=== PATIENT | female | born 1960 | race Caucasian/White ===

== ENCOUNTER 2025-07-04 14:10 | Outpatient (AMB) | payer OTHER, SELFPAY ==
--- OUTSIDE RECORDS SUMMARY | 2025-05-02 04:30 | XMS_ITS ---
Author Organization [facility] Address [address] [place] [address] Care Team Providers Care Rejogger Name Role Phone Manuel Sumiankita Primary Care Provider Unavailab INOCENTE Laguerre Unavailable [phone] KIAN KIM Unavailable [phone] REASON FOR VISIT pt presents for nurse visit. sema .5mg administered. pt tolerated well, consent form signed Medications Medication SIG (Take, Route, Frequency, Duration) Notes Start Date End Date Status amLODIPine Besylate 5 MG Oral; Duration: 90 Days Active Vitamin D3 50 MCG 1 capsule Orally Onc e a day; Duration: 30 day(s) 09/15/2024 Active Estradiol Vaginal insert Activ e Curcumin 95 Active Semaglutide(0.25 or 0.5MG/DOS) 2 MG/3ML as directed Subcutaneous Active Encounters Encounter Location Date Provider Diagnosis [facility] [address] [place] [address] 05/02/2025 KIAN KIM Plan Of Treatment Next Appt Details Provider Name:INOCENTE MEDEL , 08/16/2025 09:30:00 AM, [address] [facility], [facility] [address], [place], [address], Medications Administered Medication Instructions Date of Administration Dosage Notes Semaglutide 05/02/2025 .5 mg Progress Notes * Corie LYONS BDOB:[birth year] (64 yo F)Acc No.[id number]:05/02/2025 Patient: Ankita Corie VELÁZQUEZ Provider: Norm Kim MD :1960 A ge:64 Y S ex:Female Date:05/02/2025 Address:[address] [place] [address] R[address] m[address], [id number] Pcp:Amanda Jackson Subjective: * Chief Complaints: * 1 . Pt presents for nurse visit. sema .5mg administered. pt tolerated well, consent form signed. * Medical History: * Medications: T aking Semaglutide(0.25 or 0.5MG/DOS) 2 MG/3ML Solution Pen-injector as directed Subcutaneous , Taking Estradiol , Notes to Pharmacist: Vaginal insert, Taking Curcumin 95 , Taking amLODIPine Besylate 5 MG Tablet Oral , Taking Vitamin D3 50 MCG Capsule 1 capsule Orally Once a day Objective: * Vitals: Assessment: Plan: * Treatment: * Therapeutic Injections: Semaglutide : .5 mg (Route: Subcutaneous) given by Roxanna Tyler on left arm subcutaneous * Images: Billing Information: * Visit Code: * Procedure Codes: * Electronic signature of GIULIA KIM MD on 07/04/2025 at 04:46 PM EDT Sign off status: Pending * Provider: Norm Kim MD Date: 05/02/2025 Generated for Junior chapin/Martir/Marthaitting on: 07/04/2025 04:46 PM EDT
--- OUTSIDE RECORDS SUMMARY | 2025-05-30 04:30 | XMS_ITS ---
Author Organization [facility] Address [address] [place] [address] Care Team Providers Care Tin Stacker Name Role Phone Manuel Sumiankita Primary Care Provider Unavailab INOCENTE Laguerre Unavailable [phone] KIAN KIM Unavailable [phone] REASON FOR VISIT pt is here for nv for sema 0.5mg- pt signed consent and tolerated injection well Medications Medication SIG (Take, Route, Frequency, Duration) Notes Start Date End Date Status Vitamin D3 50 MCG 1 capsule Orally Onc e a day; Duration: 30 day(s) 09/15/2024 Active Semaglutide(0.25 or 0.5MG/DOS) 2 MG/3ML as directed Subcutaneous Active amLODIPine Besylate 5 MG Oral; Duration: 90 Days Active Encounters Encounter Location Date Provider Diagnosis [facility] [address] [place] [address] 05/30/2025 KIAN KIM Plan Of Treatment Next Appt Details Provider Name:INOCENTE MEDEL , 08/16/2025 09:30:00 AM, [address] [facility], [facility] [address], [place], [address], Medications Administered Medication Instructions Date of Administration Dosage Notes Semaglutide 05/30/2025 0.5 mg lot# [id number] 0.5mg Progress Notes * Corie LYONS BDOB:[birth year] (64 yo F)Acc No.[id number]:05/30/2025 Patient: Ankita Corie VELÁZQUEZ Provider: Norm Kim MD :1960 A ge:64 Y S ex:Female Date:05/30/2025 Address:[address] [place] [address], Rupal mullen, [facility] Pcp:Amanda Jackson Subjective: * Chief Complaints: * 1 . Pt is here for nv for sema 0.5mg- pt signed consent and tolerated injection well. * Medical History: * Medications: T aking Semaglutide(0.25 or 0.5MG/DOS) 2 MG/3ML Solution Pen-injector as directed Subcutaneous , Taking amLODIPine Besylate 5 MG Tablet Oral , Taking Vitamin D3 50 MCG Capsule 1 capsule Orally Once a day Objective: * Vitals: Assessment: Plan: * Treatment: * Therapeutic Injections: Semaglutide : 0.5 mg (Route: Subcutaneous) given by maria victoria castellon on subcutaneus * Images: Billing Information: * Visit Code: * Procedure Codes: * Electronic signature of GIULIA KIM MD on 07/04/2025 at 04:46 PM EDT Sign off status: Pending * Provider: Norm Kim MD Date: 05/30/2025 Generated for Junior chapin/Martir/Marthaitting on: 0 07/04/2025 04:46 PM EDT
--- OUTSIDE RECORDS SUMMARY | 2025-06-13 04:30 | XMS_ITS ---
Author Organization [facility] Address [address] [place] [address] Care Team Providers Care Header Machine Operator Name Role Phone Manuel Sumiankita Primary Care Provider Unavailab INOCENTE Laguerre Unavailable [phone] KIAN KIM Unavailable [phone] REASON FOR VISIT Patient is here for [...] Provider Diagnosis [facility] [address] [place] [address] 06/13/2025 KIAN KIM Plan Of Treatment Next Appt Details Provider Name:INOCENTE MEDEL , 08/16/2025 09:30:00 AM, [address] [facility], [facility] [address], [place], [address], Medications Administered Medication Instructions Date of Administration Dosage Notes Semaglutide 06/13/2025 0.5 mg Progress Notes * Corie LYONS BDOB:[birth year] (64 yo F)Acc No.[id number]:06/13/2025 Patient: Ankita HURSTHRENANDO Corie Ramirez Provider: Norm Kim MD :1960 A ge:64 Y S ex:Female Date:06/13/2025 Address:[address] [place] [address] [facility] Pcp:Amanda Jackson Subjective: * Chief Complaints: * 1 . Patient is here for sema 0.5mg. Patient signed consent and left the office in stable condition. * Medical History: * Medications: T margaretteg Semaglutide(0.25 or 0.5MG/DOS) 2 MG/3ML Solution Pen-injector as directed Subcutaneous , Taking amLODIPine Besylate 5 MG Tablet Oral , Taking Vitamin D3 50 MCG Capsule 1 capsule Orally Once a day Objective: * Vitals: Assessment: Plan: * Treatment: * Therapeutic Injections: Semaglutide : 0.5 mg (Route: Subcutaneous) given by Fred Gutiérrez on left arm subcutaneous * Images: Billing Information: * Visit Code: * Procedure Codes: * Electronic signature of GIULIA KIM MD on 07/04/2025 at 04:46 PM EDT Sign off status: Pending * Provider: Norm Kim MD Date: 06/13/2025 Generated for Junior chapin/Martir/Marthaitting on: 0 07/04/2025 04:46 PM EDT
--- NOTE | 2025-07-04 14:13 | A.OFFPC_ITS ---
Vital Signs 07/04/25 14:20 Height 4 ft 8.1 in Weight 106 lb BMI 23.7 BP 138/69 Blood Pressure Location Rt brachial Position Sitting Respiration 14 Pulse 68 Pulse Source Pulse Oximeter Temp 97.7 F Temp Source Temporal Artery Scan Pulse Oximetry (%) 99 Oxygen Delivery Method Room Air Intake Visit Reasons: Establish care - see comments Clerk Supervisor Required: No Accompanied by: Self / Same As Patient Allergies No Known Allergies Allergy (Verified 07/04/25 14:16) Tobacco use date assessed: 07/04/25 Fall risk assessment: No Falls in past year Last assessed Fall Risk: 07/04/25 Dental Screening Dental Screen Date: 07/04/25 Did you have a dental visit in the last 12 months?: Yes Did you have a dental problem in the last 6 months where you did not have access to dental care?: No Was dental information given to patient?: Patient has dentist [facility] Medical History (Updated 07/04/25 @ 15:00 by Morgan Casillas MD) Essential hypertension Hyperlipidemia Family History (Updated 07/04/25 @ 14:24 by ANGELA Mahoney) Father Heart disease Mother No problems noted. Social History (Updated 07/04/25 @ 14:25 by ANGELA Mahoney) Housing: House Alcohol intake: current Alcohol intake frequency: a few times a week Patient Tobacco Use Status: Never used Tobacco service: No Current occupational status: employed Cognitive needs: No Hearing needs: No Vision needs: Yes (rx glasses) Questionnaire PHQ-9 Over the last 2 weeks, how often have you been bothered by any of the following problems? 1. Little interest or pleasure in doing things: not at all 2. Feeling down, depressed, or hopeless: not at all 3. Trouble falling or staying asleep, or sleeping too much: not at all 4. Feeling tired or having little energy: not at all 5. Poor appetite or overeating: not at all 6. Feeling bad about yourself - or that you are a failure or have let yourself or your family down: not at all 7. Trouble concentrating on things, such as reading the newspaper or watching television: not at all 8. Moving or speaking so slowly that other people could have noticed. Or the opposite - being so fidgety or restless that you have been moving around a lot more than usual: not at all 9. Thoughts that you would be better off or of hurting yourself in some way: not at all Total score: 0 Source: Developed by Drs. Paul Barnes, Sheree Doe, Kevin Wolfe and colleagues, with an educational elizabeth from [employer] Thrive Questionnaire Date Thrive assessed: 07/04/25 I am a: Patient What is your living situation today?: I have a steady place to live Within the past 12 months, did the food you bought not last and you didn't have the money to get more?: Never true Within the past 12 months, did you worry whether your food would run out before you got money to buy more?: Never true Do you have trouble paying for medicines?: No Do you have trouble getting transportation to medical appointments?: No Do you have trouble paying your heating and electricity bill?: No Do you have trouble taking care of your child, family member or friend?: No Do you have trouble with day-to-day activities such as bathing, preparing meals, shopping, managing finances, etc.?: No Are you currently unemployed and looking for a job?: No Are you interested in more education?: No Please select the resources that you would like help with: None THRIVE Score: 0 AUDIT C Alcohol Use Questionnaire (AUDIT-C) 1. How often do you have a drink containing alcohol?: 2-3 times a week 2. How many drinks containing alcohol do you have on a typical day when you are drinking?: 1 or 2 3. How often do you have six or more drinks on one occasion?: Never Total Score: 3 MORALES-7 AMB Questionnaire MORALES-7 Date MORALES - 7 assessed: 07/04/25 Feeling nervous, anxious, or on edge: 0 = Not at all Not being able to stop or control worryin = Not at all Worrying too much about different things: 0 = Not at all Trouble relaxin = Not at all Being so restless that it is hard to sit still: 0 = Not at all Becoming easily annoyed or irritable: 0 = Not at all Feeling afraid as if something awful might happen: 0 = Not at all Total MOARLES-7 score (0-4 normal; 5-9 mild; 10-14 moderate; 15-21 severe): 0 Source: Developed by Drs. Paul Barnes, Sheree Doe, Kevin Wolfe and colleagues, with an educational elizabeth from [employer] Physical exam (Primary Care) Vital Signs: Last Vital Signs Temp 97.7 F 07/04/25 14:20 Pulse 68 07/04/25 14:20 Resp 14 07/04/25 14:20 BP 138/69 07/04/25 14:20 Pulse Ox 99 07/04/25 14:20 Oxygen Delivery Method Room Air 07/04/25 14:20 BMI result Body Mass Index 23.7 Tobacco/Smoking Status: Tobacco use Status Tobacco use date assessed 07/04/25 07/04/25 14:18 Patient Tobacco Use Status Never used Tobacco 07/04/25 14:25 PHQ-9: PHQ-9 Score PHQ-9: Total score 0 07/04/25 14:55 Thrive Assessment: Date of Thrive Assessment Date Thrive assessed 07/04/25 07/04/25 14:18 Coding Level of Care Code New Pt Level 4 (38044) Complex EM visit Add On [id number] Diagnoses Essential hypertension I10 Assessment & Plan Assessment & Plan (1) Essential hypertension: Code(s): I10 - Essential (primary) hypertension Category: Medical Plan: BP is in range. Encouraged patient to continue taking medications. BW ordered. Plan History of Present Illness - The patient is a 64-year-old female presenting with the need for preventative health measures, including colonoscopy and blood work. - Hyperlipidemia: The patient reports her cholesterol was slightly elevated in the past, but she engages in regular physical activity, including pickleball, to manage it. - Hypertension: The patient is prescribed amlodipine 5 mg daily but has not taken it for a week due to stable blood pressure readings. - She expresses concern about the potential for hypotension if she resumes the medication. - Uterine cancer: The patient is a cancer survivor, having undergone a total hysterectomy without the need for chemotherapy. - Preventative care: The patient is due for a colonoscopy as her last one was ten years ago. - She is also up to date with her mammogram, which was normal. - She plans to have a bone density test due to a family history of osteoporosis. 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 - Exercise: Engages in regular physical activity, including pickleball. - Family history: Both parents of heart disease, and there is a family history of osteoporosis. Review of Systems - Cardiovascular: Denies chest pain or palpitations. - Musculoskeletal: Reports no current pain but mentions a tendency to be swollen. Physical Exam General: Cooperative and healthy appearing Nutritional Appearance: Well nourished Orientation/consciousness: Patient oriented x3 Limitations: No limitations Head: Normal to inspection General: Appearance normal, both eyes and all related structures Neck: Normal visual inspection Chest: Normal palpation of entire chest wall Respiratory: N ormal respiratory effort Neurology: Patient oriented x3, no acute distress noted. Results Plan 1. Hyperlipidemia - Plan to monitor cholesterol levels with upcoming blood work. 2. Hypertension - Advised to continue amlodipine 5 mg daily despite stable blood pressure readings. 3. Uterine Cancer (Status Post Total Hysterectomy) - No further treatment required as the patient is in remission. 4. Preventative Care: Colon Cancer Screening - Colonoscopy scheduled as the last one was ten years ago. 5. Preventative Care: Mammogram - Mammogram results were normal, completed on April 11. 6. Preventative Care: Bone Density Test - Recommended due to family history of osteoporosis. Discussion Notes During the visit, we discussed the importance of continuing amlodipine for hypertension management despite stable readings. We also reviewed the need for a colonoscopy due to the ten-year interval since the last screening. The patient was informed about the normal mammogram results and the recommendation for a bone density test due to family history of osteoporosis. Follow-up was advised for blood work and colonoscopy scheduling. Patient Instructions - Continue taking amlodipine 5 mg daily as prescribed. - Schedule and complete the colonoscopy as planned. - Follow up with blood work at the designated lab location. - Maintain regular physical activity to manage cholesterol levels. - Consider scheduling a bone density test due to family history of osteoporosis. Orders: Orders Basic Metabolic Panel Today E78.5 - Hyperlipidemia, unspecified Lipid Panel Today E78.5 - Hyperlipidemia, unspecified Liver Panel Today E78.5 - Hyperlipidemia, unspecified XR DEXA axial skeleton Today M81.0 - Age-related osteoporosis without current pathological fracture Complete Blood Count no Diff Today E78.5 - Hyperlipidemia, unspecified Thyroid Stimulating Hormone Today E78.5 - Hyperlipidemia, unspecified UA and rflx microscopic Today E78.5 - Hyperlipidemia, unspecified Referrals Gastroenterology Referral Z12.11 - Encounter for screening for malignant neoplasm of colon
[2025-07-04 14:20] VITALS: BP 138/69; PULSE 68; RESP 14; TEMP 36.5; O2SAT 99; BMI 23.7
--- OUTSIDE RECORDS SUMMARY | 2025-07-04 16:47 | XMS_ITS | Patient Health Record ---
Author Organization [facility] [address] Address [address] [place] [address] Care Team Providers Care Help Desk Assistant Name Role Phone Amanda Jackson Primary Care Provider Unavailab sunday WELCHINOCENTE SHIN Unavailable [phone] VIANEY KIM Unavailable [phone] SANDITRAVIS JOHNSON Unavailable [phone] Allergies No Known Allergies Results Component Value Reference Range Notes COMPREHENSIVE METABOLIC PANE L Reviewed date:09/16/2024 11:28:27 AM Interpretation: Performing Lab: Notes/Report: Sodium 139 133-145 mmol/L Potassium 3.8 3.5-5.5 mmol/L Chloride 104 96-110 mmol/L CO2 28 21-32 mmol/L Anion Gap 7 3-11 Glucose 87 70-100 mg/dL BUN 18 5-25 mg/dL Creatinine 0.75 0.50-1.10 mg/dL eGFR 88 >=60 mL/min/1.73m2 Calculati on based on the?Chronic Kidney Disease Epidemiology Collaboration (CKD-EPI) equation refit?without adjustment for race. BUN/Creatinine Ratio 24.0 Calcium 9.9 8.5-10.5 mg/dL AST (SGOT) 23 10-42 unit/L ALT (SGPT) 19 10-60 unit/L Alkaline Phosphatase 58 42-121 unit/L Total Protein 7.2 6.0-8.0 g/dL Albumin 4.4 3.2-5.0 g/dL Total Bilirubin 0.8 0.0-1.4 mg/dL THYROID STIMULATING HORMONE Reviewed date:09/16/2024 11:27:59 AM Interpretation: Performing Lab: Notes/Report: TSH 1.24 0.40-4.00 mcIU/mL VITAMIN D 25 HYDROXY Reviewed date:09/16/2024 11:28:03 AM Interpretation: Performing Lab: Notes/Report: Vit D, 25-Hydroxy 43.0 30.0-80.0 ng/mL LIPID PANEL WITH REFLEX TO D IRECT LDL Reviewed date:09/16/2024 11:28:17 AM Interpretation: Performing Lab: Notes/Report: Cholesterol 212 0-200 mg/dL Triglycerides 79 0-150 mg/dL HDL 77 >=40 mg/dL LDL Calculated 119 0-100 mg/dL VLDL Cholesterol Dutch 15.8 Non HDL Chol. (LDL+VLDL) 135 <145 mg/dL Chol/HDL Ratio 2.8 0.0-4.4 CBC WITH AUTO DIFFERENTIAL Reviewed date:09/16/2024 11:28:35 AM Interpretation: Performing Lab: Notes/Report: WBC 5.9 4.8-10.8 K/mcL RBC 4.60 3.80-4.80 M/mcL Hemoglobin 14.0 11.5-16.0 g/dL Hematocrit 42.7 35.0-47.0 % MCV 92.2 79.0-98.0 FL MCH 30.2 27.0-32.0 pcg MCHC 32.8 32.0-37.0 g/dL RDW 12.6 11.0-15.0 % Platelets 281 130-400 K/mcL MPV 10.5 7.0-11.0 FL NRBC 0.0 <1.0 % NRBC Absolute 0.00 <0.10 K/mcL Neutrophils Relative 51.4 Lymphocytes Relative 40.4 Monocytes Relative 6.6 Eosinophils Relative 0.7 Basophils Relative 0.7 Immature Granulocytes Relative 0.2 Neutrophils Absolute 3.02 1.50-7.00 K/mcL Lymphocytes Absolute 2.37 1.00-5.00 K/mcL Monocytes Absolute 0.39 0.20-1.00 K/mcL Eosinophils Absolute 0.04 0.00-0.50 K/mcL Basophils Absolute 0.04 0.00-0.20 K/mcL Immature Granulocytes Absolute 0.01 0.00-0.03 K/mcL Reason For Referral No Information Medications Medication SIG (Take, Route, Frequency, Duration) Notes Start Date End Date Status Vitamin D3 50 MCG 1 capsule Orally Onc e a day; Duration: 30 day(s) 09/15/2024 Active Wegovy 0.5 MG/0.5ML Inject 0.5 mg Subcut aneous weekly; Duration: 28 days 06/27/2025 Active amLODIPine Besylate 5 MG Oral; Duration: 90 Days Active Semaglutide(0.25 or 0.5MG/DOS) 2 MG/3ML as directed Subcutaneous Active Problems Problem Type SNOMED Code ICD Code Onset Dates Problem Status W/U Status Risk Notes Problem Vitamin D deficiency (41014849) Vitamin D deficiency, unspecified (E55.9) Active confirmed Problem Overweight (592620691) Overweight (E66.3) Active confirmed Problem Lipid screening (548237861) Encounter for screening for lipoid disorders (Z13.220) Active confirmed Problem Essential hypertension (60766171) Essential hypertension (I10) Active confirmed Problem Adult health examination (338774968) Adult general medical exam (Z00.00) Active confirmed Problem Mixed hyperlipidemia (872823749) Hyperlipidemia, mixed (E78.2) Active confirmed Problem Endometrial carcinoma (965296049) Endometrial carcinoma (C54.1) Active confirmed Problem Endocrine/metaboli c screening (205980138) Encounter for screening for endocrine disorder (Z13.29) Active confirmed Vital Signs Heart Rate 74 /min 06/27/2025 Oximetry 95 % 06/27/2025 Blood pressure diastolic 80 mm Hg 06/27/2025 Height 55 in 06/27/2025 Blood pressure systolic 126 mm Hg 06/27/2025 Weight 106 lbs 06/27/2025 BMI 24.63 kg/m2 06/27/2025 Encounters Encounter Location Date Provider Diagnosis [facility] [address] 01/25/2025 TRAVIS JACKSON [facility] [address] [place] [address] 02/21/2025 TALCLEMENTE KIM [facility] [address] 03/23/2025 TRAVIS JACKSON [facility] [address] [place] [address] 04/17/2025 TALAL KIM [facility] [address] [place] [address] 05/02/2025 TALAL KIM [facility] [address] [place] [address] 05/30/20[address] KIM [facility] [address] [place] [address] 06/13/2025 VIANEY KIM [facility] [address] [address] 09/15/2024 INOCENTE BIRKS Overweight E66.3 ; B VT 28.0-28.9,adult Z68.28 ; Nutritional counseling Z71.3 ; Essential hypertension I10 and Hx of cancer of endometrium Z85.42 [facility] [address] [address] 10/12/2024 INOCENTE BIRKS Overweight E66.3 ; B VT 27.0-27.9,adult Z68.27 ; Essential hypertension I10 ; Hyperlipidemia, mixed E78.2 and Endometrial carcinoma C54.1 [facility] [address] [address] 11/09/2024 INOCENTE BIRKS Overweight E66.3 ; B VT 27.0-27.9,adult Z68.27 ; Essential hypertension I10 ; Hyperlipidemia, mixed E78.2 and Endometrial carcinoma C54.1 [facility] [address] [address] 12/14/2024 INOCENTE BIRKS Overweight E66.3 ; B VT 26.0-26.9,adult Z68.26 ; Essential hypertension I10 ; Hyperlipidemia, mixed E78.2 ; Endometrial carcinoma C54.1 and Dietary counseling Z71.3 [facility] [address] 01/12/2025 INOCENTE BIRKS Overweight E66.3 ; B VT 27.0-27.9,adult Z68.27 ; Essential hypertension I10 ; Hyperlipidemia, mixed E78.2 ; Endometrial carcinoma C54.1 and Dietary counseling Z71.3 [facility] [address] [address] 02/08/2025 INOCENTE BIRKS Overweight E66.3 ; B VT 26.0-26.9,adult Z68.26 ; Essential hypertension I10 ; Hyperlipidemia, mixed E78.2 ; Endometrial carcinoma C54.1 and Dietary counseling Z71.3 [facility] [address] [address] 03/07/2025 INOCENTE BIRKS Dietary counseling Z71.3 ; BMI 24.0-24.9, adult Z68.24 ; Essential hypertension I10 ; Hyperlipidemia, mixed E78.2 and Endometrial carcinoma C54.1 [facility] [address] [address] 04/04/2025 INOCENTE BIRKS Dietary counseling Z71.3 ; BMI 24.0-24.9, adult Z68.24 ; Essential hypertension I10 ; Hyperlipidemia, mixed E78.2 and Endometrial carcinoma C54.1 [facility] [address] [address] 05/17/2025 INOCENTE BIRKS Dietary counseling Z71.3 ; BMI 24.0-24.9, adult Z68.24 ; Essential hypertension I10 ; Hyperlipidemia, mixed E78.2 and Endometrial carcinoma C54.1 [facility] [address] [address] 06/27/2025 INOCENTE BIRKS Dietary counseling Z71.3 ; BMI 24.0-24.9, adult Z68.24 ; Essential hypertension I10 ; Hyperlipidemia, mixed E78.2 and Endometrial carcinoma C54.1 [facility] [address] 09/15/2024 INOCENTE BIRKS [facility] [address] [address] 09/26/2024 INOCENTE BIRKS Overweight E66.[address] [facility] [address] [place] [address] 09/28/2024 INOCENTE BIRKS [facility] [address] [address] 02/08/2025 Amanda Jackson Assessments Encounter Date Diagnosis (ICD Code) Assessment Notes Treatment Notes Treatment Clinical Notes Section Notes 09/15/2024 Overweight (ICD-10 - E66.3) Corie is a 64-year-old female with history of obesity who presents to the office today for weight management consult. Medical history, labs, allergies, medications, and social history reviewed with the patient. Provided education on healthy diet and lifestyle which includes high-protein, low carbohydrate, high-fiber, and a variety of fruits and vegetables. Patient encouraged to exercise with emphasis on resistance training minimum 3 times per week to maintain muscle mass and cardio to burn fat. All patient questions answered. Patient will follow-up in 2 to 4 weeks for weight management. 09/15/2024: Weight 222.6 pounds, BMI 28.49. SECA scan completed today and interpreted with the patient. She has high fat mass. Noted to have decreased muscle mass at approximately 22 pounds when minimum expected quantity estimated to be around 25 pounds. Visceral adipose tissue index slightly increased. She reports difficulty with reducing her weight. She follows lifestyle modifications including exercising daily before work and is currently following the whole 40 diet where she is not consuming carbohydrates or dairy products. We discussed clinical indications for weight management medications including phentermine, Contrave, and GLP-1 agonists. Patient is not a candidate for phentermine given history of high blood pressure on amlodipine. Given the patient's decreased muscle mass we discussed the mechanism of GLP-1 agonists as well as how they do not target fat loss rather target weight loss which can include muscle. Discussed the risks of continuing to decrease muscle loss as a relates to osteoporosis. For that reason the patient will be a good candidate for Contrave. We discussed the appropriate use of the medication including appropriate dosing schedule. Discussed expected side effect profile of the medication including but not limited to nausea, vomiting, headaches, dizziness, and constipation. Repeat labs ordered with results pending at this time. Patient demonstrates understanding. She will follow-up in the office in approximately 1 month for weight management. # Hypertension: Blood pressure stable in office today 130/84. She is without chest pain, shortness of breath, dyspnea on exertion, or diaphoresis. Continue amlodipine besilate 5 mg once daily. Discussed proper use of the medication and expected side effect profile. Will continue to monitor. Please follow-up with PCP. # Endometrial cancer: Patient currently in remission of stage Ia endometrial cancer as of 2019. She has regular follow-up with gynecology, last note on 02/11/2024 for routine screening and pelvic examination. Will continue to monitor. Patient was reassured and welcomed to the practice. We discussed that we stress a hollistic medical approach with emphasis on lifestyle modification. Patient was informed that a healthy lifestyle with exercise and good eating habits can help reduce his risk of medical complications. Patient is explained that obesity increases his risk of diabetes, cardiovascular disease, or organ damage. We spent a lot of time discussing the relationship between food, exercise, sleep, mental health and obesity. Patient was counseled on the importance EATING local, organic food when possible. Patient was educated on clean 15 and dirty dozen. I provided information about reading books called The Food Rules by Hermilo Truong and Eat Fat Get Lean by Dr Juvenal Chin. Self education is important in the journey for weight management. Patient was offered diagnostic testing/ SECA scale. We want to measure visceral adiposity, advanced body composition, adverse lipids, fatty acid balance, risk for heart disease and atherosclerosis, markers of inflammation and genetic susceptibility. Patient was counseled on weight management and was advised to lose weight using A. Meal Replacement Products Patient was educated on the replacement products called optifast. This is a good way of taking fixed amount of calories. It has been shown in studies to be ineffective weight management tool. This however has to be coupled with lifestyle intervention as well as laboratory data and EKG monitoring. It is impossible to know how a person will tolerate complete meal replacement. The side effects of meal replacement and weight loss could include syncopal attacks, dizziness, gallstones, potential cholecystectomy, possible heart attack and even . The benefits of meal replacement would be potential weight loss but no guarantees can be made. Meal replacement products are not covered by insurance. Once the patient has bought these products we cannot return them B. Lifestyle management which includes several strategies as below 1. Eat a low carbohydrate good fat good protein diet. Eliminate refined carbohydrates from the diet. Limit sugared beverages. Eat local organic when possible. Cook your own meals. Read food labels. Focus on healthy snacks. Portion control and food with low glycemic index 2. Exercise regularly. Try to get at least 6000 steps a day. Use a predominant to track activity level. Consider using apps like 7 minute excercise, myfitnesspal, lose it, stick as needed for self-monitoring and weight management. Consider group exercises. Consider hiring a appraiser personal property. Regular exercise is fernandez to sustainable health and prevents as a buffer against weight regain 3. Sleep is most important for healing. Try to sleep at least 6-8 hours a night. A good quality sleep needs a sleep ritual with ideal room temperature of around 68. It might help to take a shower and have no electronics in the room and sleep in a very dark room without artificial light. Start sleep routine and get up early in the morning and go to bed on time. 4. Make a social connection. Surround yourself with positive people with positive energy. Connect with friends and family. 5. Get into the habit of meditating and mindfulness while doing everything. 6. Go outside and connect with nature. C. Prescription medications Patient was educated on the use of prescription medications for medical weight loss. This is a growing list and includes phentermine, Topamax,Qsymia, contrave, belviq and saxenda, wegovy etc. All prescription medications could have side effects including but not limited to kidney stones, seizure disorder cardiac arrhythmias heart attack pancreatitis, GI effects, Etc. Patient was encouraged to read the prescription insert and have coaching with their pharmacist and make an informed decision about taking medication and know that these medications are being prescribed with good intentions and we do not know how a patient would react to her medication. Some medications are FDA approved for weight loss and there is also off label use depending on patient's inability to afford medications in an attempt to lose weight D. Behavioral counseling was done to establish a relationship between food and an mood. Patient was provided information about local counseling and psychiatry and Dr Keller at [facility]. We would like to cover regular topics and build on low glycemic eating exercise mindful eating, using yoga and meditation along with deep breathing and connecting with friends and family. E. MASS PAT reviewed, Patient's current medications were reviewed and opinion was given on medication that can cause weight gain and can be substituted F. Patient was assessed for risk with obesity including and not limiting to atherosclerosis heart disease stroke kidney disease, restrictive lung disease, irritable bowel syndrome and overall mortality. Risk of developing prediabetes diabetes and metabolic syndrome was discussed G. Therapeutic plan: We have decided to make therapeutic plan which would include choosing wisely on calories restricting portion getting active, tracking weight, getting good quality sleep and working on time management H. Patient will follow up in 4 weeks for weight management Total time spent today was 60 minutes of which greater than 50% was spent on coordinating and counseling After consultation and careful review of medical history, this patient would benefit from Contrave based off of the following criteria met: Patient is over the age of 18, has a BMI of 28.49. Additional comorbidities include hypertension and endometrial cancer in remission. Patient has trialed other methods of weight loss including improving diet, exercise without success over three months. This medication is prescribed by or in consultation with a board certified obesity and weight management physician (Dr. Vianey Kim or Dr. Morgan Kim). Case discussed with collaborating physician Akilah Kim who reviewed the assessment and plan. Chart, medications, labs, vital signs reviewed. Dictation was accomplished with the use of [employer] voice recognition software, prone to medical misidentifications and grammatical errors. This is unintentional and the practitioner does try to identify and correct these, but some could still be present. Please do not hesitate to contact practitioner for clarification. All questions answered to patients satisfaction. Patient verbalized understanding of diagnosis and treatments explained. To call sooner prior to next visit it any questions/concerns arise. 09/15/2024 BMI 28.0-28.9,adult (ICD-10 - Z68.28) Corie is a 64-year-old female with history of obesity who presents to the office today for weight management consult. Medical history, labs, allergies, medications, and social history reviewed with the patient. Provided education on healthy diet and lifestyle which includes high-protein, low carbohydrate, high-fiber, and a variety of fruits and vegetables. Patient encouraged to exercise with emphasis on resistance training minimum 3 times per week to maintain muscle mass and cardio to burn fat. All patient questions answered. Patient will follow-up in 2 to 4 weeks for weight management. 09/15/2024: Weight 222.6 pounds, BMI 28.49. SECA scan completed today and interpreted with the patient. She has high fat mass. Noted to have decreased muscle mass at approximately 22 pounds when minimum expected quantity estimated to be around 25 pounds. Visceral adipose tissue index slightly increased. She reports difficulty with reducing her weight. She follows lifestyle modifications including exercising daily before work and is currently following the whole 40 diet where she is not consuming carbohydrates or dairy products. We discussed clinical indications for weight management medications including phentermine, Contrave, and GLP-1 agonists. Patient is not a candidate for phentermine given history of high blood pressure on amlodipine. Given the patient's decreased muscle mass we discussed the mechanism of GLP-1 agonists as well as how they do not target fat loss rather target weight loss which can include muscle. Discussed the risks of continuing to decrease muscle loss as a relates to osteoporosis. For that reason the patient will be a good candidate for Contrave. We discussed the appropriate use of the medication including appropriate dosing schedule. Discussed expected side effect profile of the medication including but not limited to nausea, vomiting, headaches, dizziness, and constipation. Repeat labs ordered with results pending at this time. Patient demonstrates understanding. She will follow-up in the office in approximately 1 month for weight management. # Hypertension: Blood pressure stable in office today 130/84. She is without chest pain, shortness of breath, dyspnea on exertion, or diaphoresis. Continue amlodipine besilate 5 mg once daily. Discussed proper use of the medication and expected side effect profile. Will continue to monitor. Please follow-up with PCP. # Endometrial cancer: Patient currently in remission of stage Ia endometrial cancer as of 2019. She has regular follow-up with gynecology, last note on 02/11/2024 for routine screening and pelvic examination. Will continue to monitor. Patient was reassured and welcomed to the practice. We discussed that we stress a hollistic medical approach with emphasis on lifestyle modification. Patient was informed that a healthy lifestyle with exercise and good eating habits can help reduce his risk of medical complications. Patient is explained that obesity increases his risk of diabetes, cardiovascular disease, or organ damage. We spent a lot of time discussing the relationship between food, exercise, sleep, mental health and obesity. Patient was counseled on the importance EATING local, organic food when possible. Patient was educated on clean 15 and dirty dozen. I provided information about reading books called The Food Rules by Hermilo Truong and Eat Fat Get Lean by Dr Juvenal Chin. Self education is important in the journey for weight management. Patient was offered diagnostic testing/ SECA scale. We want to measure visceral adiposity, advanced body composition, adverse lipids, fatty acid balance, risk for heart disease and atherosclerosis, markers of inflammation and genetic susceptibility. Patient was counseled on weight management and was advised to lose weight using A. Meal Replacement Products Patient was educated on the replacement products called optifast. This is a good way of taking fixed amount of calories. It has been shown in studies to be ineffective weight management tool. This however has to be coupled with lifestyle intervention as well as laboratory data and EKG monitoring. It is impossible to know how a person will tolerate complete meal replacement. The side effects of meal replacement and weight loss could include syncopal attacks, dizziness, gallstones, potential cholecystectomy, possible heart attack and even . The benefits of meal replacement would be potential weight loss but no guarantees can be made. Meal replacement products are not covered by insurance. Once the patient has bought these products we cannot return them B. Lifestyle management which includes several strategies as below 1. Eat a low carbohydrate good fat good protein diet. Eliminate refined carbohydrates from the diet. Limit sugared beverages. Eat local organic when possible. Cook your own meals. Read food labels. Focus on healthy snacks. Portion control and food with low glycemic index 2. Exercise regularly. Try to get at least 6000 steps a day. Use a predominant to track activity level. Consider using apps like 7 minute excercise, myDEONTICSpal, lose it, stick as needed for self-monitoring and weight management. Consider group exercises. Consider hiring a appraiser personal property. Regular exercise is fernandez to sustainable health and prevents as a buffer against weight regain 3. Sleep is most important for healing. Try to sleep at least 6-8 hours a night. A good quality sleep needs a sleep ritual with ideal room temperature of around 68. It might help to take a shower and have no electronics in the room and sleep in a very dark room without artificial light. Start sleep routine and get up early in the morning and go to bed on time. 4. Make a social connection. Surround yourself with positive people with positive energy. Connect with friends and family. 5. Get into the habit of meditating and mindfulness while doing everything. 6. Go outside and connect with nature. C. Prescription medications Patient was educated on the use of prescription medications for medical weight loss. This is a growing list and includes phentermine, Topamax,Qsymia, contrave, belviq and saxenda, wegovy etc. All prescription medications could have side effects including but not limited to kidney stones, seizure disorder cardiac arrhythmias heart attack pancreatitis, GI effects, Etc. Patient was encouraged to read the prescription insert and have coaching with their pharmacist and make an informed decision about taking medication and know that these medications are being prescribed with good intentions and we do not know how a patient would react to her medication. Some medications are FDA approved for weight loss and there is also off label use depending on patient's inability to afford medications in an attempt to lose weight D. Behavioral counseling was done to establish a relationship between food and an mood. Patient was provided information about local counseling and psychiatry and Dr Keller at [facility]. We would like to cover regular topics and build on low glycemic eating exercise mindful eating, using yoga and meditation along with deep breathing and connecting with friends and family. E. MASS PAT reviewed, Patient's current medications were reviewed and opinion was given on medication that can cause weight gain and can be substituted F. Patient was assessed for risk with obesity including and not limiting to atherosclerosis heart disease stroke kidney disease, restrictive lung disease, irritable bowel syndrome and overall mortality. Risk of developing prediabetes diabetes and metabolic syndrome was discussed G. Therapeutic plan: We have decided to make therapeutic plan which would include choosing wisely on calories restricting portion getting active, tracking weight, getting good quality sleep and working on time management H. Patient will follow up in 4 weeks for weight management Total time spent today was 60 minutes of which greater than 50% was spent on coordinating and counseling After consultation and careful review of medical history, this patient would benefit from Contrave based off of the following criteria met: Patient is over the age of 18, has a BMI of 28.49. Additional comorbidities include hypertension and endometrial cancer in remission. Patient has trialed other methods of weight loss including improving diet, exercise without success over three months. This medication is prescribed by or in consultation with a board certified obesity and weight management physician (Dr. Vianey Kim or Dr. Morgan Kim). Case discussed with collaborating physician Akilah Kim who reviewed the assessment and plan. Chart, medications, labs, vital signs reviewed. Dictation was accomplished with the use of [employer] voice recognition software, prone to medical misidentifications and grammatical errors. This is unintentional and the practitioner does try to identify and correct these, but some could still be present. Please do not hesitate to contact practitioner for clarification. All questions answered to patients satisfaction. Patient verbalized understanding of diagnosis and treatments explained. To call sooner prior to next visit it any questions/concerns arise. 09/26/2024 Overweight (ICD-10 - E66.3) 10/12/2024 Overweight (ICD-10 - E66.3) Patient is here for weight management follow-up. We focused on significance of healthy lifestyle changes. We talked about need to track steps with goal between 6000-10,000 steps daily, focus on portion control, read food labels, get adequate sleep between 7 to 8 hours, get adequate rest to the body, meditate, frequent nutritious meals including vegetables and healthy choices of lean meats, fish, and elimination of refined carbohydrates. We also talked about mindfulness and mindful eating. Particular focus was on continuing to progressively add resistance training and increase protein intake to build muscle mass. Total time spent with 30 minutes with greater than 50% spent on counseling and coordinating care. 09/15/2024: Weight 122.6 pounds, BMI 28.49. SECA scan completed today and interpreted with the patient. She has high fat mass. Noted to have decreased muscle mass at approximately 22 pounds when minimum expected quantity estimated to be around 25 pounds. Visceral adipose tissue index slightly increased. She reports difficulty with reducing her weight. She follows lifestyle modifications including exercising daily before work and is currently following the whole 40 diet where she is not consuming carbohydrates or dairy products. We discussed clinical indications for weight management medications including phentermine, Contrave, and GLP-1 agonists. Patient is not a candidate for phentermine given history of high blood pressure on amlodipine. Given the patient's decreased muscle mass we discussed the mechanism of GLP-1 agonists as well as how they do not target fat loss rather target weight loss which can include muscle. Discussed the risks of continuing to decrease muscle loss as a relates to osteoporosis. For that reason the patient will be a good candidate for Contrave. We discussed the appropriate use of the medication including appropriate dosing schedule. Discussed expected side effect profile of the medication including but not limited to nausea, vomiting, headaches, dizziness, and constipation. Repeat labs ordered with results pending at this time. Patient demonstrates understanding. She will follow-up in the office in approximately 1 month for weight management. 10/12/2024: Weight 118 pounds, BMI 27.42. SECA scan completed today and interpreted with the patient. Overall down 4 pounds from previous visit. Is decreasing fat mass which she was congratulated for. Increase in muscle mass from 22.2 pounds to 22.5 pounds. Advised to continue working with appraiser personal property to build muscle mass. Reports side effect of dry mouth, advised patient to take the medication with a glass of water as well as to continue daily hydration. At this time plan to continue taking Contrave 90-80 mg 2 tablets twice daily. Discussed proper use of the medication as well as expected side effect profile. She will follow-up in the office in approximately 4 weeks for continued weight management. # Hypertension: Blood pressure stable in office today 122/82. She is without chest pain, shortness of breath, dyspnea on exertion, or diaphoresis. Continue amlodipine besilate 5 mg once daily. Discussed proper use of the medication and expected side effect profile. Will continue to monitor. Please follow-up with PCP. # Hyperlipidemia: Lipid panel obtained 09/15/2024 with values including cholesterol 212, triglycerides 79, HDL 77, and LDL 119. Per ASCVD risk algorithm no statin recommended because 10-year risk less than 5%. Will continue to monitor and repeat lipid panel in a few months. # Endometrial cancer: Patient currently in remission of stage Ia endometrial cancer as of 2019. She has regular follow-up with gynecology, last note on 02/11/2024 for routine screening and pelvic examination. Will continue to monitor. All questions have been answered to patient's satisfaction. Patient verbalized understanding of diagnosis and treatments explained. Advised to call sooner prior to next visit it any questions/concerns arise. Case discussed with collaborating physician Mayo Kim who reviewed the assessment and plan. Chart, medications, labs, vital signs reviewed. Dictation was accomplished with the use of [employer] voice recognition software, which is prone to medical misidentifications and grammatical errors. This are unintentional and the practitioner does try to identify and correct these, but some could still be present. Please do not hesitate to contact practitioner for clarification. 10/12/2024 BMI 27.0-27.9,adult (ICD-10 - Z68.27) Patient is here for weight management follow-up. We focused on significance of healthy lifestyle changes. We talked about need to track steps with goal between 6000-10,000 steps daily, focus on portion control, read food labels, get adequate sleep between 7 to 8 hours, get adequate rest to the body, meditate, frequent nutritious meals including vegetables and healthy choices of lean meats, fish, and elimination of refined carbohydrates. We also talked about mindfulness and mindful eating. Particular focus was on continuing to progressively add resistance training and increase protein intake to build muscle mass. Total time spent with 30 minutes with greater than 50% spent on counseling and coordinating care. 09/15/2024: Weight 122.6 pounds, BMI 28.49. SECA scan completed today and interpreted with the patient. She has high fat mass. Noted to have decreased muscle mass at approximately 22 pounds when minimum expected quantity estimated to be around 25 pounds. Visceral adipose tissue index slightly increased. She reports difficulty with reducing her weight. She follows lifestyle modifications including exercising daily before work and is currently following the whole 40 diet where she is not consuming carbohydrates or dairy products. We discussed clinical indications for weight management medications including phentermine, Contrave, and GLP-1 agonists. Patient is not a candidate for phentermine given history of high blood pressure on amlodipine. Given the patient's decreased muscle mass we discussed the mechanism of GLP-1 agonists as well as how they do not target fat loss rather target weight loss which can include muscle. Discussed the risks of continuing to decrease muscle loss as a relates to osteoporosis. For that reason the patient will be a good candidate for Contrave. We discussed the appropriate use of the medication including appropriate dosing schedule. Discussed expected side effect profile of the medication including but not limited to nausea, vomiting, headaches, dizziness, and constipation. Repeat labs ordered with results pending at this time. Patient demonstrates understanding. She will follow-up in the office in approximately 1 month for weight management. 10/12/2024: Weight 118 pounds, BMI 27.42. SECA scan completed today and interpreted with the patient. Overall down 4 pounds from previous visit. Is decreasing fat mass which she was congratulated for. Increase in muscle mass from 22.2 pounds to 22.5 pounds. Advised to continue working with appraiser personal property to build muscle mass. Reports side effect of dry mouth, advised patient to take the medication with a glass of water as well as to continue daily hydration. At this time plan to continue taking Contrave 90-80 mg 2 tablets twice daily. Discussed proper use of the medication as well as expected side effect profile. She will follow-up in the office in approximately 4 weeks for continued weight management. # Hypertension: Blood pressure stable in office today 122/82. She is without chest pain, shortness of breath, dyspnea on exertion, or diaphoresis. Continue amlodipine besilate 5 mg once daily. Discussed proper use of the medication and expected side effect profile. Will continue to monitor. Please follow-up with PCP. # Hyperlipidemia: Lipid panel obtained 09/15/2024 with values including cholesterol 212, triglycerides 79, HDL 77, and LDL 119. Per ASCVD risk algorithm no statin recommended because 10-year risk less than 5%. Will continue to monitor and repeat lipid panel in a few months. # Endometrial cancer: Patient currently in remission of stage Ia endometrial cancer as of 2019. She has regular follow-up with gynecology, last note on 02/11/2024 for routine screening and pelvic examination. Will continue to monitor. All questions have been answered to patient's satisfaction. Patient verbalized understanding of diagnosis and treatments explained. Advised to call sooner prior to next visit it any questions/concerns arise. Case discussed with collaborating physician Mayo Kim who reviewed the assessment and plan. Chart, medications, labs, vital signs reviewed. Dictation was accomplished with the use of [employer] voice recognition software, which is prone to medical misidentifications and grammatical errors. This are unintentional and the practitioner does try to identify and correct these, but some could still be present. Please do not hesitate to contact practitioner for clarification. 11/09/2024 Overweight (ICD-10 - E66.3) Patient is here for weight management follow-up. We focused on significance of healthy lifestyle changes. We talked about need to track steps with goal between 6000-10,000 steps daily, focus on portion control, read food labels, get adequate sleep between 7 to 8 hours, get adequate rest to the body, meditate, frequent nutritious meals including vegetables and healthy choices of lean meats, fish, and elimination of refined carbohydrates. We also talked about mindfulness and mindful eating. Particular focus was on continuing to progressively add resistance training and increase protein intake to build muscle mass. Total time spent with 30 minutes with greater than 50% spent on counseling and coordinating care. 09/15/2024: Weight 122.6 pounds, BMI 28.49. SECA scan completed today and interpreted with the patient. She has high fat mass. Noted to have decreased muscle mass at approximately 22 pounds when minimum expected quantity estimated to be around 25 pounds. Visceral adipose tissue index slightly increased. She reports difficulty with reducing her weight. She follows lifestyle modifications including exercising daily before work and is currently following the whole 40 diet where she is not consuming carbohydrates or dairy products. We discussed clinical indications for weight management medications including phentermine, Contrave, and GLP-1 agonists. Patient is not a candidate for phentermine given history of high blood pressure on amlodipine. Given the patient's decreased muscle mass we discussed the mechanism of GLP-1 agonists as well as how they do not target fat loss rather target weight loss which can include muscle. Discussed the risks of continuing to decrease muscle loss as a relates to osteoporosis. For that reason the patient will be a good candidate for Contrave. We discussed the appropriate use of the medication including appropriate dosing schedule. Discussed expected side effect profile of the medication including but not limited to nausea, vomiting, headaches, dizziness, and constipation. Repeat labs ordered with results pending at this time. Patient demonstrates understanding. She will follow-up in the office in approximately 1 month for weight management. 10/12/2024: Weight 118 pounds, BMI 27.42. SECA scan completed today and interpreted with the patient. Overall down 4 pounds from previous visit. Is decreasing fat mass which she was congratulated for. Increase in muscle mass from 22.2 pounds to 22.5 pounds. Advised to continue working with appraiser personal property to build muscle mass. Reports side effect of dry mouth, advised patient to take the medication with a glass of water as well as to continue daily hydration. At this time plan to continue taking Contrave 90-80 mg 2 tablets twice daily. Discussed proper use of the medication as well as expected side effect profile. She will follow-up in the office in approximately 4 weeks for continued weight management. 11/09/2024: Weight 116.8 pounds, BMI 27.14. SECA scan completed today and interpreted with patient. She is down 2 pounds from last visit. Muscle mass has progressively increased from 22.5 pounds to 25 pounds which she was congratulated for. Now in increased range on scale. Reporting adverse effects of nausea/vomiting on Contrave 2 pills twice daily. We discussed stepping down to next lowest dose and trialing 1 pill in the morning and 1 pill in the evening or 2 pills in the morning and 1 pill in the evening. Patient demonstrates understanding and will titrate dose to best effect. 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 No other concerns, plan to continue Contrave 8-90 mg at a range of 2 to 3 pills daily. Discussed proper use of medication and potential side effect profile. She will follow-up in 4 weeks for further management. # Hypertension: Blood pressure stable in office today 132/78. She is without chest pain, shortness of breath, dyspnea on exertion, or diaphoresis. Continue amlodipine besilate 5 mg once daily. Discussed proper use of the medication and expected side effect profile. Will continue to monitor. Please follow-up with PCP. # Hyperlipidemia: Lipid panel obtained 09/15/2024 with values including cholesterol 212, triglycerides 79, HDL 77, and LDL 119. Per ASCVD risk algorithm no statin recommended because 10-year risk less than 5%. Will continue to monitor and repeat lipid panel in a few months. # Endometrial cancer: Patient currently in remission of stage Ia endometrial cancer as of 2019. She has regular follow-up with gynecology, last note on 02/11/2024 for routine screening and pelvic examination. Will continue to monitor. All questions have been answered to patient's satisfaction. Patient verbalized understanding of diagnosis and treatments explained. Advised to call sooner prior to next visit it any questions/concerns arise. Case discussed with collaborating physician Mayo Kim who reviewed the assessment and plan. Chart, medications, labs, vital signs reviewed. Dictation was accomplished with the use of [employer] voice recognition software, which is prone to medical misidentifications and grammatical errors. This are unintentional and the practitioner does try to identify and correct these, but some could still be present. Please do not hesitate to contact practitioner for clarification. 12/14/2024 Overweight (ICD-10 - E66.3) Patient is here for weight management follow-up. We focused on significance of healthy lifestyle changes. We talked about need to track steps with goal between 6000-10,000 steps daily, focus on portion control, read food labels, get adequate sleep between 7 to 8 hours, get adequate rest to the body, meditate, frequent nutritious meals including vegetables and healthy choices of lean meats, fish, and elimination of refined carbohydrates. We also talked about mindfulness and mindful eating. Particular focus was on continuing to progressively add resistance training and increase protein intake to build muscle mass. Total time spent with 30 minutes with greater than 50% spent on counseling and coordinating care. 09/15/2024: Weight 122.6 pounds, BMI 28.49. SECA scan completed today and interpreted with the patient. She has high fat mass. Noted to have decreased muscle mass at approximately 22 pounds when minimum expected quantity estimated to be around 25 pounds. Visceral adipose tissue index slightly increased. She reports difficulty with reducing her weight. She follows lifestyle modifications including exercising daily before work and is currently following the whole 40 diet where she is not consuming carbohydrates or dairy products. We discussed clinical indications for weight management medications including phentermine, Contrave, and GLP-1 agonists. Patient is not a candidate for phentermine given history of high blood pressure on amlodipine. Given the patient's decreased muscle mass we discussed the mechanism of GLP-1 agonists as well as how they do not target fat loss rather target weight loss which can include muscle. Discussed the risks of continuing to decrease muscle loss as a relates to osteoporosis. For that reason the patient will be a good candidate for Contrave. We discussed the appropriate use of the medication including appropriate dosing schedule. Discussed expected side effect profile of the medication including but not limited to nausea, vomiting, headaches, dizziness, and constipation. Repeat labs ordered with results pending at this time. Patient demonstrates understanding. She will follow-up in the office in approximately 1 month for weight management. 10/12/2024: Weight 118 pounds, BMI 27.42. SECA scan completed today and interpreted with the patient. Overall down 4 pounds from previous visit. Is decreasing fat mass which she was congratulated for. Increase in muscle mass from 22.2 pounds to 22.5 pounds. Advised to continue working with appraiser personal property to build muscle mass. Reports side effect of dry mouth, advised patient to take the medication with a glass of water as well as to continue daily hydration. At this time plan to continue taking Contrave 90-80 mg 2 tablets twice daily. Discussed proper use of the medication as well as expected side effect profile. She will follow-up in the office in approximately 4 weeks for continued weight management. 11/09/2024: Weight 116.8 pounds, BMI 27.14. SECA scan completed today and interpreted with patient. She is down 2 pounds from last visit. Muscle mass has progressively increased from 22.5 pounds to 25 pounds which she was congratulated for. Now in increased range on scale. Reporting adverse effects of nausea/vomiting on Contrave 2 pills twice daily. We discussed stepping down to next lowest dose and trialing 1 pill in the morning and 1 pill in the evening or 2 pills in the morning and 1 pill in the evening. Patient demonstrates understanding and will titrate dose to best effect. 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 No other concerns, plan to continue Contrave 8-90 mg at a range of 2 to 3 pills daily. Discussed proper use of medication and potential side effect profile. She will follow-up in 4 weeks for further management. 12/14/2024: Weight 115 pounds, BMI 26.73. Seca scan completed today and interpreted with the patient. Approximately 1 pound decrease from last visit. She is no longer on Contrave at this time due to adverse GI side effects. On body composition patient has 45 pounds of fat mass, has had a slight reduction of approximately 0.5 pounds of muscle mass since last visit. Total of 24.7 pounds of muscle. Visceral adipose tissue index remains within normal limits at 1.1. For further weight management we discussed initiation of topiramate as well as compounded semaglutide or tirzepatide. At this time patient has interest in compounded GLP-1 which she may initiate when she returns from her trip to [facility] in December. She will follow-up in approximately 4 weeks. # Hypertension: Blood pressure elevated in office 140/90, however patient states that she did not take her amlodipine today. She is without chest pain, shortness of breath, dyspnea on exertion, or diaphoresis. Continue amlodipine besilate 5 mg once daily. Discussed proper use of the medication and expected side effect profile. Will continue to monitor. Please follow-up with PCP. # Hyperlipidemia: Lipid panel obtained 09/15/2024 with values including cholesterol 212, triglycerides 79, HDL 77, and LDL 119. Per ASCVD risk algorithm no statin recommended because 10-year risk less than 5%. Will continue to monitor and repeat lipid panel in a few months. # Endometrial cancer: Patient currently in remission of stage Ia endometrial cancer as of 2019. She has regular follow-up with gynecology, last note on 02/11/2024 for routine screening and pelvic examination. Will continue to monitor. All questions have been answered to patient's satisfaction. Patient verbalized understanding of diagnosis and treatments explained. Advised to call sooner prior to next visit it any questions/concerns arise. Case discussed with collaborating physician Mayo Kim who reviewed the assessment and plan. Chart, medications, labs, vital signs reviewed. Dictation was accomplished with the use of [employer] voice recognition software, which is prone to medical misidentifications and grammatical errors. This are unintentional and the practitioner does try to identify and correct these, but some could still be present. Please do not hesitate to contact practitioner for clarification. 12/14/2024 BMI 26.0-26.9,adult (ICD-10 - Z68.26) Patient is here for weight management follow-up. We focused on significance of healthy lifestyle changes. We talked about need to track steps with goal between 6000-10,000 steps daily, focus on portion control, read food labels, get adequate sleep between 7 to 8 hours, get adequate rest to the body, meditate, frequent nutritious meals including vegetables and healthy choices of lean meats, fish, and elimination of refined carbohydrates. We also talked about mindfulness and mindful eating. Particular focus was on continuing to progressively add resistance training and increase protein intake to build muscle mass. Total time spent with 30 minutes with greater than 50% spent on counseling and coordinating care. 09/15/2024: Weight 122.6 pounds, BMI 28.49. SECA scan completed today and interpreted with the patient. She has high fat mass. Noted to have decreased muscle mass at approximately 22 pounds when minimum expected quantity estimated to be around 25 pounds. Visceral adipose tissue index slightly increased. She reports difficulty with reducing her weight. She follows lifestyle modifications including exercising daily before work and is currently following the whole 40 diet where she is not consuming carbohydrates or dairy products. We discussed clinical indications for weight management medications including phentermine, Contrave, and GLP-1 agonists. Patient is not a candidate for phentermine given history of high blood pressure on amlodipine. Given the patient's decreased muscle mass we discussed the mechanism of GLP-1 agonists as well as how they do not target fat loss rather target weight loss which can include muscle. Discussed the risks of continuing to decrease muscle loss as a relates to osteoporosis. For that reason the patient will be a good candidate for Contrave. We discussed the appropriate use of the medication including appropriate dosing schedule. Discussed expected side effect profile of the medication including but not limited to nausea, vomiting, headaches, dizziness, and constipation. Repeat labs ordered with results pending at this time. Patient demonstrates understanding. She will follow-up in the office in approximately 1 month for weight management. 10/12/2024: Weight 118 pounds, BMI 27.42. SECA scan completed today and interpreted with the patient. Overall down 4 pounds from previous visit. Is decreasing fat mass which she was congratulated for. Increase in muscle mass from 22.2 pounds to 22.5 pounds. Advised to continue working with appraiser personal property to build muscle mass. Reports side effect of dry mouth, advised patient to take the medication with a glass of water as well as to continue daily hydration. At this time plan to continue taking Contrave 90-80 mg 2 tablets twice daily. Discussed proper use of the medication as well as expected side effect profile. She will follow-up in the office in approximately 4 weeks for continued weight management. 11/09/2024: Weight 116.8 pounds, BMI 27.14. SECA scan completed today and interpreted with patient. She is down 2 pounds from last visit. Muscle mass has progressively increased from 22.5 pounds to 25 pounds which she was congratulated for. Now in increased range on scale. Reporting adverse effects of nausea/vomiting on Contrave 2 pills twice daily. We discussed stepping down to next lowest dose and trialing 1 pill in the morning and 1 pill in the evening or 2 pills in the morning and 1 pill in the evening. Patient demonstrates understanding and will titrate dose to best effect. 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 No other concerns, plan to continue Contrave 8-90 mg at a range of 2 to 3 pills daily. Discussed proper use of medication and potential side effect profile. She will follow-up in 4 weeks for further management. 12/14/2024: Weight 115 pounds, BMI 26.73. Seca scan completed today and interpreted with the patient. Approximately 1 pound decrease from last visit. She is no longer on Contrave at this time due to adverse GI side effects. On body composition patient has 45 pounds of fat mass, has had a slight reduction of approximately 0.5 pounds of muscle mass since last visit. Total of 24.7 pounds of muscle. Visceral adipose tissue index remains within normal limits at 1.1. For further weight management we discussed initiation of topiramate as well as compounded semaglutide or tirzepatide. At this time patient has interest in compounded GLP-1 which she may initiate when she returns from her trip to [facility] in December. She will follow-up in approximately 4 weeks. # Hypertension: Blood pressure elevated in office 140/90, however patient states that she did not take her amlodipine today. She is without chest pain, shortness of breath, dyspnea on exertion, or diaphoresis. Continue amlodipine besilate 5 mg once daily. Discussed proper use of the medication and expected side effect profile. Will continue to monitor. Please follow-up with PCP. # Hyperlipidemia: Lipid panel obtained 09/15/2024 with values including cholesterol 212, triglycerides 79, HDL 77, and LDL 119. Per ASCVD risk algorithm no statin recommended because 10-year risk less than 5%. Will continue to monitor and repeat lipid panel in a few months. # Endometrial cancer: Patient currently in remission of stage Ia endometrial cancer as of 2019. She has regular follow-up with gynecology, last note on 02/11/2024 for routine screening and pelvic examination. Will continue to monitor. All questions have been answered to patient's satisfaction. Patient verbalized understanding of diagnosis and treatments explained. Advised to call sooner prior to next visit it any questions/concerns arise. Case discussed with collaborating physician Mayo Kim who reviewed the assessment and plan. Chart, medications, labs, vital signs reviewed. Dictation was accomplished with the use of [employer] voice recognition software, which is prone to medical misidentifications and grammatical errors. This are unintentional and the practitioner does try to identify and correct these, but some could still be present. Please do not hesitate to contact practitioner for clarification. 01/12/2025 Overweight (ICD-10 - E66.3) Patient is here for weight management follow-up. We focused on significance of healthy lifestyle changes. We talked about need to track steps with goal between 6000-10,000 steps daily, focus on portion control, read food labels, get adequate sleep between 7 to 8 hours, get adequate rest to the body, meditate, frequent nutritious meals including vegetables and healthy choices of lean meats, fish, and elimination of refined carbohydrates. We also talked about mindfulness and mindful eating. Particular focus was on continuing to progressively add resistance training and increase protein intake to build muscle mass. Total time spent with 30 minutes with greater than 50% spent on counseling and coordinating care. 09/15/2024: Weight 122.6 pounds, BMI 28.49. SECA scan completed today and interpreted with the patient. She has high fat mass. Noted to have decreased muscle mass at approximately 22 pounds when minimum expected quantity estimated to be around 25 pounds. Visceral adipose tissue index slightly increased. She reports difficulty with reducing her weight. She follows lifestyle modifications including exercising daily before work and is currently following the whole 40 diet where she is not consuming carbohydrates or dairy products. We discussed clinical indications for weight management medications including phentermine, Contrave, and GLP-1 agonists. Patient is not a candidate for phentermine given history of high blood pressure on amlodipine. Given the patient's decreased muscle mass we discussed the mechanism of GLP-1 agonists as well as how they do not target fat loss rather target weight loss which can include muscle. Discussed the risks of continuing to decrease muscle loss as a relates to osteoporosis. For that reason the patient will be a good candidate for Contrave. We discussed the appropriate use of the medication including appropriate dosing schedule. Discussed expected side effect profile of the medication including but not limited to nausea, vomiting, headaches, dizziness, and constipation. Repeat labs ordered with results pending at this time. Patient demonstrates understanding. She will follow-up in the office in approximately 1 month for weight management. 10/12/2024: Weight 118 pounds, BMI 27.42. SECA scan completed today and interpreted with the patient. Overall down 4 pounds from previous visit. Is decreasing fat mass which she was congratulated for. Increase in muscle mass from 22.2 pounds to 22.5 pounds. Advised to continue working with appraiser personal property to build muscle mass. Reports side effect of dry mouth, advised patient to take the medication with a glass of water as well as to continue daily hydration. At this time plan to continue taking Contrave 90-80 mg 2 tablets twice daily. Discussed proper use of the medication as well as expected side effect profile. She will follow-up in the office in approximately 4 weeks for continued weight management. 11/09/2024: Weight 116.8 pounds, BMI 27.14. SECA scan completed today and interpreted with patient. She is down 2 pounds from last visit. Muscle mass has progressively increased from 22.5 pounds to 25 pounds which she was congratulated for. Now in increased range on scale. Reporting adverse effects of nausea/vomiting on Contrave 2 pills twice daily. We discussed stepping down to next lowest dose and trialing 1 pill in the morning and 1 pill in the evening or 2 pills in the morning and 1 pill in the evening. Patient demonstrates understanding and will titrate dose to best effect. 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 No other concerns, plan to continue Contrave 8-90 mg at a range of 2 to 3 pills daily. Discussed proper use of medication and potential side effect profile. She will follow-up in 4 weeks for further management. 12/14/2024: Weight 115 pounds, BMI 26.73. Seca scan completed today and interpreted with the patient. Approximately 1 pound decrease from last visit. She is no longer on Contrave at this time due to adverse GI side effects. On body composition patient has 45 pounds of fat mass, has had a slight reduction of approximately 0.5 pounds of muscle mass since last visit. Total of 24.7 pounds of muscle. Visceral adipose tissue index remains within normal limits at 1.1. For further weight management we discussed initiation of topiramate as well as compounded semaglutide or tirzepatide. At this time patient has interest in compounded GLP-1 which she may initiate when she returns from her trip to [facility] in December. She will follow-up in approximately 4 weeks. 01/12/2025: 01/12/2025: Weight 118 pounds, BMI 27.42. Seca scan completed today interpreted with the patient., Overall up about 2 pounds were last visit, however on body analysis she is up 2 pounds of muscle mass. Has increased amounts of muscle at this time which has greatly improved from her consultation. Milligram Contrave due to adverse effects. Interested in initiating compounded semaglutide. Discussed potential side effect profile including but not limited to nausea, constipation, abdominal pain, and heartburn. Reports no history of pancreatitis, multiple endocrine neoplasia syndrome in self or family, or history of medullary thyroid cancer in self or family. Advised the patient can receive injections weekly or biweekly as she chooses. Patient understanding. She will follow-up in office in 4 weeks for further evaluation. # Hypertension: Blood pressure 120/78. She is without chest pain, shortness of breath, dyspnea on exertion, or diaphoresis. Continue amlodipine besilate 5 mg once daily. Discussed proper use of the medication and expected side effect profile. Will continue to monitor. Please follow-up with PCP. # Hyperlipidemia: Lipid panel obtained 09/15/2024 with values including cholesterol 212, triglycerides 79, HDL 77, and LDL 119. Per ASCVD risk algorithm no statin recommended because 10-year risk less than 5%. Will continue to monitor and repeat lipid panel in a few months. # Endometrial cancer: Patient currently in remission of stage Ia endometrial cancer as of 2019. She has regular follow-up with gynecology, last note on 02/11/2024 for routine screening and pelvic examination. Will continue to monitor. All questions have been answered to patient's satisfaction. Patient verbalized understanding of diagnosis and treatments explained. Advised to call sooner prior to next visit it any questions/concerns arise. Case discussed with collaborating physician Mayo Kim who reviewed the assessment and plan. Chart, medications, labs, vital signs reviewed. Dictation was accomplished with the use of [employer] voice recognition software, which is prone to medical misidentifications and grammatical errors. This are unintentional and the practitioner does try to identify and correct these, but some could still be present. Please do not hesitate to contact practitioner for clarification. 01/12/2025 BMI 27.0-27.9,adult (ICD-10 - Z68.27) Patient is here for weight management follow-up. We focused on significance of healthy lifestyle changes. We talked about need to track steps with goal between 6000-10,000 steps daily, focus on portion control, read food labels, get adequate sleep between 7 to 8 hours, get adequate rest to the body, meditate, frequent nutritious meals including vegetables and healthy choices of lean meats, fish, and elimination of refined carbohydrates. We also talked about mindfulness and mindful eating. Particular focus was on continuing to progressively add resistance training and increase protein intake to build muscle mass. Total time spent with 30 minutes with greater than 50% spent on counseling and coordinating care. 09/15/2024: Weight 122.6 pounds, BMI 28.49. SECA scan completed today and interpreted with the patient. She has high fat mass. Noted to have decreased muscle mass at approximately 22 pounds when minimum expected quantity estimated to be around 25 pounds. Visceral adipose tissue index slightly increased. She reports difficulty with reducing her weight. She follows lifestyle modifications including exercising daily before work and is currently following the whole 40 diet where she is not consuming carbohydrates or dairy products. We discussed clinical indications for weight management medications including phentermine, Contrave, and GLP-1 agonists. Patient is not a candidate for phentermine given history of high blood pressure on amlodipine. Given the patient's decreased muscle mass we discussed the mechanism of GLP-1 agonists as well as how they do not target fat loss rather target weight loss which can include muscle. Discussed the risks of continuing to decrease muscle loss as a relates to osteoporosis. For that reason the patient will be a good candidate for Contrave. We discussed the appropriate use of the medication including appropriate dosing schedule. Discussed expected side effect profile of the medication including but not limited to nausea, vomiting, headaches, dizziness, and constipation. Repeat labs ordered with results pending at this time. Patient demonstrates understanding. She will follow-up in the office in approximately 1 month for weight management. 10/12/2024: Weight 118 pounds, BMI 27.42. SECA scan completed today and interpreted with the patient. Overall down 4 pounds from previous visit. Is decreasing fat mass which she was congratulated for. Increase in muscle mass from 22.2 pounds to 22.5 pounds. Advised to continue working with appraiser personal property to build muscle mass. Reports side effect of dry mouth, advised patient to take the medication with a glass of water as well as to continue daily hydration. At this time plan to continue taking Contrave 90-80 mg 2 tablets twice daily. Discussed proper use of the medication as well as expected side effect profile. She will follow-up in the office in approximately 4 weeks for continued weight management. 11/09/2024: Weight 116.8 pounds, BMI 27.14. SECA scan completed today and interpreted with patient. She is down 2 pounds from last visit. Muscle mass has progressively increased from 22.5 pounds to 25 pounds which she was congratulated for. Now in increased range on scale. Reporting adverse effects of nausea/vomiting on Contrave 2 pills twice daily. We discussed stepping down to next lowest dose and trialing 1 pill in the morning and 1 pill in the evening or 2 pills in the morning and 1 pill in the evening. Patient demonstrates understanding and will titrate dose to best effect. 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 No other concerns, plan to continue Contrave 8-90 mg at a range of 2 to 3 pills daily. Discussed proper use of medication and potential side effect profile. She will follow-up in 4 weeks for further management. 12/14/2024: Weight 115 pounds, BMI 26.73. Seca scan completed today and interpreted with the patient. Approximately 1 pound decrease from last visit. She is no longer on Contrave at this time due to adverse GI side effects. On body composition patient has 45 pounds of fat mass, has had a slight reduction of approximately 0.5 pounds of muscle mass since last visit. Total of 24.7 pounds of muscle. Visceral adipose tissue index remains within normal limits at 1.1. For further weight management we discussed initiation of topiramate as well as compounded semaglutide or tirzepatide. At this time patient has interest in compounded GLP-1 which she may initiate when she returns from her trip to [facility] in December. She will follow-up in approximately 4 weeks. 01/12/2025: 01/12/2025: Weight 118 pounds, BMI 27.42. Seca scan completed today interpreted with the patient., Overall up about 2 pounds were last visit, however on body analysis she is up 2 pounds of muscle mass. Has increased amounts of muscle at this time which has greatly improved from her consultation. Milligram Contrave due to adverse effects. Interested in initiating compounded semaglutide. Discussed potential side effect profile including but not limited to nausea, constipation, abdominal pain, and heartburn. Reports no history of pancreatitis, multiple endocrine neoplasia syndrome in self or family, or history of medullary thyroid cancer in self or family. Advised the patient can receive injections weekly or biweekly as she chooses. Patient understanding. She will follow-up in office in 4 weeks for further evaluation. # Hypertension: Blood pressure 120/78. She is without chest pain, shortness of breath, dyspnea on exertion, or diaphoresis. Continue amlodipine besilate 5 mg once daily. Discussed proper use of the medication and expected side effect profile. Will continue to monitor. Please follow-up with PCP. # Hyperlipidemia: Lipid panel obtained 09/15/2024 with values including cholesterol 212, triglycerides 79, HDL 77, and LDL 119. Per ASCVD risk algorithm no statin recommended because 10-year risk less than 5%. Will continue to monitor and repeat lipid panel in a few months. # Endometrial cancer: Patient currently in remission of stage Ia endometrial cancer as of 2019. She has regular follow-up with gynecology, last note on 02/11/2024 for routine screening and pelvic examination. Will continue to monitor. All questions have been answered to patient's satisfaction. Patient verbalized understanding of diagnosis and treatments explained. Advised to call sooner prior to next visit it any questions/concerns arise. Case discussed with collaborating physician Mayo Kim who reviewed the assessment and plan. Chart, medications, labs, vital signs reviewed. Dictation was accomplished with the use of [employer] voice recognition software, which is prone to medical misidentifications and grammatical errors. This are unintentional and the practitioner does try to identify and correct these, but some could still be present. Please do not hesitate to contact practitioner for clarification. 02/08/2025 Overweight (ICD-10 - E66.3) Patient is here for weight management follow-up. We focused on significance of healthy lifestyle changes. We talked about need to track steps with goal between 6000-10,000 steps daily, focus on portion control, read food labels, get adequate sleep between 7 to 8 hours, get adequate rest to the body, meditate, frequent nutritious meals including vegetables and healthy choices of lean meats, fish, and elimination of refined carbohydrates. We also talked about mindfulness and mindful eating. Particular focus was on continuing portion control and maintaining physical activity. Total time spent with 30 minutes with greater than 50% spent on counseling and coordinating care. 09/15/2024: Weight 122.6 pounds, BMI 28.49. SECA scan completed today and interpreted with the patient. She has high fat mass. Noted to have decreased muscle mass at approximately 22 pounds when minimum expected quantity estimated to be around 25 pounds. Visceral adipose tissue index slightly increased. She reports difficulty with reducing her weight. She follows lifestyle modifications including exercising daily before work and is currently following the whole 40 diet where she is not consuming carbohydrates or dairy products. We discussed clinical indications for weight management medications including phentermine, Contrave, and GLP-1 agonists. Patient is not a candidate for phentermine given history of high blood pressure on amlodipine. Given the patient's decreased muscle mass we discussed the mechanism of GLP-1 agonists as well as how they do not target fat loss rather target weight loss which can include muscle. Discussed the risks of continuing to decrease muscle loss as a relates to osteoporosis. For that reason the patient will be a good candidate for Contrave. We discussed the appropriate use of the medication including appropriate dosing schedule. Discussed expected side effect profile of the medication including but not limited to nausea, vomiting, headaches, dizziness, and constipation. Repeat labs ordered with results pending at this time. Patient demonstrates understanding. She will follow-up in the office in approximately 1 month for weight management. 10/12/2024: Weight 118 pounds, BMI 27.42. SECA scan completed today and interpreted with the patient. Overall down 4 pounds from previous visit. Is decreasing fat mass which she was congratulated for. Increase in muscle mass from 22.2 pounds to 22.5 pounds. Advised to continue working with appraiser personal property to build muscle mass. Reports side effect of dry mouth, advised patient to take the medication with a glass of water as well as to continue daily hydration. At this time plan to continue taking Contrave 90-80 mg 2 tablets twice daily. Discussed proper use of the medication as well as expected side effect profile. She will follow-up in the office in approximately 4 weeks for continued weight management. 11/09/2024: Weight 116.8 pounds, BMI 27.14. SECA scan completed today and interpreted with patient. She is down 2 pounds from last visit. Muscle mass has progressively increased from 22.5 pounds to 25 pounds which she was congratulated for. Now in increased range on scale. Reporting adverse effects of nausea/vomiting on Contrave 2 pills twice daily. We discussed stepping down to next lowest dose and trialing 1 pill in the morning and 1 pill in the evening or 2 pills in the morning and 1 pill in the evening. Patient demonstrates understanding and will titrate dose to best effect. 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 No other concerns, plan to continue Contrave 8-90 mg at a range of 2 to 3 pills daily. Discussed proper use of medication and potential side effect profile. She will follow-up in 4 weeks for further management. 12/14/2024: Weight 115 pounds, BMI 26.73. Seca scan completed today and interpreted with the patient. Approximately 1 pound decrease from last visit. She is no longer on Contrave at this time due to adverse GI side effects. On body composition patient has 45 pounds of fat mass, has had a slight reduction of approximately 0.5 pounds of muscle mass since last visit. Total of 24.7 pounds of muscle. Visceral adipose tissue index remains within normal limits at 1.1. For further weight management we discussed initiation of topiramate as well as compounded semaglutide or tirzepatide. At this time patient has interest in compounded GLP-1 which she may initiate when she returns from her trip to [facility] in December. She will follow-up in approximately 4 weeks. 01/12/2025: 01/12/2025: Weight 118 pounds, BMI 27.42. Seca scan completed today interpreted with the patient., Overall up about 2 pounds were last visit, however on body analysis she is up 2 pounds of muscle mass. Has increased amounts of muscle at this time which has greatly improved from her consultation. Milligram Contrave due to adverse effects. Interested in initiating compounded semaglutide. Discussed potential side effect profile including but not limited to nausea, constipation, abdominal pain, and heartburn. Reports no history of pancreatitis, multiple endocrine neoplasia syndrome in self or family, or history of medullary thyroid cancer in self or family. Advised the patient can receive injections weekly or biweekly as she chooses. Patient understanding. She will follow-up in office in 4 weeks for further evaluation. 02/08/2025: Weight 115 pounds, BMI 26.73. SECA scan completed today and interpreted with the patient. On body analysis she is down 2 to 3 pounds of fat mass and has built about 1/2 pound of muscle mass. Has increased amounts of muscle of her body composition. Patient is receiving semaglutide 0.25 mg weekly in office. Reports no adverse effects at this time. Reviewed goals of diet and exercise. Semaglutide 0.25 mg administered retained sleeve today in office. Plan is to follow-up in office in 4 weeks. # Hypertension: Blood pressure 120/80. She is without chest pain, shortness of breath, dyspnea on exertion, or diaphoresis. Continue amlodipine besilate 5 mg once daily. Discussed proper use of the medication and expected side effect profile. Will continue to monitor. Please follow-up with PCP. # Hyperlipidemia: Lipid panel obtained 09/15/2024 with values including cholesterol 212, triglycerides 79, HDL 77, and LDL 119. Per ASCVD risk algorithm no statin recommended because 10-year risk less than 5%. Will continue to monitor and repeat lipid panel in a few months. # Endometrial cancer: Patient currently in remission of stage Ia endometrial cancer as of 2019. She has regular follow-up with gynecology, last note on 02/11/2024 for routine screening and pelvic examination. Will continue to monitor. All questions have been answered to patient's satisfaction. Patient verbalized understanding of diagnosis and treatments explained. Advised to call sooner prior to next visit it any questions/concerns arise. Case discussed with collaborating physician Mayo Kim who reviewed the assessment and plan. Chart, medications, labs, vital signs reviewed. Dictation was accomplished with the use of [employer] voice recognition software, which is prone to medical misidentifications and grammatical errors. This are unintentional and the practitioner does try to identify and correct these, but some could still be present. Please do not hesitate to contact practitioner for clarification. 02/08/2025 BMI 26.0-26.9,adult (ICD-10 - Z68.26) Patient is here for weight management follow-up. We focused on significance of healthy lifestyle changes. We talked about need to track steps with goal between 6000-10,000 steps daily, focus on portion control, read food labels, get adequate sleep between 7 to 8 hours, get adequate rest to the body, meditate, frequent nutritious meals including vegetables and healthy choices of lean meats, fish, and elimination of refined carbohydrates. We also talked about mindfulness and mindful eating. Particular focus was on continuing portion control and maintaining physical activity. Total time spent with 30 minutes with greater than 50% spent on counseling and coordinating care. 09/15/2024: Weight 122.6 pounds, BMI 28.49. SECA scan completed today and interpreted with the patient. She has high fat mass. Noted to have decreased muscle mass at approximately 22 pounds when minimum expected quantity estimated to be around 25 pounds. Visceral adipose tissue index slightly increased. She reports difficulty with reducing her weight. She follows lifestyle modifications including exercising daily before work and is currently following the whole 40 diet where she is not consuming carbohydrates or dairy products. We discussed clinical indications for weight management medications including phentermine, Contrave, and GLP-1 agonists. Patient is not a candidate for phentermine given history of high blood pressure on amlodipine. Given the patient's decreased muscle mass we discussed the mechanism of GLP-1 agonists as well as how they do not target fat loss rather target weight loss which can include muscle. Discussed the risks of continuing to decrease muscle loss as a relates to osteoporosis. For that reason the patient will be a good candidate for Contrave. We discussed the appropriate use of the medication including appropriate dosing schedule. Discussed expected side effect profile of the medication including but not limited to nausea, vomiting, headaches, dizziness, and constipation. Repeat labs ordered with results pending at this time. Patient demonstrates understanding. She will follow-up in the office in approximately 1 month for weight management. 10/12/2024: Weight 118 pounds, BMI 27.42. SECA scan completed today and interpreted with the patient. Overall down 4 pounds from previous visit. Is decreasing fat mass which she was congratulated for. Increase in muscle mass from 22.2 pounds to 22.5 pounds. Advised to continue working with appraiser personal property to build muscle mass. Reports side effect of dry mouth, advised patient to take the medication with a glass of water as well as to continue daily hydration. At this time plan to continue taking Contrave 90-80 mg 2 tablets twice daily. Discussed proper use of the medication as well as expected side effect profile. She will follow-up in the office in approximately 4 weeks for continued weight management. 11/09/2024: Weight 116.8 pounds, BMI 27.14. SECA scan completed today and interpreted with patient. She is down 2 pounds from last visit. Muscle mass has progressively increased from 22.5 pounds to 25 pounds which she was congratulated for. Now in increased range on scale. Reporting adverse effects of nausea/vomiting on Contrave 2 pills twice daily. We discussed stepping down to next lowest dose and trialing 1 pill in the morning and 1 pill in the evening or 2 pills in the morning and 1 pill in the evening. Patient demonstrates understanding and will titrate dose to best effect. 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 No other concerns, plan to continue Contrave 8-90 mg at a range of 2 to 3 pills daily. Discussed proper use of medication and potential side effect profile. She will follow-up in 4 weeks for further management. 12/14/2024: Weight 115 pounds, BMI 26.73. Seca scan completed today and interpreted with the patient. Approximately 1 pound decrease from last visit. She is no longer on Contrave at this time due to adverse GI side effects. On body composition patient has 45 pounds of fat mass, has had a slight reduction of approximately 0.5 pounds of muscle mass since last visit. Total of 24.7 pounds of muscle. Visceral adipose tissue index remains within normal limits at 1.1. For further weight management we discussed initiation of topiramate as well as compounded semaglutide or tirzepatide. At this time patient has interest in compounded GLP-1 which she may initiate when she returns from her trip to [facility] in December. She will follow-up in approximately 4 weeks. 01/12/2025: 01/12/2025: Weight 118 pounds, BMI 27.42. Seca scan completed today interpreted with the patient., Overall up about 2 pounds were last visit, however on body analysis she is up 2 pounds of muscle mass. Has increased amounts of muscle at this time which has greatly improved from her consultation. Milligram Contrave due to adverse effects. Interested in initiating compounded semaglutide. Discussed potential side effect profile including but not limited to nausea, constipation, abdominal pain, and heartburn. Reports no history of pancreatitis, multiple endocrine neoplasia syndrome in self or family, or history of medullary thyroid cancer in self or family. Advised the patient can receive injections weekly or biweekly as she chooses. Patient understanding. She will follow-up in office in 4 weeks for further evaluation. 02/08/2025: Weight 115 pounds, BMI 26.73. SECA scan completed today and interpreted with the patient. On body analysis she is down 2 to 3 pounds of fat mass and has built about 1/2 pound of muscle mass. Has increased amounts of muscle of her body composition. Patient is receiving semaglutide 0.25 mg weekly in office. Reports no adverse effects at this time. Reviewed goals of diet and exercise. Semaglutide 0.25 mg administered retained sleeve today in office. Plan is to follow-up in office in 4 weeks. # Hypertension: Blood pressure 120/80. She is without chest pain, shortness of breath, dyspnea on exertion, or diaphoresis. Continue amlodipine besilate 5 mg once daily. Discussed proper use of the medication and expected side effect profile. Will continue to monitor. Please follow-up with PCP. # Hyperlipidemia: Lipid panel obtained 09/15/2024 with values including cholesterol 212, triglycerides 79, HDL 77, and LDL 119. Per ASCVD risk algorithm no statin recommended because 10-year risk less than 5%. Will continue to monitor and repeat lipid panel in a few months. # Endometrial cancer: Patient currently in remission of stage Ia endometrial cancer as of 2019. She has regular follow-up with gynecology, last note on 02/11/2024 for routine screening and pelvic examination. Will continue to monitor. All questions have been answered to patient's satisfaction. Patient verbalized understanding of diagnosis and treatments explained. Advised to call sooner prior to next visit it any questions/concerns arise. Case discussed with collaborating physician Mayo Kim who reviewed the assessment and plan. Chart, medications, labs, vital signs reviewed. Dictation was accomplished with the use of [employer] voice recognition software, which is prone to medical misidentifications and grammatical errors. This are unintentional and the practitioner does try to identify and correct these, but some could still be present. Please do not hesitate to contact practitioner for clarification. 03/07/2025 Dietary counseling (ICD-10 - Z71.3) Patient is here for weight management follow-up. We focused on significance of healthy lifestyle changes. We talked about need to track steps with goal between 6000-10,000 steps daily, focus on portion control, read food labels, get adequate sleep between 7 to 8 hours, get adequate rest to the body, meditate, frequent nutritious meals including vegetables and healthy choices of lean meats, fish, and elimination of refined carbohydrates. We also talked about mindfulness and mindful eating. Particular focus was on continuing portion control and maintaining physical activity. Total time spent with 30 minutes with greater than 50% spent on counseling and coordinating care. 09/15/2024: Weight 122.6 pounds, BMI 28.49. SECA scan completed today and interpreted with the patient. She has high fat mass. Noted to have decreased muscle mass at approximately 22 pounds when minimum expected quantity estimated to be around 25 pounds. Visceral adipose tissue index slightly increased. She reports difficulty with reducing her weight. She follows lifestyle modifications including exercising daily before work and is currently following the whole 40 diet where she is not consuming carbohydrates or dairy products. We discussed clinical indications for weight management medications including phentermine, Contrave, and GLP-1 agonists. Patient is not a candidate for phentermine given history of high blood pressure on amlodipine. Given the patient's decreased muscle mass we discussed the mechanism of GLP-1 agonists as well as how they do not target fat loss rather target weight loss which can include muscle. Discussed the risks of continuing to decrease muscle loss as a relates to osteoporosis. For that reason the patient will be a good candidate for Contrave. We discussed the appropriate use of the medication including appropriate dosing schedule. Discussed expected side effect profile of the medication including but not limited to nausea, vomiting, headaches, dizziness, and constipation. Repeat labs ordered with results pending at this time. Patient demonstrates understanding. She will follow-up in the office in approximately 1 month for weight management. 10/12/2024: Weight 118 pounds, BMI 27.42. SECA scan completed today and interpreted with the patient. Overall down 4 pounds from previous visit. Is decreasing fat mass which she was congratulated for. Increase in muscle mass from 22.2 pounds to 22.5 pounds. Advised to continue working with appraiser personal property to build muscle mass. Reports side effect of dry mouth, advised patient to take the medication with a glass of water as well as to continue daily hydration. At this time plan to continue taking Contrave 90-80 mg 2 tablets twice daily. Discussed proper use of the medication as well as expected side effect profile. She will follow-up in the office in approximately 4 weeks for continued weight management. 11/09/2024: Weight 116.8 pounds, BMI 27.14. SECA scan completed today and interpreted with patient. She is down 2 pounds from last visit. Muscle mass has progressively increased from 22.5 pounds to 25 pounds which she was congratulated for. Now in increased range on scale. Reporting adverse effects of nausea/vomiting on Contrave 2 pills twice daily. We discussed stepping down to next lowest dose and trialing 1 pill in the morning and 1 pill in the evening or 2 pills in the morning and 1 pill in the evening. Patient demonstrates understanding and will titrate dose to best effect. 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 No other concerns, plan to continue Contrave 8-90 mg at a range of 2 to 3 pills daily. Discussed proper use of medication and potential side effect profile. She will follow-up in 4 weeks for further management. 12/14/2024: Weight 115 pounds, BMI 26.73. Seca scan completed today and interpreted with the patient. Approximately 1 pound decrease from last visit. She is no longer on Contrave at this time due to adverse GI side effects. On body composition patient has 45 pounds of fat mass, has had a slight reduction of approximately 0.5 pounds of muscle mass since last visit. Total of 24.7 pounds of muscle. Visceral adipose tissue index remains within normal limits at 1.1. For further weight management we discussed initiation of topiramate as well as compounded semaglutide or tirzepatide. At this time patient has interest in compounded GLP-1 which she may initiate when she returns from her trip to [facility] in December. She will follow-up in approximately 4 weeks. 01/12/2025: 01/12/2025: Weight 118 pounds, BMI 27.42. Seca scan completed today interpreted with the patient., Overall up about 2 pounds were last visit, however on body analysis she is up 2 pounds of muscle mass. Has increased amounts of muscle at this time which has greatly improved from her consultation. Milligram Contrave due to adverse effects. Interested in initiating compounded semaglutide. Discussed potential side effect profile including but not limited to nausea, constipation, abdominal pain, and heartburn. Reports no history of pancreatitis, multiple endocrine neoplasia syndrome in self or family, or history of medullary thyroid cancer in self or family. Advised the patient can receive injections weekly or biweekly as she chooses. Patient understanding. She will follow-up in office in 4 weeks for further evaluation. 02/08/2025: Weight 115 pounds, BMI 26.73. SECA scan completed today and interpreted with the patient. On body analysis she is down 2 to 3 pounds of fat mass and has built about 1/2 pound of muscle mass. Has increased amounts of muscle of her body composition. Patient is receiving semaglutide 0.25 mg weekly in office. Reports no adverse effects at this time. Reviewed goals of diet and exercise. Semaglutide 0.25 mg administered retained sleeve today in office. Plan is to follow-up in office in 4 weeks. 03/07/2025: Weight 111 pounds, BMI 24.6. Seca scan completed and discussed with the patient. Patient is down approximately 4 pounds from her last visit. On body analysis has had a 3 pound decrease of fat mass, has 36.2% of her weight being fat mass but is now within normal ranges. Maintaining good muscle mass as well. Fat mass index of 8.9. Visceral adiposity remains within normal limits at 1.0. Patient currently receiving compounded semaglutide weekly in office. Has been doing well on 0.25 mg and will receive 0.5 mg in office today. Patient will follow-up in 4-6 weeks for further assessment. # Hypertension: Blood pressure 120/80. She is without chest pain, shortness of breath, dyspnea on exertion, or diaphoresis. Continue amlodipine besilate 5 mg once daily. Discussed proper use of the medication and expected side effect profile. Will continue to monitor. Please follow-up with PCP. # Hyperlipidemia: Lipid panel obtained 09/15/2024 with values including cholesterol 212, triglycerides 79, HDL 77, and LDL 119. Per ASCVD risk algorithm no statin recommended because 10-year risk less than 5%. Will continue to monitor and repeat lipid panel in a few months. # Endometrial cancer: Patient currently in remission of stage Ia endometrial cancer as of 2019. She has regular follow-up with gynecology, last note on 02/11/2024 for routine screening and pelvic examination. Will continue to monitor. All questions have been answered to patient's satisfaction. Patient verbalized understanding of diagnosis and treatments explained. Advised to call sooner prior to next visit it any questions/concerns arise. Case discussed with collaborating physician Mayo Kim who reviewed the assessment and plan. Chart, medications, labs, vital signs reviewed. Dictation was accomplished with the use of [employer] voice recognition software, which is prone to medical misidentifications and grammatical errors. This are unintentional and the practitioner does try to identify and correct these, but some could still be present. Please do not hesitate to contact practitioner for clarification. 03/07/2025 BMI 24.0-24.9, adult (ICD-10 - Z68.24) Patient is here for weight management follow-up. We focused on significance of healthy lifestyle changes. We talked about need to track steps with goal between 6000-10,000 steps daily, focus on portion control, read food labels, get adequate sleep between 7 to 8 hours, get adequate rest to the body, meditate, frequent nutritious meals including vegetables and healthy choices of lean meats, fish, and elimination of refined carbohydrates. We also talked about mindfulness and mindful eating. Particular focus was on continuing portion control and maintaining physical activity. Total time spent with 30 minutes with greater than 50% spent on counseling and coordinating care. 09/15/2024: Weight 122.6 pounds, BMI 28.49. SECA scan completed today and interpreted with the patient. She has high fat mass. Noted to have decreased muscle mass at approximately 22 pounds when minimum expected quantity estimated to be around 25 pounds. Visceral adipose tissue index slightly increased. She reports difficulty with reducing her weight. She follows lifestyle modifications including exercising daily before work and is currently following the whole 40 diet where she is not consuming carbohydrates or dairy products. We discussed clinical indications for weight management medications including phentermine, Contrave, and GLP-1 agonists. Patient is not a candidate for phentermine given history of high blood pressure on amlodipine. Given the patient's decreased muscle mass we discussed the mechanism of GLP-1 agonists as well as how they do not target fat loss rather target weight loss which can include muscle. Discussed the risks of continuing to decrease muscle loss as a relates to osteoporosis. For that reason the patient will be a good candidate for Contrave. We discussed the appropriate use of the medication including appropriate dosing schedule. Discussed expected side effect profile of the medication including but not limited to nausea, vomiting, headaches, dizziness, and constipation. Repeat labs ordered with results pending at this time. Patient demonstrates understanding. She will follow-up in the office in approximately 1 month for weight management. 10/12/2024: Weight 118 pounds, BMI 27.42. SECA scan completed today and interpreted with the patient. Overall down 4 pounds from previous visit. Is decreasing fat mass which she was congratulated for. Increase in muscle mass from 22.2 pounds to 22.5 pounds. Advised to continue working with appraiser personal property to build muscle mass. Reports side effect of dry mouth, advised patient to take the medication with a glass of water as well as to continue daily hydration. At this time plan to continue taking Contrave 90-80 mg 2 tablets twice daily. Discussed proper use of the medication as well as expected side effect profile. She will follow-up in the office in approximately 4 weeks for continued weight management. 11/09/2024: Weight 116.8 pounds, BMI 27.14. SECA scan completed today and interpreted with patient. She is down 2 pounds from last visit. Muscle mass has progressively increased from 22.5 pounds to 25 pounds which she was congratulated for. Now in increased range on scale. Reporting adverse effects of nausea/vomiting on Contrave 2 pills twice daily. We discussed stepping down to next lowest dose and trialing 1 pill in the morning and 1 pill in the evening or 2 pills in the morning and 1 pill in the evening. Patient demonstrates understanding and will titrate dose to best effect. 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 No other concerns, plan to continue Contrave 8-90 mg at a range of 2 to 3 pills daily. Discussed proper use of medication and potential side effect profile. She will follow-up in 4 weeks for further management. 12/14/2024: Weight 115 pounds, BMI 26.73. Seca scan completed today and interpreted with the patient. Approximately 1 pound decrease from last visit. She is no longer on Contrave at this time due to adverse GI side effects. On body composition patient has 45 pounds of fat mass, has had a slight reduction of approximately 0.5 pounds of muscle mass since last visit. Total of 24.7 pounds of muscle. Visceral adipose tissue index remains within normal limits at 1.1. For further weight management we discussed initiation of topiramate as well as compounded semaglutide or tirzepatide. At this time patient has interest in compounded GLP-1 which she may initiate when she returns from her trip to [facility] in December. She will follow-up in approximately 4 weeks. 01/12/2025: 01/12/2025: Weight 118 pounds, BMI 27.42. Seca scan completed today interpreted with the patient., Overall up about 2 pounds were last visit, however on body analysis she is up 2 pounds of muscle mass. Has increased amounts of muscle at this time which has greatly improved from her consultation. Milligram Contrave due to adverse effects. Interested in initiating compounded semaglutide. Discussed potential side effect profile including but not limited to nausea, constipation, abdominal pain, and heartburn. Reports no history of pancreatitis, multiple endocrine neoplasia syndrome in self or family, or history of medullary thyroid cancer in self or family. Advised the patient can receive injections weekly or biweekly as she chooses. Patient understanding. She will follow-up in office in 4 weeks for further evaluation. 02/08/2025: Weight 115 pounds, BMI 26.73. SECA scan completed today and interpreted with the patient. On body analysis she is down 2 to 3 pounds of fat mass and has built about 1/2 pound of muscle mass. Has increased amounts of muscle of her body composition. Patient is receiving semaglutide 0.25 mg weekly in office. Reports no adverse effects at this time. Reviewed goals of diet and exercise. Semaglutide 0.25 mg administered retained sleeve today in office. Plan is to follow-up in office in 4 weeks. 03/07/2025: Weight 111 pounds, BMI 24.6. Seca scan completed and discussed with the patient. Patient is down approximately 4 pounds from her last visit. On body analysis has had a 3 pound decrease of fat mass, has 36.2% of her weight being fat mass but is now within normal ranges. Maintaining good muscle mass as well. Fat mass index of 8.9. Visceral adiposity remains within normal limits at 1.0. Patient currently receiving compounded semaglutide weekly in office. Has been doing well on 0.25 mg and will receive 0.5 mg in office today. Patient will follow-up in 4-6 weeks for further assessment. # Hypertension: Blood pressure 120/80. She is without chest pain, shortness of breath, dyspnea on exertion, or diaphoresis. Continue amlodipine besilate 5 mg once daily. Discussed proper use of the medication and expected side effect profile. Will continue to monitor. Please follow-up with PCP. # Hyperlipidemia: Lipid panel obtained 09/15/2024 with values including cholesterol 212, triglycerides 79, HDL 77, and LDL 119. Per ASCVD risk algorithm no statin recommended because 10-year risk less than 5%. Will continue to monitor and repeat lipid panel in a few months. # Endometrial cancer: Patient currently in remission of stage Ia endometrial cancer as of 2019. She has regular follow-up with gynecology, last note on 02/11/2024 for routine screening and pelvic examination. Will continue to monitor. All questions have been answered to patient's satisfaction. Patient verbalized understanding of diagnosis and treatments explained. Advised to call sooner prior to next visit it any questions/concerns arise. Case discussed with collaborating physician Mayo Kim who reviewed the assessment and plan. Chart, medications, labs, vital signs reviewed. Dictation was accomplished with the use of [employer] voice recognition software, which is prone to medical misidentifications and grammatical errors. This are unintentional and the practitioner does try to identify and correct these, but some could still be present. Please do not hesitate to contact practitioner for clarification. 04/04/2025 Dietary counseling (ICD-10 - Z71.3) Patient is here for weight management follow-up. We focused on significance of healthy lifestyle changes. We talked about need to track steps with goal between 6000-10,000 steps daily, focus on portion control, read food labels, get adequate sleep between 7 to 8 hours, get adequate rest to the body, meditate, frequent nutritious meals including vegetables and healthy choices of lean meats, fish, and elimination of refined carbohydrates. We also talked about mindfulness and mindful eating. Particular focus was on continuing portion control and maintaining physical activity. Total time spent with 30 minutes with greater than 50% spent on counseling and coordinating care. 09/15/2024: Weight 122.6 pounds, BMI 28.49. SECA scan completed today and interpreted with the patient. She has high fat mass. Noted to have decreased muscle mass at approximately 22 pounds when minimum expected quantity estimated to be around 25 pounds. Visceral adipose tissue index slightly increased. She reports difficulty with reducing her weight. She follows lifestyle modifications including exercising daily before work and is currently following the whole 40 diet where she is not consuming carbohydrates or dairy products. We discussed clinical indications for weight management medications including phentermine, Contrave, and GLP-1 agonists. Patient is not a candidate for phentermine given history of high blood pressure on amlodipine. Given the patient's decreased muscle mass we discussed the mechanism of GLP-1 agonists as well as how they do not target fat loss rather target weight loss which can include muscle. Discussed the risks of continuing to decrease muscle loss as a relates to osteoporosis. For that reason the patient will be a good candidate for Contrave. We discussed the appropriate use of the medication including appropriate dosing schedule. Discussed expected side effect profile of the medication including but not limited to nausea, vomiting, headaches, dizziness, and constipation. Repeat labs ordered with results pending at this time. Patient demonstrates understanding. She will follow-up in the office in approximately 1 month for weight management. 10/12/2024: Weight 118 pounds, BMI 27.42. SECA scan completed today and interpreted with the patient. Overall down 4 pounds from previous visit. Is decreasing fat mass which she was congratulated for. Increase in muscle mass from 22.2 pounds to 22.5 pounds. Advised to continue working with app[employer] personal property to build muscle mass. Reports side effect of dry mouth, advised patient to take the medication with a glass of water as well as to continue daily hydration. At this time plan to continue taking Contrave 90-80 mg 2 tablets twice daily. Discussed proper use of the medication as well as expected side effect profile. She will follow-up in the office in approximately 4 weeks for continued weight management. 11/09/2024: Weight 116.8 pounds, BMI 27.14. SECA scan completed today and interpreted with patient. She is down 2 pounds from last visit. Muscle mass has progressively increased from 22.5 pounds to 25 pounds which she was congratulated for. Now in increased range on scale. Reporting adverse effects of nausea/vomiting on Contrave 2 pills twice daily. We discussed stepping down to next lowest dose and trialing 1 pill in the morning and 1 pill in the evening or 2 pills in the morning and 1 pill in the evening. Patient demonstrates understanding and will titrate dose to best effect. 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 No other concerns, plan to continue Contrave 8-90 mg at a range of 2 to 3 pills daily. Discussed proper use of medication and potential side effect profile. She will follow-up in 4 weeks for further management. 12/14/2024: Weight 115 pounds, BMI 26.73. Seca scan completed today and interpreted with the patient. Approximately 1 pound decrease from last visit. She is no longer on Contrave at this time due to adverse GI side effects. On body composition patient has 45 pounds of fat mass, has had a slight reduction of approximately 0.5 pounds of muscle mass since last visit. Total of 24.7 pounds of muscle. Visceral adipose tissue index remains within normal limits at 1.1. For further weight management we discussed initiation of topiramate as well as compounded semaglutide or tirzepatide. At this time patient has interest in compounded GLP-1 which she may initiate when she returns from her trip to [facility] in December. She will follow-up in approximately 4 weeks. 01/12/2025: 01/12/2025: Weight 118 pounds, BMI 27.42. Seca scan completed today interpreted with the patient., Overall up about 2 pounds were last visit, however on body analysis she is up 2 pounds of muscle mass. Has increased amounts of muscle at this time which has greatly improved from her consultation. Milligram Contrave due to adverse effects. Interested in initiating compounded semaglutide. Discussed potential side effect profile including but not limited to nausea, constipation, abdominal pain, and heartburn. Reports no history of pancreatitis, multiple endocrine neoplasia syndrome in self or family, or history of medullary thyroid cancer in self or family. Advised the patient can receive injections weekly or biweekly as she chooses. Patient understanding. She will follow-up in office in 4 weeks for further evaluation. 02/08/2025: Weight 115 pounds, BMI 26.73. SECA scan completed today and interpreted with the patient. On body analysis she is down 2 to 3 pounds of fat mass and has built about 1/2 pound of muscle mass. Has increased amounts of muscle of her body composition. Patient is receiving semaglutide 0.25 mg weekly in office. Reports no adverse effects at this time. Reviewed goals of diet and exercise. Semaglutide 0.25 mg administered retained sleeve today in office. Plan is to follow-up in office in 4 weeks. 03/07/2025: Weight 111 pounds, BMI 24.6. Seca scan completed and discussed with the patient. Patient is down approximately 4 pounds from her last visit. On body analysis has had a 3 pound decrease of fat mass, has 36.2% of her weight being fat mass but is now within normal ranges. Maintaining good muscle mass as well. Fat mass index of 8.9. Visceral adiposity remains within normal limits at 1.0. Patient currently receiving compounded semaglutide weekly in office. Has been doing well on 0.25 mg and will receive 0.5 mg in office today. Patient will follow-up in 4-6 weeks for further assessment. 04/04/2025: Weight 109 pounds, BMI 24.1. Seca scan completed and discussed with the patient. She is down 2 pounds from her last visit. On body analysis she is down 3 pounds of fat mass. She has a normal fat mass percentage amounting 34.2% of her body weight. She is maintaining very good muscle mass amounting 24.5% of her body weight. Fat mass index is down from 8.9-8.2 within normal limits. Visceral adiposity is also decreasing from 1.0-0.8 and maintaining within good range. She is down half an inch on her waist. Currently is receiving semaglutide 0.5 mg every other week in office. We discussed when limiting supply of semaglutide and discussed options for further weight management including [employer] using coupon card and tirzepatide through [employer]. Patient understanding. At this time we will continue biweekly dosing and follow-up in 4 to 6 weeks. # Hypertension: Blood pressure 128/80. She is without chest pain, shortness of breath, dyspnea on exertion, or diaphoresis. Continue amlodipine besilate 5 mg once daily. Discussed proper use of the medication and expected side effect profile. Will continue to monitor. Please follow-up with PCP. # Hyperlipidemia: Lipid panel obtained 09/15/2024 with values including cholesterol 212, triglycerides 79, HDL 77, and LDL 119. Per ASCVD risk algorithm no statin recommended because 10-year risk less than 5%. Will continue to monitor and repeat lipid panel in a few months. # Endometrial cancer: Patient currently in remission of stage Ia endometrial cancer as of 2019. She has regular follow-up with gynecology, last note on 02/11/2024 for routine screening and pelvic examination. Will continue to monitor. All questions have been answered to patient's satisfaction. Patient verbalized understanding of diagnosis and treatments explained. Advised to call sooner prior to next visit it any questions/concerns arise. Case discussed with collaborating physician Mayo Kim who reviewed the assessment and plan. Chart, medications, labs, vital signs reviewed. Dictation was accomplished with the use of [employer] voice recognition software, which is prone to medical misidentifications and grammatical errors. This are unintentional and the practitioner does try to identify and correct these, but some could still be present. Please do not hesitate to contact practitioner for clarification. 05/17/2025 Dietary counseling (ICD-10 - Z71.3) Patient is here for weight management follow-up. We focused on significance of healthy lifestyle changes. We talked about need to track steps with goal between 6000-10,000 steps daily, focus on portion control, read food labels, get adequate sleep between 7 to 8 hours, get adequate rest to the body, meditate, frequent nutritious meals including vegetables and healthy choices of lean meats, fish, and elimination of refined carbohydrates. We also talked about mindfulness and mindful eating. Particular focus was on continuing portion control and maintaining physical activity. Total time spent with 30 minutes with greater than 50% spent on counseling and coordinating care. 09/15/2024: Weight 122.6 pounds, BMI 28.49. SECA scan completed today and interpreted with the patient. She has high fat mass. Noted to have decreased muscle mass at approximately 22 pounds when minimum expected quantity estimated to be around 25 pounds. Visceral adipose tissue index slightly increased. She reports difficulty with reducing her weight. She follows lifestyle modifications including exercising daily before work and is currently following the whole 40 diet where she is not consuming carbohydrates or dairy products. We discussed clinical indications for weight management medications including phentermine, Contrave, and GLP-1 agonists. Patient is not a candidate for phentermine given history of high blood pressure on amlodipine. Given the patient's decreased muscle mass we discussed the mechanism of GLP-1 agonists as well as how they do not target fat loss rather target weight loss which can include muscle. Discussed the risks of continuing to decrease muscle loss as a relates to osteoporosis. For that reason the patient will be a good candidate for Contrave. We discussed the appropriate use of the medication including appropriate dosing schedule. Discussed expected side effect profile of the medication including but not limited to nausea, vomiting, headaches, dizziness, and constipation. Repeat labs ordered with results pending at this time. Patient demonstrates understanding. She will follow-up in the office in approximately 1 month for weight management. 10/12/2024: Weight 118 pounds, BMI 27.42. SECA scan completed today and interpreted with the patient. Overall down 4 pounds from previous visit. Is decreasing fat mass which she was congratulated for. Increase in muscle mass from 22.2 pounds to 22.5 pounds. Advised to continue working with [employer] personal property to build muscle mass. Reports side effect of dry mouth, advised patient to take the medication with a glass of water as well as to continue daily hydration. At this time plan to continue taking Contrave 90-80 mg 2 tablets twice daily. Discussed proper use of the medication as well as expected side effect profile. She will follow-up in the office in approximately 4 weeks for continued weight management. 11/09/2024: Weight 116.8 pounds, BMI 27.14. SECA scan completed today and interpreted with patient. She is down 2 pounds from last visit. Muscle mass has progressively increased from 22.5 pounds to 25 pounds which she was congratulated for. Now in increased range on scale. Reporting adverse effects of nausea/vomiting on Contrave 2 pills twice daily. We discussed stepping down to next lowest dose and trialing 1 pill in the morning and 1 pill in the evening or 2 pills in the morning and 1 pill in the evening. Patient demonstrates understanding and will titrate dose to best effect. 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 No other concerns, plan to continue Contrave 8-90 mg at a range of 2 to 3 pills daily. Discussed proper use of medication and potential side effect profile. She will follow-up in 4 weeks for further management. 12/14/2024: Weight 115 pounds, BMI 26.73. Seca scan completed today and interpreted with the patient. Approximately 1 pound decrease from last visit. She is no longer on Contrave at this time due to adverse GI side effects. On body composition patient has 45 pounds of fat mass, has had a slight reduction of approximately 0.5 pounds of muscle mass since last visit. Total of 24.7 pounds of muscle. Visceral adipose tissue index remains within normal limits at 1.1. For further weight management we discussed initiation of topiramate as well as compounded semaglutide or tirzepatide. At this time patient has interest in compounded GLP-1 which she may initiate when she returns from her trip to [facility] in December. She will follow-up in approximately 4 weeks. 01/12/2025: 01/12/2025: Weight 118 pounds, BMI 27.42. Seca scan completed today interpreted with the patient., Overall up about 2 pounds were last visit, however on body analysis she is up 2 pounds of muscle mass. Has increased amounts of muscle at this time which has greatly improved from her consultation. Milligram Contrave due to adverse effects. Interested in initiating compounded semaglutide. Discussed potential side effect profile including but not limited to nausea, constipation, abdominal pain, and heartburn. Reports no history of pancreatitis, multiple endocrine neoplasia syndrome in self or family, or history of medullary thyroid cancer in self or family. Advised the patient can receive injections weekly or biweekly as she chooses. Patient understanding. She will follow-up in office in 4 weeks for further evaluation. 02/08/2025: Weight 115 pounds, BMI 26.73. SECA scan completed today and interpreted with the patient. On body analysis she is down 2 to 3 pounds of fat mass and has built about 1/2 pound of muscle mass. Has increased amounts of muscle of her body composition. Patient is receiving semaglutide 0.25 mg weekly in office. Reports no adverse effects at this time. Reviewed goals of diet and exercise. Semaglutide 0.25 mg administered retained sleeve today in office. Plan is to follow-up in office in 4 weeks. 03/07/2025: Weight 111 pounds, BMI 24.6. Seca scan completed and discussed with the patient. Patient is down approximately 4 pounds from her last visit. On body analysis has had a 3 pound decrease of fat mass, has 36.2% of her weight being fat mass but is now within normal ranges. Maintaining good muscle mass as well. Fat mass index of 8.9. Visceral adiposity remains within normal limits at 1.0. Patient currently receiving compounded semaglutide weekly in office. Has been doing well on 0.25 mg and will receive 0.5 mg in office today. Patient will follow-up in 4-6 weeks for further assessment. 04/04/2025: Weight 109 pounds, BMI 24.1. Seca scan completed and discussed with the patient. She is down 2 pounds from her last visit. On body analysis she is down 3 pounds of fat mass. She has a normal fat mass percentage amounting 34.2% of her body weight. She is maintaining very good muscle mass amounting 24.5% of her body weight. Fat mass index is down from 8.9-8.2 within normal limits. Visceral adiposity is also decreasing from 1.0-0.8 and maintaining within good range. She is down half an inch on her waist. Currently is receiving semaglutide 0.5 mg every other week in office. We discussed when limiting supply of semaglutide and discussed options for further weight management including [employer] using coupon card and tirzepatide through [employer]. Patient understanding. At this time we will continue biweekly dosing and follow-up in 4 to 6 weeks. 05/17/2025: Weight 106 pounds, BMI 24.8. Seca scale completed and discussed with the patient. Patient is down 3 pounds overall from her last visit. On body composition analysis she is down 2 pounds of fat mass. Fat mass index today is 7.9 within normal limits. She has had a slight reduction of her muscle by approximately 1 pound, maintains increased amounts of muscle mass. Visceral adiposity is stable at 0.8 L. Weight circumference today measuring 26 inches. Patient receiving semaglutide injections at 0.5 mg biweekly in office. No significant adverse effects. Physical so we will maintain this regimen until we run out of supply. Follow-up in approximately 6 weeks. # Hypertension: Blood pressure 122/80. She is without chest pain, shortness of breath, dyspnea on exertion, or diaphoresis. Continue amlodipine besilate 5 mg once daily. Discussed proper use of the medication and expected side effect profile. Will continue to monitor. Please follow-up with PCP. # Hyperlipidemia: Lipid panel obtained 09/15/2024 with values including cholesterol 212, triglycerides 79, HDL 77, and LDL 119. Per ASCVD risk algorithm no statin recommended because 10-year risk less than 5%. Will continue to monitor and repeat lipid panel in a few months. # Endometrial cancer: Patient currently in remission of stage Ia endometrial cancer as of 2019. She has regular follow-up with gynecology, last note on 02/11/2024 for routine screening and pelvic examination. Will continue to monitor. All questions have been answered to patient's satisfaction. Patient verbalized understanding of diagnosis and treatments explained. Advised to call sooner prior to next visit it any questions/concerns arise. Case discussed with collaborating physician Mayo Kim who reviewed the assessment and plan. Chart, medications, labs, vital signs reviewed. Dictation was accomplished with the use of [employer] voice recognition software, which is prone to medical misidentifications and grammatical errors. This are unintentional and the practitioner does try to identify and correct these, but some could still be present. Please do not hesitate to contact practitioner for clarification. 06/27/2025 Dietary counseling (ICD-10 - Z71.3) Patient is here for weight management follow-up. We focused on significance of healthy lifestyle changes. We talked about need to track steps with goal between 6000-10,000 steps daily, focus on portion control, read food labels, get adequate sleep between 7 to 8 hours, get adequate rest to the body, meditate, frequent nutritious meals including vegetables and healthy choices of lean meats, fish, and elimination of refined carbohydrates. We also talked about mindfulness and mindful eating. Particular focus was on continuing portion control and maintaining physical activity. Total time spent with 30 minutes with greater than 50% spent on counseling and coordinating care. 09/15/2024: Weight 122.6 pounds, BMI 28.49. SECA scan completed today and interpreted with the patient. She has high fat mass. Noted to have decreased muscle mass at approximately 22 pounds when minimum expected quantity estimated to be around 25 pounds. Visceral adipose tissue index slightly increased. She reports difficulty with reducing her weight. She follows lifestyle modifications including exercising daily before work and is currently following the whole 40 diet where she is not consuming carbohydrates or dairy products. We discussed clinical indications for weight management medications including phentermine, Contrave, and GLP-1 agonists. Patient is not a candidate for phentermine given history of high blood pressure on amlodipine. Given the patient's decreased muscle mass we discussed the mechanism of GLP-1 agonists as well as how they do not target fat loss rather target weight loss which can include muscle. Discussed the risks of continuing to decrease muscle loss as a relates to osteoporosis. For that reason the patient will be a good candidate for Contrave. We discussed the appropriate use of the medication including appropriate dosing schedule. Discussed expected side effect profile of the medication including but not limited to nausea, vomiting, headaches, dizziness, and constipation. Repeat labs ordered with results pending at this time. Patient demonstrates understanding. She will follow-up in the office in approximately 1 month for weight management. 10/12/2024: Weight 118 pounds, BMI 27.42. SECA scan completed today and interpreted with the patient. Overall down 4 pounds from previous visit. Is decreasing fat mass which she was congratulated for. Increase in muscle mass from 22.2 pounds to 22.5 pounds. Advised to continue working with [employer] personal property to build muscle mass. Reports side effect of dry mouth, advised patient to take the medication with a glass of water as well as to continue daily hydration. At this time plan to continue taking Contrave 90-80 mg 2 tablets twice daily. Discussed proper use of the medication as well as expected side effect profile. She will follow-up in the office in approximately 4 weeks for continued weight management. 11/09/2024: Weight 116.8 pounds, BMI 27.14. SECA scan completed today and interpreted with patient. She is down 2 pounds from last visit. Muscle mass has progressively increased from 22.5 pounds to 25 pounds which she was congratulated for. Now in increased range on scale. Reporting adverse effects of nausea/vomiting on Contrave 2 pills twice daily. We discussed stepping down to next lowest dose and trialing 1 pill in the morning and 1 pill in the evening or 2 pills in the morning and 1 pill in the evening. Patient demonstrates understanding and will titrate dose to best effect. 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 No other concerns, plan to continue Contrave 8-90 mg at a range of 2 to 3 pills daily. Discussed proper use of medication and potential side effect profile. She will follow-up in 4 weeks for further management. 12/14/2024: Weight 115 pounds, BMI 26.73. Seca scan completed today and interpreted with the patient. Approximately 1 pound decrease from last visit. She is no longer on Contrave at this time due to adverse GI side effects. On body composition patient has 45 pounds of fat mass, has had a slight reduction of approximately 0.5 pounds of muscle mass since last visit. Total of 24.7 pounds of muscle. Visceral adipose tissue index remains within normal limits at 1.1. For further weight management we discussed initiation of topiramate as well as compounded semaglutide or tirzepatide. At this time patient has interest in compounded GLP-1 which she may initiate when she returns from her trip to [facility] in December. She will follow-up in approximately 4 weeks. 01/12/2025: 01/12/2025: Weight 118 pounds, BMI 27.42. Seca scan completed today interpreted with the patient., Overall up about 2 pounds were last visit, however on body analysis she is up 2 pounds of muscle mass. Has increased amounts of muscle at this time which has greatly improved from her consultation. Milligram Contrave due to adverse effects. Interested in initiating compounded semaglutide. Discussed potential side effect profile including but not limited to nausea, constipation, abdominal pain, and heartburn. Reports no history of pancreatitis, multiple endocrine neoplasia syndrome in self or family, or history of medullary thyroid cancer in self or family. Advised the patient can receive injections weekly or biweekly as she chooses. Patient understanding. She will follow-up in office in 4 weeks for further evaluation. 02/08/2025: Weight 115 pounds, BMI 26.73. SECA scan completed today and interpreted with the patient. On body analysis she is down 2 to 3 pounds of fat mass and has built about 1/2 pound of muscle mass. Has increased amounts of muscle of her body composition. Patient is receiving semaglutide 0.25 mg weekly in office. Reports no adverse effects at this time. Reviewed goals of diet and exercise. Semaglutide 0.25 mg administered retained sleeve today in office. Plan is to follow-up in office in 4 weeks. 03/07/2025: Weight 111 pounds, BMI 24.6. Seca scan completed and discussed with the patient. Patient is down approximately 4 pounds from her last visit. On body analysis has had a 3 pound decrease of fat mass, has 36.2% of her weight being fat mass but is now within normal ranges. Maintaining good muscle mass as well. Fat mass index of 8.9. Visceral adiposity remains within normal limits at 1.0. Patient currently receiving compounded semaglutide weekly in office. Has been doing well on 0.25 mg and will receive 0.5 mg in office today. Patient will follow-up in 4-6 weeks for further assessment. 04/04/2025: Weight 109 pounds, BMI 24.1. Seca scan completed and discussed with the patient. She is down 2 pounds from her last visit. On body analysis she is down 3 pounds of fat mass. She has a normal fat mass percentage amounting 34.2% of her body weight. She is maintaining very good muscle mass amounting 24.5% of her body weight. Fat mass index is down from 8.9-8.2 within normal limits. Visceral adiposity is also decreasing from 1.0-0.8 and maintaining within good range. She is down half an inch on her waist. Currently is receiving semaglutide 0.5 mg every other week in office. We discussed when limiting supply of semaglutide and discussed options for further weight management including Wegovy using coupon card and tirzepatide through [employer] direct. Patient understanding. At this time we will continue biweekly dosing and follow-up in 4 to 6 weeks. 05/17/2025: Weight 106 pounds, BMI 24.8. Seca scale completed and discussed with the patient. Patient is down 3 pounds overall from her last visit. On body composition analysis she is down 2 pounds of fat mass. Fat mass index today is 7.9 within normal limits. She has had a slight reduction of her muscle by approximately 1 pound, maintains increased amounts of muscle mass. Visceral adiposity is stable at 0.8 L. Weight circumference today measuring 26 inches. Patient receiving semaglutide injections at 0.5 mg biweekly in office. No significant adverse effects. Physical so we will maintain this regimen until we run out of supply. Follow-up in approximately 6 weeks. 06/27/2025: Weight 106 pounds, BMI 24.63. Seca scan completed and discussed results with the patient. Weight has remained stable since her last visit. On body composition analysis she is down 4 pounds of fat mass. Fat mass index within normal limits at 7.0. Muscle mass has improved by 1.5 pounds. Visceral adiposity is within normal limits at 0.7. Patient had been receiving semaglutide injections in office, no longer available at this time. Discussed importance of lifestyle to maintain weight loss. She would like to reduce down to monthly dosing. Will prescribe Wegovy 0.5 mg [id number], patient will administer dose once monthly and will monitor side effects. Will follow-up in 6 weeks. # Hypertension: Blood pressure 126/80. She is without chest pain, shortness of breath, dyspnea on exertion, or diaphoresis. Continue amlodipine besilate 5 mg once daily. Discussed proper use of the medication and expected side effect profile. Will continue to monitor. Please follow-up with PCP. # Hyperlipidemia: Lipid panel obtained 09/15/2024 with values including cholesterol 212, triglycerides 79, HDL 77, and LDL 119. Per ASCVD risk algorithm no statin recommended because 10-year risk less than 5%. Will continue to monitor and repeat lipid panel in a few months. # Endometrial cancer: Patient currently in remission of stage Ia endometrial cancer as of 2019. She has regular follow-up with gynecology, last note on 02/11/2024 for routine screening and pelvic examination. Will continue to monitor. All questions have been answered to patient's satisfaction. Patient verbalized understanding of diagnosis and treatments explained. Advised to call sooner prior to next visit it any questions/concerns arise. Case discussed with collaborating physician Mayo Kim who reviewed the assessment and plan. Chart, medications, labs, vital signs reviewed. Dictation was accomplished with the use of [employer] voice recognition software, which is prone to medical misidentifications and grammatical errors. This are unintentional and the practitioner does try to identify and correct these, but some could still be present. Please do not hesitate to contact practitioner for clarification. 06/27/2025 BMI 24.0-24.9, adult (ICD-10 - Z68.24) Patient is here for weight management follow-up. We focused on significance of healthy lifestyle changes. We talked about need to track steps with goal between 6000-10,000 steps daily, focus on portion control, read food labels, get adequate sleep between 7 to 8 hours, get adequate rest to the body, meditate, frequent nutritious meals including vegetables and healthy choices of lean meats, fish, and elimination of refined carbohydrates. We also talked about mindfulness and mindful eating. Particular focus was on continuing portion control and maintaining physical activity. Total time spent with 30 minutes with greater than 50% spent on counseling and coordinating care. 09/15/2024: Weight 122.6 pounds, BMI 28.49. SECA scan completed today and interpreted with the patient. She has high fat mass. Noted to have decreased muscle mass at approximately 22 pounds when minimum expected quantity estimated to be around 25 pounds. Visceral adipose tissue index slightly increased. She reports difficulty with reducing her weight. She follows lifestyle modifications including exercising daily before work and is currently following the whole 40 diet where she is not consuming carbohydrates or dairy products. We discussed clinical indications for weight management medications including phentermine, Contrave, and GLP-1 agonists. Patient is not a candidate for phentermine given history of high blood pressure on amlodipine. Given the patient's decreased muscle mass we discussed the mechanism of GLP-1 agonists as well as how they do not target fat loss rather target weight loss which can include muscle. Discussed the risks of continuing to decrease muscle loss as a relates to osteoporosis. For that reason the patient will be a good candidate for Contrave. We discussed the appropriate use of the medication including appropriate dosing schedule. Discussed expected side effect profile of the medication including but not limited to nausea, vomiting, headaches, dizziness, and constipation. Repeat labs ordered with results pending at this time. Patient demonstrates understanding. She will follow-up in the office in approximately 1 month for weight management. 10/12/2024: Weight 118 pounds, BMI 27.42. SECA scan completed today and interpreted with the patient. Overall down 4 pounds from previous visit. Is decreasing fat mass which she was congratulated for. Increase in muscle mass from 22.2 pounds to 22.5 pounds. Advised to continue working with [employer]raiser personal property to build muscle mass. Reports side effect of dry mouth, advised patient to take the medication with a glass of water as well as to continue daily hydration. At this time plan to continue taking Contrave 90-80 mg 2 tablets twice daily. Discussed proper use of the medication as well as expected side effect profile. She will follow-up in the office in approximately 4 weeks for continued weight management. 11/09/2024: Weight 116.8 pounds, BMI 27.14. SECA scan completed today and interpreted with patient. She is down 2 pounds from last visit. Muscle mass has progressively increased from 22.5 pounds to 25 pounds which she was congratulated for. Now in increased range on scale. Reporting adverse effects of nausea/vomiting on Contrave 2 pills twice daily. We discussed stepping down to next lowest dose and trialing 1 pill in the morning and 1 pill in the evening or 2 pills in the morning and 1 pill in the evening. Patient demonstrates understanding and will titrate dose to best effect. 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 No other concerns, plan to continue Contrave 8-90 mg at a range of 2 to 3 pills daily. Discussed proper use of medication and potential side effect profile. She will follow-up in 4 weeks for further management. 12/14/2024: Weight 115 pounds, BMI 26.73. Seca scan completed today and interpreted with the patient. Approximately 1 pound decrease from last visit. She is no longer on Contrave at this time due to adverse GI side effects. On body composition patient has 45 pounds of fat mass, has had a slight reduction of approximately 0.5 pounds of muscle mass since last visit. Total of 24.7 pounds of muscle. Visceral adipose tissue index remains within normal limits at 1.1. For further weight management we discussed initiation of topiramate as well as compounded semaglutide or tirzepatide. At this time patient has interest in compounded GLP-1 which she may initiate when she returns from her trip to [facility] in December. She will follow-up in approximately 4 weeks. 01/12/2025: 01/12/2025: Weight 118 pounds, BMI 27.42. Seca scan completed today interpreted with the patient., Overall up about 2 pounds were last visit, however on body analysis she is up 2 pounds of muscle mass. Has increased amounts of muscle at this time which has greatly improved from her consultation. Milligram Contrave due to adverse effects. Interested in initiating compounded semaglutide. Discussed potential side effect profile including but not limited to nausea, constipation, abdominal pain, and heartburn. Reports no history of pancreatitis, multiple endocrine neoplasia syndrome in self or family, or history of medullary thyroid cancer in self or family. Advised the patient can receive injections weekly or biweekly as she chooses. Patient understanding. She will follow-up in office in 4 weeks for further evaluation. 02/08/2025: Weight 115 pounds, BMI 26.73. SECA scan completed today and interpreted with the patient. On body analysis she is down 2 to 3 pounds of fat mass and has built about 1/2 pound of muscle mass. Has increased amounts of muscle of her body composition. Patient is receiving semaglutide 0.25 mg weekly in office. Reports no adverse effects at this time. Reviewed goals of diet and exercise. Semaglutide 0.25 mg administered retained sleeve today in office. Plan is to follow-up in office in 4 weeks. 03/07/2025: Weight 111 pounds, BMI 24.6. Seca scan completed and discussed with the patient. Patient is down approximately 4 pounds from her last visit. On body analysis has had a 3 pound decrease of fat mass, has 36.2% of her weight being fat mass but is now within normal ranges. Maintaining good muscle mass as well. Fat mass index of 8.9. Visceral adiposity remains within normal limits at 1.0. Patient currently receiving compounded semaglutide weekly in office. Has been doing well on 0.25 mg and will receive 0.5 mg in office today. Patient will follow-up in 4-6 weeks for further assessment. 04/04/2025: Weight 109 pounds, BMI 24.1. Seca scan completed and discussed with the patient. She is down 2 pounds from her last visit. On body analysis she is down 3 pounds of fat mass. She has a normal fat mass percentage amounting 34.2% of her body weight. She is maintaining very good muscle mass amounting 24.5% of her body weight. Fat mass index is down from 8.9-8.2 within normal limits. Visceral adiposity is also decreasing from 1.0-0.8 and maintaining within good range. She is down half an inch on her waist. Currently is receiving semaglutide 0.5 mg every other week in office. We discussed when limiting supply of semaglutide and discussed options for further weight management including Wegovy using [employer] card and tirzepatide through [employer] direct. Patient understanding. At this time we will continue biweekly dosing and follow-up in 4 to 6 weeks. 05/17/2025: Weight 106 pounds, BMI 24.8. Seca scale completed and discussed with the patient. Patient is down 3 pounds overall from her last visit. On body composition analysis she is down 2 pounds of fat mass. Fat mass index today is 7.9 within normal limits. She has had a slight reduction of her muscle by approximately 1 pound, maintains increased amounts of muscle mass. Visceral adiposity is stable at 0.8 L. Weight circumference today measuring 26 inches. Patient receiving semaglutide injections at 0.5 mg biweekly in office. No significant adverse effects. Physical so we will maintain this regimen until we run out of supply. Follow-up in approximately 6 weeks. 06/27/2025: Weight 106 pounds, BMI 24.63. Seca scan completed and discussed results with the patient. Weight has remained stable since her last visit. On body composition analysis she is down 4 pounds of fat mass. Fat mass index within normal limits at 7.0. Muscle mass has improved by 1.5 pounds. Visceral adiposity is within normal limits at 0.7. Patient had been receiving semaglutide injections in office, no longer available at this time. Discussed importance of lifestyle to maintain weight loss. She would like to reduce down to monthly dosing. Will prescribe Wegovy 0.5 mg [id number], patient will administer dose once monthly and will monitor side effects. Will follow-up in 6 weeks. # Hypertension: Blood pressure 126/80. She is without chest pain, shortness of breath, dyspnea on exertion, or diaphoresis. Continue amlodipine besilate 5 mg once daily. Discussed proper use of the medication and expected side effect profile. Will continue to monitor. Please follow-up with PCP. # Hyperlipidemia: Lipid panel obtained 09/15/2024 with values including cholesterol 212, triglycerides 79, HDL 77, and LDL 119. Per ASCVD risk algorithm no statin recommended because 10-year risk less than 5%. Will continue to monitor and repeat lipid panel in a few months. # Endometrial cancer: Patient currently in remission of stage Ia endometrial cancer as of 2019. She has regular follow-up with gynecology, last note on 02/11/2024 for routine screening and pelvic examination. Will continue to monitor. All questions have been answered to patient's satisfaction. Patient verbalized understanding of diagnosis and treatments explained. Advised to call sooner prior to next visit it any questions/concerns arise. Case discussed with collaborating physician Mayo Kim who reviewed the assessment and plan. Chart, medications, labs, vital signs reviewed. Dictation was accomplished with the use of [employer] voice recognition software, which is prone to medical misidentifications and grammatical errors. This are unintentional and the practitioner does try to identify and correct these, but some could still be present. Please do not hesitate to contact practitioner for clarification. 05/17/2025 BMI 24.0-24.9, adult (ICD-10 - Z68.24) Patient is here for weight management follow-up. We focused on significance of healthy lifestyle changes. We talked about need to track steps with goal between 6000-10,000 steps daily, focus on portion control, read food labels, get adequate sleep between 7 to 8 hours, get adequate rest to the body, meditate, frequent nutritious meals including vegetables and healthy choices of lean meats, fish, and elimination of refined carbohydrates. We also talked about mindfulness and mindful eating. Particular focus was on continuing portion control and maintaining physical activity. Total time spent with 30 minutes with greater than 50% spent on counseling and coordinating care. 09/15/2024: Weight 122.6 pounds, BMI 28.49. SECA scan completed today and interpreted with the patient. She has high fat mass. Noted to have decreased muscle mass at approximately 22 pounds when minimum expected quantity estimated to be around 25 pounds. Visceral adipose tissue index slightly increased. She reports difficulty with reducing her weight. She follows lifestyle modifications including exercising daily before work and is currently following the whole 40 diet where she is not consuming carbohydrates or dairy products. We discussed clinical indications for weight management medications including phentermine, Contrave, and GLP-1 agonists. Patient is not a candidate for phentermine given history of high blood pressure on amlodipine. Given the patient's decreased muscle mass we discussed the mechanism of GLP-1 agonists as well as how they do not target fat loss rather target weight loss which can include muscle. Discussed the risks of continuing to decrease muscle loss as a relates to osteoporosis. For that reason the patient will be a good candidate for Contrave. We discussed the appropriate use of the medication including appropriate dosing schedule. Discussed expected side effect profile of the medication including but not limited to nausea, vomiting, headaches, dizziness, and constipation. Repeat labs ordered with results pending at this time. Patient demonstrates understanding. She will follow-up in the office in approximately 1 month for weight management. 10/12/2024: Weight 118 pounds, BMI 27.42. SECA scan completed today and interpreted with the patient. Overall down 4 pounds from previous visit. Is decreasing fat mass which she was congratulated for. Increase in muscle mass from 22.2 pounds to 22.5 pounds. Advised to continue working with appraiser personal property to build muscle mass. Reports side effect of dry mouth, advised patient to take the medication with a glass of water as well as to continue daily hydration. At this time plan to continue taking Contrave 90-80 mg 2 tablets twice daily. Discussed proper use of the medication as well as expected side effect profile. She will follow-up in the office in approximately 4 weeks for continued weight management. 11/09/2024: Weight 116.8 pounds, BMI 27.14. SECA scan completed today and interpreted with patient. She is down 2 pounds from last visit. Muscle mass has progressively increased from 22.5 pounds to 25 pounds which she was congratulated for. Now in increased range on scale. Reporting adverse effects of nausea/vomiting on Contrave 2 pills twice daily. We discussed stepping down to next lowest dose and trialing 1 pill in the morning and 1 pill in the evening or 2 pills in the morning and 1 pill in the evening. Patient demonstrates understanding and will titrate dose to best effect. 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 No other concerns, plan to continue Contrave 8-90 mg at a range of 2 to 3 pills daily. Discussed proper use of medication and potential side effect profile. She will follow-up in 4 weeks for further management. 12/14/2024: Weight 115 pounds, BMI 26.73. Seca scan completed today and interpreted with the patient. Approximately 1 pound decrease from last visit. She is no longer on Contrave at this time due to adverse GI side effects. On body composition patient has 45 pounds of fat mass, has had a slight reduction of approximately 0.5 pounds of muscle mass since last visit. Total of 24.7 pounds of muscle. Visceral adipose tissue index remains within normal limits at 1.1. For further weight management we discussed initiation of topiramate as well as compounded semaglutide or tirzepatide. At this time patient has interest in compounded GLP-1 which she may initiate when she returns from her trip to [facility] in December. She will follow-up in approximately 4 weeks. 01/12/2025: 01/12/2025: Weight 118 pounds, BMI 27.42. Seca scan completed today interpreted with the patient., Overall up about 2 pounds were last visit, however on body analysis she is up 2 pounds of muscle mass. Has increased amounts of muscle at this time which has greatly improved from her consultation. Milligram Contrave due to adverse effects. Interested in initiating compounded semaglutide. Discussed potential side effect profile including but not limited to nausea, constipation, abdominal pain, and heartburn. Reports no history of pancreatitis, multiple endocrine neoplasia syndrome in self or family, or history of medullary thyroid cancer in self or family. Advised the patient can receive injections weekly or biweekly as she chooses. Patient understanding. She will follow-up in office in 4 weeks for further evaluation. 02/08/2025: Weight 115 pounds, BMI 26.73. SECA scan completed today and interpreted with the patient. On body analysis she is down 2 to 3 pounds of fat mass and has built about 1/2 pound of muscle mass. Has increased amounts of muscle of her body composition. Patient is receiving semaglutide 0.25 mg weekly in office. Reports no adverse effects at this time. Reviewed goals of diet and exercise. Semaglutide 0.25 mg administered retained sleeve today in office. Plan is to follow-up in office in 4 weeks. 03/07/2025: Weight 111 pounds, BMI 24.6. Seca scan completed and discussed with the patient. Patient is down approximately 4 pounds from her last visit. On body analysis has had a 3 pound decrease of fat mass, has 36.2% of her weight being fat mass but is now within normal ranges. Maintaining good muscle mass as well. Fat mass index of 8.9. Visceral adiposity remains within normal limits at 1.0. Patient currently receiving compounded semaglutide weekly in office. Has been doing well on 0.25 mg and will receive 0.5 mg in office today. Patient will follow-up in 4-6 weeks for further assessment. 04/04/2025: Weight 109 pounds, BMI 24.1. Seca scan completed and discussed with the patient. She is down 2 pounds from her last visit. On body analysis she is down 3 pounds of fat mass. She has a normal fat mass percentage amounting 34.2% of her body weight. She is maintaining very good muscle mass amounting 24.5% of her body weight. Fat mass index is down from 8.9-8.2 within normal limits. Visceral adiposity is also decreasing from 1.0-0.8 and maintaining within good range. She is down half an inch on her waist. Currently is receiving semaglutide 0.5 mg every other week in office. We discussed when limiting supply of semaglutide and discussed options for further weight management including Wegovy using coupon card and tirzepatide through [employer]. Patient understanding. At this time we will continue biweekly dosing and follow-up in 4 to 6 weeks. 05/17/2025: Weight 106 pounds, BMI 24.8. Seca scale completed and discussed with the patient. Patient is down 3 pounds overall from her last visit. On body composition analysis she is down 2 pounds of fat mass. Fat mass index today is 7.9 within normal limits. She has had a slight reduction of her muscle by approximately 1 pound, maintains increased amounts of muscle mass. Visceral adiposity is stable at 0.8 L. Weight circumference today measuring 26 inches. Patient receiving semaglutide injections at 0.5 mg biweekly in office. No significant adverse effects. Physical so we will maintain this regimen until we run out of supply. Follow-up in approximately 6 weeks. # Hypertension: Blood pressure 122/80. She is without chest pain, shortness of breath, dyspnea on exertion, or diaphoresis. Continue amlodipine besilate 5 mg once daily. Discussed proper use of the medication and expected side effect profile. Will continue to monitor. Please follow-up with PCP. # Hyperlipidemia: Lipid panel obtained 09/15/2024 with values including cholesterol 212, triglycerides 79, HDL 77, and LDL 119. Per ASCVD risk algorithm no statin recommended because 10-year risk less than 5%. Will continue to monitor and repeat lipid panel in a few months. # Endometrial cancer: Patient currently in remission of stage Ia endometrial cancer as of 2019. She has regular follow-up with gynecology, last note on 02/11/2024 for routine screening and pelvic examination. Will continue to monitor. All questions have been answered to patient's satisfaction. Patient verbalized understanding of diagnosis and treatments explained. Advised to call sooner prior to next visit it any questions/concerns arise. Case discussed with collaborating physician Mayo Kim who reviewed the assessment and plan. Chart, medications, labs, vital signs reviewed. Dictation was accomplished with the use of [employer] voice recognition software, which is prone to medical misidentifications and grammatical errors. This are unintentional and the practitioner does try to identify and correct these, but some could still be present. Please do not hesitate to contact practitioner for clarification. 04/04/2025 BMI 24.0-24.9, adult (ICD-10 - Z68.24) Patient is here for weight management follow-up. We focused on significance of healthy lifestyle changes. We talked about need to track steps with goal between 6000-10,000 steps daily, focus on portion control, read food labels, get adequate sleep between 7 to 8 hours, get adequate rest to the body, meditate, frequent nutritious meals including vegetables and healthy choices of lean meats, fish, and elimination of refined carbohydrates. We also talked about mindfulness and mindful eating. Particular focus was on continuing portion control and maintaining physical activity. Total time spent with 30 minutes with greater than 50% spent on counseling and coordinating care. 09/15/2024: Weight 122.6 pounds, BMI 28.49. SECA scan completed today and interpreted with the patient. She has high fat mass. Noted to have decreased muscle mass at approximately 22 pounds when minimum expected quantity estimated to be around 25 pounds. Visceral adipose tissue index slightly increased. She reports difficulty with reducing her weight. She follows lifestyle modifications including exercising daily before work and is currently following the whole 40 diet where she is not consuming carbohydrates or dairy products. We discussed clinical indications for weight management medications including phentermine, Contrave, and GLP-1 agonists. Patient is not a candidate for phentermine given history of high blood pressure on amlodipine. Given the patient's decreased muscle mass we discussed the mechanism of GLP-1 agonists as well as how they do not target fat loss rather target weight loss which can include muscle. Discussed the risks of continuing to decrease muscle loss as a relates to osteoporosis. For that reason the patient will be a good candidate for Contrave. We discussed the appropriate use of the medication including appropriate dosing schedule. Discussed expected side effect profile of the medication including but not limited to nausea, vomiting, headaches, dizziness, and constipation. Repeat labs ordered with results pending at this time. Patient demonstrates understanding. She will follow-up in the office in approximately 1 month for weight management. 10/12/2024: Weight 118 pounds, BMI 27.42. SECA scan completed today and interpreted with the patient. Overall down 4 pounds from previous visit. Is decreasing fat mass which she was congratulated for. Increase in muscle mass from 22.2 pounds to 22.5 pounds. Advised to continue working with appraiser personal property to build muscle mass. Reports side effect of dry mouth, advised patient to take the medication with a glass of water as well as to continue daily hydration. At this time plan to continue taking Contrave 90-80 mg 2 tablets twice daily. Discussed proper use of the medication as well as expected side effect profile. She will follow-up in the office in approximately 4 weeks for continued weight management. 11/09/2024: Weight 116.8 pounds, BMI 27.14. SECA scan completed today and interpreted with patient. She is down 2 pounds from last visit. Muscle mass has progressively increased from 22.5 pounds to 25 pounds which she was congratulated for. Now in increased range on scale. Reporting adverse effects of nausea/vomiting on Contrave 2 pills twice daily. We discussed stepping down to next lowest dose and trialing 1 pill in the morning and 1 pill in the evening or 2 pills in the morning and 1 pill in the evening. Patient demonstrates understanding and will titrate dose to best effect. 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 No other concerns, plan to continue Contrave 8-90 mg at a range of 2 to 3 pills daily. Discussed proper use of medication and potential side effect profile. She will follow-up in 4 weeks for further management. 12/14/2024: Weight 115 pounds, BMI 26.73. Seca scan completed today and interpreted with the patient. Approximately 1 pound decrease from last visit. She is no longer on Contrave at this time due to adverse GI side effects. On body composition patient has 45 pounds of fat mass, has had a slight reduction of approximately 0.5 pounds of muscle mass since last visit. Total of 24.7 pounds of muscle. Visceral adipose tissue index remains within normal limits at 1.1. For further weight management we discussed initiation of topiramate as well as compounded semaglutide or tirzepatide. At this time patient has interest in compounded GLP-1 which she may initiate when she returns from her trip to [facility] in December. She will follow-up in approximately 4 weeks. 01/12/2025: 01/12/2025: Weight 118 pounds, BMI 27.42. Seca scan completed today interpreted with the patient., Overall up about 2 pounds were last visit, however on body analysis she is up 2 pounds of muscle mass. Has increased amounts of muscle at this time which has greatly improved from her consultation. Milligram Contrave due to adverse effects. Interested in initiating compounded semaglutide. Discussed potential side effect profile including but not limited to nausea, constipation, abdominal pain, and heartburn. Reports no history of pancreatitis, multiple endocrine neoplasia syndrome in self or family, or history of medullary thyroid cancer in self or family. Advised the patient can receive injections weekly or biweekly as she chooses. Patient understanding. She will follow-up in office in 4 weeks for further evaluation. 02/08/2025: Weight 115 pounds, BMI 26.73. SECA scan completed today and interpreted with the patient. On body analysis she is down 2 to 3 pounds of fat mass and has built about 1/2 pound of muscle mass. Has increased amounts of muscle of her body composition. Patient is receiving semaglutide 0.25 mg weekly in office. Reports no adverse effects at this time. Reviewed goals of diet and exercise. Semaglutide 0.25 mg administered retained sleeve today in office. Plan is to follow-up in office in 4 weeks. 03/07/2025: Weight 111 pounds, BMI 24.6. Seca scan completed and discussed with the patient. Patient is down approximately 4 pounds from her last visit. On body analysis has had a 3 pound decrease of fat mass, has 36.2% of her weight being fat mass but is now within normal ranges. Maintaining good muscle mass as well. Fat mass index of 8.9. Visceral adiposity remains within normal limits at 1.0. Patient currently receiving compounded semaglutide weekly in office. Has been doing well on 0.25 mg and will receive 0.5 mg in office today. Patient will follow-up in 4-6 weeks for further assessment. 04/04/2025: Weight 109 pounds, BMI 24.1. Seca scan completed and discussed with the patient. She is down 2 pounds from her last visit. On body analysis she is down 3 pounds of fat mass. She has a normal fat mass percentage amounting 34.2% of her body weight. She is maintaining very good muscle mass amounting 24.5% of her body weight. Fat mass index is down from 8.9-8.2 within normal limits. Visceral adiposity is also decreasing from 1.0-0.8 and maintaining within good range. She is down half an inch on her waist. Currently is receiving semaglutide 0.5 mg every other week in office. We discussed when limiting supply of semaglutide and discussed options for further weight management including Wegovy using coupon card and tirzepatide through [employer]. Patient understanding. At this time we will continue biweekly dosing and follow-up in 4 to 6 weeks. # Hypertension: Blood pressure 128/80. She is without chest pain, shortness of breath, dyspnea on exertion, or diaphoresis. Continue amlodipine besilate 5 mg once daily. Discussed proper use of the medication and expected side effect profile. Will continue to monitor. Please follow-up with PCP. # Hyperlipidemia: Lipid panel obtained 09/15/2024 with values including cholesterol 212, triglycerides 79, HDL 77, and LDL 119. Per ASCVD risk algorithm no statin recommended because 10-year risk less than 5%. Will continue to monitor and repeat lipid panel in a few months. # Endometrial cancer: Patient currently in remission of stage Ia endometrial cancer as of 2019. She has regular follow-up with gynecology, last note on 02/11/2024 for routine screening and pelvic examination. Will continue to monitor. All questions have been answered to patient's satisfaction. Patient verbalized understanding of diagnosis and treatments explained. Advised to call sooner prior to next visit it any questions/concerns arise. Case discussed with collaborating physician Mayo Kim who reviewed the assessment and plan. Chart, medications, labs, vital signs reviewed. Dictation was accomplished with the use of [employer] voice recognition software, which is prone to medical misidentifications and grammatical errors. This are unintentional and the practitioner does try to identify and correct these, but some could still be present. Please do not hesitate to contact practitioner for clarification. 03/07/2025 Essential hypertension (ICD-10 - I10) Patient is here for weight management follow-up. We focused on significance of healthy lifestyle changes. We talked about need to track steps with goal between 6000-10,000 steps daily, focus on portion control, read food labels, get adequate sleep between 7 to 8 hours, get adequate rest to the body, meditate, frequent nutritious meals including vegetables and healthy choices of lean meats, fish, and elimination of refined carbohydrates. We also talked about mindfulness and mindful eating. Particular focus was on continuing portion control and maintaining physical activity. Total time spent with 30 minutes with greater than 50% spent on counseling and coordinating care. 09/15/2024: Weight 122.6 pounds, BMI 28.49. SECA scan completed today and interpreted with the patient. She has high fat mass. Noted to have decreased muscle mass at approximately 22 pounds when minimum expected quantity estimated to be around 25 pounds. Visceral adipose tissue index slightly increased. She reports difficulty with reducing her weight. She follows lifestyle modifications including exercising daily before work and is currently following the whole 40 diet where she is not consuming carbohydrates or dairy products. We discussed clinical indications for weight management medications including phentermine, Contrave, and GLP-1 agonists. Patient is not a candidate for phentermine given history of high blood pressure on amlodipine. Given the patient's decreased muscle mass we discussed the mechanism of GLP-1 agonists as well as how they do not target fat loss rather target weight loss which can include muscle. Discussed the risks of continuing to decrease muscle loss as a relates to osteoporosis. For that reason the patient will be a good candidate for Contrave. We discussed the appropriate use of the medication including appropriate dosing schedule. Discussed expected side effect profile of the medication including but not limited to nausea, vomiting, headaches, dizziness, and constipation. Repeat labs ordered with results pending at this time. Patient demonstrates understanding. She will follow-up in the office in approximately 1 month for weight management. 10/12/2024: Weight 118 pounds, BMI 27.42. SECA scan completed today and interpreted with the patient. Overall down 4 pounds from previous visit. Is decreasing fat mass which she was congratulated for. Increase in muscle mass from 22.2 pounds to 22.5 pounds. Advised to continue working with [employer] personal property to build muscle mass. Reports side effect of dry mouth, advised patient to take the medication with a glass of water as well as to continue daily hydration. At this time plan to continue taking Contrave 90-80 mg 2 tablets twice daily. Discussed proper use of the medication as well as expected side effect profile. She will follow-up in the office in approximately 4 weeks for continued weight management. 11/09/2024: Weight 116.8 pounds, BMI 27.14. SECA scan completed today and interpreted with patient. She is down 2 pounds from last visit. Muscle mass has progressively increased from 22.5 pounds to 25 pounds which she was congratulated for. Now in increased range on scale. Reporting adverse effects of nausea/vomiting on Contrave 2 pills twice daily. We discussed stepping down to next lowest dose and trialing 1 pill in the morning and 1 pill in the evening or 2 pills in the morning and 1 pill in the evening. Patient demonstrates understanding and will titrate dose to best effect. 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 No other concerns, plan to continue Contrave 8-90 mg at a range of 2 to 3 pills daily. Discussed proper use of medication and potential side effect profile. She will follow-up in 4 weeks for further management. 12/14/2024: Weight 115 pounds, BMI 26.73. Seca scan completed today and interpreted with the patient. Approximately 1 pound decrease from last visit. She is no longer on Contrave at this time due to adverse GI side effects. On body composition patient has 45 pounds of fat mass, has had a slight reduction of approximately 0.5 pounds of muscle mass since last visit. Total of 24.7 pounds of muscle. Visceral adipose tissue index remains within normal limits at 1.1. For further weight management we discussed initiation of topiramate as well as compounded semaglutide or tirzepatide. At this time patient has interest in compounded GLP-1 which she may initiate when she returns from her trip to [facility] in December. She will follow-up in approximately 4 weeks. 01/12/2025: 01/12/2025: Weight 118 pounds, BMI 27.42. Seca scan completed today interpreted with the patient., Overall up about 2 pounds were last visit, however on body analysis she is up 2 pounds of muscle mass. Has increased amounts of muscle at this time which has greatly improved from her consultation. Milligram Contrave due to adverse effects. Interested in initiating compounded semaglutide. Discussed potential side effect profile including but not limited to nausea, constipation, abdominal pain, and heartburn. Reports no history of pancreatitis, multiple endocrine neoplasia syndrome in self or family, or history of medullary thyroid cancer in self or family. Advised the patient can receive injections weekly or biweekly as she chooses. Patient understanding. She will follow-up in office in 4 weeks for further evaluation. 02/08/2025: Weight 115 pounds, BMI 26.73. SECA scan completed today and interpreted with the patient. On body analysis she is down 2 to 3 pounds of fat mass and has built about 1/2 pound of muscle mass. Has increased amounts of muscle of her body composition. Patient is receiving semaglutide 0.25 mg weekly in office. Reports no adverse effects at this time. Reviewed goals of diet and exercise. Semaglutide 0.25 mg administered retained sleeve today in office. Plan is to follow-up in office in 4 weeks. 03/07/2025: Weight 111 pounds, BMI 24.6. Seca scan completed and discussed with the patient. Patient is down approximately 4 pounds from her last visit. On body analysis has had a 3 pound decrease of fat mass, has 36.2% of her weight being fat mass but is now within normal ranges. Maintaining good muscle mass as well. Fat mass index of 8.9. Visceral adiposity remains within normal limits at 1.0. Patient currently receiving compounded semaglutide weekly in office. Has been doing well on 0.25 mg and will receive 0.5 mg in office today. Patient will follow-up in 4-6 weeks for further assessment. # Hypertension: Blood pressure 120/80. She is without chest pain, shortness of breath, dyspnea on exertion, or diaphoresis. Continue amlodipine besilate 5 mg once daily. Discussed proper use of the medication and expected side effect profile. Will continue to monitor. Please follow-up with PCP. # Hyperlipidemia: Lipid panel obtained 09/15/2024 with values including cholesterol 212, triglycerides 79, HDL 77, and LDL 119. Per ASCVD risk algorithm no statin recommended because 10-year risk less than 5%. Will continue to monitor and repeat lipid panel in a few months. # Endometrial cancer: Patient currently in remission of stage Ia endometrial cancer as of 2019. She has regular follow-up with gynecology, last note on 02/11/2024 for routine screening and pelvic examination. Will continue to monitor. All questions have been answered to patient's satisfaction. Patient verbalized understanding of diagnosis and treatments explained. Advised to call sooner prior to next visit it any questions/concerns arise. Case discussed with collaborating physician Mayo Kim who reviewed the assessment and plan. Chart, medications, labs, vital signs reviewed. Dictation was accomplished with the use of [employer] voice recognition software, which is prone to medical misidentifications and grammatical errors. This are unintentional and the practitioner does try to identify and correct these, but some could still be present. Please do not hesitate to contact practitioner for clarification. 02/08/2025 Essential hypertension (ICD-10 - I10) Patient is here for weight management follow-up. We focused on significance of healthy lifestyle changes. We talked about need to track steps with goal between 6000-10,000 steps daily, focus on portion control, read food labels, get adequate sleep between 7 to 8 hours, get adequate rest to the body, meditate, frequent nutritious meals including vegetables and healthy choices of lean meats, fish, and elimination of refined carbohydrates. We also talked about mindfulness and mindful eating. Particular focus was on continuing portion control and maintaining physical activity. Total time spent with 30 minutes with greater than 50% spent on counseling and coordinating care. 09/15/2024: Weight 122.6 pounds, BMI 28.49. SECA scan completed today and interpreted with the patient. She has high fat mass. Noted to have decreased muscle mass at approximately 22 pounds when minimum expected quantity estimated to be around 25 pounds. Visceral adipose tissue index slightly increased. She reports difficulty with reducing her weight. She follows lifestyle modifications including exercising daily before work and is currently following the whole 40 diet where she is not consuming carbohydrates or dairy products. We discussed clinical indications for weight management medications including phentermine, Contrave, and GLP-1 agonists. Patient is not a candidate for phentermine given history of high blood pressure on amlodipine. Given the patient's decreased muscle mass we discussed the mechanism of GLP-1 agonists as well as how they do not target fat loss rather target weight loss which can include muscle. Discussed the risks of continuing to decrease muscle loss as a relates to osteoporosis. For that reason the patient will be a good candidate for Contrave. We discussed the appropriate use of the medication including appropriate dosing schedule. Discussed expected side effect profile of the medication including but not limited to nausea, vomiting, headaches, dizziness, and constipation. Repeat labs ordered with results pending at this time. Patient demonstrates understanding. She will follow-up in the office in approximately 1 month for weight management. 10/12/2024: Weight 118 pounds, BMI 27.42. SECA scan completed today and interpreted with the patient. Overall down 4 pounds from previous visit. Is decreasing fat mass which she was congratulated for. Increase in muscle mass from 22.2 pounds to 22.5 pounds. Advised to continue working with appraiser personal property to build muscle mass. Reports side effect of dry mouth, advised patient to take the medication with a glass of water as well as to continue daily hydration. At this time plan to continue taking Contrave 90-80 mg 2 tablets twice daily. Discussed proper use of the medication as well as expected side effect profile. She will follow-up in the office in approximately 4 weeks for continued weight management. 11/09/2024: Weight 116.8 pounds, BMI 27.14. SECA scan completed today and interpreted with patient. She is down 2 pounds from last visit. Muscle mass has progressively increased from 22.5 pounds to 25 pounds which she was congratulated for. Now in increased range on scale. Reporting adverse effects of nausea/vomiting on Contrave 2 pills twice daily. We discussed stepping down to next lowest dose and trialing 1 pill in the morning and 1 pill in the evening or 2 pills in the morning and 1 pill in the evening. Patient demonstrates understanding and will titrate dose to best effect. 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 No other concerns, plan to continue Contrave 8-90 mg at a range of 2 to 3 pills daily. Discussed proper use of medication and potential side effect profile. She will follow-up in 4 weeks for further management. 12/14/2024: Weight 115 pounds, BMI 26.73. Seca scan completed today and interpreted with the patient. Approximately 1 pound decrease from last visit. She is no longer on Contrave at this time due to adverse GI side effects. On body composition patient has 45 pounds of fat mass, has had a slight reduction of approximately 0.5 pounds of muscle mass since last visit. Total of 24.7 pounds of muscle. Visceral adipose tissue index remains within normal limits at 1.1. For further weight management we discussed initiation of topiramate as well as compounded semaglutide or tirzepatide. At this time patient has interest in compounded GLP-1 which she may initiate when she returns from her trip to [facility] in December. She will follow-up in approximately 4 weeks. 01/12/2025: 01/12/2025: Weight 118 pounds, BMI 27.42. Seca scan completed today interpreted with the patient., Overall up about 2 pounds were last visit, however on body analysis she is up 2 pounds of muscle mass. Has increased amounts of muscle at this time which has greatly improved from her consultation. Milligram Contrave due to adverse effects. Interested in initiating compounded semaglutide. Discussed potential side effect profile including but not limited to nausea, constipation, abdominal pain, and heartburn. Reports no history of pancreatitis, multiple endocrine neoplasia syndrome in self or family, or history of medullary thyroid cancer in self or family. Advised the patient can receive injections weekly or biweekly as she chooses. Patient understanding. She will follow-up in office in 4 weeks for further evaluation. 02/08/2025: Weight 115 pounds, BMI 26.73. SECA scan completed today and interpreted with the patient. On body analysis she is down 2 to 3 pounds of fat mass and has built about 1/2 pound of muscle mass. Has increased amounts of muscle of her body composition. Patient is receiving semaglutide 0.25 mg weekly in office. Reports no adverse effects at this time. Reviewed goals of diet and exercise. Semaglutide 0.25 mg administered retained sleeve today in office. Plan is to follow-up in office in 4 weeks. # Hypertension: Blood pressure 120/80. She is without chest pain, shortness of breath, dyspnea on exertion, or diaphoresis. Continue amlodipine besilate 5 mg once daily. Discussed proper use of the medication and expected side effect profile. Will continue to monitor. Please follow-up with PCP. # Hyperlipidemia: Lipid panel obtained 09/15/2024 with values including cholesterol 212, triglycerides 79, HDL 77, and LDL 119. Per ASCVD risk algorithm no statin recommended because 10-year risk less than 5%. Will continue to monitor and repeat lipid panel in a few months. # Endometrial cancer: Patient currently in remission of stage Ia endometrial cancer as of 2019. She has regular follow-up with gynecology, last note on 02/11/2024 for routine screening and pelvic examination. Will continue to monitor. All questions have been answered to patient's satisfaction. Patient verbalized understanding of diagnosis and treatments explained. Advised to call sooner prior to next visit it any questions/concerns arise. Case discussed with collaborating physician Mayo Kim who reviewed the assessment and plan. Chart, medications, labs, vital signs reviewed. Dictation was accomplished with the use of [employer] voice recognition software, which is prone to medical misidentifications and grammatical errors. This are unintentional and the practitioner does try to identify and correct these, but some could still be present. Please do not hesitate to contact practitioner for clarification. 01/12/2025 Essential hypertension (ICD-10 - I10) Patient is here for weight management follow-up. We focused on significance of healthy lifestyle changes. We talked about need to track steps with goal between 6000-10,000 steps daily, focus on portion control, read food labels, get adequate sleep between 7 to 8 hours, get adequate rest to the body, meditate, frequent nutritious meals including vegetables and healthy choices of lean meats, fish, and elimination of refined carbohydrates. We also talked about mindfulness and mindful eating. Particular focus was on continuing to progressively add resistance training and increase protein intake to build muscle mass. Total time spent with 30 minutes with greater than 50% spent on counseling and coordinating care. 09/15/2024: Weight 122.6 pounds, BMI 28.49. SECA scan completed today and interpreted with the patient. She has high fat mass. Noted to have decreased muscle mass at approximately 22 pounds when minimum expected quantity estimated to be around 25 pounds. Visceral adipose tissue index slightly increased. She reports difficulty with reducing her weight. She follows lifestyle modifications including exercising daily before work and is currently following the whole 40 diet where she is not consuming carbohydrates or dairy products. We discussed clinical indications for weight management medications including phentermine, Contrave, and GLP-1 agonists. Patient is not a candidate for phentermine given history of high blood pressure on amlodipine. Given the patient's decreased muscle mass we discussed the mechanism of GLP-1 agonists as well as how they do not target fat loss rather target weight loss which can include muscle. Discussed the risks of continuing to decrease muscle loss as a relates to osteoporosis. For that reason the patient will be a good candidate for Contrave. We discussed the appropriate use of the medication including appropriate dosing schedule. Discussed expected side effect profile of the medication including but not limited to nausea, vomiting, headaches, dizziness, and constipation. Repeat labs ordered with results pending at this time. Patient demonstrates understanding. She will follow-up in the office in approximately 1 month for weight management. 10/12/2024: Weight 118 pounds, BMI 27.42. SECA scan completed today and interpreted with the patient. Overall down 4 pounds from previous visit. Is decreasing fat mass which she was congratulated for. Increase in muscle mass from 22.2 pounds to 22.5 pounds. Advised to continue working with appraiser personal property to build muscle mass. Reports side effect of dry mouth, advised patient to take the medication with a glass of water as well as to continue daily hydration. At this time plan to continue taking Contrave 90-80 mg 2 tablets twice daily. Discussed proper use of the medication as well as expected side effect profile. She will follow-up in the office in approximately 4 weeks for continued weight management. 11/09/2024: Weight 116.8 pounds, BMI 27.14. SECA scan completed today and interpreted with patient. She is down 2 pounds from last visit. Muscle mass has progressively increased from 22.5 pounds to 25 pounds which she was congratulated for. Now in increased range on scale. Reporting adverse effects of nausea/vomiting on Contrave 2 pills twice daily. We discussed stepping down to next lowest dose and trialing 1 pill in the morning and 1 pill in the evening or 2 pills in the morning and 1 pill in the evening. Patient demonstrates understanding and will titrate dose to best effect. 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 No other concerns, plan to continue Contrave 8-90 mg at a range of 2 to 3 pills daily. Discussed proper use of medication and potential side effect profile. She will follow-up in 4 weeks for further management. 12/14/2024: Weight 115 pounds, BMI 26.73. Seca scan completed today and interpreted with the patient. Approximately 1 pound decrease from last visit. She is no longer on Contrave at this time due to adverse GI side effects. On body composition patient has 45 pounds of fat mass, has had a slight reduction of approximately 0.5 pounds of muscle mass since last visit. Total of 24.7 pounds of muscle. Visceral adipose tissue index remains within normal limits at 1.1. For further weight management we discussed initiation of topiramate as well as compounded semaglutide or tirzepatide. At this time patient has interest in compounded GLP-1 which she may initiate when she returns from her trip to [facility] in December. She will follow-up in approximately 4 weeks. 01/12/2025: 01/12/2025: Weight 118 pounds, BMI 27.42. Seca scan completed today interpreted with the patient., Overall up about 2 pounds were last visit, however on body analysis she is up 2 pounds of muscle mass. Has increased amounts of muscle at this time which has greatly improved from her consultation. Milligram Contrave due to adverse effects. Interested in initiating compounded semaglutide. Discussed potential side effect profile including but not limited to nausea, constipation, abdominal pain, and heartburn. Reports no history of pancreatitis, multiple endocrine neoplasia syndrome in self or family, or history of medullary thyroid cancer in self or family. Advised the patient can receive injections weekly or biweekly as she chooses. Patient understanding. She will follow-up in office in 4 weeks for further evaluation. # Hypertension: Blood pressure 120/78. She is without chest pain, shortness of breath, dyspnea on exertion, or diaphoresis. Continue amlodipine besilate 5 mg once daily. Discussed proper use of the medication and expected side effect profile. Will continue to monitor. Please follow-up with PCP. # Hyperlipidemia: Lipid panel obtained 09/15/2024 with values including cholesterol 212, triglycerides 79, HDL 77, and LDL 119. Per ASCVD risk algorithm no statin recommended because 10-year risk less than 5%. Will continue to monitor and repeat lipid panel in a few months. # Endometrial cancer: Patient currently in remission of stage Ia endometrial cancer as of 2019. She has regular follow-up with gynecology, last note on 02/11/2024 for routine screening and pelvic examination. Will continue to monitor. All questions have been answered to patient's satisfaction. Patient verbalized understanding of diagnosis and treatments explained. Advised to call sooner prior to next visit it any questions/concerns arise. Case discussed with collaborating physician Mayo Kim who reviewed the assessment and plan. Chart, medications, labs, vital signs reviewed. Dictation was accomplished with the use of [employer] voice recognition software, which is prone to medical misidentifications and grammatical errors. This are unintentional and the practitioner does try to identify and correct these, but some could still be present. Please do not hesitate to contact practitioner for clarification. 12/14/2024 Essential hypertension (ICD-10 - I10) Patient is here for weight management follow-up. We focused on significance of healthy lifestyle changes. We talked about need to track steps with goal between 6000-10,000 steps daily, focus on portion control, read food labels, get adequate sleep between 7 to 8 hours, get adequate rest to the body, meditate, frequent nutritious meals including vegetables and healthy choices of lean meats, fish, and elimination of refined carbohydrates. We also talked about mindfulness and mindful eating. Particular focus was on continuing to progressively add resistance training and increase protein intake to build muscle mass. Total time spent with 30 minutes with greater than 50% spent on counseling and coordinating care. 09/15/2024: Weight 122.6 pounds, BMI 28.49. SECA scan completed today and interpreted with the patient. She has high fat mass. Noted to have decreased muscle mass at approximately 22 pounds when minimum expected quantity estimated to be around 25 pounds. Visceral adipose tissue index slightly increased. She reports difficulty with reducing her weight. She follows lifestyle modifications including exercising daily before work and is currently following the whole 40 diet where she is not consuming carbohydrates or dairy products. We discussed clinical indications for weight management medications including phentermine, Contrave, and GLP-1 agonists. Patient is not a candidate for phentermine given history of high blood pressure on amlodipine. Given the patient's decreased muscle mass we discussed the mechanism of GLP-1 agonists as well as how they do not target fat loss rather target weight loss which can include muscle. Discussed the risks of continuing to decrease muscle loss as a relates to osteoporosis. For that reason the patient will be a good candidate for Contrave. We discussed the appropriate use of the medication including appropriate dosing schedule. Discussed expected side effect profile of the medication including but not limited to nausea, vomiting, headaches, dizziness, and constipation. Repeat labs ordered with results pending at this time. Patient demonstrates understanding. She will follow-up in the office in approximately 1 month for weight management. 10/12/2024: Weight 118 pounds, BMI 27.42. SECA scan completed today and interpreted with the patient. Overall down 4 pounds from previous visit. Is decreasing fat mass which she was congratulated for. Increase in muscle mass from 22.2 pounds to 22.5 pounds. Advised to continue working with appraiser personal property to build muscle mass. Reports side effect of dry mouth, advised patient to take the medication with a glass of water as well as to continue daily hydration. At this time plan to continue taking Contrave 90-80 mg 2 tablets twice daily. Discussed proper use of the medication as well as expected side effect profile. She will follow-up in the office in approximately 4 weeks for continued weight management. 11/09/2024: Weight 116.8 pounds, BMI 27.14. SECA scan completed today and interpreted with patient. She is down 2 pounds from last visit. Muscle mass has progressively increased from 22.5 pounds to 25 pounds which she was congratulated for. Now in increased range on scale. Reporting adverse effects of nausea/vomiting on Contrave 2 pills twice daily. We discussed stepping down to next lowest dose and trialing 1 pill in the morning and 1 pill in the evening or 2 pills in the morning and 1 pill in the evening. Patient demonstrates understanding and will titrate dose to best effect. 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 No other concerns, plan to continue Contrave 8-90 mg at a range of 2 to 3 pills daily. Discussed proper use of medication and potential side effect profile. She will follow-up in 4 weeks for further management. 12/14/2024: Weight 115 pounds, BMI 26.73. Seca scan completed today and interpreted with the patient. Approximately 1 pound decrease from last visit. She is no longer on Contrave at this time due to adverse GI side effects. On body composition patient has 45 pounds of fat mass, has had a slight reduction of approximately 0.5 pounds of muscle mass since last visit. Total of 24.7 pounds of muscle. Visceral adipose tissue index remains within normal limits at 1.1. For further weight management we discussed initiation of topiramate as well as compounded semaglutide or tirzepatide. At this time patient has interest in compounded GLP-1 which she may initiate when she returns from her trip to [facility] in December. She will follow-up in approximately 4 weeks. # Hypertension: Blood pressure elevated in office 140/90, however patient states that she did not take her amlodipine today. She is without chest pain, shortness of breath, dyspnea on exertion, or diaphoresis. Continue amlodipine besilate 5 mg once daily. Discussed proper use of the medication and expected side effect profile. Will continue to monitor. Please follow-up with PCP. # Hyperlipidemia: Lipid panel obtained 09/15/2024 with values including cholesterol 212, triglycerides 79, HDL 77, and LDL 119. Per ASCVD risk algorithm no statin recommended because 10-year risk less than 5%. Will continue to monitor and repeat lipid panel in a few months. # Endometrial cancer: Patient currently in remission of stage Ia endometrial cancer as of 2019. She has regular follow-up with gynecology, last note on 02/11/2024 for routine screening and pelvic examination. Will continue to monitor. All questions have been answered to patient's satisfaction. Patient verbalized understanding of diagnosis and treatments explained. Advised to call sooner prior to next visit it any questions/concerns arise. Case discussed with collaborating physician Mayo Kim who reviewed the assessment and plan. Chart, medications, labs, vital signs reviewed. Dictation was accomplished with the use of [employer] voice recognition software, which is prone to medical misidentifications and grammatical errors. This are unintentional and the practitioner does try to identify and correct these, but some could still be present. Please do not hesitate to contact practitioner for clarification. 11/09/2024 BMI 27.0-27.9,adult (ICD-10 - Z68.27) Patient is here for weight management follow-up. We focused on significance of healthy lifestyle changes. We talked about need to track steps with goal between 6000-10,000 steps daily, focus on portion control, read food labels, get adequate sleep between 7 to 8 hours, get adequate rest to the body, meditate, frequent nutritious meals including vegetables and healthy choices of lean meats, fish, and elimination of refined carbohydrates. We also talked about mindfulness and mindful eating. Particular focus was on continuing to progressively add resistance training and increase protein intake to build muscle mass. Total time spent with 30 minutes with greater than 50% spent on counseling and coordinating care. 09/15/2024: Weight 122.6 pounds, BMI 28.49. SECA scan completed today and interpreted with the patient. She has high fat mass. Noted to have decreased muscle mass at approximately 22 pounds when minimum expected quantity estimated to be around 25 pounds. Visceral adipose tissue index slightly increased. She reports difficulty with reducing her weight. She follows lifestyle modifications including exercising daily before work and is currently following the whole 40 diet where she is not consuming carbohydrates or dairy products. We discussed clinical indications for weight management medications including phentermine, Contrave, and GLP-1 agonists. Patient is not a candidate for phentermine given history of high blood pressure on amlodipine. Given the patient's decreased muscle mass we discussed the mechanism of GLP-1 agonists as well as how they do not target fat loss rather target weight loss which can include muscle. Discussed the risks of continuing to decrease muscle loss as a relates to osteoporosis. For that reason the patient will be a good candidate for Contrave. We discussed the appropriate use of the medication including appropriate dosing schedule. Discussed expected side effect profile of the medication including but not limited to nausea, vomiting, headaches, dizziness, and constipation. Repeat labs ordered with results pending at this time. Patient demonstrates understanding. She will follow-up in the office in approximately 1 month for weight management. 10/12/2024: Weight 118 pounds, BMI 27.42. SECA scan completed today and interpreted with the patient. Overall down 4 pounds from previous visit. Is decreasing fat mass which she was congratulated for. Increase in muscle mass from 22.2 pounds to 22.5 pounds. Advised to continue working with appraiser personal property to build muscle mass. Reports side effect of dry mouth, advised patient to take the medication with a glass of water as well as to continue daily hydration. At this time plan to continue taking Contrave 90-80 mg 2 tablets twice daily. Discussed proper use of the medication as well as expected side effect profile. She will follow-up in the office in approximately 4 weeks for continued weight management. 11/09/2024: Weight 116.8 pounds, BMI 27.14. SECA scan completed today and interpreted with patient. She is down 2 pounds from last visit. Muscle mass has progressively increased from 22.5 pounds to 25 pounds which she was congratulated for. Now in increased range on scale. Reporting adverse effects of nausea/vomiting on Contrave 2 pills twice daily. We discussed stepping down to next lowest dose and trialing 1 pill in the morning and 1 pill in the evening or 2 pills in the morning and 1 pill in the evening. Patient demonstrates understanding and will titrate dose to best effect. 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 No other concerns, plan to continue Contrave 8-90 mg at a range of 2 to 3 pills daily. Discussed proper use of medication and potential side effect profile. She will follow-up in 4 weeks for further management. # Hypertension: Blood pressure stable in office today 132/78. She is without chest pain, shortness of breath, dyspnea on exertion, or diaphoresis. Continue amlodipine besilate 5 mg once daily. Discussed proper use of the medication and expected side effect profile. Will continue to monitor. Please follow-up with PCP. # Hyperlipidemia: Lipid panel obtained 09/15/2024 with values including cholesterol 212, triglycerides 79, HDL 77, and LDL 119. Per ASCVD risk algorithm no statin recommended because 10-year risk less than 5%. Will continue to monitor and repeat lipid panel in a few months. # Endometrial cancer: Patient currently in remission of stage Ia endometrial cancer as of 2019. She has regular follow-up with gynecology, last note on 02/11/2024 for routine screening and pelvic examination. Will continue to monitor. All questions have been answered to patient's satisfaction. Patient verbalized understanding of diagnosis and treatments explained. Advised to call sooner prior to next visit it any questions/concerns arise. Case discussed with collaborating physician Mayo Kim who reviewed the assessment and plan. Chart, medications, labs, vital signs reviewed. Dictation was accomplished with the use of [employer] voice recognition software, which is prone to medical misidentifications and grammatical errors. This are unintentional and the practitioner does try to identify and correct these, but some could still be present. Please do not hesitate to contact practitioner for clarification. 10/12/2024 Essential hypertension (ICD-10 - I10) Patient is here for weight management follow-up. We focused on significance of healthy lifestyle changes. We talked about need to track steps with goal between 6000-10,000 steps daily, focus on portion control, read food labels, get adequate sleep between 7 to 8 hours, get adequate rest to the body, meditate, frequent nutritious meals including vegetables and healthy choices of lean meats, fish, and elimination of refined carbohydrates. We also talked about mindfulness and mindful eating. Particular focus was on continuing to progressively add resistance training and increase protein intake to build muscle mass. Total time spent with 30 minutes with greater than 50% spent on counseling and coordinating care. 09/15/2024: Weight 122.6 pounds, BMI 28.49. SECA scan completed today and interpreted with the patient. She has high fat mass. Noted to have decreased muscle mass at approximately 22 pounds when minimum expected quantity estimated to be around 25 pounds. Visceral adipose tissue index slightly increased. She reports difficulty with reducing her weight. She follows lifestyle modifications including exercising daily before work and is currently following the whole 40 diet where she is not consuming carbohydrates or dairy products. We discussed clinical indications for weight management medications including phentermine, Contrave, and GLP-1 agonists. Patient is not a candidate for phentermine given history of high blood pressure on amlodipine. Given the patient's decreased muscle mass we discussed the mechanism of GLP-1 agonists as well as how they do not target fat loss rather target weight loss which can include muscle. Discussed the risks of continuing to decrease muscle loss as a relates to osteoporosis. For that reason the patient will be a good candidate for Contrave. We discussed the appropriate use of the medication including appropriate dosing schedule. Discussed expected side effect profile of the medication including but not limited to nausea, vomiting, headaches, dizziness, and constipation. Repeat labs ordered with results pending at this time. Patient demonstrates understanding. She will follow-up in the office in approximately 1 month for weight management. 10/12/2024: Weight 118 pounds, BMI 27.42. SECA scan completed today and interpreted with the patient. Overall down 4 pounds from previous visit. Is decreasing fat mass which she was congratulated for. Increase in muscle mass from 22.2 pounds to 22.5 pounds. Advised to continue working with appraiser personal property to build muscle mass. Reports side effect of dry mouth, advised patient to take the medication with a glass of water as well as to continue daily hydration. At this time plan to continue taking Contrave 90-80 mg 2 tablets twice daily. Discussed proper use of the medication as well as expected side effect profile. She will follow-up in the office in approximately 4 weeks for continued weight management. # Hypertension: Blood pressure stable in office today 122/82. She is without chest pain, shortness of breath, dyspnea on exertion, or diaphoresis. Continue amlodipine besilate 5 mg once daily. Discussed proper use of the medication and expected side effect profile. Will continue to monitor. Please follow-up with PCP. # Hyperlipidemia: Lipid panel obtained 09/15/2024 with values including cholesterol 212, triglycerides 79, HDL 77, and LDL 119. Per ASCVD risk algorithm no statin recommended because 10-year risk less than 5%. Will continue to monitor and repeat lipid panel in a few months. # Endometrial cancer: Patient currently in remission of stage Ia endometrial cancer as of 2019. She has regular follow-up with gynecology, last note on 02/11/2024 for routine screening and pelvic examination. Will continue to monitor. All questions have been answered to patient's satisfaction. Patient verbalized understanding of diagnosis and treatments explained. Advised to call sooner prior to next visit it any questions/concerns arise. Case discussed with collaborating physician Mayo Kim who reviewed the assessment and plan. Chart, medications, labs, vital signs reviewed. Dictation was accomplished with the use of Inspiris voice recognition software, which is prone to medical misidentifications and grammatical errors. This are unintentional and the practitioner does try to identify and correct these, but some could still be present. Please do not hesitate to contact practitioner for clarification. 09/15/2024 Nutritional counseling (ICD-10 - Z71.3) Corie is a 64-year-old female with history of obesity who presents to the office today for weight management consult. Medical history, labs, allergies, medications, and social history reviewed with the patient. Provided education on healthy diet and lifestyle which includes high-protein, low carbohydrate, high-fiber, and a variety of fruits and vegetables. Patient encouraged to exercise with emphasis on resistance training minimum 3 times per week to maintain muscle mass and cardio to burn fat. All patient questions answered. Patient will follow-up in 2 to 4 weeks for weight management. 09/15/2024: Weight 222.6 pounds, BMI 28.49. SECA scan completed today and interpreted with the patient. She has high fat mass. Noted to have decreased muscle mass at approximately 22 pounds when minimum expected quantity estimated to be around 25 pounds. Visceral adipose tissue index slightly increased. She reports difficulty with reducing her weight. She follows lifestyle modifications including exercising daily before work and is currently following the whole 40 diet where she is not consuming carbohydrates or dairy products. We discussed clinical indications for weight management medications including phentermine, Contrave, and GLP-1 agonists. Patient is not a candidate for phentermine given history of high blood pressure on amlodipine. Given the patient's decreased muscle mass we discussed the mechanism of GLP-1 agonists as well as how they do not target fat loss rather target weight loss which can include muscle. Discussed the risks of continuing to decrease muscle loss as a relates to osteoporosis. For that reason the patient will be a good candidate for Contrave. We discussed the appropriate use of the medication including appropriate dosing schedule. Discussed expected side effect profile of the medication including but not limited to nausea, vomiting, headaches, dizziness, and constipation. Repeat labs ordered with results pending at this time. Patient demonstrates understanding. She will follow-up in the office in approximately 1 month for weight management. # Hypertension: Blood pressure stable in office today 130/84. She is without chest pain, shortness of breath, dyspnea on exertion, or diaphoresis. Continue amlodipine besilate 5 mg once daily. Discussed proper use of the medication and expected side effect profile. Will continue to monitor. Please follow-up with PCP. # Endometrial cancer: Patient currently in remission of stage Ia endometrial cancer as of 2019. She has regular follow-up with gynecology, last note on 02/11/2024 for routine screening and pelvic examination. Will continue to monitor. Patient was reassured and welcomed to the practice. We discussed that we stress a hollistic medical approach with emphasis on lifestyle modification. Patient was informed that a healthy lifestyle with exercise and good eating habits can help reduce his risk of medical complications. Patient is explained that obesity increases his risk of diabetes, cardiovascular disease, or organ damage. We spent a lot of time discussing the relationship between food, exercise, sleep, mental health and obesity. Patient was counseled on the importance EATING local, organic food when possible. Patient was educated on clean 15 and dirty dozen. I provided information about reading books called The Food Rules by Hermilo Truong and Eat Fat Get Lean by Dr Juvenal Chin. Self education is important in the journey for weight management. Patient was offered diagnostic testing/ SECA scale. We want to measure visceral adiposity, advanced body composition, adverse lipids, fatty acid balance, risk for heart disease and atherosclerosis, markers of inflammation and genetic susceptibility. Patient was counseled on weight management and was advised to lose weight using A. Meal Replacement Products Patient was educated on the replacement products called optifast. This is a good way of taking fixed amount of calories. It has been shown in studies to be ineffective weight management tool. This however has to be coupled with lifestyle intervention as well as laboratory data and EKG monitoring. It is impossible to know how a person will tolerate complete meal replacement. The side effects of meal replacement and weight loss could include syncopal attacks, dizziness, gallstones, potential cholecystectomy, possible heart attack and even . The benefits of meal replacement would be potential weight loss but no guarantees can be made. Meal replacement products are not covered by insurance. Once the patient has bought these products we cannot return them B. Lifestyle management which includes several strategies as below 1. Eat a low carbohydrate good fat good protein diet. Eliminate refined carbohydrates from the diet. Limit sugared beverages. Eat local organic when possible. Cook your own meals. Read food labels. Focus on healthy snacks. Portion control and food with low glycemic index 2. Exercise regularly. Try to get at least 6000 steps a day. Use a predominant to track activity level. Consider using apps like 7 minute excercise, myDEONTICSpal, lose it, stick as needed for self-monitoring and weight management. Consider group exercises. Consider hiring a appraiser personal property. Regular exercise is fernandez to sustainable health and prevents as a buffer against weight regain 3. Sleep is most important for healing. Try to sleep at least 6-8 hours a night. A good quality sleep needs a sleep ritual with ideal room temperature of around 68. It might help to take a shower and have no electronics in the room and sleep in a very dark room without artificial light. Start sleep routine and get up early in the morning and go to bed on time. 4. Make a social connection. Surround yourself with positive people with positive energy. Connect with friends and family. 5. Get into the habit of meditating and mindfulness while doing everything. 6. Go outside and connect with nature. C. Prescription medications Patient was educated on the use of prescription medications for medical weight loss. This is a growing list and includes phentermine, Topamax,Qsymia, contrave, belviq and saxenda, wegovy etc. All prescription medications could have side effects including but not limited to kidney stones, seizure disorder cardiac arrhythmias heart attack pancreatitis, GI effects, Etc. Patient was encouraged to read the prescription insert and have coaching with their pharmacist and make an informed decision about taking medication and know that these medications are being prescribed with good intentions and we do not know how a patient would react to her medication. Some medications are FDA approved for weight loss and there is also off label use depending on patient's inability to afford medications in an attempt to lose weight D. Behavioral counseling was done to establish a relationship between food and an mood. Patient was provided information about local counseling and psychiatry and Dr Keller at [facility]. We would like to cover regular topics and build on low glycemic eating exercise mindful eating, using yoga and meditation along with deep breathing and connecting with friends and family. E. MASS PAT reviewed, Patient's current medications were reviewed and opinion was given on medication that can cause weight gain and can be substituted F. Patient was assessed for risk with obesity including and not limiting to atherosclerosis heart disease stroke kidney disease, restrictive lung disease, irritable bowel syndrome and overall mortality. Risk of developing prediabetes diabetes and metabolic syndrome was discussed G. Therapeutic plan: We have decided to make therapeutic plan which would include choosing wisely on calories restricting portion getting active, tracking weight, getting good quality sleep and working on time management H. Patient will follow up in 4 weeks for weight management Total time spent today was 60 minutes of which greater than 50% was spent on coordinating and counseling After consultation and careful review of medical history, this patient would benefit from Contrave based off of the following criteria met: Patient is over the age of 18, has a BMI of 28.49. Additional comorbidities include hypertension and endometrial cancer in remission. Patient has trialed other methods of weight loss including improving diet, exercise without success over three months. This medication is prescribed by or in consultation with a board certified obesity and weight management physician (Dr. Vianey Kim or Dr. Morgan Kim). Case discussed with collaborating physician Akilah Kim who reviewed the assessment and plan. Chart, medications, labs, vital signs reviewed. Dictation was accomplished with the use of Inspiris voice recognition software, prone to medical misidentifications and grammatical errors. This is unintentional and the practitioner does try to identify and correct these, but some could still be present. Please do not hesitate to contact practitioner for clarification. All questions answered to patients satisfaction. Patient verbalized understanding of diagnosis and treatments explained. To call sooner prior to next visit it any questions/concerns arise. 09/15/2024 Essential hypertension (ICD-10 - I10) Corie is a 64-year-old female with history of obesity who presents to the office today for weight management consult. Medical history, labs, allergies, medications, and social history reviewed with the patient. Provided education on healthy diet and lifestyle which includes high-protein, low carbohydrate, high-fiber, and a variety of fruits and vegetables. Patient encouraged to exercise with emphasis on resistance training minimum 3 times per week to maintain muscle mass and cardio to burn fat. All patient questions answered. Patient will follow-up in 2 to 4 weeks for weight management. 09/15/2024: Weight 222.6 pounds, BMI 28.49. SECA scan completed today and interpreted with the patient. She has high fat mass. Noted to have decreased muscle mass at approximately 22 pounds when minimum expected quantity estimated to be around 25 pounds. Visceral adipose tissue index slightly increased. She reports difficulty with reducing her weight. She follows lifestyle modifications including exercising daily before work and is currently following the whole 40 diet where she is not consuming carbohydrates or dairy products. We discussed clinical indications for weight management medications including phentermine, Contrave, and GLP-1 agonists. Patient is not a candidate for phentermine given history of high blood pressure on amlodipine. Given the patient's decreased muscle mass we discussed the mechanism of GLP-1 agonists as well as how they do not target fat loss rather target weight loss which can include muscle. Discussed the risks of continuing to decrease muscle loss as a relates to osteoporosis. For that reason the patient will be a good candidate for Contrave. We discussed the appropriate use of the medication including appropriate dosing schedule. Discussed expected side effect profile of the medication including but not limited to nausea, vomiting, headaches, dizziness, and constipation. Repeat labs ordered with results pending at this time. Patient demonstrates understanding. She will follow-up in the office in approximately 1 month for weight management. # Hypertension: Blood pressure stable in office today 130/84. She is without chest pain, shortness of breath, dyspnea on exertion, or diaphoresis. Continue amlodipine besilate 5 mg once daily. Discussed proper use of the medication and expected side effect profile. Will continue to monitor. Please follow-up with PCP. # Endometrial cancer: Patient currently in remission of stage Ia endometrial cancer as of 2019. She has regular follow-up with gynecology, last note on 02/11/2024 for routine screening and pelvic examination. Will continue to monitor. Patient was reassured and welcomed to the practice. We discussed that we stress a hollistic medical approach with emphasis on lifestyle modification. Patient was informed that a healthy lifestyle with exercise and good eating habits can help reduce his risk of medical complications. Patient is explained that obesity increases his risk of diabetes, cardiovascular disease, or organ damage. We spent a lot of time discussing the relationship between food, exercise, sleep, mental health and obesity. Patient was counseled on the importance EATING local, organic food when possible. Patient was educated on clean 15 and dirty dozen. I provided information about reading books called The Food Rules by Hermilo Truong and Eat Fat Get Lean by Dr Juvenal Chin. Self education is important in the journey for weight management. Patient was offered diagnostic testing/ SECA scale. We want to measure visceral adiposity, advanced body composition, adverse lipids, fatty acid balance, risk for heart disease and atherosclerosis, markers of inflammation and genetic susceptibility. Patient was counseled on weight management and was advised to lose weight using A. Meal Replacement Products Patient was educated on the replacement products called optifast. This is a good way of taking fixed amount of calories. It has been shown in studies to be ineffective weight management tool. This however has to be coupled with lifestyle intervention as well as laboratory data and EKG monitoring. It is impossible to know how a person will tolerate complete meal replacement. The side effects of meal replacement and weight loss could include syncopal attacks, dizziness, gallstones, potential cholecystectomy, possible heart attack and even . The benefits of meal replacement would be potential weight loss but no guarantees can be made. Meal replacement products are not covered by insurance. Once the patient has bought these products we cannot return them B. Lifestyle management which includes several strategies as below 1. Eat a low carbohydrate good fat good protein diet. Eliminate refined carbohydrates from the diet. Limit sugared beverages. Eat local organic when possible. Cook your own meals. Read food labels. Focus on healthy snacks. Portion control and food with low glycemic index 2. Exercise regularly. Try to get at least 6000 steps a day. Use a predominant to track activity level. Consider using apps like 7 minute excercise, myDEONTICSpal, lose it, stick as needed for self-monitoring and weight management. Consider group exercises. Consider hiring a appraiser personal property. Regular exercise is fernandez to sustainable health and prevents as a buffer against weight regain 3. Sleep is most important for healing. Try to sleep at least 6-8 hours a night. A good quality sleep needs a sleep ritual with ideal room temperature of around 68. It might help to take a shower and have no electronics in the room and sleep in a very dark room without artificial light. Start sleep routine and get up early in the morning and go to bed on time. 4. Make a social connection. Surround yourself with positive people with positive energy. Connect with friends and family. 5. Get into the habit of meditating and mindfulness while doing everything. 6. Go outside and connect with nature. C. Prescription medications Patient was educated on the use of prescription medications for medical weight loss. This is a growing list and includes phentermine, Topamax,Qsymia, contrave, belviq and saxenda, wegovy etc. All prescription medications could have side effects including but not limited to kidney stones, seizure disorder cardiac arrhythmias heart attack pancreatitis, GI effects, Etc. Patient was encouraged to read the prescription insert and have coaching with their pharmacist and make an informed decision about taking medication and know that these medications are being prescribed with good intentions and we do not know how a patient would react to her medication. Some medications are FDA approved for weight loss and there is also off label use depending on patient's inability to afford medications in an attempt to lose weight D. Behavioral counseling was done to establish a relationship between food and an mood. Patient was provided information about local counseling and psychiatry and Dr Kelelr at [facility]. We would like to cover regular topics and build on low glycemic eating exercise mindful eating, using yoga and meditation along with deep breathing and connecting with friends and family. E. MASS PAT reviewed, Patient's current medications were reviewed and opinion was given on medication that can cause weight gain and can be substituted F. Patient was assessed for risk with obesity including and not limiting to atherosclerosis heart disease stroke kidney disease, restrictive lung disease, irritable bowel syndrome and overall mortality. Risk of developing prediabetes diabetes and metabolic syndrome was discussed G. Therapeutic plan: We have decided to make therapeutic plan which would include choosing wisely on calories restricting portion getting active, tracking weight, getting good quality sleep and working on time management H. Patient will follow up in 4 weeks for weight management Total time spent today was 60 minutes of which greater than 50% was spent on coordinating and counseling After consultation and careful review of medical history, this patient would benefit from Contrave based off of the following criteria met: Patient is over the age of 18, has a BMI of 28.49. Additional comorbidities include hypertension and endometrial cancer in remission. Patient has trialed other methods of weight loss including improving diet, exercise without success over three months. This medication is prescribed by or in consultation with a board certified obesity and weight management physician (Dr. Vianey Kim or Dr. Morgan Kim). Case discussed with collaborating physician Akilah Kim who reviewed the assessment and plan. Chart, medications, labs, vital signs reviewed. Dictation was accomplished with the use of Inspiris voice recognition software, prone to medical misidentifications and grammatical errors. This is unintentional and the practitioner does try to identify and correct these, but some could still be present. Please do not hesitate to contact practitioner for clarification. All questions answered to patients satisfaction. Patient verbalized understanding of diagnosis and treatments explained. To call sooner prior to next visit it any questions/concerns arise. 10/12/2024 Hyperlipidemia, mixed (ICD-10 - E78.2) Patient is here for weight management follow-up. We focused on significance of healthy lifestyle changes. We talked about need to track steps with goal between 6000-10,000 steps daily, focus on portion control, read food labels, get adequate sleep between 7 to 8 hours, get adequate rest to the body, meditate, frequent nutritious meals including vegetables and healthy choices of lean meats, fish, and elimination of refined carbohydrates. We also talked about mindfulness and mindful eating. Particular focus was on continuing to progressively add resistance training and increase protein intake to build muscle mass. Total time spent with 30 minutes with greater than 50% spent on counseling and coordinating care. 09/15/2024: Weight 122.6 pounds, BMI 28.49. SECA scan completed today and interpreted with the patient. She has high fat mass. Noted to have decreased muscle mass at approximately 22 pounds when minimum expected quantity estimated to be around 25 pounds. Visceral adipose tissue index slightly increased. She reports difficulty with reducing her weight. She follows lifestyle modifications including exercising daily before work and is currently following the whole 40 diet where she is not consuming carbohydrates or dairy products. We discussed clinical indications for weight management medications including phentermine, Contrave, and GLP-1 agonists. Patient is not a candidate for phentermine given history of high blood pressure on amlodipine. Given the patient's decreased muscle mass we discussed the mechanism of GLP-1 agonists as well as how they do not target fat loss rather target weight loss which can include muscle. Discussed the risks of continuing to decrease muscle loss as a relates to osteoporosis. For that reason the patient will be a good candidate for Contrave. We discussed the appropriate use of the medication including appropriate dosing schedule. Discussed expected side effect profile of the medication including but not limited to nausea, vomiting, headaches, dizziness, and constipation. Repeat labs ordered with results pending at this time. Patient demonstrates understanding. She will follow-up in the office in approximately 1 month for weight management. 10/12/2024: Weight 118 pounds, BMI 27.42. SECA scan completed today and interpreted with the patient. Overall down 4 pounds from previous visit. Is decreasing fat mass which she was congratulated for. Increase in muscle mass from 22.2 pounds to 22.5 pounds. Advised to continue working with appraiser personal property to build muscle mass. Reports side effect of dry mouth, advised patient to take the medication with a glass of water as well as to continue daily hydration. At this time plan to continue taking Contrave 90-80 mg 2 tablets twice daily. Discussed proper use of the medication as well as expected side effect profile. She will follow-up in the office in approximately 4 weeks for continued weight management. # Hypertension: Blood pressure stable in office today 122/82. She is without chest pain, shortness of breath, dyspnea on exertion, or diaphoresis. Continue amlodipine besilate 5 mg once daily. Discussed proper use of the medication and expected side effect profile. Will continue to monitor. Please follow-up with PCP. # Hyperlipidemia: Lipid panel obtained 09/15/2024 with values including cholesterol 212, triglycerides 79, HDL 77, and LDL 119. Per ASCVD risk algorithm no statin recommended because 10-year risk less than 5%. Will continue to monitor and repeat lipid panel in a few months. # Endometrial cancer: Patient currently in remission of stage Ia endometrial cancer as of 2019. She has regular follow-up with gynecology, last note on 02/11/2024 for routine screening and pelvic examination. Will continue to monitor. All questions have been answered to patient's satisfaction. Patient verbalized understanding of diagnosis and treatments explained. Advised to call sooner prior to next visit it any questions/concerns arise. Case discussed with collaborating physician Mayo Kim who reviewed the assessment and plan. Chart, medications, labs, vital signs reviewed. Dictation was accomplished with the use of [employer] voice recognition software, which is prone to medical misidentifications and grammatical errors. This are unintentional and the practitioner does try to identify and correct these, but some could still be present. Please do not hesitate to contact practitioner for clarification. 11/09/2024 Essential hypertension (ICD-10 - I10) Patient is here for weight management follow-up. We focused on significance of healthy lifestyle changes. We talked about need to track steps with goal between 6000-10,000 steps daily, focus on portion control, read food labels, get adequate sleep between 7 to 8 hours, get adequate rest to the body, meditate, frequent nutritious meals including vegetables and healthy choices of lean meats, fish, and elimination of refined carbohydrates. We also talked about mindfulness and mindful eating. Particular focus was on continuing to progressively add resistance training and increase protein intake to build muscle mass. Total time spent with 30 minutes with greater than 50% spent on counseling and coordinating care. 09/15/2024: Weight 122.6 pounds, BMI 28.49. SECA scan completed today and interpreted with the patient. She has high fat mass. Noted to have decreased muscle mass at approximately 22 pounds when minimum expected quantity estimated to be around 25 pounds. Visceral adipose tissue index slightly increased. She reports difficulty with reducing her weight. She follows lifestyle modifications including exercising daily before work and is currently following the whole 40 diet where she is not consuming carbohydrates or dairy products. We discussed clinical indications for weight management medications including phentermine, Contrave, and GLP-1 agonists. Patient is not a candidate for phentermine given history of high blood pressure on amlodipine. Given the patient's decreased muscle mass we discussed the mechanism of GLP-1 agonists as well as how they do not target fat loss rather target weight loss which can include muscle. Discussed the risks of continuing to decrease muscle loss as a relates to osteoporosis. For that reason the patient will be a good candidate for Contrave. We discussed the appropriate use of the medication including appropriate dosing schedule. Discussed expected side effect profile of the medication including but not limited to nausea, vomiting, headaches, dizziness, and constipation. Repeat labs ordered with results pending at this time. Patient demonstrates understanding. She will follow-up in the office in approximately 1 month for weight management. 10/12/2024: Weight 118 pounds, BMI 27.42. SECA scan completed today and interpreted with the patient. Overall down 4 pounds from previous visit. Is decreasing fat mass which she was congratulated for. Increase in muscle mass from 22.2 pounds to 22.5 pounds. Advised to continue working with appraiser personal property to build muscle mass. Reports side effect of dry mouth, advised patient to take the medication with a glass of water as well as to continue daily hydration. At this time plan to continue taking Contrave 90-80 mg 2 tablets twice daily. Discussed proper use of the medication as well as expected side effect profile. She will follow-up in the office in approximately 4 weeks for continued weight management. 11/09/2024: Weight 116.8 pounds, BMI 27.14. SECA scan completed today and interpreted with patient. She is down 2 pounds from last visit. Muscle mass has progressively increased from 22.5 pounds to 25 pounds which she was congratulated for. Now in increased range on scale. Reporting adverse effects of nausea/vomiting on Contrave 2 pills twice daily. We discussed stepping down to next lowest dose and trialing 1 pill in the morning and 1 pill in the evening or 2 pills in the morning and 1 pill in the evening. Patient demonstrates understanding and will titrate dose to best effect. 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 No other concerns, plan to continue Contrave 8-90 mg at a range of 2 to 3 pills daily. Discussed proper use of medication and potential side effect profile. She will follow-up in 4 weeks for further management. # Hypertension: Blood pressure stable in office today 132/78. She is without chest pain, shortness of breath, dyspnea on exertion, or diaphoresis. Continue amlodipine besilate 5 mg once daily. Discussed proper use of the medication and expected side effect profile. Will continue to monitor. Please follow-up with PCP. # Hyperlipidemia: Lipid panel obtained 09/15/2024 with values including cholesterol 212, triglycerides 79, HDL 77, and LDL 119. Per ASCVD risk algorithm no statin recommended because 10-year risk less than 5%. Will continue to monitor and repeat lipid panel in a few months. # Endometrial cancer: Patient currently in remission of stage Ia endometrial cancer as of 2019. She has regular follow-up with gynecology, last note on 02/11/2024 for routine screening and pelvic examination. Will continue to monitor. All questions have been answered to patient's satisfaction. Patient verbalized understanding of diagnosis and treatments explained. Advised to call sooner prior to next visit it any questions/concerns arise. Case discussed with collaborating physician Mayo Kim who reviewed the assessment and plan. Chart, medications, labs, vital signs reviewed. Dictation was accomplished with the use of [employer] voice recognition software, which is prone to medical misidentifications and grammatical errors. This are unintentional and the practitioner does try to identify and correct these, but some could still be present. Please do not hesitate to contact practitioner for clarification. 12/14/2024 Hyperlipidemia, mixed (ICD-10 - E78.2) Patient is here for weight management follow-up. We focused on significance of healthy lifestyle changes. We talked about need to track steps with goal between 6000-10,000 steps daily, focus on portion control, read food labels, get adequate sleep between 7 to 8 hours, get adequate rest to the body, meditate, frequent nutritious meals including vegetables and healthy choices of lean meats, fish, and elimination of refined carbohydrates. We also talked about mindfulness and mindful eating. Particular focus was on continuing to progressively add resistance training and increase protein intake to build muscle mass. Total time spent with 30 minutes with greater than 50% spent on counseling and coordinating care. 09/15/2024: Weight 122.6 pounds, BMI 28.49. SECA scan completed today and interpreted with the patient. She has high fat mass. Noted to have decreased muscle mass at approximately 22 pounds when minimum expected quantity estimated to be around 25 pounds. Visceral adipose tissue index slightly increased. She reports difficulty with reducing her weight. She follows lifestyle modifications including exercising daily before work and is currently following the whole 40 diet where she is not consuming carbohydrates or dairy products. We discussed clinical indications for weight management medications including phentermine, Contrave, and GLP-1 agonists. Patient is not a candidate for phentermine given history of high blood pressure on amlodipine. Given the patient's decreased muscle mass we discussed the mechanism of GLP-1 agonists as well as how they do not target fat loss rather target weight loss which can include muscle. Discussed the risks of continuing to decrease muscle loss as a relates to osteoporosis. For that reason the patient will be a good candidate for Contrave. We discussed the appropriate use of the medication including appropriate dosing schedule. Discussed expected side effect profile of the medication including but not limited to nausea, vomiting, headaches, dizziness, and constipation. Repeat labs ordered with results pending at this time. Patient demonstrates understanding. She will follow-up in the office in approximately 1 month for weight management. 10/12/2024: Weight 118 pounds, BMI 27.42. SECA scan completed today and interpreted with the patient. Overall down 4 pounds from previous visit. Is decreasing fat mass which she was congratulated for. Increase in muscle mass from 22.2 pounds to 22.5 pounds. Advised to continue working with appraiser personal property to build muscle mass. Reports side effect of dry mouth, advised patient to take the medication with a glass of water as well as to continue daily hydration. At this time plan to continue taking Contrave 90-80 mg 2 tablets twice daily. Discussed proper use of the medication as well as expected side effect profile. She will follow-up in the office in approximately 4 weeks for continued weight management. 11/09/2024: Weight 116.8 pounds, BMI 27.14. SECA scan completed today and interpreted with patient. She is down 2 pounds from last visit. Muscle mass has progressively increased from 22.5 pounds to 25 pounds which she was congratulated for. Now in increased range on scale. Reporting adverse effects of nausea/vomiting on Contrave 2 pills twice daily. We discussed stepping down to next lowest dose and trialing 1 pill in the morning and 1 pill in the evening or 2 pills in the morning and 1 pill in the evening. Patient demonstrates understanding and will titrate dose to best effect. 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 No other concerns, plan to continue Contrave 8-90 mg at a range of 2 to 3 pills daily. Discussed proper use of medication and potential side effect profile. She will follow-up in 4 weeks for further management. 12/14/2024: Weight 115 pounds, BMI 26.73. Seca scan completed today and interpreted with the patient. Approximately 1 pound decrease from last visit. She is no longer on Contrave at this time due to adverse GI side effects. On body composition patient has 45 pounds of fat mass, has had a slight reduction of approximately 0.5 pounds of muscle mass since last visit. Total of 24.7 pounds of muscle. Visceral adipose tissue index remains within normal limits at 1.1. For further weight management we discussed initiation of topiramate as well as compounded semaglutide or tirzepatide. At this time patient has interest in compounded GLP-1 which she may initiate when she returns from her trip to [facility] in December. She will follow-up in approximately 4 weeks. # Hypertension: Blood pressure elevated in office 140/90, however patient states that she did not take her amlodipine today. She is without chest pain, shortness of breath, dyspnea on exertion, or diaphoresis. Continue amlodipine besilate 5 mg once daily. Discussed proper use of the medication and expected side effect profile. Will continue to monitor. Please follow-up with PCP. # Hyperlipidemia: Lipid panel obtained 09/15/2024 with values including cholesterol 212, triglycerides 79, HDL 77, and LDL 119. Per ASCVD risk algorithm no statin recommended because 10-year risk less than 5%. Will continue to monitor and repeat lipid panel in a few months. # Endometrial cancer: Patient currently in remission of stage Ia endometrial cancer as of 2019. She has regular follow-up with gynecology, last note on 02/11/2024 for routine screening and pelvic examination. Will continue to monitor. All questions have been answered to patient's satisfaction. Patient verbalized understanding of diagnosis and treatments explained. Advised to call sooner prior to next visit it any questions/concerns arise. Case discussed with collaborating physician Mayo Kim who reviewed the assessment and plan. Chart, medications, labs, vital signs reviewed. Dictation was accomplished with the use of [employer] voice recognition software, which is prone to medical misidentifications and grammatical errors. This are unintentional and the practitioner does try to identify and correct these, but some could still be present. Please do not hesitate to contact practitioner for clarification. 01/12/2025 Hyperlipidemia, mixed (ICD-10 - E78.2) Patient is here for weight management follow-up. We focused on significance of healthy lifestyle changes. We talked about need to track steps with goal between 6000-10,000 steps daily, focus on portion control, read food labels, get adequate sleep between 7 to 8 hours, get adequate rest to the body, meditate, frequent nutritious meals including vegetables and healthy choices of lean meats, fish, and elimination of refined carbohydrates. We also talked about mindfulness and mindful eating. Particular focus was on continuing to progressively add resistance training and increase protein intake to build muscle mass. Total time spent with 30 minutes with greater than 50% spent on counseling and coordinating care. 09/15/2024: Weight 122.6 pounds, BMI 28.49. SECA scan completed today and interpreted with the patient. She has high fat mass. Noted to have decreased muscle mass at approximately 22 pounds when minimum expected quantity estimated to be around 25 pounds. Visceral adipose tissue index slightly increased. She reports difficulty with reducing her weight. She follows lifestyle modifications including exercising daily before work and is currently following the whole 40 diet where she is not consuming carbohydrates or dairy products. We discussed clinical indications for weight management medications including phentermine, Contrave, and GLP-1 agonists. Patient is not a candidate for phentermine given history of high blood pressure on amlodipine. Given the patient's decreased muscle mass we discussed the mechanism of GLP-1 agonists as well as how they do not target fat loss rather target weight loss which can include muscle. Discussed the risks of continuing to decrease muscle loss as a relates to osteoporosis. For that reason the patient will be a good candidate for Contrave. We discussed the appropriate use of the medication including appropriate dosing schedule. Discussed expected side effect profile of the medication including but not limited to nausea, vomiting, headaches, dizziness, and constipation. Repeat labs ordered with results pending at this time. Patient demonstrates understanding. She will follow-up in the office in approximately 1 month for weight management. 10/12/2024: Weight 118 pounds, BMI 27.42. SECA scan completed today and interpreted with the patient. Overall down 4 pounds from previous visit. Is decreasing fat mass which she was congratulated for. Increase in muscle mass from 22.2 pounds to 22.5 pounds. Advised to continue working with appraiser personal property to build muscle mass. Reports side effect of dry mouth, advised patient to take the medication with a glass of water as well as to continue daily hydration. At this time plan to continue taking Contrave 90-80 mg 2 tablets twice daily. Discussed proper use of the medication as well as expected side effect profile. She will follow-up in the office in approximately 4 weeks for continued weight management. 11/09/2024: Weight 116.8 pounds, BMI 27.14. SECA scan completed today and interpreted with patient. She is down 2 pounds from last visit. Muscle mass has progressively increased from 22.5 pounds to 25 pounds which she was congratulated for. Now in increased range on scale. Reporting adverse effects of nausea/vomiting on Contrave 2 pills twice daily. We discussed stepping down to next lowest dose and trialing 1 pill in the morning and 1 pill in the evening or 2 pills in the morning and 1 pill in the evening. Patient demonstrates understanding and will titrate dose to best effect. 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 No other concerns, plan to continue Contrave 8-90 mg at a range of 2 to 3 pills daily. Discussed proper use of medication and potential side effect profile. She will follow-up in 4 weeks for further management. 12/14/2024: Weight 115 pounds, BMI 26.73. Seca scan completed today and interpreted with the patient. Approximately 1 pound decrease from last visit. She is no longer on Contrave at this time due to adverse GI side effects. On body composition patient has 45 pounds of fat mass, has had a slight reduction of approximately 0.5 pounds of muscle mass since last visit. Total of 24.7 pounds of muscle. Visceral adipose tissue index remains within normal limits at 1.1. For further weight management we discussed initiation of topiramate as well as compounded semaglutide or tirzepatide. At this time patient has interest in compounded GLP-1 which she may initiate when she returns from her trip to [facility] in December. She will follow-up in approximately 4 weeks. 01/12/2025: 01/12/2025: Weight 118 pounds, BMI 27.42. Seca scan completed today interpreted with the patient., Overall up about 2 pounds were last visit, however on body analysis she is up 2 pounds of muscle mass. Has increased amounts of muscle at this time which has greatly improved from her consultation. Milligram Contrave due to adverse effects. Interested in initiating compounded semaglutide. Discussed potential side effect profile including but not limited to nausea, constipation, abdominal pain, and heartburn. Reports no history of pancreatitis, multiple endocrine neoplasia syndrome in self or family, or history of medullary thyroid cancer in self or family. Advised the patient can receive injections weekly or biweekly as she chooses. Patient understanding. She will follow-up in office in 4 weeks for further evaluation. # Hypertension: Blood pressure 120/78. She is without chest pain, shortness of breath, dyspnea on exertion, or diaphoresis. Continue amlodipine besilate 5 mg once daily. Discussed proper use of the medication and expected side effect profile. Will continue to monitor. Please follow-up with PCP. # Hyperlipidemia: Lipid panel obtained 09/15/2024 with values including cholesterol 212, triglycerides 79, HDL 77, and LDL 119. Per ASCVD risk algorithm no statin recommended because 10-year risk less than 5%. Will continue to monitor and repeat lipid panel in a few months. # Endometrial cancer: Patient currently in remission of stage Ia endometrial cancer as of 2019. She has regular follow-up with gynecology, last note on 02/11/2024 for routine screening and pelvic examination. Will continue to monitor. All questions have been answered to patient's satisfaction. Patient verbalized understanding of diagnosis and treatments explained. Advised to call sooner prior to next visit it any questions/concerns arise. Case discussed with collaborating physician Mayo Kim who reviewed the assessment and plan. Chart, medications, labs, vital signs reviewed. Dictation was accomplished with the use of [employer] voice recognition software, which is prone to medical misidentifications and grammatical errors. This are unintentional and the practitioner does try to identify and correct these, but some could still be present. Please do not hesitate to contact practitioner for clarification. 02/08/2025 Hyperlipidemia, mixed (ICD-10 - E78.2) Patient is here for weight management follow-up. We focused on significance of healthy lifestyle changes. We talked about need to track steps with goal between 6000-10,000 steps daily, focus on portion control, read food labels, get adequate sleep between 7 to 8 hours, get adequate rest to the body, meditate, frequent nutritious meals including vegetables and healthy choices of lean meats, fish, and elimination of refined carbohydrates. We also talked about mindfulness and mindful eating. Particular focus was on continuing portion control and maintaining physical activity. Total time spent with 30 minutes with greater than 50% spent on counseling and coordinating care. 09/15/2024: Weight 122.6 pounds, BMI 28.49. SECA scan completed today and interpreted with the patient. She has high fat mass. Noted to have decreased muscle mass at approximately 22 pounds when minimum expected quantity estimated to be around 25 pounds. Visceral adipose tissue index slightly increased. She reports difficulty with reducing her weight. She follows lifestyle modifications including exercising daily before work and is currently following the whole 40 diet where she is not consuming carbohydrates or dairy products. We discussed clinical indications for weight management medications including phentermine, Contrave, and GLP-1 agonists. Patient is not a candidate for phentermine given history of high blood pressure on amlodipine. Given the patient's decreased muscle mass we discussed the mechanism of GLP-1 agonists as well as how they do not target fat loss rather target weight loss which can include muscle. Discussed the risks of continuing to decrease muscle loss as a relates to osteoporosis. For that reason the patient will be a good candidate for Contrave. We discussed the appropriate use of the medication including appropriate dosing schedule. Discussed expected side effect profile of the medication including but not limited to nausea, vomiting, headaches, dizziness, and constipation. Repeat labs ordered with results pending at this time. Patient demonstrates understanding. She will follow-up in the office in approximately 1 month for weight management. 10/12/2024: Weight 118 pounds, BMI 27.42. SECA scan completed today and interpreted with the patient. Overall down 4 pounds from previous visit. Is decreasing fat mass which she was congratulated for. Increase in muscle mass from 22.2 pounds to 22.5 pounds. Advised to continue working with appraiser personal property to build muscle mass. Reports side effect of dry mouth, advised patient to take the medication with a glass of water as well as to continue daily hydration. At this time plan to continue taking Contrave 90-80 mg 2 tablets twice daily. Discussed proper use of the medication as well as expected side effect profile. She will follow-up in the office in approximately 4 weeks for continued weight management. 11/09/2024: Weight 116.8 pounds, BMI 27.14. SECA scan completed today and interpreted with patient. She is down 2 pounds from last visit. Muscle mass has progressively increased from 22.5 pounds to 25 pounds which she was congratulated for. Now in increased range on scale. Reporting adverse effects of nausea/vomiting on Contrave 2 pills twice daily. We discussed stepping down to next lowest dose and trialing 1 pill in the morning and 1 pill in the evening or 2 pills in the morning and 1 pill in the evening. Patient demonstrates understanding and will titrate dose to best effect. 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 No other concerns, plan to continue Contrave 8-90 mg at a range of 2 to 3 pills daily. Discussed proper use of medication and potential side effect profile. She will follow-up in 4 weeks for further management. 12/14/2024: Weight 115 pounds, BMI 26.73. Seca scan completed today and interpreted with the patient. Approximately 1 pound decrease from last visit. She is no longer on Contrave at this time due to adverse GI side effects. On body composition patient has 45 pounds of fat mass, has had a slight reduction of approximately 0.5 pounds of muscle mass since last visit. Total of 24.7 pounds of muscle. Visceral adipose tissue index remains within normal limits at 1.1. For further weight management we discussed initiation of topiramate as well as compounded semaglutide or tirzepatide. At this time patient has interest in compounded GLP-1 which she may initiate when she returns from her trip to [facility] in December. She will follow-up in approximately 4 weeks. 01/12/2025: 01/12/2025: Weight 118 pounds, BMI 27.42. Seca scan completed today interpreted with the patient., Overall up about 2 pounds were last visit, however on body analysis she is up 2 pounds of muscle mass. Has increased amounts of muscle at this time which has greatly improved from her consultation. Milligram Contrave due to adverse effects. Interested in initiating compounded semaglutide. Discussed potential side effect profile including but not limited to nausea, constipation, abdominal pain, and heartburn. Reports no history of pancreatitis, multiple endocrine neoplasia syndrome in self or family, or history of medullary thyroid cancer in self or family. Advised the patient can receive injections weekly or biweekly as she chooses. Patient understanding. She will follow-up in office in 4 weeks for further evaluation. 02/08/2025: Weight 115 pounds, BMI 26.73. SECA scan completed today and interpreted with the patient. On body analysis she is down 2 to 3 pounds of fat mass and has built about 1/2 pound of muscle mass. Has increased amounts of muscle of her body composition. Patient is receiving semaglutide 0.25 mg weekly in office. Reports no adverse effects at this time. Reviewed goals of diet and exercise. Semaglutide 0.25 mg administered retained sleeve today in office. Plan is to follow-up in office in 4 weeks. # Hypertension: Blood pressure 120/80. She is without chest pain, shortness of breath, dyspnea on exertion, or diaphoresis. Continue amlodipine besilate 5 mg once daily. Discussed proper use of the medication and expected side effect profile. Will continue to monitor. Please follow-up with PCP. # Hyperlipidemia: Lipid panel obtained 09/15/2024 with values including cholesterol 212, triglycerides 79, HDL 77, and LDL 119. Per ASCVD risk algorithm no statin recommended because 10-year risk less than 5%. Will continue to monitor and repeat lipid panel in a few months. # Endometrial cancer: Patient currently in remission of stage Ia endometrial cancer as of 2019. She has regular follow-up with gynecology, last note on 02/11/2024 for routine screening and pelvic examination. Will continue to monitor. All questions have been answered to patient's satisfaction. Patient verbalized understanding of diagnosis and treatments explained. Advised to call sooner prior to next visit it any questions/concerns arise. Case discussed with collaborating physician Mayo Kim who reviewed the assessment and plan. Chart, medications, labs, vital signs reviewed. Dictation was accomplished with the use of [employer] voice recognition software, which is prone to medical misidentifications and grammatical errors. This are unintentional and the practitioner does try to identify and correct these, but some could still be present. Please do not hesitate to contact practitioner for clarification. 03/07/2025 Hyperlipidemia, mixed (ICD-10 - E78.2) Patient is here for weight management follow-up. We focused on significance of healthy lifestyle changes. We talked about need to track steps with goal between 6000-10,000 steps daily, focus on portion control, read food labels, get adequate sleep between 7 to 8 hours, get adequate rest to the body, meditate, frequent nutritious meals including vegetables and healthy choices of lean meats, fish, and elimination of refined carbohydrates. We also talked about mindfulness and mindful eating. Particular focus was on continuing portion control and maintaining physical activity. Total time spent with 30 minutes with greater than 50% spent on counseling and coordinating care. 09/15/2024: Weight 122.6 pounds, BMI 28.49. SECA scan completed today and interpreted with the patient. She has high fat mass. Noted to have decreased muscle mass at approximately 22 pounds when minimum expected quantity estimated to be around 25 pounds. Visceral adipose tissue index slightly increased. She reports difficulty with reducing her weight. She follows lifestyle modifications including exercising daily before work and is currently following the whole 40 diet where she is not consuming carbohydrates or dairy products. We discussed clinical indications for weight management medications including phentermine, Contrave, and GLP-1 agonists. Patient is not a candidate for phentermine given history of high blood pressure on amlodipine. Given the patient's decreased muscle mass we discussed the mechanism of GLP-1 agonists as well as how they do not target fat loss rather target weight loss which can include muscle. Discussed the risks of continuing to decrease muscle loss as a relates to osteoporosis. For that reason the patient will be a good candidate for Contrave. We discussed the appropriate use of the medication including appropriate dosing schedule. Discussed expected side effect profile of the medication including but not limited to nausea, vomiting, headaches, dizziness, and constipation. Repeat labs ordered with results pending at this time. Patient demonstrates understanding. She will follow-up in the office in approximately 1 month for weight management. 10/12/2024: Weight 118 pounds, BMI 27.42. SECA scan completed today and interpreted with the patient. Overall down 4 pounds from previous visit. Is decreasing fat mass which she was congratulated for. Increase in muscle mass from 22.2 pounds to 22.5 pounds. Advised to continue working with app[employer] personal property to build muscle mass. Reports side effect of dry mouth, advised patient to take the medication with a glass of water as well as to continue daily hydration. At this time plan to continue taking Contrave 90-80 mg 2 tablets twice daily. Discussed proper use of the medication as well as expected side effect profile. She will follow-up in the office in approximately 4 weeks for continued weight management. 11/09/2024: Weight 116.8 pounds, BMI 27.14. SECA scan completed today and interpreted with patient. She is down 2 pounds from last visit. Muscle mass has progressively increased from 22.5 pounds to 25 pounds which she was congratulated for. Now in increased range on scale. Reporting adverse effects of nausea/vomiting on Contrave 2 pills twice daily. We discussed stepping down to next lowest dose and trialing 1 pill in the morning and 1 pill in the evening or 2 pills in the morning and 1 pill in the evening. Patient demonstrates understanding and will titrate dose to best effect. 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 No other concerns, plan to continue Contrave 8-90 mg at a range of 2 to 3 pills daily. Discussed proper use of medication and potential side effect profile. She will follow-up in 4 weeks for further management. 12/14/2024: Weight 115 pounds, BMI 26.73. Seca scan completed today and interpreted with the patient. Approximately 1 pound decrease from last visit. She is no longer on Contrave at this time due to adverse GI side effects. On body composition patient has 45 pounds of fat mass, has had a slight reduction of approximately 0.5 pounds of muscle mass since last visit. Total of 24.7 pounds of muscle. Visceral adipose tissue index remains within normal limits at 1.1. For further weight management we discussed initiation of topiramate as well as compounded semaglutide or tirzepatide. At this time patient has interest in compounded GLP-1 which she may initiate when she returns from her trip to [facility] in December. She will follow-up in approximately 4 weeks. 01/12/2025: 01/12/2025: Weight 118 pounds, BMI 27.42. Seca scan completed today interpreted with the patient., Overall up about 2 pounds were last visit, however on body analysis she is up 2 pounds of muscle mass. Has increased amounts of muscle at this time which has greatly improved from her consultation. Milligram Contrave due to adverse effects. Interested in initiating compounded semaglutide. Discussed potential side effect profile including but not limited to nausea, constipation, abdominal pain, and heartburn. Reports no history of pancreatitis, multiple endocrine neoplasia syndrome in self or family, or history of medullary thyroid cancer in self or family. Advised the patient can receive injections weekly or biweekly as she chooses. Patient understanding. She will follow-up in office in 4 weeks for further evaluation. 02/08/2025: Weight 115 pounds, BMI 26.73. SECA scan completed today and interpreted with the patient. On body analysis she is down 2 to 3 pounds of fat mass and has built about 1/2 pound of muscle mass. Has increased amounts of muscle of her body composition. Patient is receiving semaglutide 0.25 mg weekly in office. Reports no adverse effects at this time. Reviewed goals of diet and exercise. Semaglutide 0.25 mg administered retained sleeve today in office. Plan is to follow-up in office in 4 weeks. 03/07/2025: Weight 111 pounds, BMI 24.6. Seca scan completed and discussed with the patient. Patient is down approximately 4 pounds from her last visit. On body analysis has had a 3 pound decrease of fat mass, has 36.2% of her weight being fat mass but is now within normal ranges. Maintaining good muscle mass as well. Fat mass index of 8.9. Visceral adiposity remains within normal limits at 1.0. Patient currently receiving compounded semaglutide weekly in office. Has been doing well on 0.25 mg and will receive 0.5 mg in office today. Patient will follow-up in 4-6 weeks for further assessment. # Hypertension: Blood pressure 120/80. She is without chest pain, shortness of breath, dyspnea on exertion, or diaphoresis. Continue amlodipine besilate 5 mg once daily. Discussed proper use of the medication and expected side effect profile. Will continue to monitor. Please follow-up with PCP. # Hyperlipidemia: Lipid panel obtained 09/15/2024 with values including cholesterol 212, triglycerides 79, HDL 77, and LDL 119. Per ASCVD risk algorithm no statin recommended because 10-year risk less than 5%. Will continue to monitor and repeat lipid panel in a few months. # Endometrial cancer: Patient currently in remission of stage Ia endometrial cancer as of 2019. She has regular follow-up with gynecology, last note on 02/11/2024 for routine screening and pelvic examination. Will continue to monitor. All questions have been answered to patient's satisfaction. Patient verbalized understanding of diagnosis and treatments explained. Advised to call sooner prior to next visit it any questions/concerns arise. Case discussed with collaborating physician Mayo Kim who reviewed the assessment and plan. Chart, medications, labs, vital signs reviewed. Dictation was accomplished with the use of [employer] voice recognition software, which is prone to medical misidentifications and grammatical errors. This are unintentional and the practitioner does try to identify and correct these, but some could still be present. Please do not hesitate to contact practitioner for clarification. 04/04/2025 Essential hypertension (ICD-10 - I10) Patient is here for weight management follow-up. We focused on significance of healthy lifestyle changes. We talked about need to track steps with goal between 6000-10,000 steps daily, focus on portion control, read food labels, get adequate sleep between 7 to 8 hours, get adequate rest to the body, meditate, frequent nutritious meals including vegetables and healthy choices of lean meats, fish, and elimination of refined carbohydrates. We also talked about mindfulness and mindful eating. Particular focus was on continuing portion control and maintaining physical activity. Total time spent with 30 minutes with greater than 50% spent on counseling and coordinating care. 09/15/2024: Weight 122.6 pounds, BMI 28.49. SECA scan completed today and interpreted with the patient. She has high fat mass. Noted to have decreased muscle mass at approximately 22 pounds when minimum expected quantity estimated to be around 25 pounds. Visceral adipose tissue index slightly increased. She reports difficulty with reducing her weight. She follows lifestyle modifications including exercising daily before work and is currently following the whole 40 diet where she is not consuming carbohydrates or dairy products. We discussed clinical indications for weight management medications including phentermine, Contrave, and GLP-1 agonists. Patient is not a candidate for phentermine given history of high blood pressure on amlodipine. Given the patient's decreased muscle mass we discussed the mechanism of GLP-1 agonists as well as how they do not target fat loss rather target weight loss which can include muscle. Discussed the risks of continuing to decrease muscle loss as a relates to osteoporosis. For that reason the patient will be a good candidate for Contrave. We discussed the appropriate use of the medication including appropriate dosing schedule. Discussed expected side effect profile of the medication including but not limited to nausea, vomiting, headaches, dizziness, and constipation. Repeat labs ordered with results pending at this time. Patient demonstrates understanding. She will follow-up in the office in approximately 1 month for weight management. 10/12/2024: Weight 118 pounds, BMI 27.42. SECA scan completed today and interpreted with the patient. Overall down 4 pounds from previous visit. Is decreasing fat mass which she was congratulated for. Increase in muscle mass from 22.2 pounds to 22.5 pounds. Advised to continue working with [employer] personal property to build muscle mass. Reports side effect of dry mouth, advised patient to take the medication with a glass of water as well as to continue daily hydration. At this time plan to continue taking Contrave 90-80 mg 2 tablets twice daily. Discussed proper use of the medication as well as expected side effect profile. She will follow-up in the office in approximately 4 weeks for continued weight management. 11/09/2024: Weight 116.8 pounds, BMI 27.14. SECA scan completed today and interpreted with patient. She is down 2 pounds from last visit. Muscle mass has progressively increased from 22.5 pounds to 25 pounds which she was congratulated for. Now in increased range on scale. Reporting adverse effects of nausea/vomiting on Contrave 2 pills twice daily. We discussed stepping down to next lowest dose and trialing 1 pill in the morning and 1 pill in the evening or 2 pills in the morning and 1 pill in the evening. Patient demonstrates understanding and will titrate dose to best effect. 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 No other concerns, plan to continue Contrave 8-90 mg at a range of 2 to 3 pills daily. Discussed proper use of medication and potential side effect profile. She will follow-up in 4 weeks for further management. 12/14/2024: Weight 115 pounds, BMI 26.73. Seca scan completed today and interpreted with the patient. Approximately 1 pound decrease from last visit. She is no longer on Contrave at this time due to adverse GI side effects. On body composition patient has 45 pounds of fat mass, has had a slight reduction of approximately 0.5 pounds of muscle mass since last visit. Total of 24.7 pounds of muscle. Visceral adipose tissue index remains within normal limits at 1.1. For further weight management we discussed initiation of topiramate as well as compounded semaglutide or tirzepatide. At this time patient has interest in compounded GLP-1 which she may initiate when she returns from her trip to [facility] in December. She will follow-up in approximately 4 weeks. 01/12/2025: 01/12/2025: Weight 118 pounds, BMI 27.42. Seca scan completed today interpreted with the patient., Overall up about 2 pounds were last visit, however on body analysis she is up 2 pounds of muscle mass. Has increased amounts of muscle at this time which has greatly improved from her consultation. Milligram Contrave due to adverse effects. Interested in initiating compounded semaglutide. Discussed potential side effect profile including but not limited to nausea, constipation, abdominal pain, and heartburn. Reports no history of pancreatitis, multiple endocrine neoplasia syndrome in self or family, or history of medullary thyroid cancer in self or family. Advised the patient can receive injections weekly or biweekly as she chooses. Patient understanding. She will follow-up in office in 4 weeks for further evaluation. 02/08/2025: Weight 115 pounds, BMI 26.73. SECA scan completed today and interpreted with the patient. On body analysis she is down 2 to 3 pounds of fat mass and has built about 1/2 pound of muscle mass. Has increased amounts of muscle of her body composition. Patient is receiving semaglutide 0.25 mg weekly in office. Reports no adverse effects at this time. Reviewed goals of diet and exercise. Semaglutide 0.25 mg administered retained sleeve today in office. Plan is to follow-up in office in 4 weeks. 03/07/2025: Weight 111 pounds, BMI 24.6. Seca scan completed and discussed with the patient. Patient is down approximately 4 pounds from her last visit. On body analysis has had a 3 pound decrease of fat mass, has 36.2% of her weight being fat mass but is now within normal ranges. Maintaining good muscle mass as well. Fat mass index of 8.9. Visceral adiposity remains within normal limits at 1.0. Patient currently receiving compounded semaglutide weekly in office. Has been doing well on 0.25 mg and will receive 0.5 mg in office today. Patient will follow-up in 4-6 weeks for further assessment. 04/04/2025: Weight 109 pounds, BMI 24.1. Seca scan completed and discussed with the patient. She is down 2 pounds from her last visit. On body analysis she is down 3 pounds of fat mass. She has a normal fat mass percentage amounting 34.2% of her body weight. She is maintaining very good muscle mass amounting 24.5% of her body weight. Fat mass index is down from 8.9-8.2 within normal limits. Visceral adiposity is also decreasing from 1.0-0.8 and maintaining within good range. She is down half an inch on her waist. Currently is receiving semaglutide 0.5 mg every other week in office. We discussed when limiting supply of semaglutide and discussed options for further weight management including [employer] using coupon card and tirzepatide through [employer] direct. Patient understanding. At this time we will continue biweekly dosing and follow-up in 4 to 6 weeks. # Hypertension: Blood pressure 128/80. She is without chest pain, shortness of breath, dyspnea on exertion, or diaphoresis. Continue amlodipine besilate 5 mg once daily. Discussed proper use of the medication and expected side effect profile. Will continue to monitor. Please follow-up with PCP. # Hyperlipidemia: Lipid panel obtained 09/15/2024 with values including cholesterol 212, triglycerides 79, HDL 77, and LDL 119. Per ASCVD risk algorithm no statin recommended because 10-year risk less than 5%. Will continue to monitor and repeat lipid panel in a few months. # Endometrial cancer: Patient currently in remission of stage Ia endometrial cancer as of 2019. She has regular follow-up with gynecology, last note on 02/11/2024 for routine screening and pelvic examination. Will continue to monitor. All questions have been answered to patient's satisfaction. Patient verbalized understanding of diagnosis and treatments explained. Advised to call sooner prior to next visit it any questions/concerns arise. Case discussed with collaborating physician Mayo Kim who reviewed the assessment and plan. Chart, medications, labs, vital signs reviewed. Dictation was accomplished with the use of [employer] voice recognition software, which is prone to medical misidentifications and grammatical errors. This are unintentional and the practitioner does try to identify and correct these, but some could still be present. Please do not hesitate to contact practitioner for clarification. 05/17/2025 Essential hypertension (ICD-10 - I10) Patient is here for weight management follow-up. We focused on significance of healthy lifestyle changes. We talked about need to track steps with goal between 6000-10,000 steps daily, focus on portion control, read food labels, get adequate sleep between 7 to 8 hours, get adequate rest to the body, meditate, frequent nutritious meals including vegetables and healthy choices of lean meats, fish, and elimination of refined carbohydrates. We also talked about mindfulness and mindful eating. Particular focus was on continuing portion control and maintaining physical activity. Total time spent with 30 minutes with greater than 50% spent on counseling and coordinating care. 09/15/2024: Weight 122.6 pounds, BMI 28.49. SECA scan completed today and interpreted with the patient. She has high fat mass. Noted to have decreased muscle mass at approximately 22 pounds when minimum expected quantity estimated to be around 25 pounds. Visceral adipose tissue index slightly increased. She reports difficulty with reducing her weight. She follows lifestyle modifications including exercising daily before work and is currently following the whole 40 diet where she is not consuming carbohydrates or dairy products. We discussed clinical indications for weight management medications including phentermine, Contrave, and GLP-1 agonists. Patient is not a candidate for phentermine given history of high blood pressure on amlodipine. Given the patient's decreased muscle mass we discussed the mechanism of GLP-1 agonists as well as how they do not target fat loss rather target weight loss which can include muscle. Discussed the risks of continuing to decrease muscle loss as a relates to osteoporosis. For that reason the patient will be a good candidate for Contrave. We discussed the appropriate use of the medication including appropriate dosing schedule. Discussed expected side effect profile of the medication including but not limited to nausea, vomiting, headaches, dizziness, and constipation. Repeat labs ordered with results pending at this time. Patient demonstrates understanding. She will follow-up in the office in approximately 1 month for weight management. 10/12/2024: Weight 118 pounds, BMI 27.42. SECA scan completed today and interpreted with the patient. Overall down 4 pounds from previous visit. Is decreasing fat mass which she was congratulated for. Increase in muscle mass from 22.2 pounds to 22.5 pounds. Advised to continue working with [employer] personal property to build muscle mass. Reports side effect of dry mouth, advised patient to take the medication with a glass of water as well as to continue daily hydration. At this time plan to continue taking Contrave 90-80 mg 2 tablets twice daily. Discussed proper use of the medication as well as expected side effect profile. She will follow-up in the office in approximately 4 weeks for continued weight management. 11/09/2024: Weight 116.8 pounds, BMI 27.14. SECA scan completed today and interpreted with patient. She is down 2 pounds from last visit. Muscle mass has progressively increased from 22.5 pounds to 25 pounds which she was congratulated for. Now in increased range on scale. Reporting adverse effects of nausea/vomiting on Contrave 2 pills twice daily. We discussed stepping down to next lowest dose and trialing 1 pill in the morning and 1 pill in the evening or 2 pills in the morning and 1 pill in the evening. Patient demonstrates understanding and will titrate dose to best effect. 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 No other concerns, plan to continue Contrave 8-90 mg at a range of 2 to 3 pills daily. Discussed proper use of medication and potential side effect profile. She will follow-up in 4 weeks for further management. 12/14/2024: Weight 115 pounds, BMI 26.73. Seca scan completed today and interpreted with the patient. Approximately 1 pound decrease from last visit. She is no longer on Contrave at this time due to adverse GI side effects. On body composition patient has 45 pounds of fat mass, has had a slight reduction of approximately 0.5 pounds of muscle mass since last visit. Total of 24.7 pounds of muscle. Visceral adipose tissue index remains within normal limits at 1.1. For further weight management we discussed initiation of topiramate as well as compounded semaglutide or tirzepatide. At this time patient has interest in compounded GLP-1 which she may initiate when she returns from her trip to [facility] in December. She will follow-up in approximately 4 weeks. 01/12/2025: 01/12/2025: Weight 118 pounds, BMI 27.42. Seca scan completed today interpreted with the patient., Overall up about 2 pounds were last visit, however on body analysis she is up 2 pounds of muscle mass. Has increased amounts of muscle at this time which has greatly improved from her consultation. Milligram Contrave due to adverse effects. Interested in initiating compounded semaglutide. Discussed potential side effect profile including but not limited to nausea, constipation, abdominal pain, and heartburn. Reports no history of pancreatitis, multiple endocrine neoplasia syndrome in self or family, or history of medullary thyroid cancer in self or family. Advised the patient can receive injections weekly or biweekly as she chooses. Patient understanding. She will follow-up in office in 4 weeks for further evaluation. 02/08/2025: Weight 115 pounds, BMI 26.73. SECA scan completed today and interpreted with the patient. On body analysis she is down 2 to 3 pounds of fat mass and has built about 1/2 pound of muscle mass. Has increased amounts of muscle of her body composition. Patient is receiving semaglutide 0.25 mg weekly in office. Reports no adverse effects at this time. Reviewed goals of diet and exercise. Semaglutide 0.25 mg administered retained sleeve today in office. Plan is to follow-up in office in 4 weeks. 03/07/2025: Weight 111 pounds, BMI 24.6. Seca scan completed and discussed with the patient. Patient is down approximately 4 pounds from her last visit. On body analysis has had a 3 pound decrease of fat mass, has 36.2% of her weight being fat mass but is now within normal ranges. Maintaining good muscle mass as well. Fat mass index of 8.9. Visceral adiposity remains within normal limits at 1.0. Patient currently receiving compounded semaglutide weekly in office. Has been doing well on 0.25 mg and will receive 0.5 mg in office today. Patient will follow-up in 4-6 weeks for further assessment. 04/04/2025: Weight 109 pounds, BMI 24.1. Seca scan completed and discussed with the patient. She is down 2 pounds from her last visit. On body analysis she is down 3 pounds of fat mass. She has a normal fat mass percentage amounting 34.2% of her body weight. She is maintaining very good muscle mass amounting 24.5% of her body weight. Fat mass index is down from 8.9-8.2 within normal limits. Visceral adiposity is also decreasing from 1.0-0.8 and maintaining within good range. She is down half an inch on her waist. Currently is receiving semaglutide 0.5 mg every other week in office. We discussed when limiting supply of semaglutide and discussed options for further weight management including Wegovy using [employer] card and tirzepatide through [employer] direct. Patient understanding. At this time we will continue biweekly dosing and follow-up in 4 to 6 weeks. 05/17/2025: Weight 106 pounds, BMI 24.8. Seca scale completed and discussed with the patient. Patient is down 3 pounds overall from her last visit. On body composition analysis she is down 2 pounds of fat mass. Fat mass index today is 7.9 within normal limits. She has had a slight reduction of her muscle by approximately 1 pound, maintains increased amounts of muscle mass. Visceral adiposity is stable at 0.8 L. Weight circumference today measuring 26 inches. Patient receiving semaglutide injections at 0.5 mg biweekly in office. No significant adverse effects. Physical so we will maintain this regimen until we run out of supply. Follow-up in approximately 6 weeks. # Hypertension: Blood pressure 122/80. She is without chest pain, shortness of breath, dyspnea on exertion, or diaphoresis. Continue amlodipine besilate 5 mg once daily. Discussed proper use of the medication and expected side effect profile. Will continue to monitor. Please follow-up with PCP. # Hyperlipidemia: Lipid panel obtained 09/15/2024 with values including cholesterol 212, triglycerides 79, HDL 77, and LDL 119. Per ASCVD risk algorithm no statin recommended because 10-year risk less than 5%. Will continue to monitor and repeat lipid panel in a few months. # Endometrial cancer: Patient currently in remission of stage Ia endometrial cancer as of 2018. She has regular follow-up with gynecology, last note on 02/11/2024 for routine screening and pelvic examination. Will continue to monitor. All questions have been answered to patient's satisfaction. Patient verbalized understanding of diagnosis and treatments explained. Advised to call sooner prior to next visit it any questions/concerns arise. Case discussed with collaborating physician Mayo Kim who reviewed the assessment and plan. Chart, medications, labs, vital signs reviewed. Dictation was accomplished with the use of [employer] voice recognition software, which is prone to medical misidentifications and grammatical errors. This are unintentional and the practitioner does try to identify and correct these, but some could still be present. Please do not hesitate to contact practitioner for clarification. 06/27/2025 Essential hypertension (ICD-10 - I10) Patient is here for weight management follow-up. We focused on significance of healthy lifestyle changes. We talked about need to track steps with goal between 6000-10,000 steps daily, focus on portion control, read food labels, get adequate sleep between 7 to 8 hours, get adequate rest to the body, meditate, frequent nutritious meals including vegetables and healthy choices of lean meats, fish, and elimination of refined carbohydrates. We also talked about mindfulness and mindful eating. Particular focus was on continuing portion control and maintaining physical activity. Total time spent with 30 minutes with greater than 50% spent on counseling and coordinating care. 09/15/2024: Weight 122.6 pounds, BMI 28.49. SECA scan completed today and interpreted with the patient. She has high fat mass. Noted to have decreased muscle mass at approximately 22 pounds when minimum expected quantity estimated to be around 25 pounds. Visceral adipose tissue index slightly increased. She reports difficulty with reducing her weight. She follows lifestyle modifications including exercising daily before work and is currently following the whole 40 diet where she is not consuming carbohydrates or dairy products. We discussed clinical indications for weight management medications including phentermine, Contrave, and GLP-1 agonists. Patient is not a candidate for phentermine given history of high blood pressure on amlodipine. Given the patient's decreased muscle mass we discussed the mechanism of GLP-1 agonists as well as how they do not target fat loss rather target weight loss which can include muscle. Discussed the risks of continuing to decrease muscle loss as a relates to osteoporosis. For that reason the patient will be a good candidate for Contrave. We discussed the appropriate use of the medication including appropriate dosing schedule. Discussed expected side effect profile of the medication including but not limited to nausea, vomiting, headaches, dizziness, and constipation. Repeat labs ordered with results pending at this time. Patient demonstrates understanding. She will follow-up in the office in approximately 1 month for weight management. 10/12/2024: Weight 118 pounds, BMI 27.42. SECA scan completed today and interpreted with the patient. Overall down 4 pounds from previous visit. Is decreasing fat mass which she was congratulated for. Increase in muscle mass from 22.2 pounds to 22.5 pounds. Advised to continue working with appraiser personal property to build muscle mass. Reports side effect of dry mouth, advised patient to take the medication with a glass of water as well as to continue daily hydration. At this time plan to continue taking Contrave 90-80 mg 2 tablets twice daily. Discussed proper use of the medication as well as expected side effect profile. She will follow-up in the office in approximately 4 weeks for continued weight management. 11/09/2024: Weight 116.8 pounds, BMI 27.14. SECA scan completed today and interpreted with patient. She is down 2 pounds from last visit. Muscle mass has progressively increased from 22.5 pounds to 25 pounds which she was congratulated for. Now in increased range on scale. Reporting adverse effects of nausea/vomiting on Contrave 2 pills twice daily. We discussed stepping down to next lowest dose and trialing 1 pill in the morning and 1 pill in the evening or 2 pills in the morning and 1 pill in the evening. Patient demonstrates understanding and will titrate dose to best effect. 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 No other concerns, plan to continue Contrave 8-90 mg at a range of 2 to 3 pills daily. Discussed proper use of medication and potential side effect profile. She will follow-up in 4 weeks for further management. 12/14/2024: Weight 115 pounds, BMI 26.73. Seca scan completed today and interpreted with the patient. Approximately 1 pound decrease from last visit. She is no longer on Contrave at this time due to adverse GI side effects. On body composition patient has 45 pounds of fat mass, has had a slight reduction of approximately 0.5 pounds of muscle mass since last visit. Total of 24.7 pounds of muscle. Visceral adipose tissue index remains within normal limits at 1.1. For further weight management we discussed initiation of topiramate as well as compounded semaglutide or tirzepatide. At this time patient has interest in compounded GLP-1 which she may initiate when she returns from her trip to [facility] in December. She will follow-up in approximately 4 weeks. 01/12/2025: 01/12/2025: Weight 118 pounds, BMI 27.42. Seca scan completed today interpreted with the patient., Overall up about 2 pounds were last visit, however on body analysis she is up 2 pounds of muscle mass. Has increased amounts of muscle at this time which has greatly improved from her consultation. Milligram Contrave due to adverse effects. Interested in initiating compounded semaglutide. Discussed potential side effect profile including but not limited to nausea, constipation, abdominal pain, and heartburn. Reports no history of pancreatitis, multiple endocrine neoplasia syndrome in self or family, or history of medullary thyroid cancer in self or family. Advised the patient can receive injections weekly or biweekly as she chooses. Patient understanding. She will follow-up in office in 4 weeks for further evaluation. 02/08/2025: Weight 115 pounds, BMI 26.73. SECA scan completed today and interpreted with the patient. On body analysis she is down 2 to 3 pounds of fat mass and has built about 1/2 pound of muscle mass. Has increased amounts of muscle of her body composition. Patient is receiving semaglutide 0.25 mg weekly in office. Reports no adverse effects at this time. Reviewed goals of diet and exercise. Semaglutide 0.25 mg administered retained sleeve today in office. Plan is to follow-up in office in 4 weeks. 03/07/2025: Weight 111 pounds, BMI 24.6. Seca scan completed and discussed with the patient. Patient is down approximately 4 pounds from her last visit. On body analysis has had a 3 pound decrease of fat mass, has 36.2% of her weight being fat mass but is now within normal ranges. Maintaining good muscle mass as well. Fat mass index of 8.9. Visceral adiposity remains within normal limits at 1.0. Patient currently receiving compounded semaglutide weekly in office. Has been doing well on 0.25 mg and will receive 0.5 mg in office today. Patient will follow-up in 4-6 weeks for further assessment. 04/04/2025: Weight 109 pounds, BMI 24.1. Seca scan completed and discussed with the patient. She is down 2 pounds from her last visit. On body analysis she is down 3 pounds of fat mass. She has a normal fat mass percentage amounting 34.2% of her body weight. She is maintaining very good muscle mass amounting 24.5% of her body weight. Fat mass index is down from 8.9-8.2 within normal limits. Visceral adiposity is also decreasing from 1.0-0.8 and maintaining within good range. She is down half an inch on her waist. Currently is receiving semaglutide 0.5 mg every other week in office. We discussed when limiting supply of semaglutide and discussed options for further weight management including Wegovy using coupon card and tirzepatide through [employer] direct. Patient understanding. At this time we will continue biweekly dosing and follow-up in 4 to 6 weeks. 05/17/2025: Weight 106 pounds, BMI 24.8. Seca scale completed and discussed with the patient. Patient is down 3 pounds overall from her last visit. On body composition analysis she is down 2 pounds of fat mass. Fat mass index today is 7.9 within normal limits. She has had a slight reduction of her muscle by approximately 1 pound, maintains increased amounts of muscle mass. Visceral adiposity is stable at 0.8 L. Weight circumference today measuring 26 inches. Patient receiving semaglutide injections at 0.5 mg biweekly in office. No significant adverse effects. Physical so we will maintain this regimen until we run out of supply. Follow-up in approximately 6 weeks. 06/27/2025: Weight 106 pounds, BMI 24.63. Seca scan completed and discussed results with the patient. Weight has remained stable since her last visit. On body composition analysis she is down 4 pounds of fat mass. Fat mass index within normal limits at 7.0. Muscle mass has improved by 1.5 pounds. Visceral adiposity is within normal limits at 0.7. Patient had been receiving semaglutide injections in office, no longer available at this time. Discussed importance of lifestyle to maintain weight loss. She would like to reduce down to monthly dosing. Will prescribe Wegovy 0.5 mg [id number], patient will administer dose once monthly and will monitor side effects. Will follow-up in 6 weeks. # Hypertension: Blood pressure 126/80. She is without chest pain, shortness of breath, dyspnea on exertion, or diaphoresis. Continue amlodipine besilate 5 mg once daily. Discussed proper use of the medication and expected side effect profile. Will continue to monitor. Please follow-up with PCP. # Hyperlipidemia: Lipid panel obtained 09/15/2024 with values including cholesterol 212, triglycerides 79, HDL 77, and LDL 119. Per ASCVD risk algorithm no statin recommended because 10-year risk less than 5%. Will continue to monitor and repeat lipid panel in a few months. # Endometrial cancer: Patient currently in remission of stage Ia endometrial cancer as of 2019. She has regular follow-up with gynecology, last note on 02/11/2024 for routine screening and pelvic examination. Will continue to monitor. All questions have been answered to patient's satisfaction. Patient verbalized understanding of diagnosis and treatments explained. Advised to call sooner prior to next visit it any questions/concerns arise. Case discussed with collaborating physician Mayo Kim who reviewed the assessment and plan. Chart, medications, labs, vital signs reviewed. Dictation was accomplished with the use of [employer] voice recognition software, which is prone to medical misidentifications and grammatical errors. This are unintentional and the practitioner does try to identify and correct these, but some could still be present. Please do not hesitate to contact practitioner for clarification. 06/27/2025 Hyperlipidemia, mixed (ICD-10 - E78.2) Patient is here for weight management follow-up. We focused on significance of healthy lifestyle changes. We talked about need to track steps with goal between 6000-10,000 steps daily, focus on portion control, read food labels, get adequate sleep between 7 to 8 hours, get adequate rest to the body, meditate, frequent nutritious meals including vegetables and healthy choices of lean meats, fish, and elimination of refined carbohydrates. We also talked about mindfulness and mindful eating. Particular focus was on continuing portion control and maintaining physical activity. Total time spent with 30 minutes with greater than 50% spent on counseling and coordinating care. 09/15/2024: Weight 122.6 pounds, BMI 28.49. SECA scan completed today and interpreted with the patient. She has high fat mass. Noted to have decreased muscle mass at approximately 22 pounds when minimum expected quantity estimated to be around 25 pounds. Visceral adipose tissue index slightly increased. She reports difficulty with reducing her weight. She follows lifestyle modifications including exercising daily before work and is currently following the whole 40 diet where she is not consuming carbohydrates or dairy products. We discussed clinical indications for weight management medications including phentermine, Contrave, and GLP-1 agonists. Patient is not a candidate for phentermine given history of high blood pressure on amlodipine. Given the patient's decreased muscle mass we discussed the mechanism of GLP-1 agonists as well as how they do not target fat loss rather target weight loss which can include muscle. Discussed the risks of continuing to decrease muscle loss as a relates to osteoporosis. For that reason the patient will be a good candidate for Contrave. We discussed the appropriate use of the medication including appropriate dosing schedule. Discussed expected side effect profile of the medication including but not limited to nausea, vomiting, headaches, dizziness, and constipation. Repeat labs ordered with results pending at this time. Patient demonstrates understanding. She will follow-up in the office in approximately 1 month for weight management. 10/12/2024: Weight 118 pounds, BMI 27.42. SECA scan completed today and interpreted with the patient. Overall down 4 pounds from previous visit. Is decreasing fat mass which she was congratulated for. Increase in muscle mass from 22.2 pounds to 22.5 pounds. Advised to continue working with appraiser personal property to build muscle mass. Reports side effect of dry mouth, advised patient to take the medication with a glass of water as well as to continue daily hydration. At this time plan to continue taking Contrave 90-80 mg 2 tablets twice daily. Discussed proper use of the medication as well as expected side effect profile. She will follow-up in the office in approximately 4 weeks for continued weight management. 11/09/2024: Weight 116.8 pounds, BMI 27.14. SECA scan completed today and interpreted with patient. She is down 2 pounds from last visit. Muscle mass has progressively increased from 22.5 pounds to 25 pounds which she was congratulated for. Now in increased range on scale. Reporting adverse effects of nausea/vomiting on Contrave 2 pills twice daily. We discussed stepping down to next lowest dose and trialing 1 pill in the morning and 1 pill in the evening or 2 pills in the morning and 1 pill in the evening. Patient demonstrates understanding and will titrate dose to best effect. 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 No other concerns, plan to continue Contrave 8-90 mg at a range of 2 to 3 pills daily. Discussed proper use of medication and potential side effect profile. She will follow-up in 4 weeks for further management. 12/14/2024: Weight 115 pounds, BMI 26.73. Seca scan completed today and interpreted with the patient. Approximately 1 pound decrease from last visit. She is no longer on Contrave at this time due to adverse GI side effects. On body composition patient has 45 pounds of fat mass, has had a slight reduction of approximately 0.5 pounds of muscle mass since last visit. Total of 24.7 pounds of muscle. Visceral adipose tissue index remains within normal limits at 1.1. For further weight management we discussed initiation of topiramate as well as compounded semaglutide or tirzepatide. At this time patient has interest in compounded GLP-1 which she may initiate when she returns from her trip to [facility] in December. She will follow-up in approximately 4 weeks. 01/12/2025: 01/12/2025: Weight 118 pounds, BMI 27.42. Seca scan completed today interpreted with the patient., Overall up about 2 pounds were last visit, however on body analysis she is up 2 pounds of muscle mass. Has increased amounts of muscle at this time which has greatly improved from her consultation. Milligram Contrave due to adverse effects. Interested in initiating compounded semaglutide. Discussed potential side effect profile including but not limited to nausea, constipation, abdominal pain, and heartburn. Reports no history of pancreatitis, multiple endocrine neoplasia syndrome in self or family, or history of medullary thyroid cancer in self or family. Advised the patient can receive injections weekly or biweekly as she chooses. Patient understanding. She will follow-up in office in 4 weeks for further evaluation. 02/08/2025: Weight 115 pounds, BMI 26.73. SECA scan completed today and interpreted with the patient. On body analysis she is down 2 to 3 pounds of fat mass and has built about 1/2 pound of muscle mass. Has increased amounts of muscle of her body composition. Patient is receiving semaglutide 0.25 mg weekly in office. Reports no adverse effects at this time. Reviewed goals of diet and exercise. Semaglutide 0.25 mg administered retained sleeve today in office. Plan is to follow-up in office in 4 weeks. 03/07/2025: Weight 111 pounds, BMI 24.6. Seca scan completed and discussed with the patient. Patient is down approximately 4 pounds from her last visit. On body analysis has had a 3 pound decrease of fat mass, has 36.2% of her weight being fat mass but is now within normal ranges. Maintaining good muscle mass as well. Fat mass index of 8.9. Visceral adiposity remains within normal limits at 1.0. Patient currently receiving compounded semaglutide weekly in office. Has been doing well on 0.25 mg and will receive 0.5 mg in office today. Patient will follow-up in 4-6 weeks for further assessment. 04/04/2025: Weight 109 pounds, BMI 24.1. Seca scan completed and discussed with the patient. She is down 2 pounds from her last visit. On body analysis she is down 3 pounds of fat mass. She has a normal fat mass percentage amounting 34.2% of her body weight. She is maintaining very good muscle mass amounting 24.5% of her body weight. Fat mass index is down from 8.9-8.2 within normal limits. Visceral adiposity is also decreasing from 1.0-0.8 and maintaining within good range. She is down half an inch on her waist. Currently is receiving semaglutide 0.5 mg every other week in office. We discussed when limiting supply of semaglutide and discussed options for further weight management including Wegovy using coupon card and tirzepatide through [employer]. Patient understanding. At this time we will continue biweekly dosing and follow-up in 4 to 6 weeks. 05/17/2025: Weight 106 pounds, BMI 24.8. Seca scale completed and discussed with the patient. Patient is down 3 pounds overall from her last visit. On body composition analysis she is down 2 pounds of fat mass. Fat mass index today is 7.9 within normal limits. She has had a slight reduction of her muscle by approximately 1 pound, maintains increased amounts of muscle mass. Visceral adiposity is stable at 0.8 L. Weight circumference today measuring 26 inches. Patient receiving semaglutide injections at 0.5 mg biweekly in office. No significant adverse effects. Physical so we will maintain this regimen until we run out of supply. Follow-up in approximately 6 weeks. 06/27/2025: Weight 106 pounds, BMI 24.63. Seca scan completed and discussed results with the patient. Weight has remained stable since her last visit. On body composition analysis she is down 4 pounds of fat mass. Fat mass index within normal limits at 7.0. Muscle mass has improved by 1.5 pounds. Visceral adiposity is within normal limits at 0.7. Patient had been receiving semaglutide injections in office, no longer available at this time. Discussed importance of lifestyle to maintain weight loss. She would like to reduce down to monthly dosing. Will prescribe Wegovy 0.5 mg [id number], patient will administer dose once monthly and will monitor side effects. Will follow-up in 6 weeks. # Hypertension: Blood pressure 126/80. She is without chest pain, shortness of breath, dyspnea on exertion, or diaphoresis. Continue amlodipine besilate 5 mg once daily. Discussed proper use of the medication and expected side effect profile. Will continue to monitor. Please follow-up with PCP. # Hyperlipidemia: Lipid panel obtained 09/15/2024 with values including cholesterol 212, triglycerides 79, HDL 77, and LDL 119. Per ASCVD risk algorithm no statin recommended because 10-year risk less than 5%. Will continue to monitor and repeat lipid panel in a few months. # Endometrial cancer: Patient currently in remission of stage Ia endometrial cancer as of 2019. She has regular follow-up with gynecology, last note on 02/11/2024 for routine screening and pelvic examination. Will continue to monitor. All questions have been answered to patient's satisfaction. Patient verbalized understanding of diagnosis and treatments explained. Advised to call sooner prior to next visit it any questions/concerns arise. Case discussed with collaborating physician Mayo Kim who reviewed the assessment and plan. Chart, medications, labs, vital signs reviewed. Dictation was accomplished with the use of [employer] voice recognition software, which is prone to medical misidentifications and grammatical errors. This are unintentional and the practitioner does try to identify and correct these, but some could still be present. Please do not hesitate to contact practitioner for clarification. 05/17/2025 Hyperlipidemia, mixed (ICD-10 - E78.2) Patient is here for weight management follow-up. We focused on significance of healthy lifestyle changes. We talked about need to track steps with goal between 6000-10,000 steps daily, focus on portion control, read food labels, get adequate sleep between 7 to 8 hours, get adequate rest to the body, meditate, frequent nutritious meals including vegetables and healthy choices of lean meats, fish, and elimination of refined carbohydrates. We also talked about mindfulness and mindful eating. Particular focus was on continuing portion control and maintaining physical activity. Total time spent with 30 minutes with greater than 50% spent on counseling and coordinating care. 09/15/2024: Weight 122.6 pounds, BMI 28.49. SECA scan completed today and interpreted with the patient. She has high fat mass. Noted to have decreased muscle mass at approximately 22 pounds when minimum expected quantity estimated to be around 25 pounds. Visceral adipose tissue index slightly increased. She reports difficulty with reducing her weight. She follows lifestyle modifications including exercising daily before work and is currently following the whole 40 diet where she is not consuming carbohydrates or dairy products. We discussed clinical indications for weight management medications including phentermine, Contrave, and GLP-1 agonists. Patient is not a candidate for phentermine given history of high blood pressure on amlodipine. Given the patient's decreased muscle mass we discussed the mechanism of GLP-1 agonists as well as how they do not target fat loss rather target weight loss which can include muscle. Discussed the risks of continuing to decrease muscle loss as a relates to osteoporosis. For that reason the patient will be a good candidate for Contrave. We discussed the appropriate use of the medication including appropriate dosing schedule. Discussed expected side effect profile of the medication including but not limited to nausea, vomiting, headaches, dizziness, and constipation. Repeat labs ordered with results pending at this time. Patient demonstrates understanding. She will follow-up in the office in approximately 1 month for weight management. 10/12/2024: Weight 118 pounds, BMI 27.42. SECA scan completed today and interpreted with the patient. Overall down 4 pounds from previous visit. Is decreasing fat mass which she was congratulated for. Increase in muscle mass from 22.2 pounds to 22.5 pounds. Advised to continue working with app[employer] personal property to build muscle mass. Reports side effect of dry mouth, advised patient to take the medication with a glass of water as well as to continue daily hydration. At this time plan to continue taking Contrave 90-80 mg 2 tablets twice daily. Discussed proper use of the medication as well as expected side effect profile. She will follow-up in the office in approximately 4 weeks for continued weight management. 11/09/2024: Weight 116.8 pounds, BMI 27.14. SECA scan completed today and interpreted with patient. She is down 2 pounds from last visit. Muscle mass has progressively increased from 22.5 pounds to 25 pounds which she was congratulated for. Now in increased range on scale. Reporting adverse effects of nausea/vomiting on Contrave 2 pills twice daily. We discussed stepping down to next lowest dose and trialing 1 pill in the morning and 1 pill in the evening or 2 pills in the morning and 1 pill in the evening. Patient demonstrates understanding and will titrate dose to best effect. 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 No other concerns, plan to continue Contrave 8-90 mg at a range of 2 to 3 pills daily. Discussed proper use of medication and potential side effect profile. She will follow-up in 4 weeks for further management. 12/14/2024: Weight 115 pounds, BMI 26.73. Seca scan completed today and interpreted with the patient. Approximately 1 pound decrease from last visit. She is no longer on Contrave at this time due to adverse GI side effects. On body composition patient has 45 pounds of fat mass, has had a slight reduction of approximately 0.5 pounds of muscle mass since last visit. Total of 24.7 pounds of muscle. Visceral adipose tissue index remains within normal limits at 1.1. For further weight management we discussed initiation of topiramate as well as compounded semaglutide or tirzepatide. At this time patient has interest in compounded GLP-1 which she may initiate when she returns from her trip to [facility] in December. She will follow-up in approximately 4 weeks. 01/12/2025: 01/12/2025: Weight 118 pounds, BMI 27.42. Seca scan completed today interpreted with the patient., Overall up about 2 pounds were last visit, however on body analysis she is up 2 pounds of muscle mass. Has increased amounts of muscle at this time which has greatly improved from her consultation. Milligram Contrave due to adverse effects. Interested in initiating compounded semaglutide. Discussed potential side effect profile including but not limited to nausea, constipation, abdominal pain, and heartburn. Reports no history of pancreatitis, multiple endocrine neoplasia syndrome in self or family, or history of medullary thyroid cancer in self or family. Advised the patient can receive injections weekly or biweekly as she chooses. Patient understanding. She will follow-up in office in 4 weeks for further evaluation. 02/08/2025: Weight 115 pounds, BMI 26.73. SECA scan completed today and interpreted with the patient. On body analysis she is down 2 to 3 pounds of fat mass and has built about 1/2 pound of muscle mass. Has increased amounts of muscle of her body composition. Patient is receiving semaglutide 0.25 mg weekly in office. Reports no adverse effects at this time. Reviewed goals of diet and exercise. Semaglutide 0.25 mg administered retained sleeve today in office. Plan is to follow-up in office in 4 weeks. 03/07/2025: Weight 111 pounds, BMI 24.6. Seca scan completed and discussed with the patient. Patient is down approximately 4 pounds from her last visit. On body analysis has had a 3 pound decrease of fat mass, has 36.2% of her weight being fat mass but is now within normal ranges. Maintaining good muscle mass as well. Fat mass index of 8.9. Visceral adiposity remains within normal limits at 1.0. Patient currently receiving compounded semaglutide weekly in office. Has been doing well on 0.25 mg and will receive 0.5 mg in office today. Patient will follow-up in 4-6 weeks for further assessment. 04/04/2025: Weight 109 pounds, BMI 24.1. Seca scan completed and discussed with the patient. She is down 2 pounds from her last visit. On body analysis she is down 3 pounds of fat mass. She has a normal fat mass percentage amounting 34.2% of her body weight. She is maintaining very good muscle mass amounting 24.5% of her body weight. Fat mass index is down from 8.9-8.2 within normal limits. Visceral adiposity is also decreasing from 1.0-0.8 and maintaining within good range. She is down half an inch on her waist. Currently is receiving semaglutide 0.5 mg every other week in office. We discussed when limiting supply of semaglutide and discussed options for further weight management including Wegovy using coupon card and tirzepatide through [employer] direct. Patient understanding. At this time we will continue biweekly dosing and follow-up in 4 to 6 weeks. 05/17/2025: Weight 106 pounds, BMI 24.8. Seca scale completed and discussed with the patient. Patient is down 3 pounds overall from her last visit. On body composition analysis she is down 2 pounds of fat mass. Fat mass index today is 7.9 within normal limits. She has had a slight reduction of her muscle by approximately 1 pound, maintains increased amounts of muscle mass. Visceral adiposity is stable at 0.8 L. Weight circumference today measuring 26 inches. Patient receiving semaglutide injections at 0.5 mg biweekly in office. No significant adverse effects. Physical so we will maintain this regimen until we run out of supply. Follow-up in approximately 6 weeks. # Hypertension: Blood pressure 122/80. She is without chest pain, shortness of breath, dyspnea on exertion, or diaphoresis. Continue amlodipine besilate 5 mg once daily. Discussed proper use of the medication and expected side effect profile. Will continue to monitor. Please follow-up with PCP. # Hyperlipidemia: Lipid panel obtained 09/15/2024 with values including cholesterol 212, triglycerides 79, HDL 77, and LDL 119. Per ASCVD risk algorithm no statin recommended because 10-year risk less than 5%. Will continue to monitor and repeat lipid panel in a few months. # Endometrial cancer: Patient currently in remission of stage Ia endometrial cancer as of 2019. She has regular follow-up with gynecology, last note on 02/11/2024 for routine screening and pelvic examination. Will continue to monitor. All questions have been answered to patient's satisfaction. Patient verbalized understanding of diagnosis and treatments explained. Advised to call sooner prior to next visit it any questions/concerns arise. Case discussed with collaborating physician Mayo Kim who reviewed the assessment and plan. Chart, medications, labs, vital signs reviewed. Dictation was accomplished with the use of [employer] voice recognition software, which is prone to medical misidentifications and grammatical errors. This are unintentional and the practitioner does try to identify and correct these, but some could still be present. Please do not hesitate to contact practitioner for clarification. 04/04/2025 Hyperlipidemia, mixed (ICD-10 - E78.2) Patient is here for weight management follow-up. We focused on significance of healthy lifestyle changes. We talked about need to track steps with goal between 6000-10,000 steps daily, focus on portion control, read food labels, get adequate sleep between 7 to 8 hours, get adequate rest to the body, meditate, frequent nutritious meals including vegetables and healthy choices of lean meats, fish, and elimination of refined carbohydrates. We also talked about mindfulness and mindful eating. Particular focus was on continuing portion control and maintaining physical activity. Total time spent with 30 minutes with greater than 50% spent on counseling and coordinating care. 09/15/2024: Weight 122.6 pounds, BMI 28.49. SECA scan completed today and interpreted with the patient. She has high fat mass. Noted to have decreased muscle mass at approximately 22 pounds when minimum expected quantity estimated to be around 25 pounds. Visceral adipose tissue index slightly increased. She reports difficulty with reducing her weight. She follows lifestyle modifications including exercising daily before work and is currently following the whole 40 diet where she is not consuming carbohydrates or dairy products. We discussed clinical indications for weight management medications including phentermine, Contrave, and GLP-1 agonists. Patient is not a candidate for phentermine given history of high blood pressure on amlodipine. Given the patient's decreased muscle mass we discussed the mechanism of GLP-1 agonists as well as how they do not target fat loss rather target weight loss which can include muscle. Discussed the risks of continuing to decrease muscle loss as a relates to osteoporosis. For that reason the patient will be a good candidate for Contrave. We discussed the appropriate use of the medication including appropriate dosing schedule. Discussed expected side effect profile of the medication including but not limited to nausea, vomiting, headaches, dizziness, and constipation. Repeat labs ordered with results pending at this time. Patient demonstrates understanding. She will follow-up in the office in approximately 1 month for weight management. 10/12/2024: Weight 118 pounds, BMI 27.42. SECA scan completed today and interpreted with the patient. Overall down 4 pounds from previous visit. Is decreasing fat mass which she was congratulated for. Increase in muscle mass from 22.2 pounds to 22.5 pounds. Advised to continue working with [employer] personal property to build muscle mass. Reports side effect of dry mouth, advised patient to take the medication with a glass of water as well as to continue daily hydration. At this time plan to continue taking Contrave 90-80 mg 2 tablets twice daily. Discussed proper use of the medication as well as expected side effect profile. She will follow-up in the office in approximately 4 weeks for continued weight management. 11/09/2024: Weight 116.8 pounds, BMI 27.14. SECA scan completed today and interpreted with patient. She is down 2 pounds from last visit. Muscle mass has progressively increased from 22.5 pounds to 25 pounds which she was congratulated for. Now in increased range on scale. Reporting adverse effects of nausea/vomiting on Contrave 2 pills twice daily. We discussed stepping down to next lowest dose and trialing 1 pill in the morning and 1 pill in the evening or 2 pills in the morning and 1 pill in the evening. Patient demonstrates understanding and will titrate dose to best effect. 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 No other concerns, plan to continue Contrave 8-90 mg at a range of 2 to 3 pills daily. Discussed proper use of medication and potential side effect profile. She will follow-up in 4 weeks for further management. 12/14/2024: Weight 115 pounds, BMI 26.73. Seca scan completed today and interpreted with the patient. Approximately 1 pound decrease from last visit. She is no longer on Contrave at this time due to adverse GI side effects. On body composition patient has 45 pounds of fat mass, has had a slight reduction of approximately 0.5 pounds of muscle mass since last visit. Total of 24.7 pounds of muscle. Visceral adipose tissue index remains within normal limits at 1.1. For further weight management we discussed initiation of topiramate as well as compounded semaglutide or tirzepatide. At this time patient has interest in compounded GLP-1 which she may initiate when she returns from her trip to [facility] in December. She will follow-up in approximately 4 weeks. 01/12/2025: 01/12/2025: Weight 118 pounds, BMI 27.42. Seca scan completed today interpreted with the patient., Overall up about 2 pounds were last visit, however on body analysis she is up 2 pounds of muscle mass. Has increased amounts of muscle at this time which has greatly improved from her consultation. Milligram Contrave due to adverse effects. Interested in initiating compounded semaglutide. Discussed potential side effect profile including but not limited to nausea, constipation, abdominal pain, and heartburn. Reports no history of pancreatitis, multiple endocrine neoplasia syndrome in self or family, or history of medullary thyroid cancer in self or family. Advised the patient can receive injections weekly or biweekly as she chooses. Patient understanding. She will follow-up in office in 4 weeks for further evaluation. 02/08/2025: Weight 115 pounds, BMI 26.73. SECA scan completed today and interpreted with the patient. On body analysis she is down 2 to 3 pounds of fat mass and has built about 1/2 pound of muscle mass. Has increased amounts of muscle of her body composition. Patient is receiving semaglutide 0.25 mg weekly in office. Reports no adverse effects at this time. Reviewed goals of diet and exercise. Semaglutide 0.25 mg administered retained sleeve today in office. Plan is to follow-up in office in 4 weeks. 03/07/2025: Weight 111 pounds, BMI 24.6. Seca scan completed and discussed with the patient. Patient is down approximately 4 pounds from her last visit. On body analysis has had a 3 pound decrease of fat mass, has 36.2% of her weight being fat mass but is now within normal ranges. Maintaining good muscle mass as well. Fat mass index of 8.9. Visceral adiposity remains within normal limits at 1.0. Patient currently receiving compounded semaglutide weekly in office. Has been doing well on 0.25 mg and will receive 0.5 mg in office today. Patient will follow-up in 4-6 weeks for further assessment. 04/04/2025: Weight 109 pounds, BMI 24.1. Seca scan completed and discussed with the patient. She is down 2 pounds from her last visit. On body analysis she is down 3 pounds of fat mass. She has a normal fat mass percentage amounting 34.2% of her body weight. She is maintaining very good muscle mass amounting 24.5% of her body weight. Fat mass index is down from 8.9-8.2 within normal limits. Visceral adiposity is also decreasing from 1.0-0.8 and maintaining within good range. She is down half an inch on her waist. Currently is receiving semaglutide 0.5 mg every other week in office. We discussed when limiting supply of semaglutide and discussed options for further weight management including Wegovy using coupon card and tirzepatide through [employer] direct. Patient understanding. At this time we will continue biweekly dosing and follow-up in 4 to 6 weeks. # Hypertension: Blood pressure 128/80. She is without chest pain, shortness of breath, dyspnea on exertion, or diaphoresis. Continue amlodipine besilate 5 mg once daily. Discussed proper use of the medication and expected side effect profile. Will continue to monitor. Please follow-up with PCP. # Hyperlipidemia: Lipid panel obtained 09/15/2024 with values including cholesterol 212, triglycerides 79, HDL 77, and LDL 119. Per ASCVD risk algorithm no statin recommended because 10-year risk less than 5%. Will continue to monitor and repeat lipid panel in a few months. # Endometrial cancer: Patient currently in remission of stage Ia endometrial cancer as of 2019. She has regular follow-up with gynecology, last note on 02/11/2024 for routine screening and pelvic examination. Will continue to monitor. All questions have been answered to patient's satisfaction. Patient verbalized understanding of diagnosis and treatments explained. Advised to call sooner prior to next visit it any questions/concerns arise. Case discussed with collaborating physician Mayo Kim who reviewed the assessment and plan. Chart, medications, labs, vital signs reviewed. Dictation was accomplished with the use of [employer] voice recognition software, which is prone to medical misidentifications and grammatical errors. This are unintentional and the practitioner does try to identify and correct these, but some could still be present. Please do not hesitate to contact practitioner for clarification. 03/07/2025 Endometrial carcinoma (ICD-10 - C54.1) Patient is here for weight management follow-up. We focused on significance of healthy lifestyle changes. We talked about need to track steps with goal between 6000-10,000 steps daily, focus on portion control, read food labels, get adequate sleep between 7 to 8 hours, get adequate rest to the body, meditate, frequent nutritious meals including vegetables and healthy choices of lean meats, fish, and elimination of refined carbohydrates. We also talked about mindfulness and mindful eating. Particular focus was on continuing portion control and maintaining physical activity. Total time spent with 30 minutes with greater than 50% spent on counseling and coordinating care. 09/15/2024: Weight 122.6 pounds, BMI 28.49. SECA scan completed today and interpreted with the patient. She has high fat mass. Noted to have decreased muscle mass at approximately 22 pounds when minimum expected quantity estimated to be around 25 pounds. Visceral adipose tissue index slightly increased. She reports difficulty with reducing her weight. She follows lifestyle modifications including exercising daily before work and is currently following the whole 40 diet where she is not consuming carbohydrates or dairy products. We discussed clinical indications for weight management medications including phentermine, Contrave, and GLP-1 agonists. Patient is not a candidate for phentermine given history of high blood pressure on amlodipine. Given the patient's decreased muscle mass we discussed the mechanism of GLP-1 agonists as well as how they do not target fat loss rather target weight loss which can include muscle. Discussed the risks of continuing to decrease muscle loss as a relates to osteoporosis. For that reason the patient will be a good candidate for Contrave. We discussed the appropriate use of the medication including appropriate dosing schedule. Discussed expected side effect profile of the medication including but not limited to nausea, vomiting, headaches, dizziness, and constipation. Repeat labs ordered with results pending at this time. Patient demonstrates understanding. She will follow-up in the office in approximately 1 month for weight management. 10/12/2024: Weight 118 pounds, BMI 27.42. SECA scan completed today and interpreted with the patient. Overall down 4 pounds from previous visit. Is decreasing fat mass which she was congratulated for. Increase in muscle mass from 22.2 pounds to 22.5 pounds. Advised to continue working with appraiser personal property to build muscle mass. Reports side effect of dry mouth, advised patient to take the medication with a glass of water as well as to continue daily hydration. At this time plan to continue taking Contrave 90-80 mg 2 tablets twice daily. Discussed proper use of the medication as well as expected side effect profile. She will follow-up in the office in approximately 4 weeks for continued weight management. 11/09/2024: Weight 116.8 pounds, BMI 27.14. SECA scan completed today and interpreted with patient. She is down 2 pounds from last visit. Muscle mass has progressively increased from 22.5 pounds to 25 pounds which she was congratulated for. Now in increased range on scale. Reporting adverse effects of nausea/vomiting on Contrave 2 pills twice daily. We discussed stepping down to next lowest dose and trialing 1 pill in the morning and 1 pill in the evening or 2 pills in the morning and 1 pill in the evening. Patient demonstrates understanding and will titrate dose to best effect. 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 No other concerns, plan to continue Contrave 8-90 mg at a range of 2 to 3 pills daily. Discussed proper use of medication and potential side effect profile. She will follow-up in 4 weeks for further management. 12/14/2024: Weight 115 pounds, BMI 26.73. Seca scan completed today and interpreted with the patient. Approximately 1 pound decrease from last visit. She is no longer on Contrave at this time due to adverse GI side effects. On body composition patient has 45 pounds of fat mass, has had a slight reduction of approximately 0.5 pounds of muscle mass since last visit. Total of 24.7 pounds of muscle. Visceral adipose tissue index remains within normal limits at 1.1. For further weight management we discussed initiation of topiramate as well as compounded semaglutide or tirzepatide. At this time patient has interest in compounded GLP-1 which she may initiate when she returns from her trip to [facility] in December. She will follow-up in approximately 4 weeks. 01/12/2025: 01/12/2025: Weight 118 pounds, BMI 27.42. Seca scan completed today interpreted with the patient., Overall up about 2 pounds were last visit, however on body analysis she is up 2 pounds of muscle mass. Has increased amounts of muscle at this time which has greatly improved from her consultation. Milligram Contrave due to adverse effects. Interested in initiating compounded semaglutide. Discussed potential side effect profile including but not limited to nausea, constipation, abdominal pain, and heartburn. Reports no history of pancreatitis, multiple endocrine neoplasia syndrome in self or family, or history of medullary thyroid cancer in self or family. Advised the patient can receive injections weekly or biweekly as she chooses. Patient understanding. She will follow-up in office in 4 weeks for further evaluation. 02/08/2025: Weight 115 pounds, BMI 26.73. SECA scan completed today and interpreted with the patient. On body analysis she is down 2 to 3 pounds of fat mass and has built about 1/2 pound of muscle mass. Has increased amounts of muscle of her body composition. Patient is receiving semaglutide 0.25 mg weekly in office. Reports no adverse effects at this time. Reviewed goals of diet and exercise. Semaglutide 0.25 mg administered retained sleeve today in office. Plan is to follow-up in office in 4 weeks. 03/07/2025: Weight 111 pounds, BMI 24.6. Seca scan completed and discussed with the patient. Patient is down approximately 4 pounds from her last visit. On body analysis has had a 3 pound decrease of fat mass, has 36.2% of her weight being fat mass but is now within normal ranges. Maintaining good muscle mass as well. Fat mass index of 8.9. Visceral adiposity remains within normal limits at 1.0. Patient currently receiving compounded semaglutide weekly in office. Has been doing well on 0.25 mg and will receive 0.5 mg in office today. Patient will follow-up in 4-6 weeks for further assessment. # Hypertension: Blood pressure 120/80. She is without chest pain, shortness of breath, dyspnea on exertion, or diaphoresis. Continue amlodipine besilate 5 mg once daily. Discussed proper use of the medication and expected side effect profile. Will continue to monitor. Please follow-up with PCP. # Hyperlipidemia: Lipid panel obtained 09/15/2024 with values including cholesterol 212, triglycerides 79, HDL 77, and LDL 119. Per ASCVD risk algorithm no statin recommended because 10-year risk less than 5%. Will continue to monitor and repeat lipid panel in a few months. # Endometrial cancer: Patient currently in remission of stage Ia endometrial cancer as of 2019. She has regular follow-up with gynecology, last note on 02/11/2024 for routine screening and pelvic examination. Will continue to monitor. All questions have been answered to patient's satisfaction. Patient verbalized understanding of diagnosis and treatments explained. Advised to call sooner prior to next visit it any questions/concerns arise. Case discussed with collaborating physician Mayo Kim who reviewed the assessment and plan. Chart, medications, labs, vital signs reviewed. Dictation was accomplished with the use of [employer] voice recognition software, which is prone to medical misidentifications and grammatical errors. This are unintentional and the practitioner does try to identify and correct these, but some could still be present. Please do not hesitate to contact practitioner for clarification. 01/12/2025 Endometrial carcinoma (ICD-10 - C54.1) Patient is here for weight management follow-up. We focused on significance of healthy lifestyle changes. We talked about need to track steps with goal between 6000-10,000 steps daily, focus on portion control, read food labels, get adequate sleep between 7 to 8 hours, get adequate rest to the body, meditate, frequent nutritious meals including vegetables and healthy choices of lean meats, fish, and elimination of refined carbohydrates. We also talked about mindfulness and mindful eating. Particular focus was on continuing to progressively add resistance training and increase protein intake to build muscle mass. Total time spent with 30 minutes with greater than 50% spent on counseling and coordinating care. 09/15/2024: Weight 122.6 pounds, BMI 28.49. SECA scan completed today and interpreted with the patient. She has high fat mass. Noted to have decreased muscle mass at approximately 22 pounds when minimum expected quantity estimated to be around 25 pounds. Visceral adipose tissue index slightly increased. She reports difficulty with reducing her weight. She follows lifestyle modifications including exercising daily before work and is currently following the whole 40 diet where she is not consuming carbohydrates or dairy products. We discussed clinical indications for weight management medications including phentermine, Contrave, and GLP-1 agonists. Patient is not a candidate for phentermine given history of high blood pressure on amlodipine. Given the patient's decreased muscle mass we discussed the mechanism of GLP-1 agonists as well as how they do not target fat loss rather target weight loss which can include muscle. Discussed the risks of continuing to decrease muscle loss as a relates to osteoporosis. For that reason the patient will be a good candidate for Contrave. We discussed the appropriate use of the medication including appropriate dosing schedule. Discussed expected side effect profile of the medication including but not limited to nausea, vomiting, headaches, dizziness, and constipation. Repeat labs ordered with results pending at this time. Patient demonstrates understanding. She will follow-up in the office in approximately 1 month for weight management. 10/12/2024: Weight 118 pounds, BMI 27.42. SECA scan completed today and interpreted with the patient. Overall down 4 pounds from previous visit. Is decreasing fat mass which she was congratulated for. Increase in muscle mass from 22.2 pounds to 22.5 pounds. Advised to continue working with app[employer] personal property to build muscle mass. Reports side effect of dry mouth, advised patient to take the medication with a glass of water as well as to continue daily hydration. At this time plan to continue taking Contrave 90-80 mg 2 tablets twice daily. Discussed proper use of the medication as well as expected side effect profile. She will follow-up in the office in approximately 4 weeks for continued weight management. 11/09/2024: Weight 116.8 pounds, BMI 27.14. SECA scan completed today and interpreted with patient. She is down 2 pounds from last visit. Muscle mass has progressively increased from 22.5 pounds to 25 pounds which she was congratulated for. Now in increased range on scale. Reporting adverse effects of nausea/vomiting on Contrave 2 pills twice daily. We discussed stepping down to next lowest dose and trialing 1 pill in the morning and 1 pill in the evening or 2 pills in the morning and 1 pill in the evening. Patient demonstrates understanding and will titrate dose to best effect. 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 No other concerns, plan to continue Contrave 8-90 mg at a range of 2 to 3 pills daily. Discussed proper use of medication and potential side effect profile. She will follow-up in 4 weeks for further management. 12/14/2024: Weight 115 pounds, BMI 26.73. Seca scan completed today and interpreted with the patient. Approximately 1 pound decrease from last visit. She is no longer on Contrave at this time due to adverse GI side effects. On body composition patient has 45 pounds of fat mass, has had a slight reduction of approximately 0.5 pounds of muscle mass since last visit. Total of 24.7 pounds of muscle. Visceral adipose tissue index remains within normal limits at 1.1. For further weight management we discussed initiation of topiramate as well as compounded semaglutide or tirzepatide. At this time patient has interest in compounded GLP-1 which she may initiate when she returns from her trip to [facility] in December. She will follow-up in approximately 4 weeks. 01/12/2025: 01/12/2025: Weight 118 pounds, BMI 27.42. Seca scan completed today interpreted with the patient., Overall up about 2 pounds were last visit, however on body analysis she is up 2 pounds of muscle mass. Has increased amounts of muscle at this time which has greatly improved from her consultation. Milligram Contrave due to adverse effects. Interested in initiating compounded semaglutide. Discussed potential side effect profile including but not limited to nausea, constipation, abdominal pain, and heartburn. Reports no history of pancreatitis, multiple endocrine neoplasia syndrome in self or family, or history of medullary thyroid cancer in self or family. Advised the patient can receive injections weekly or biweekly as she chooses. Patient understanding. She will follow-up in office in 4 weeks for further evaluation. # Hypertension: Blood pressure 120/78. She is without chest pain, shortness of breath, dyspnea on exertion, or diaphoresis. Continue amlodipine besilate 5 mg once daily. Discussed proper use of the medication and expected side effect profile. Will continue to monitor. Please follow-up with PCP. # Hyperlipidemia: Lipid panel obtained 09/15/2024 with values including cholesterol 212, triglycerides 79, HDL 77, and LDL 119. Per ASCVD risk algorithm no statin recommended because 10-year risk less than 5%. Will continue to monitor and repeat lipid panel in a few months. # Endometrial cancer: Patient currently in remission of stage Ia endometrial cancer as of 2019. She has regular follow-up with gynecology, last note on 02/11/2024 for routine screening and pelvic examination. Will continue to monitor. All questions have been answered to patient's satisfaction. Patient verbalized understanding of diagnosis and treatments explained. Advised to call sooner prior to next visit it any questions/concerns arise. Case discussed with collaborating physician Mayo Kim who reviewed the assessment and plan. Chart, medications, labs, vital signs reviewed. Dictation was accomplished with the use of [employer] voice recognition software, which is prone to medical misidentifications and grammatical errors. This are unintentional and the practitioner does try to identify and correct these, but some could still be present. Please do not hesitate to contact practitioner for clarification. 02/08/2025 Endometrial carcinoma (ICD-10 - C54.1) Patient is here for weight management follow-up. We focused on significance of healthy lifestyle changes. We talked about need to track steps with goal between 6000-10,000 steps daily, focus on portion control, read food labels, get adequate sleep between 7 to 8 hours, get adequate rest to the body, meditate, frequent nutritious meals including vegetables and healthy choices of lean meats, fish, and elimination of refined carbohydrates. We also talked about mindfulness and mindful eating. Particular focus was on continuing portion control and maintaining physical activity. Total time spent with 30 minutes with greater than 50% spent on counseling and coordinating care. 09/15/2024: Weight 122.6 pounds, BMI 28.49. SECA scan completed today and interpreted with the patient. She has high fat mass. Noted to have decreased muscle mass at approximately 22 pounds when minimum expected quantity estimated to be around 25 pounds. Visceral adipose tissue index slightly increased. She reports difficulty with reducing her weight. She follows lifestyle modifications including exercising daily before work and is currently following the whole 40 diet where she is not consuming carbohydrates or dairy products. We discussed clinical indications for weight management medications including phentermine, Contrave, and GLP-1 agonists. Patient is not a candidate for phentermine given history of high blood pressure on amlodipine. Given the patient's decreased muscle mass we discussed the mechanism of GLP-1 agonists as well as how they do not target fat loss rather target weight loss which can include muscle. Discussed the risks of continuing to decrease muscle loss as a relates to osteoporosis. For that reason the patient will be a good candidate for Contrave. We discussed the appropriate use of the medication including appropriate dosing schedule. Discussed expected side effect profile of the medication including but not limited to nausea, vomiting, headaches, dizziness, and constipation. Repeat labs ordered with results pending at this time. Patient demonstrates understanding. She will follow-up in the office in approximately 1 month for weight management. 10/12/2024: Weight 118 pounds, BMI 27.42. SECA scan completed today and interpreted with the patient. Overall down 4 pounds from previous visit. Is decreasing fat mass which she was congratulated for. Increase in muscle mass from 22.2 pounds to 22.5 pounds. Advised to continue working with appraiser personal property to build muscle mass. Reports side effect of dry mouth, advised patient to take the medication with a glass of water as well as to continue daily hydration. At this time plan to continue taking Contrave 90-80 mg 2 tablets twice daily. Discussed proper use of the medication as well as expected side effect profile. She will follow-up in the office in approximately 4 weeks for continued weight management. 11/09/2024: Weight 116.8 pounds, BMI 27.14. SECA scan completed today and interpreted with patient. She is down 2 pounds from last visit. Muscle mass has progressively increased from 22.5 pounds to 25 pounds which she was congratulated for. Now in increased range on scale. Reporting adverse effects of nausea/vomiting on Contrave 2 pills twice daily. We discussed stepping down to next lowest dose and trialing 1 pill in the morning and 1 pill in the evening or 2 pills in the morning and 1 pill in the evening. Patient demonstrates understanding and will titrate dose to best effect. 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 No other concerns, plan to continue Contrave 8-90 mg at a range of 2 to 3 pills daily. Discussed proper use of medication and potential side effect profile. She will follow-up in 4 weeks for further management. 12/14/2024: Weight 115 pounds, BMI 26.73. Seca scan completed today and interpreted with the patient. Approximately 1 pound decrease from last visit. She is no longer on Contrave at this time due to adverse GI side effects. On body composition patient has 45 pounds of fat mass, has had a slight reduction of approximately 0.5 pounds of muscle mass since last visit. Total of 24.7 pounds of muscle. Visceral adipose tissue index remains within normal limits at 1.1. For further weight management we discussed initiation of topiramate as well as compounded semaglutide or tirzepatide. At this time patient has interest in compounded GLP-1 which she may initiate when she returns from her trip to [facility] in December. She will follow-up in approximately 4 weeks. 01/12/2025: 01/12/2025: Weight 118 pounds, BMI 27.42. Seca scan completed today interpreted with the patient., Overall up about 2 pounds were last visit, however on body analysis she is up 2 pounds of muscle mass. Has increased amounts of muscle at this time which has greatly improved from her consultation. Milligram Contrave due to adverse effects. Interested in initiating compounded semaglutide. Discussed potential side effect profile including but not limited to nausea, constipation, abdominal pain, and heartburn. Reports no history of pancreatitis, multiple endocrine neoplasia syndrome in self or family, or history of medullary thyroid cancer in self or family. Advised the patient can receive injections weekly or biweekly as she chooses. Patient understanding. She will follow-up in office in 4 weeks for further evaluation. 02/08/2025: Weight 115 pounds, BMI 26.73. SECA scan completed today and interpreted with the patient. On body analysis she is down 2 to 3 pounds of fat mass and has built about 1/2 pound of muscle mass. Has increased amounts of muscle of her body composition. Patient is receiving semaglutide 0.25 mg weekly in office. Reports no adverse effects at this time. Reviewed goals of diet and exercise. Semaglutide 0.25 mg administered retained sleeve today in office. Plan is to follow-up in office in 4 weeks. # Hypertension: Blood pressure 120/80. She is without chest pain, shortness of breath, dyspnea on exertion, or diaphoresis. Continue amlodipine besilate 5 mg once daily. Discussed proper use of the medication and expected side effect profile. Will continue to monitor. Please follow-up with PCP. # Hyperlipidemia: Lipid panel obtained 09/15/2024 with values including cholesterol 212, triglycerides 79, HDL 77, and LDL 119. Per ASCVD risk algorithm no statin recommended because 10-year risk less than 5%. Will continue to monitor and repeat lipid panel in a few months. # Endometrial cancer: Patient currently in remission of stage Ia endometrial cancer as of 2019. She has regular follow-up with gynecology, last note on 02/11/2024 for routine screening and pelvic examination. Will continue to monitor. All questions have been answered to patient's satisfaction. Patient verbalized understanding of diagnosis and treatments explained. Advised to call sooner prior to next visit it any questions/concerns arise. Case discussed with collaborating physician Mayo Kim who reviewed the assessment and plan. Chart, medications, labs, vital signs reviewed. Dictation was accomplished with the use of [employer] voice recognition software, which is prone to medical misidentifications and grammatical errors. This are unintentional and the practitioner does try to identify and correct these, but some could still be present. Please do not hesitate to contact practitioner for clarification. 12/14/2024 Endometrial carcinoma (ICD-10 - C54.1) Patient is here for weight management follow-up. We focused on significance of healthy lifestyle changes. We talked about need to track steps with goal between 6000-10,000 steps daily, focus on portion control, read food labels, get adequate sleep between 7 to 8 hours, get adequate rest to the body, meditate, frequent nutritious meals including vegetables and healthy choices of lean meats, fish, and elimination of refined carbohydrates. We also talked about mindfulness and mindful eating. Particular focus was on continuing to progressively add resistance training and increase protein intake to build muscle mass. Total time spent with 30 minutes with greater than 50% spent on counseling and coordinating care. 09/15/2024: Weight 122.6 pounds, BMI 28.49. SECA scan completed today and interpreted with the patient. She has high fat mass. Noted to have decreased muscle mass at approximately 22 pounds when minimum expected quantity estimated to be around 25 pounds. Visceral adipose tissue index slightly increased. She reports difficulty with reducing her weight. She follows lifestyle modifications including exercising daily before work and is currently following the whole 40 diet where she is not consuming carbohydrates or dairy products. We discussed clinical indications for weight management medications including phentermine, Contrave, and GLP-1 agonists. Patient is not a candidate for phentermine given history of high blood pressure on amlodipine. Given the patient's decreased muscle mass we discussed the mechanism of GLP-1 agonists as well as how they do not target fat loss rather target weight loss which can include muscle. Discussed the risks of continuing to decrease muscle loss as a relates to osteoporosis. For that reason the patient will be a good candidate for Contrave. We discussed the appropriate use of the medication including appropriate dosing schedule. Discussed expected side effect profile of the medication including but not limited to nausea, vomiting, headaches, dizziness, and constipation. Repeat labs ordered with results pending at this time. Patient demonstrates understanding. She will follow-up in the office in approximately 1 month for weight management. 10/12/2024: Weight 118 pounds, BMI 27.42. SECA scan completed today and interpreted with the patient. Overall down 4 pounds from previous visit. Is decreasing fat mass which she was congratulated for. Increase in muscle mass from 22.2 pounds to 22.5 pounds. Advised to continue working with appraiser personal property to build muscle mass. Reports side effect of dry mouth, advised patient to take the medication with a glass of water as well as to continue daily hydration. At this time plan to continue taking Contrave 90-80 mg 2 tablets twice daily. Discussed proper use of the medication as well as expected side effect profile. She will follow-up in the office in approximately 4 weeks for continued weight management. 11/09/2024: Weight 116.8 pounds, BMI 27.14. SECA scan completed today and interpreted with patient. She is down 2 pounds from last visit. Muscle mass has progressively increased from 22.5 pounds to 25 pounds which she was congratulated for. Now in increased range on scale. Reporting adverse effects of nausea/vomiting on Contrave 2 pills twice daily. We discussed stepping down to next lowest dose and trialing 1 pill in the morning and 1 pill in the evening or 2 pills in the morning and 1 pill in the evening. Patient demonstrates understanding and will titrate dose to best effect. 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 No other concerns, plan to continue Contrave 8-90 mg at a range of 2 to 3 pills daily. Discussed proper use of medication and potential side effect profile. She will follow-up in 4 weeks for further management. 12/14/2024: Weight 115 pounds, BMI 26.73. Seca scan completed today and interpreted with the patient. Approximately 1 pound decrease from last visit. She is no longer on Contrave at this time due to adverse GI side effects. On body composition patient has 45 pounds of fat mass, has had a slight reduction of approximately 0.5 pounds of muscle mass since last visit. Total of 24.7 pounds of muscle. Visceral adipose tissue index remains within normal limits at 1.1. For further weight management we discussed initiation of topiramate as well as compounded semaglutide or tirzepatide. At this time patient has interest in compounded GLP-1 which she may initiate when she returns from her trip to [facility] in December. She will follow-up in approximately 4 weeks. # Hypertension: Blood pressure elevated in office 140/90, however patient states that she did not take her amlodipine today. She is without chest pain, shortness of breath, dyspnea on exertion, or diaphoresis. Continue amlodipine besilate 5 mg once daily. Discussed proper use of the medication and expected side effect profile. Will continue to monitor. Please follow-up with PCP. # Hyperlipidemia: Lipid panel obtained 09/15/2024 with values including cholesterol 212, triglycerides 79, HDL 77, and LDL 119. Per ASCVD risk algorithm no statin recommended because 10-year risk less than 5%. Will continue to monitor and repeat lipid panel in a few months. # Endometrial cancer: Patient currently in remission of stage Ia endometrial cancer as of 2019. She has regular follow-up with gynecology, last note on 02/11/2024 for routine screening and pelvic examination. Will continue to monitor. All questions have been answered to patient's satisfaction. Patient verbalized understanding of diagnosis and treatments explained. Advised to call sooner prior to next visit it any questions/concerns arise. Case discussed with collaborating physician Mayo Kim who reviewed the assessment and plan. Chart, medications, labs, vital signs reviewed. Dictation was accomplished with the use of [employer] voice recognition software, which is prone to medical misidentifications and grammatical errors. This are unintentional and the practitioner does try to identify and correct these, but some could still be present. Please do not hesitate to contact practitioner for clarification. 11/09/2024 Hyperlipidemia, mixed (ICD-10 - E78.2) Patient is here for weight management follow-up. We focused on significance of healthy lifestyle changes. We talked about need to track steps with goal between 6000-10,000 steps daily, focus on portion control, read food labels, get adequate sleep between 7 to 8 hours, get adequate rest to the body, meditate, frequent nutritious meals including vegetables and healthy choices of lean meats, fish, and elimination of refined carbohydrates. We also talked about mindfulness and mindful eating. Particular focus was on continuing to progressively add resistance training and increase protein intake to build muscle mass. Total time spent with 30 minutes with greater than 50% spent on counseling and coordinating care. 09/15/2024: Weight 122.6 pounds, BMI 28.49. SECA scan completed today and interpreted with the patient. She has high fat mass. Noted to have decreased muscle mass at approximately 22 pounds when minimum expected quantity estimated to be around 25 pounds. Visceral adipose tissue index slightly increased. She reports difficulty with reducing her weight. She follows lifestyle modifications including exercising daily before work and is currently following the whole 40 diet where she is not consuming carbohydrates or dairy products. We discussed clinical indications for weight management medications including phentermine, Contrave, and GLP-1 agonists. Patient is not a candidate for phentermine given history of high blood pressure on amlodipine. Given the patient's decreased muscle mass we discussed the mechanism of GLP-1 agonists as well as how they do not target fat loss rather target weight loss which can include muscle. Discussed the risks of continuing to decrease muscle loss as a relates to osteoporosis. For that reason the patient will be a good candidate for Contrave. We discussed the appropriate use of the medication including appropriate dosing schedule. Discussed expected side effect profile of the medication including but not limited to nausea, vomiting, headaches, dizziness, and constipation. Repeat labs ordered with results pending at this time. Patient demonstrates understanding. She will follow-up in the office in approximately 1 month for weight management. 10/12/2024: Weight 118 pounds, BMI 27.42. SECA scan completed today and interpreted with the patient. Overall down 4 pounds from previous visit. Is decreasing fat mass which she was congratulated for. Increase in muscle mass from 22.2 pounds to 22.5 pounds. Advised to continue working with appraiser personal property to build muscle mass. Reports side effect of dry mouth, advised patient to take the medication with a glass of water as well as to continue daily hydration. At this time plan to continue taking Contrave 90-80 mg 2 tablets twice daily. Discussed proper use of the medication as well as expected side effect profile. She will follow-up in the office in approximately 4 weeks for continued weight management. 11/09/2024: Weight 116.8 pounds, BMI 27.14. SECA scan completed today and interpreted with patient. She is down 2 pounds from last visit. Muscle mass has progressively increased from 22.5 pounds to 25 pounds which she was congratulated for. Now in increased range on scale. Reporting adverse effects of nausea/vomiting on Contrave 2 pills twice daily. We discussed stepping down to next lowest dose and trialing 1 pill in the morning and 1 pill in the evening or 2 pills in the morning and 1 pill in the evening. Patient demonstrates understanding and will titrate dose to best effect. 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 No other concerns, plan to continue Contrave 8-90 mg at a range of 2 to 3 pills daily. Discussed proper use of medication and potential side effect profile. She will follow-up in 4 weeks for further management. # Hypertension: Blood pressure stable in office today 132/78. She is without chest pain, shortness of breath, dyspnea on exertion, or diaphoresis. Continue amlodipine besilate 5 mg once daily. Discussed proper use of the medication and expected side effect profile. Will continue to monitor. Please follow-up with PCP. # Hyperlipidemia: Lipid panel obtained 09/15/2024 with values including cholesterol 212, triglycerides 79, HDL 77, and LDL 119. Per ASCVD risk algorithm no statin recommended because 10-year risk less than 5%. Will continue to monitor and repeat lipid panel in a few months. # Endometrial cancer: Patient currently in remission of stage Ia endometrial cancer as of 2019. She has regular follow-up with gynecology, last note on 02/11/2024 for routine screening and pelvic examination. Will continue to monitor. All questions have been answered to patient's satisfaction. Patient verbalized understanding of diagnosis and treatments explained. Advised to call sooner prior to next visit it any questions/concerns arise. Case discussed with collaborating physician Mayo Kim who reviewed the assessment and plan. Chart, medications, labs, vital signs reviewed. Dictation was accomplished with the use of [employer] voice recognition software, which is prone to medical misidentifications and grammatical errors. This are unintentional and the practitioner does try to identify and correct these, but some could still be present. Please do not hesitate to contact practitioner for clarification. 10/12/2024 Endometrial carcinoma (ICD-10 - C54.1) Patient is here for weight management follow-up. We focused on significance of healthy lifestyle changes. We talked about need to track steps with goal between 6000-10,000 steps daily, focus on portion control, read food labels, get adequate sleep between 7 to 8 hours, get adequate rest to the body, meditate, frequent nutritious meals including vegetables and healthy choices of lean meats, fish, and elimination of refined carbohydrates. We also talked about mindfulness and mindful eating. Particular focus was on continuing to progressively add resistance training and increase protein intake to build muscle mass. Total time spent with 30 minutes with greater than 50% spent on counseling and coordinating care. 09/15/2024: Weight 122.6 pounds, BMI 28.49. SECA scan completed today and interpreted with the patient. She has high fat mass. Noted to have decreased muscle mass at approximately 22 pounds when minimum expected quantity estimated to be around 25 pounds. Visceral adipose tissue index slightly increased. She reports difficulty with reducing her weight. She follows lifestyle modifications including exercising daily before work and is currently following the whole 40 diet where she is not consuming carbohydrates or dairy products. We discussed clinical indications for weight management medications including phentermine, Contrave, and GLP-1 agonists. Patient is not a candidate for phentermine given history of high blood pressure on amlodipine. Given the patient's decreased muscle mass we discussed the mechanism of GLP-1 agonists as well as how they do not target fat loss rather target weight loss which can include muscle. Discussed the risks of continuing to decrease muscle loss as a relates to osteoporosis. For that reason the patient will be a good candidate for Contrave. We discussed the appropriate use of the medication including appropriate dosing schedule. Discussed expected side effect profile of the medication including but not limited to nausea, vomiting, headaches, dizziness, and constipation. Repeat labs ordered with results pending at this time. Patient demonstrates understanding. She will follow-up in the office in approximately 1 month for weight management. 10/12/2024: Weight 118 pounds, BMI 27.42. SECA scan completed today and interpreted with the patient. Overall down 4 pounds from previous visit. Is decreasing fat mass which she was congratulated for. Increase in muscle mass from 22.2 pounds to 22.5 pounds. Advised to continue working with appraiser personal property to build muscle mass. Reports side effect of dry mouth, advised patient to take the medication with a glass of water as well as to continue daily hydration. At this time plan to continue taking Contrave 90-80 mg 2 tablets twice daily. Discussed proper use of the medication as well as expected side effect profile. She will follow-up in the office in approximately 4 weeks for continued weight management. # Hypertension: Blood pressure stable in office today 122/82. She is without chest pain, shortness of breath, dyspnea on exertion, or diaphoresis. Continue amlodipine besilate 5 mg once daily. Discussed proper use of the medication and expected side effect profile. Will continue to monitor. Please follow-up with PCP. # Hyperlipidemia: Lipid panel obtained 09/15/2024 with values including cholesterol 212, triglycerides 79, HDL 77, and LDL 119. Per ASCVD risk algorithm no statin recommended because 10-year risk less than 5%. Will continue to monitor and repeat lipid panel in a few months. # Endometrial cancer: Patient currently in remission of stage Ia endometrial cancer as of 2019. She has regular follow-up with gynecology, last note on 02/11/2024 for routine screening and pelvic examination. Will continue to monitor. All questions have been answered to patient's satisfaction. Patient verbalized understanding of diagnosis and treatments explained. Advised to call sooner prior to next visit it any questions/concerns arise. Case discussed with collaborating physician Mayo Kim who reviewed the assessment and plan. Chart, medications, labs, vital signs reviewed. Dictation was accomplished with the use of In[employer] voice recognition software, which is prone to medical misidentifications and grammatical errors. This are unintentional and the practitioner does try to identify and correct these, but some could still be present. Please do not hesitate to contact practitioner for clarification. 09/15/2024 Hx of cancer of endometrium (ICD-10 - Z85.42) Corie is a 64-year-old female with history of obesity who presents to the office today for weight management consult. Medical history, labs, allergies, medications, and social history reviewed with the patient. Provided education on healthy diet and lifestyle which includes high-protein, low carbohydrate, high-fiber, and a variety of fruits and vegetables. Patient encouraged to exercise with emphasis on resistance training minimum 3 times per week to maintain muscle mass and cardio to burn fat. All patient questions answered. Patient will follow-up in 2 to 4 weeks for weight management. 09/15/2024: Weight 222.6 pounds, BMI 28.49. SECA scan completed today and interpreted with the patient. She has high fat mass. Noted to have decreased muscle mass at approximately 22 pounds when minimum expected quantity estimated to be around 25 pounds. Visceral adipose tissue index slightly increased. She reports difficulty with reducing her weight. She follows lifestyle modifications including exercising daily before work and is currently following the whole 40 diet where she is not consuming carbohydrates or dairy products. We discussed clinical indications for weight management medications including phentermine, Contrave, and GLP-1 agonists. Patient is not a candidate for phentermine given history of high blood pressure on amlodipine. Given the patient's decreased muscle mass we discussed the mechanism of GLP-1 agonists as well as how they do not target fat loss rather target weight loss which can include muscle. Discussed the risks of continuing to decrease muscle loss as a relates to osteoporosis. For that reason the patient will be a good candidate for Contrave. We discussed the appropriate use of the medication including appropriate dosing schedule. Discussed expected side effect profile of the medication including but not limited to nausea, vomiting, headaches, dizziness, and constipation. Repeat labs ordered with results pending at this time. Patient demonstrates understanding. She will follow-up in the office in approximately 1 month for weight management. # Hypertension: Blood pressure stable in office today 130/84. She is without chest pain, shortness of breath, dyspnea on exertion, or diaphoresis. Continue amlodipine besilate 5 mg once daily. Discussed proper use of the medication and expected side effect profile. Will continue to monitor. Please follow-up with PCP. # Endometrial cancer: Patient currently in remission of stage Ia endometrial cancer as of 2019. She has regular follow-up with gynecology, last note on 02/11/2024 for routine screening and pelvic examination. Will continue to monitor. Patient was reassured and welcomed to the practice. We discussed that we stress a hollistic medical approach with emphasis on lifestyle modification. Patient was informed that a healthy lifestyle with exercise and good eating habits can help reduce his risk of medical complications. Patient is explained that obesity increases his risk of diabetes, cardiovascular disease, or organ damage. We spent a lot of time discussing the relationship between food, exercise, sleep, mental health and obesity. Patient was counseled on the importance EATING local, organic food when possible. Patient was educated on clean 15 and dirty dozen. I provided information about reading books called The Food Rules by Hermilo Truong and Eat Fat Get Lean by Dr Juvenal Chin. Self education is important in the journey for weight management. Patient was offered diagnostic testing/ SECA scale. We want to measure visceral adiposity, advanced body composition, adverse lipids, fatty acid balance, risk for heart disease and atherosclerosis, markers of inflammation and genetic susceptibility. Patient was counseled on weight management and was advised to lose weight using A. Meal Replacement Products Patient was educated on the replacement products called optifast. This is a good way of taking fixed amount of calories. It has been shown in studies to be ineffective weight management tool. This however has to be coupled with lifestyle intervention as well as laboratory data and EKG monitoring. It is impossible to know how a person will tolerate complete meal replacement. The side effects of meal replacement and weight loss could include syncopal attacks, dizziness, gallstones, potential cholecystectomy, possible heart attack and even . The benefits of meal replacement would be potential weight loss but no guarantees can be made. Meal replacement products are not covered by insurance. Once the patient has bought these products we cannot return them B. Lifestyle management which includes several strategies as below 1. Eat a low carbohydrate good fat good protein diet. Eliminate refined carbohydrates from the diet. Limit sugared beverages. Eat local organic when possible. Cook your own meals. Read food labels. Focus on healthy snacks. Portion control and food with low glycemic index 2. Exercise regularly. Try to get at least 6000 steps a day. Use a predominant to track activity level. Consider using apps like 7 minute excercise, myfitnesspal, lose it, stick as needed for self-monitoring and weight management. Consider group exercises. Consider hiring a appraiser personal property. Regular exercise is fernandez to sustainable health and prevents as a buffer against weight regain 3. Sleep is most important for healing. Try to sleep at least 6-8 hours a night. A good quality sleep needs a sleep ritual with ideal room temperature of around 68. It might help to take a shower and have no electronics in the room and sleep in a very dark room without artificial light. Start sleep routine and get up early in the morning and go to bed on time. 4. Make a social connection. Surround yourself with positive people with positive energy. Connect with friends and family. 5. Get into the habit of meditating and mindfulness while doing everything. 6. Go outside and connect with nature. C. Prescription medications Patient was educated on the use of prescription medications for medical weight loss. This is a growing list and includes phentermine, Topamax,Qsymia, contrave, belviq and saxenda, wegovy etc. All prescription medications could have side effects including but not limited to kidney stones, seizure disorder cardiac arrhythmias heart attack pancreatitis, GI effects, Etc. Patient was encouraged to read the prescription insert and have coaching with their pharmacist and make an informed decision about taking medication and know that these medications are being prescribed with good intentions and we do not know how a patient would react to her medication. Some medications are FDA approved for weight loss and there is also off label use depending on patient's inability to afford medications in an attempt to lose weight D. Behavioral counseling was done to establish a relationship between food and an mood. Patient was provided information about local counseling and psychiatry and Dr Keller at [facility]. We would like to cover regular topics and build on low glycemic eating exercise mindful eating, using yoga and meditation along with deep breathing and connecting with friends and family. E. MASS PAT reviewed, Patient's current medications were reviewed and opinion was given on medication that can cause weight gain and can be substituted F. Patient was assessed for risk with obesity including and not limiting to atherosclerosis heart disease stroke kidney disease, restrictive lung disease, irritable bowel syndrome and overall mortality. Risk of developing prediabetes diabetes and metabolic syndrome was discussed G. Therapeutic plan: We have decided to make therapeutic plan which would include choosing wisely on calories restricting portion getting active, tracking weight, getting good quality sleep and working on time management H. Patient will follow up in 4 weeks for weight management Total time spent today was 60 minutes of which greater than 50% was spent on coordinating and counseling After consultation and careful review of medical history, this patient would benefit from Contrave based off of the following criteria met: Patient is over the age of 18, has a BMI of 28.49. Additional comorbidities include hypertension and endometrial cancer in remission. Patient has trialed other methods of weight loss including improving diet, exercise without success over three months. This medication is prescribed by or in consultation with a board certified obesity and weight management physician (Dr. Vianey Kim or Dr. Morgan Kim). Case discussed with collaborating physician Akilah Kim who reviewed the assessment and plan. Chart, medications, labs, vital signs reviewed. Dictation was accomplished with the use of Inspiris voice recognition software, prone to medical misidentifications and grammatical errors. This is unintentional and the practitioner does try to identify and correct these, but some could still be present. Please do not hesitate to contact practitioner for clarification. All questions answered to patients satisfaction. Patient verbalized understanding of diagnosis and treatments explained. To call sooner prior to next visit it any questions/concerns arise. 11/09/2024 Endometrial carcinoma (ICD-10 - C54.1) Patient is here for weight management follow-up. We focused on significance of healthy lifestyle changes. We talked about need to track steps with goal between 6000-10,000 steps daily, focus on portion control, read food labels, get adequate sleep between 7 to 8 hours, get adequate rest to the body, meditate, frequent nutritious meals including vegetables and healthy choices of lean meats, fish, and elimination of refined carbohydrates. We also talked about mindfulness and mindful eating. Particular focus was on continuing to progressively add resistance training and increase protein intake to build muscle mass. Total time spent with 30 minutes with greater than 50% spent on counseling and coordinating care. 09/15/2024: Weight 122.6 pounds, BMI 28.49. SECA scan completed today and interpreted with the patient. She has high fat mass. Noted to have decreased muscle mass at approximately 22 pounds when minimum expected quantity estimated to be around 25 pounds. Visceral adipose tissue index slightly increased. She reports difficulty with reducing her weight. She follows lifestyle modifications including exercising daily before work and is currently following the whole 40 diet where she is not consuming carbohydrates or dairy products. We discussed clinical indications for weight management medications including phentermine, Contrave, and GLP-1 agonists. Patient is not a candidate for phentermine given history of high blood pressure on amlodipine. Given the patient's decreased muscle mass we discussed the mechanism of GLP-1 agonists as well as how they do not target fat loss rather target weight loss which can include muscle. Discussed the risks of continuing to decrease muscle loss as a relates to osteoporosis. For that reason the patient will be a good candidate for Contrave. We discussed the appropriate use of the medication including appropriate dosing schedule. Discussed expected side effect profile of the medication including but not limited to nausea, vomiting, headaches, dizziness, and constipation. Repeat labs ordered with results pending at this time. Patient demonstrates understanding. She will follow-up in the office in approximately 1 month for weight management. 10/12/2024: Weight 118 pounds, BMI 27.42. SECA scan completed today and interpreted with the patient. Overall down 4 pounds from previous visit. Is decreasing fat mass which she was congratulated for. Increase in muscle mass from 22.2 pounds to 22.5 pounds. Advised to continue working with appraiser personal property to build muscle mass. Reports side effect of dry mouth, advised patient to take the medication with a glass of water as well as to continue daily hydration. At this time plan to continue taking Contrave 90-80 mg 2 tablets twice daily. Discussed proper use of the medication as well as expected side effect profile. She will follow-up in the office in approximately 4 weeks for continued weight management. 11/09/2024: Weight 116.8 pounds, BMI 27.14. SECA scan completed today and interpreted with patient. She is down 2 pounds from last visit. Muscle mass has progressively increased from 22.5 pounds to 25 pounds which she was congratulated for. Now in increased range on scale. Reporting adverse effects of nausea/vomiting on Contrave 2 pills twice daily. We discussed stepping down to next lowest dose and trialing 1 pill in the morning and 1 pill in the evening or 2 pills in the morning and 1 pill in the evening. Patient demonstrates understanding and will titrate dose to best effect. 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 No other concerns, plan to continue Contrave 8-90 mg at a range of 2 to 3 pills daily. Discussed proper use of medication and potential side effect profile. She will follow-up in 4 weeks for further management. # Hypertension: Blood pressure stable in office today 132/78. She is without chest pain, shortness of breath, dyspnea on exertion, or diaphoresis. Continue amlodipine besilate 5 mg once daily. Discussed proper use of the medication and expected side effect profile. Will continue to monitor. Please follow-up with PCP. # Hyperlipidemia: Lipid panel obtained 09/15/2024 with values including cholesterol 212, triglycerides 79, HDL 77, and LDL 119. Per ASCVD risk algorithm no statin recommended because 10-year risk less than 5%. Will continue to monitor and repeat lipid panel in a few months. # Endometrial cancer: Patient currently in remission of stage Ia endometrial cancer as of 2019. She has regular follow-up with gynecology, last note on 02/11/2024 for routine screening and pelvic examination. Will continue to monitor. All questions have been answered to patient's satisfaction. Patient verbalized understanding of diagnosis and treatments explained. Advised to call sooner prior to next visit it any questions/concerns arise. Case discussed with collaborating physician Mayo Kim who reviewed the assessment and plan. Chart, medications, labs, vital signs reviewed. Dictation was accomplished with the use of [employer] voice recognition software, which is prone to medical misidentifications and grammatical errors. This are unintentional and the practitioner does try to identify and correct these, but some could still be present. Please do not hesitate to contact practitioner for clarification. 12/14/2024 Dietary counseling (ICD-10 - Z71.3) Patient is here for weight management follow-up. We focused on significance of healthy lifestyle changes. We talked about need to track steps with goal between 6000-10,000 steps daily, focus on portion control, read food labels, get adequate sleep between 7 to 8 hours, get adequate rest to the body, meditate, frequent nutritious meals including vegetables and healthy choices of lean meats, fish, and elimination of refined carbohydrates. We also talked about mindfulness and mindful eating. Particular focus was on continuing to progressively add resistance training and increase protein intake to build muscle mass. Total time spent with 30 minutes with greater than 50% spent on counseling and coordinating care. 09/15/2024: Weight 122.6 pounds, BMI 28.49. SECA scan completed today and interpreted with the patient. She has high fat mass. Noted to have decreased muscle mass at approximately 22 pounds when minimum expected quantity estimated to be around 25 pounds. Visceral adipose tissue index slightly increased. She reports difficulty with reducing her weight. She follows lifestyle modifications including exercising daily before work and is currently following the whole 40 diet where she is not consuming carbohydrates or dairy products. We discussed clinical indications for weight management medications including phentermine, Contrave, and GLP-1 agonists. Patient is not a candidate for phentermine given history of high blood pressure on amlodipine. Given the patient's decreased muscle mass we discussed the mechanism of GLP-1 agonists as well as how they do not target fat loss rather target weight loss which can include muscle. Discussed the risks of continuing to decrease muscle loss as a relates to osteoporosis. For that reason the patient will be a good candidate for Contrave. We discussed the appropriate use of the medication including appropriate dosing schedule. Discussed expected side effect profile of the medication including but not limited to nausea, vomiting, headaches, dizziness, and constipation. Repeat labs ordered with results pending at this time. Patient demonstrates understanding. She will follow-up in the office in approximately 1 month for weight management. 10/12/2024: Weight 118 pounds, BMI 27.42. SECA scan completed today and interpreted with the patient. Overall down 4 pounds from previous visit. Is decreasing fat mass which she was congratulated for. Increase in muscle mass from 22.2 pounds to 22.5 pounds. Advised to continue working with appraiser personal property to build muscle mass. Reports side effect of dry mouth, advised patient to take the medication with a glass of water as well as to continue daily hydration. At this time plan to continue taking Contrave 90-80 mg 2 tablets twice daily. Discussed proper use of the medication as well as expected side effect profile. She will follow-up in the office in approximately 4 weeks for continued weight management. 11/09/2024: Weight 116.8 pounds, BMI 27.14. SECA scan completed today and interpreted with patient. She is down 2 pounds from last visit. Muscle mass has progressively increased from 22.5 pounds to 25 pounds which she was congratulated for. Now in increased range on scale. Reporting adverse effects of nausea/vomiting on Contrave 2 pills twice daily. We discussed stepping down to next lowest dose and trialing 1 pill in the morning and 1 pill in the evening or 2 pills in the morning and 1 pill in the evening. Patient demonstrates understanding and will titrate dose to best effect. 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 No other concerns, plan to continue Contrave 8-90 mg at a range of 2 to 3 pills daily. Discussed proper use of medication and potential side effect profile. She will follow-up in 4 weeks for further management. 12/14/2024: Weight 115 pounds, BMI 26.73. Seca scan completed today and interpreted with the patient. Approximately 1 pound decrease from last visit. She is no longer on Contrave at this time due to adverse GI side effects. On body composition patient has 45 pounds of fat mass, has had a slight reduction of approximately 0.5 pounds of muscle mass since last visit. Total of 24.7 pounds of muscle. Visceral adipose tissue index remains within normal limits at 1.1. For further weight management we discussed initiation of topiramate as well as compounded semaglutide or tirzepatide. At this time patient has interest in compounded GLP-1 which she may initiate when she returns from her trip to [facility] in December. She will follow-up in approximately 4 weeks. # Hypertension: Blood pressure elevated in office 140/90, however patient states that she did not take her amlodipine today. She is without chest pain, shortness of breath, dyspnea on exertion, or diaphoresis. Continue amlodipine besilate 5 mg once daily. Discussed proper use of the medication and expected side effect profile. Will continue to monitor. Please follow-up with PCP. # Hyperlipidemia: Lipid panel obtained 09/15/2024 with values including cholesterol 212, triglycerides 79, HDL 77, and LDL 119. Per ASCVD risk algorithm no statin recommended because 10-year risk less than 5%. Will continue to monitor and repeat lipid panel in a few months. # Endometrial cancer: Patient currently in remission of stage Ia endometrial cancer as of 2019. She has regular follow-up with gynecology, last note on 02/11/2024 for routine screening and pelvic examination. Will continue to monitor. All questions have been answered to patient's satisfaction. Patient verbalized understanding of diagnosis and treatments explained. Advised to call sooner prior to next visit it any questions/concerns arise. Case discussed with collaborating physician Mayo Kim who reviewed the assessment and plan. Chart, medications, labs, vital signs reviewed. Dictation was accomplished with the use of [employer] voice recognition software, which is prone to medical misidentifications and grammatical errors. This are unintentional and the practitioner does try to identify and correct these, but some could still be present. Please do not hesitate to contact practitioner for clarification. 02/08/2025 Dietary counseling (ICD-10 - Z71.3) Patient is here for weight management follow-up. We focused on significance of healthy lifestyle changes. We talked about need to track steps with goal between 6000-10,000 steps daily, focus on portion control, read food labels, get adequate sleep between 7 to 8 hours, get adequate rest to the body, meditate, frequent nutritious meals including vegetables and healthy choices of lean meats, fish, and elimination of refined carbohydrates. We also talked about mindfulness and mindful eating. Particular focus was on continuing portion control and maintaining physical activity. Total time spent with 30 minutes with greater than 50% spent on counseling and coordinating care. 09/15/2024: Weight 122.6 pounds, BMI 28.49. SECA scan completed today and interpreted with the patient. She has high fat mass. Noted to have decreased muscle mass at approximately 22 pounds when minimum expected quantity estimated to be around 25 pounds. Visceral adipose tissue index slightly increased. She reports difficulty with reducing her weight. She follows lifestyle modifications including exercising daily before work and is currently following the whole 40 diet where she is not consuming carbohydrates or dairy products. We discussed clinical indications for weight management medications including phentermine, Contrave, and GLP-1 agonists. Patient is not a candidate for phentermine given history of high blood pressure on amlodipine. Given the patient's decreased muscle mass we discussed the mechanism of GLP-1 agonists as well as how they do not target fat loss rather target weight loss which can include muscle. Discussed the risks of continuing to decrease muscle loss as a relates to osteoporosis. For that reason the patient will be a good candidate for Contrave. We discussed the appropriate use of the medication including appropriate dosing schedule. Discussed expected side effect profile of the medication including but not limited to nausea, vomiting, headaches, dizziness, and constipation. Repeat labs ordered with results pending at this time. Patient demonstrates understanding. She will follow-up in the office in approximately 1 month for weight management. 10/12/2024: Weight 118 pounds, BMI 27.42. SECA scan completed today and interpreted with the patient. Overall down 4 pounds from previous visit. Is decreasing fat mass which she was congratulated for. Increase in muscle mass from 22.2 pounds to 22.5 pounds. Advised to continue working with appraiser personal property to build muscle mass. Reports side effect of dry mouth, advised patient to take the medication with a glass of water as well as to continue daily hydration. At this time plan to continue taking Contrave 90-80 mg 2 tablets twice daily. Discussed proper use of the medication as well as expected side effect profile. She will follow-up in the office in approximately 4 weeks for continued weight management. 11/09/2024: Weight 116.8 pounds, BMI 27.14. SECA scan completed today and interpreted with patient. She is down 2 pounds from last visit. Muscle mass has progressively increased from 22.5 pounds to 25 pounds which she was congratulated for. Now in increased range on scale. Reporting adverse effects of nausea/vomiting on Contrave 2 pills twice daily. We discussed stepping down to next lowest dose and trialing 1 pill in the morning and 1 pill in the evening or 2 pills in the morning and 1 pill in the evening. Patient demonstrates understanding and will titrate dose to best effect. 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 No other concerns, plan to continue Contrave 8-90 mg at a range of 2 to 3 pills daily. Discussed proper use of medication and potential side effect profile. She will follow-up in 4 weeks for further management. 12/14/2024: Weight 115 pounds, BMI 26.73. Seca scan completed today and interpreted with the patient. Approximately 1 pound decrease from last visit. She is no longer on Contrave at this time due to adverse GI side effects. On body composition patient has 45 pounds of fat mass, has had a slight reduction of approximately 0.5 pounds of muscle mass since last visit. Total of 24.7 pounds of muscle. Visceral adipose tissue index remains within normal limits at 1.1. For further weight management we discussed initiation of topiramate as well as compounded semaglutide or tirzepatide. At this time patient has interest in compounded GLP-1 which she may initiate when she returns from her trip to [facility] in December. She will follow-up in approximately 4 weeks. 01/12/2025: 01/12/2025: Weight 118 pounds, BMI 27.42. Seca scan completed today interpreted with the patient., Overall up about 2 pounds were last visit, however on body analysis she is up 2 pounds of muscle mass. Has increased amounts of muscle at this time which has greatly improved from her consultation. Milligram Contrave due to adverse effects. Interested in initiating compounded semaglutide. Discussed potential side effect profile including but not limited to nausea, constipation, abdominal pain, and heartburn. Reports no history of pancreatitis, multiple endocrine neoplasia syndrome in self or family, or history of medullary thyroid cancer in self or family. Advised the patient can receive injections weekly or biweekly as she chooses. Patient understanding. She will follow-up in office in 4 weeks for further evaluation. 02/08/2025: Weight 115 pounds, BMI 26.73. SECA scan completed today and interpreted with the patient. On body analysis she is down 2 to 3 pounds of fat mass and has built about 1/2 pound of muscle mass. Has increased amounts of muscle of her body composition. Patient is receiving semaglutide 0.25 mg weekly in office. Reports no adverse effects at this time. Reviewed goals of diet and exercise. Semaglutide 0.25 mg administered retained sleeve today in office. Plan is to follow-up in office in 4 weeks. # Hypertension: Blood pressure 120/80. She is without chest pain, shortness of breath, dyspnea on exertion, or diaphoresis. Continue amlodipine besilate 5 mg once daily. Discussed proper use of the medication and expected side effect profile. Will continue to monitor. Please follow-up with PCP. # Hyperlipidemia: Lipid panel obtained 09/15/2024 with values including cholesterol 212, triglycerides 79, HDL 77, and LDL 119. Per ASCVD risk algorithm no statin recommended because 10-year risk less than 5%. Will continue to monitor and repeat lipid panel in a few months. # Endometrial cancer: Patient currently in remission of stage Ia endometrial cancer as of 2019. She has regular follow-up with gynecology, last note on 02/11/2024 for routine screening and pelvic examination. Will continue to monitor. All questions have been answered to patient's satisfaction. Patient verbalized understanding of diagnosis and treatments explained. Advised to call sooner prior to next visit it any questions/concerns arise. Case discussed with collaborating physician Mayo Kim who reviewed the assessment and plan. Chart, medications, labs, vital signs reviewed. Dictation was accomplished with the use of [employer] voice recognition software, which is prone to medical misidentifications and grammatical errors. This are unintentional and the practitioner does try to identify and correct these, but some could still be present. Please do not hesitate to contact practitioner for clarification. 01/12/2025 Dietary counseling (ICD-10 - Z71.3) Patient is here for weight management follow-up. We focused on significance of healthy lifestyle changes. We talked about need to track steps with goal between 6000-10,000 steps daily, focus on portion control, read food labels, get adequate sleep between 7 to 8 hours, get adequate rest to the body, meditate, frequent nutritious meals including vegetables and healthy choices of lean meats, fish, and elimination of refined carbohydrates. We also talked about mindfulness and mindful eating. Particular focus was on continuing to progressively add resistance training and increase protein intake to build muscle mass. Total time spent with 30 minutes with greater than 50% spent on counseling and coordinating care. 09/15/2024: Weight 122.6 pounds, BMI 28.49. SECA scan completed today and interpreted with the patient. She has high fat mass. Noted to have decreased muscle mass at approximately 22 pounds when minimum expected quantity estimated to be around 25 pounds. Visceral adipose tissue index slightly increased. She reports difficulty with reducing her weight. She follows lifestyle modifications including exercising daily before work and is currently following the whole 40 diet where she is not consuming carbohydrates or dairy products. We discussed clinical indications for weight management medications including phentermine, Contrave, and GLP-1 agonists. Patient is not a candidate for phentermine given history of high blood pressure on amlodipine. Given the patient's decreased muscle mass we discussed the mechanism of GLP-1 agonists as well as how they do not target fat loss rather target weight loss which can include muscle. Discussed the risks of continuing to decrease muscle loss as a relates to osteoporosis. For that reason the patient will be a good candidate for Contrave. We discussed the appropriate use of the medication including appropriate dosing schedule. Discussed expected side effect profile of the medication including but not limited to nausea, vomiting, headaches, dizziness, and constipation. Repeat labs ordered with results pending at this time. Patient demonstrates understanding. She will follow-up in the office in approximately 1 month for weight management. 10/12/2024: Weight 118 pounds, BMI 27.42. SECA scan completed today and interpreted with the patient. Overall down 4 pounds from previous visit. Is decreasing fat mass which she was congratulated for. Increase in muscle mass from 22.2 pounds to 22.5 pounds. Advised to continue working with appraiser personal property to build muscle mass. Reports side effect of dry mouth, advised patient to take the medication with a glass of water as well as to continue daily hydration. At this time plan to continue taking Contrave 90-80 mg 2 tablets twice daily. Discussed proper use of the medication as well as expected side effect profile. She will follow-up in the office in approximately 4 weeks for continued weight management. 11/09/2024: Weight 116.8 pounds, BMI 27.14. SECA scan completed today and interpreted with patient. She is down 2 pounds from last visit. Muscle mass has progressively increased from 22.5 pounds to 25 pounds which she was congratulated for. Now in increased range on scale. Reporting adverse effects of nausea/vomiting on Contrave 2 pills twice daily. We discussed stepping down to next lowest dose and trialing 1 pill in the morning and 1 pill in the evening or 2 pills in the morning and 1 pill in the evening. Patient demonstrates understanding and will titrate dose to best effect. 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 No other concerns, plan to continue Contrave 8-90 mg at a range of 2 to 3 pills daily. Discussed proper use of medication and potential side effect profile. She will follow-up in 4 weeks for further management. 12/14/2024: Weight 115 pounds, BMI 26.73. Seca scan completed today and interpreted with the patient. Approximately 1 pound decrease from last visit. She is no longer on Contrave at this time due to adverse GI side effects. On body composition patient has 45 pounds of fat mass, has had a slight reduction of approximately 0.5 pounds of muscle mass since last visit. Total of 24.7 pounds of muscle. Visceral adipose tissue index remains within normal limits at 1.1. For further weight management we discussed initiation of topiramate as well as compounded semaglutide or tirzepatide. At this time patient has interest in compounded GLP-1 which she may initiate when she returns from her trip to [facility] in December. She will follow-up in approximately 4 weeks. 01/12/2025: 01/12/2025: Weight 118 pounds, BMI 27.42. Seca scan completed today interpreted with the patient., Overall up about 2 pounds were last visit, however on body analysis she is up 2 pounds of muscle mass. Has increased amounts of muscle at this time which has greatly improved from her consultation. Milligram Contrave due to adverse effects. Interested in initiating compounded semaglutide. Discussed potential side effect profile including but not limited to nausea, constipation, abdominal pain, and heartburn. Reports no history of pancreatitis, multiple endocrine neoplasia syndrome in self or family, or history of medullary thyroid cancer in self or family. Advised the patient can receive injections weekly or biweekly as she chooses. Patient understanding. She will follow-up in office in 4 weeks for further evaluation. # Hypertension: Blood pressure 120/78. She is without chest pain, shortness of breath, dyspnea on exertion, or diaphoresis. Continue amlodipine besilate 5 mg once daily. Discussed proper use of the medication and expected side effect profile. Will continue to monitor. Please follow-up with PCP. # Hyperlipidemia: Lipid panel obtained 09/15/2024 with values including cholesterol 212, triglycerides 79, HDL 77, and LDL 119. Per ASCVD risk algorithm no statin recommended because 10-year risk less than 5%. Will continue to monitor and repeat lipid panel in a few months. # Endometrial cancer: Patient currently in remission of stage Ia endometrial cancer as of 2019. She has regular follow-up with gynecology, last note on 02/11/2024 for routine screening and pelvic examination. Will continue to monitor. All questions have been answered to patient's satisfaction. Patient verbalized understanding of diagnosis and treatments explained. Advised to call sooner prior to next visit it any questions/concerns arise. Case discussed with collaborating physician Mayo Kim who reviewed the assessment and plan. Chart, medications, labs, vital signs reviewed. Dictation was accomplished with the use of [employer] voice recognition software, which is prone to medical misidentifications and grammatical errors. This are unintentional and the practitioner does try to identify and correct these, but some could still be present. Please do not hesitate to contact practitioner for clarification. 04/04/2025 Endometrial carcinoma (ICD-10 - C54.1) Patient is here for weight management follow-up. We focused on significance of healthy lifestyle changes. We talked about need to track steps with goal between 6000-10,000 steps daily, focus on portion control, read food labels, get adequate sleep between 7 to 8 hours, get adequate rest to the body, meditate, frequent nutritious meals including vegetables and healthy choices of lean meats, fish, and elimination of refined carbohydrates. We also talked about mindfulness and mindful eating. Particular focus was on continuing portion control and maintaining physical activity. Total time spent with 30 minutes with greater than 50% spent on counseling and coordinating care. 09/15/2024: Weight 122.6 pounds, BMI 28.49. SECA scan completed today and interpreted with the patient. She has high fat mass. Noted to have decreased muscle mass at approximately 22 pounds when minimum expected quantity estimated to be around 25 pounds. Visceral adipose tissue index slightly increased. She reports difficulty with reducing her weight. She follows lifestyle modifications including exercising daily before work and is currently following the whole 40 diet where she is not consuming carbohydrates or dairy products. We discussed clinical indications for weight management medications including phentermine, Contrave, and GLP-1 agonists. Patient is not a candidate for phentermine given history of high blood pressure on amlodipine. Given the patient's decreased muscle mass we discussed the mechanism of GLP-1 agonists as well as how they do not target fat loss rather target weight loss which can include muscle. Discussed the risks of continuing to decrease muscle loss as a relates to osteoporosis. For that reason the patient will be a good candidate for Contrave. We discussed the appropriate use of the medication including appropriate dosing schedule. Discussed expected side effect profile of the medication including but not limited to nausea, vomiting, headaches, dizziness, and constipation. Repeat labs ordered with results pending at this time. Patient demonstrates understanding. She will follow-up in the office in approximately 1 month for weight management. 10/12/2024: Weight 118 pounds, BMI 27.42. SECA scan completed today and interpreted with the patient. Overall down 4 pounds from previous visit. Is decreasing fat mass which she was congratulated for. Increase in muscle mass from 22.2 pounds to 22.5 pounds. Advised to continue working with appraiser personal property to build muscle mass. Reports side effect of dry mouth, advised patient to take the medication with a glass of water as well as to continue daily hydration. At this time plan to continue taking Contrave 90-80 mg 2 tablets twice daily. Discussed proper use of the medication as well as expected side effect profile. She will follow-up in the office in approximately 4 weeks for continued weight management. 11/09/2024: Weight 116.8 pounds, BMI 27.14. SECA scan completed today and interpreted with patient. She is down 2 pounds from last visit. Muscle mass has progressively increased from 22.5 pounds to 25 pounds which she was congratulated for. Now in increased range on scale. Reporting adverse effects of nausea/vomiting on Contrave 2 pills twice daily. We discussed stepping down to next lowest dose and trialing 1 pill in the morning and 1 pill in the evening or 2 pills in the morning and 1 pill in the evening. Patient demonstrates understanding and will titrate dose to best effect. 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 No other concerns, plan to continue Contrave 8-90 mg at a range of 2 to 3 pills daily. Discussed proper use of medication and potential side effect profile. She will follow-up in 4 weeks for further management. 12/14/2024: Weight 115 pounds, BMI 26.73. Seca scan completed today and interpreted with the patient. Approximately 1 pound decrease from last visit. She is no longer on Contrave at this time due to adverse GI side effects. On body composition patient has 45 pounds of fat mass, has had a slight reduction of approximately 0.5 pounds of muscle mass since last visit. Total of 24.7 pounds of muscle. Visceral adipose tissue index remains within normal limits at 1.1. For further weight management we discussed initiation of topiramate as well as compounded semaglutide or tirzepatide. At this time patient has interest in compounded GLP-1 which she may initiate when she returns from her trip to [facility] in December. She will follow-up in approximately 4 weeks. 01/12/2025: 01/12/2025: Weight 118 pounds, BMI 27.42. Seca scan completed today interpreted with the patient., Overall up about 2 pounds were last visit, however on body analysis she is up 2 pounds of muscle mass. Has increased amounts of muscle at this time which has greatly improved from her consultation. Milligram Contrave due to adverse effects. Interested in initiating compounded semaglutide. Discussed potential side effect profile including but not limited to nausea, constipation, abdominal pain, and heartburn. Reports no history of pancreatitis, multiple endocrine neoplasia syndrome in self or family, or history of medullary thyroid cancer in self or family. Advised the patient can receive injections weekly or biweekly as she chooses. Patient understanding. She will follow-up in office in 4 weeks for further evaluation. 02/08/2025: Weight 115 pounds, BMI 26.73. SECA scan completed today and interpreted with the patient. On body analysis she is down 2 to 3 pounds of fat mass and has built about 1/2 pound of muscle mass. Has increased amounts of muscle of her body composition. Patient is receiving semaglutide 0.25 mg weekly in office. Reports no adverse effects at this time. Reviewed goals of diet and exercise. Semaglutide 0.25 mg administered retained sleeve today in office. Plan is to follow-up in office in 4 weeks. 03/07/2025: Weight 111 pounds, BMI 24.6. Seca scan completed and discussed with the patient. Patient is down approximately 4 pounds from her last visit. On body analysis has had a 3 pound decrease of fat mass, has 36.2% of her weight being fat mass but is now within normal ranges. Maintaining good muscle mass as well. Fat mass index of 8.9. Visceral adiposity remains within normal limits at 1.0. Patient currently receiving compounded semaglutide weekly in office. Has been doing well on 0.25 mg and will receive 0.5 mg in office today. Patient will follow-up in 4-6 weeks for further assessment. 04/04/2025: Weight 109 pounds, BMI 24.1. Seca scan completed and discussed with the patient. She is down 2 pounds from her last visit. On body analysis she is down 3 pounds of fat mass. She has a normal fat mass percentage amounting 34.2% of her body weight. She is maintaining very good muscle mass amounting 24.5% of her body weight. Fat mass index is down from 8.9-8.2 within normal limits. Visceral adiposity is also decreasing from 1.0-0.8 and maintaining within good range. She is down half an inch on her waist. Currently is receiving semaglutide 0.5 mg every other week in office. We discussed when limiting supply of semaglutide and discussed options for further weight management including Wegovy using coupon card and tirzepatide through [employer] direct. Patient understanding. At this time we will continue biweekly dosing and follow-up in 4 to 6 weeks. # Hypertension: Blood pressure 128/80. She is without chest pain, shortness of breath, dyspnea on exertion, or diaphoresis. Continue amlodipine besilate 5 mg once daily. Discussed proper use of the medication and expected side effect profile. Will continue to monitor. Please follow-up with PCP. # Hyperlipidemia: Lipid panel obtained 09/15/2024 with values including cholesterol 212, triglycerides 79, HDL 77, and LDL 119. Per ASCVD risk algorithm no statin recommended because 10-year risk less than 5%. Will continue to monitor and repeat lipid panel in a few months. # Endometrial cancer: Patient currently in remission of stage Ia endometrial cancer as of 2019. She has regular follow-up with gynecology, last note on 02/11/2024 for routine screening and pelvic examination. Will continue to monitor. All questions have been answered to patient's satisfaction. Patient verbalized understanding of diagnosis and treatments explained. Advised to call sooner prior to next visit it any questions/concerns arise. Case discussed with collaborating physician Mayo Kim who reviewed the assessment and plan. Chart, medications, labs, vital signs reviewed. Dictation was accomplished with the use of [employer] voice recognition software, which is prone to medical misidentifications and grammatical errors. This are unintentional and the practitioner does try to identify and correct these, but some could still be present. Please do not hesitate to contact practitioner for clarification. 05/17/2025 Endometrial carcinoma (ICD-10 - C54.1) Patient is here for weight management follow-up. We focused on significance of healthy lifestyle changes. We talked about need to track steps with goal between 6000-10,000 steps daily, focus on portion control, read food labels, get adequate sleep between 7 to 8 hours, get adequate rest to the body, meditate, frequent nutritious meals including vegetables and healthy choices of lean meats, fish, and elimination of refined carbohydrates. We also talked about mindfulness and mindful eating. Particular focus was on continuing portion control and maintaining physical activity. Total time spent with 30 minutes with greater than 50% spent on counseling and coordinating care. 09/15/2024: Weight 122.6 pounds, BMI 28.49. SECA scan completed today and interpreted with the patient. She has high fat mass. Noted to have decreased muscle mass at approximately 22 pounds when minimum expected quantity estimated to be around 25 pounds. Visceral adipose tissue index slightly increased. She reports difficulty with reducing her weight. She follows lifestyle modifications including exercising daily before work and is currently following the whole 40 diet where she is not consuming carbohydrates or dairy products. We discussed clinical indications for weight management medications including phentermine, Contrave, and GLP-1 agonists. Patient is not a candidate for phentermine given history of high blood pressure on amlodipine. Given the patient's decreased muscle mass we discussed the mechanism of GLP-1 agonists as well as how they do not target fat loss rather target weight loss which can include muscle. Discussed the risks of continuing to decrease muscle loss as a relates to osteoporosis. For that reason the patient will be a good candidate for Contrave. We discussed the appropriate use of the medication including appropriate dosing schedule. Discussed expected side effect profile of the medication including but not limited to nausea, vomiting, headaches, dizziness, and constipation. Repeat labs ordered with results pending at this time. Patient demonstrates understanding. She will follow-up in the office in approximately 1 month for weight management. 10/12/2024: Weight 118 pounds, BMI 27.42. SECA scan completed today and interpreted with the patient. Overall down 4 pounds from previous visit. Is decreasing fat mass which she was congratulated for. Increase in muscle mass from 22.2 pounds to 22.5 pounds. Advised to continue working with appraiser personal property to build muscle mass. Reports side effect of dry mouth, advised patient to take the medication with a glass of water as well as to continue daily hydration. At this time plan to continue taking Contrave 90-80 mg 2 tablets twice daily. Discussed proper use of the medication as well as expected side effect profile. She will follow-up in the office in approximately 4 weeks for continued weight management. 11/09/2024: Weight 116.8 pounds, BMI 27.14. SECA scan completed today and interpreted with patient. She is down 2 pounds from last visit. Muscle mass has progressively increased from 22.5 pounds to 25 pounds which she was congratulated for. Now in increased range on scale. Reporting adverse effects of nausea/vomiting on Contrave 2 pills twice daily. We discussed stepping down to next lowest dose and trialing 1 pill in the morning and 1 pill in the evening or 2 pills in the morning and 1 pill in the evening. Patient demonstrates understanding and will titrate dose to best effect. 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 No other concerns, plan to continue Contrave 8-90 mg at a range of 2 to 3 pills daily. Discussed proper use of medication and potential side effect profile. She will follow-up in 4 weeks for further management. 12/14/2024: Weight 115 pounds, BMI 26.73. Seca scan completed today and interpreted with the patient. Approximately 1 pound decrease from last visit. She is no longer on Contrave at this time due to adverse GI side effects. On body composition patient has 45 pounds of fat mass, has had a slight reduction of approximately 0.5 pounds of muscle mass since last visit. Total of 24.7 pounds of muscle. Visceral adipose tissue index remains within normal limits at 1.1. For further weight management we discussed initiation of topiramate as well as compounded semaglutide or tirzepatide. At this time patient has interest in compounded GLP-1 which she may initiate when she returns from her trip to [facility] in December. She will follow-up in approximately 4 weeks. 01/12/2025: 01/12/2025: Weight 118 pounds, BMI 27.42. Seca scan completed today interpreted with the patient., Overall up about 2 pounds were last visit, however on body analysis she is up 2 pounds of muscle mass. Has increased amounts of muscle at this time which has greatly improved from her consultation. Milligram Contrave due to adverse effects. Interested in initiating compounded semaglutide. Discussed potential side effect profile including but not limited to nausea, constipation, abdominal pain, and heartburn. Reports no history of pancreatitis, multiple endocrine neoplasia syndrome in self or family, or history of medullary thyroid cancer in self or family. Advised the patient can receive injections weekly or biweekly as she chooses. Patient understanding. She will follow-up in office in 4 weeks for further evaluation. 02/08/2025: Weight 115 pounds, BMI 26.73. SECA scan completed today and interpreted with the patient. On body analysis she is down 2 to 3 pounds of fat mass and has built about 1/2 pound of muscle mass. Has increased amounts of muscle of her body composition. Patient is receiving semaglutide 0.25 mg weekly in office. Reports no adverse effects at this time. Reviewed goals of diet and exercise. Semaglutide 0.25 mg administered retained sleeve today in office. Plan is to follow-up in office in 4 weeks. 03/07/2025: Weight 111 pounds, BMI 24.6. Seca scan completed and discussed with the patient. Patient is down approximately 4 pounds from her last visit. On body analysis has had a 3 pound decrease of fat mass, has 36.2% of her weight being fat mass but is now within normal ranges. Maintaining good muscle mass as well. Fat mass index of 8.9. Visceral adiposity remains within normal limits at 1.0. Patient currently receiving compounded semaglutide weekly in office. Has been doing well on 0.25 mg and will receive 0.5 mg in office today. Patient will follow-up in 4-6 weeks for further assessment. 04/04/2025: Weight 109 pounds, BMI 24.1. Seca scan completed and discussed with the patient. She is down 2 pounds from her last visit. On body analysis she is down 3 pounds of fat mass. She has a normal fat mass percentage amounting 34.2% of her body weight. She is maintaining very good muscle mass amounting 24.5% of her body weight. Fat mass index is down from 8.9-8.2 within normal limits. Visceral adiposity is also decreasing from 1.0-0.8 and maintaining within good range. She is down half an inch on her waist. Currently is receiving semaglutide 0.5 mg every other week in office. We discussed when limiting supply of semaglutide and discussed options for further weight management including Wegovy using [employer] card and tirzepatide through [employer] direct. Patient understanding. At this time we will continue biweekly dosing and follow-up in 4 to 6 weeks. 05/17/2025: Weight 106 pounds, BMI 24.8. Seca scale completed and discussed with the patient. Patient is down 3 pounds overall from her last visit. On body composition analysis she is down 2 pounds of fat mass. Fat mass index today is 7.9 within normal limits. She has had a slight reduction of her muscle by approximately 1 pound, maintains increased amounts of muscle mass. Visceral adiposity is stable at 0.8 L. Weight circumference today measuring 26 inches. Patient receiving semaglutide injections at 0.5 mg biweekly in office. No significant adverse effects. Physical so we will maintain this regimen until we run out of supply. Follow-up in approximately 6 weeks. # Hypertension: Blood pressure 122/80. She is without chest pain, shortness of breath, dyspnea on exertion, or diaphoresis. Continue amlodipine besilate 5 mg once daily. Discussed proper use of the medication and expected side effect profile. Will continue to monitor. Please follow-up with PCP. # Hyperlipidemia: Lipid panel obtained 09/15/2024 with values including cholesterol 212, triglycerides 79, HDL 77, and LDL 119. Per ASCVD risk algorithm no statin recommended because 10-year risk less than 5%. Will continue to monitor and repeat lipid panel in a few months. # Endometrial cancer: Patient currently in remission of stage Ia endometrial cancer as of 2019. She has regular follow-up with gynecology, last note on 02/11/2024 for routine screening and pelvic examination. Will continue to monitor. All questions have been answered to patient's satisfaction. Patient verbalized understanding of diagnosis and treatments explained. Advised to call sooner prior to next visit it any questions/concerns arise. Case discussed with collaborating physician Mayo Kim who reviewed the assessment and plan. Chart, medications, labs, vital signs reviewed. Dictation was accomplished with the use of [employer] voice recognition software, which is prone to medical misidentifications and grammatical errors. This are unintentional and the practitioner does try to identify and correct these, but some could still be present. Please do not hesitate to contact practitioner for clarification. 06/27/2025 Endometrial carcinoma (ICD-10 - C54.1) Patient is here for weight management follow-up. We focused on significance of healthy lifestyle changes. We talked about need to track steps with goal between 6000-10,000 steps daily, focus on portion control, read food labels, get adequate sleep between 7 to 8 hours, get adequate rest to the body, meditate, frequent nutritious meals including vegetables and healthy choices of lean meats, fish, and elimination of refined carbohydrates. We also talked about mindfulness and mindful eating. Particular focus was on continuing portion control and maintaining physical activity. Total time spent with 30 minutes with greater than 50% spent on counseling and coordinating care. 09/15/2024: Weight 122.6 pounds, BMI 28.49. SECA scan completed today and interpreted with the patient. She has high fat mass. Noted to have decreased muscle mass at approximately 22 pounds when minimum expected quantity estimated to be around 25 pounds. Visceral adipose tissue index slightly increased. She reports difficulty with reducing her weight. She follows lifestyle modifications including exercising daily before work and is currently following the whole 40 diet where she is not consuming carbohydrates or dairy products. We discussed clinical indications for weight management medications including phentermine, Contrave, and GLP-1 agonists. Patient is not a candidate for phentermine given history of high blood pressure on amlodipine. Given the patient's decreased muscle mass we discussed the mechanism of GLP-1 agonists as well as how they do not target fat loss rather target weight loss which can include muscle. Discussed the risks of continuing to decrease muscle loss as a relates to osteoporosis. For that reason the patient will be a good candidate for Contrave. We discussed the appropriate use of the medication including appropriate dosing schedule. Discussed expected side effect profile of the medication including but not limited to nausea, vomiting, headaches, dizziness, and constipation. Repeat labs ordered with results pending at this time. Patient demonstrates understanding. She will follow-up in the office in approximately 1 month for weight management. 10/12/2024: Weight 118 pounds, BMI 27.42. SECA scan completed today and interpreted with the patient. Overall down 4 pounds from previous visit. Is decreasing fat mass which she was congratulated for. Increase in muscle mass from 22.2 pounds to 22.5 pounds. Advised to continue working with appraiser personal property to build muscle mass. Reports side effect of dry mouth, advised patient to take the medication with a glass of water as well as to continue daily hydration. At this time plan to continue taking Contrave 90-80 mg 2 tablets twice daily. Discussed proper use of the medication as well as expected side effect profile. She will follow-up in the office in approximately 4 weeks for continued weight management. 11/09/2024: Weight 116.8 pounds, BMI 27.14. SECA scan completed today and interpreted with patient. She is down 2 pounds from last visit. Muscle mass has progressively increased from 22.5 pounds to 25 pounds which she was congratulated for. Now in increased range on scale. Reporting adverse effects of nausea/vomiting on Contrave 2 pills twice daily. We discussed stepping down to next lowest dose and trialing 1 pill in the morning and 1 pill in the evening or 2 pills in the morning and 1 pill in the evening. Patient demonstrates understanding and will titrate dose to best effect. 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 No other concerns, plan to continue Contrave 8-90 mg at a range of 2 to 3 pills daily. Discussed proper use of medication and potential side effect profile. She will follow-up in 4 weeks for further management. 12/14/2024: Weight 115 pounds, BMI 26.73. Seca scan completed today and interpreted with the patient. Approximately 1 pound decrease from last visit. She is no longer on Contrave at this time due to adverse GI side effects. On body composition patient has 45 pounds of fat mass, has had a slight reduction of approximately 0.5 pounds of muscle mass since last visit. Total of 24.7 pounds of muscle. Visceral adipose tissue index remains within normal limits at 1.1. For further weight management we discussed initiation of topiramate as well as compounded semaglutide or tirzepatide. At this time patient has interest in compounded GLP-1 which she may initiate when she returns from her trip to [facility] in December. She will follow-up in approximately 4 weeks. 01/12/2025: 01/12/2025: Weight 118 pounds, BMI 27.42. Seca scan completed today interpreted with the patient., Overall up about 2 pounds were last visit, however on body analysis she is up 2 pounds of muscle mass. Has increased amounts of muscle at this time which has greatly improved from her consultation. Milligram Contrave due to adverse effects. Interested in initiating compounded semaglutide. Discussed potential side effect profile including but not limited to nausea, constipation, abdominal pain, and heartburn. Reports no history of pancreatitis, multiple endocrine neoplasia syndrome in self or family, or history of medullary thyroid cancer in self or family. Advised the patient can receive injections weekly or biweekly as she chooses. Patient understanding. She will follow-up in office in 4 weeks for further evaluation. 02/08/2025: Weight 115 pounds, BMI 26.73. SECA scan completed today and interpreted with the patient. On body analysis she is down 2 to 3 pounds of fat mass and has built about 1/2 pound of muscle mass. Has increased amounts of muscle of her body composition. Patient is receiving semaglutide 0.25 mg weekly in office. Reports no adverse effects at this time. Reviewed goals of diet and exercise. Semaglutide 0.25 mg administered retained sleeve today in office. Plan is to follow-up in office in 4 weeks. 03/07/2025: Weight 111 pounds, BMI 24.6. Seca scan completed and discussed with the patient. Patient is down approximately 4 pounds from her last visit. On body analysis has had a 3 pound decrease of fat mass, has 36.2% of her weight being fat mass but is now within normal ranges. Maintaining good muscle mass as well. Fat mass index of 8.9. Visceral adiposity remains within normal limits at 1.0. Patient currently receiving compounded semaglutide weekly in office. Has been doing well on 0.25 mg and will receive 0.5 mg in office today. Patient will follow-up in 4-6 weeks for further assessment. 04/04/2025: Weight 109 pounds, BMI 24.1. Seca scan completed and discussed with the patient. She is down 2 pounds from her last visit. On body analysis she is down 3 pounds of fat mass. She has a normal fat mass percentage amounting 34.2% of her body weight. She is maintaining very good muscle mass amounting 24.5% of her body weight. Fat mass index is down from 8.9-8.2 within normal limits. Visceral adiposity is also decreasing from 1.0-0.8 and maintaining within good range. She is down half an inch on her waist. Currently is receiving semaglutide 0.5 mg every other week in office. We discussed when limiting supply of semaglutide and discussed options for further weight management including Wegovy using coupon card and tirzepatide through [employer]. Patient understanding. At this time we will continue biweekly dosing and follow-up in 4 to 6 weeks. 05/17/2025: Weight 106 pounds, BMI 24.8. Seca scale completed and discussed with the patient. Patient is down 3 pounds overall from her last visit. On body composition analysis she is down 2 pounds of fat mass. Fat mass index today is 7.9 within normal limits. She has had a slight reduction of her muscle by approximately 1 pound, maintains increased amounts of muscle mass. Visceral adiposity is stable at 0.8 L. Weight circumference today measuring 26 inches. Patient receiving semaglutide injections at 0.5 mg biweekly in office. No significant adverse effects. Physical so we will maintain this regimen until we run out of supply. Follow-up in approximately 6 weeks. 06/27/2025: Weight 106 pounds, BMI 24.63. Seca scan completed and discussed results with the patient. Weight has remained stable since her last visit. On body composition analysis she is down 4 pounds of fat mass. Fat mass index within normal limits at 7.0. Muscle mass has improved by 1.5 pounds. Visceral adiposity is within normal limits at 0.7. Patient had been receiving semaglutide injections in office, no longer available at this time. Discussed importance of lifestyle to maintain weight loss. She would like to reduce down to monthly dosing. Will prescribe Wegovy 0.5 mg [id number], patient will administer dose once monthly and will monitor side effects. Will follow-up in 6 weeks. # Hypertension: Blood pressure 126/80. She is without chest pain, shortness of breath, dyspnea on exertion, or diaphoresis. Continue amlodipine besilate 5 mg once daily. Discussed proper use of the medication and expected side effect profile. Will continue to monitor. Please follow-up with PCP. # Hyperlipidemia: Lipid panel obtained 09/15/2024 with values including cholesterol 212, triglycerides 79, HDL 77, and LDL 119. Per ASCVD risk algorithm no statin recommended because 10-year risk less than 5%. Will continue to monitor and repeat lipid panel in a few months. # Endometrial cancer: Patient currently in remission of stage Ia endometrial cancer as of 2019. She has regular follow-up with gynecology, last note on 02/11/2024 for routine screening and pelvic examination. Will continue to monitor. All questions have been answered to patient's satisfaction. Patient verbalized understanding of diagnosis and treatments explained. Advised to call sooner prior to next visit it any questions/concerns arise. Case discussed with collaborating physician Mayo Kim who reviewed the assessment and plan. Chart, medications, labs, vital signs reviewed. Dictation was accomplished with the use of [employer] voice recognition software, which is prone to medical misidentifications and grammatical errors. This are unintentional and the practitioner does try to identify and correct these, but some could still be present. Please do not hesitate to contact practitioner for clarification. 01/12/2025 Patient is here for weight management follow-up. We focused on significance of healthy lifestyle changes. We talked about need to track steps with goal between 6000-10,000 steps daily, focus on portion control, read food labels, get adequate sleep between 7 to 8 hours, get adequate rest to the body, meditate, frequent nutritious meals including vegetables and healthy choices of lean meats, fish, and elimination of refined carbohydrates. We also talked about mindfulness and mindful eating. Particular focus was on continuing to progressively add resistance training and increase protein intake to build muscle mass. Total time spent with 30 minutes with greater than 50% spent on counseling and coordinating care. 09/15/2024: Weight 122.6 pounds, BMI 28.49. SECA scan completed today and interpreted with the patient. She has high fat mass. Noted to have decreased muscle mass at approximately 22 pounds when minimum expected quantity estimated to be around 25 pounds. Visceral adipose tissue index slightly increased. She reports difficulty with reducing her weight. She follows lifestyle modifications including exercising daily before work and is currently following the whole 40 diet where she is not consuming carbohydrates or dairy products. We discussed clinical indications for weight management medications including phentermine, Contrave, and GLP-1 agonists. Patient is not a candidate for phentermine given history of high blood pressure on amlodipine. Given the patient's decreased muscle mass we discussed the mechanism of GLP-1 agonists as well as how they do not target fat loss rather target weight loss which can include muscle. Discussed the risks of continuing to decrease muscle loss as a relates to osteoporosis. For that reason the patient will be a good candidate for Contrave. We discussed the appropriate use of the medication including appropriate dosing schedule. Discussed expected side effect profile of the medication including but not limited to nausea, vomiting, headaches, dizziness, and constipation. Repeat labs ordered with results pending at this time. Patient demonstrates understanding. She will follow-up in the office in approximately 1 month for weight management. 10/12/2024: Weight 118 pounds, BMI 27.42. SECA scan completed today and interpreted with the patient. Overall down 4 pounds from previous visit. Is decreasing fat mass which she was congratulated for. Increase in muscle mass from 22.2 pounds to 22.5 pounds. Advised to continue working with [employer] to build muscle mass. Reports side effect of dry mouth, advised patient to take the medication with a glass of water as well as to continue daily hydration. At this time plan to continue taking Contrave 90-80 mg 2 tablets twice daily. Discussed proper use of the medication as well as expected side effect profile. She will follow-up in the office in approximately 4 weeks for continued weight management. 11/09/2024: Weight 116.8 pounds, BMI 27.14. SECA scan completed today and interpreted with patient. She is down 2 pounds from last visit. Muscle mass has progressively increased from 22.5 pounds to 25 pounds which she was congratulated for. Now in increased range on scale. Reporting adverse effects of nausea/vomiting on Contrave 2 pills twice daily. We discussed stepping down to next lowest dose and trialing 1 pill in the morning and 1 pill in the evening or 2 pills in the morning and 1 pill in the evening. Patient demonstrates understanding and will titrate dose to best effect. 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 No other concerns, plan to continue Contrave 8-90 mg at a range of 2 to 3 pills daily. Discussed proper use of medication and potential side effect profile. She will follow-up in 4 weeks for further management. 12/14/2024: Weight 115 pounds, BMI 26.73. Seca scan completed today and interpreted with the patient. Approximately 1 pound decrease from last visit. She is no longer on Contrave at this time due to adverse GI side effects. On body composition patient has 45 pounds of fat mass, has had a slight reduction of approximately 0.5 pounds of muscle mass since last visit. Total of 24.7 pounds of muscle. Visceral adipose tissue index remains within normal limits at 1.1. For further weight management we discussed initiation of topiramate as well as compounded semaglutide or tirzepatide. At this time patient has interest in compounded GLP-1 which she may initiate when she returns from her trip to [facility] in December. She will follow-up in approximately 4 weeks. 01/12/2025: # Hypertension: Blood pressure (). She is without chest pain, shortness of breath, dyspnea on exertion, or diaphoresis. Continue amlodipine besilate 5 mg once daily. Discussed proper use of the medication and expected side effect profile. Will continue to monitor. Please follow-up with PCP. # Hyperlipidemia: Lipid panel obtained 09/15/2024 with values including cholesterol 212, triglycerides 79, HDL 77, and LDL 119. Per ASCVD risk algorithm no statin recommended because 10-year risk less than 5%. Will continue to monitor and repeat lipid panel in a few months. # Endometrial cancer: Patient currently in remission of stage Ia endometrial cancer as of 2019. She has regular follow-up with gynecology, last note on 02/11/2024 for routine screening and pelvic examination. Will continue to monitor. All questions have been answered to patient's satisfaction. Patient verbalized understanding of diagnosis and treatments explained. Advised to call sooner prior to next visit it any questions/concerns arise. Case discussed with collaborating physician Mayo Kim who reviewed the assessment and plan. Chart, medications, labs, vital signs reviewed. Dictation was accomplished with the use of [employer] voice recognition software, which is prone to medical misidentifications and grammatical errors. This are unintentional and the practitioner does try to identify and correct these, but some could still be present. Please do not hesitate to contact practitioner for clarification. Plan Of Treatment Pending Test Test Name Order Date LIPID PANEL, STANDARD 09/15/2024 COMPREHENSIVE METABOLIC PANEL 09/15/2024 CBC (INCLUDES DIFF/PLT) 09/15/2024 TSH 09/15/2024 VITAMIN D,25-OH,TOTAL,IA 09/15/2024 Next Appt Details Provider Name:INOCENTE MEDEL , 08/16/2025 09:30:00 AM, [address] [place] [address], [facility] [address], [place], [address], Insurance Providers Payer Name Payer Address Payer Phone Subscriber Number Group Number Insured Name Patient Relationship to Insured Coverage Start Date Coverage End Date [employer] [address] [address] [place] [address] [id number] [phone] Corie Kirkpatrick Self - patient is the insured Medications Administered Medication Instructions Date of Administration Dosage Notes MICC B12 INJECTION 09/15/2024 1 mL MICC B12 INJECTION 12/14/2024 1 mg Semaglutide 01/12/2025 .25 mg Semaglutide 01/25/2025 .25 mg Semaglutide 02/21/2025 0.25 mg L tricep SQ Semaglutide 03/07/2025 .5 mg Semaglutide 03/23/2025 .5 mg Semaglutide 04/04/2025 .5 mg Semaglutide 04/17/2025 0.5 mg L tricep SQ Semaglutide 05/02/2025 .5 mg Semaglutide 05/30/2025 0.5 mg lot# [id number] 0.5mg Semaglutide 06/13/2025 0.5 mg Medical (General) History Medical History History ICD Code high blood pressure Arthritis weight gain/loss anxiety vision loss Surgical History Surgery Date(Month/Year) hysterectomy
== END 2025-07-04 15:08 | disposition home or self-care (01) ==
LOC: HO.HMCSH 14:10
PROVIDERS: PCP Internal Medicine; Visit Provider Internal Medicine
DX: I10 Essential (primary) hypertension (principal)

== ENCOUNTER 2025-10-18 09:00 | Outpatient (REF) | payer OTHER, SELFPAY ==
--- OUTSIDE RECORDS SUMMARY | 2025-03-23 06:00 | XMS_ITS ---
Author Organization [facility] [address] Address [address] [place] [address] Care Team Providers Care Lawyer Probate Name Role Phone Amanda Jackson Primary Care Provider Unavailab INOCENTE Laguerre Unavailable [phone] TRAVIS JACKSON Unavailable [phone] REASON FOR VISIT Pt received SEMA .5mg on left arm sub q, pt tolerated well with no reaction. Medications Medication SIG (Take, Route, Frequency, Duration) Notes Start Date End Date Status Estradiol Vaginal insert Activ e Curcumin 95 Active amLODIPine Besylate 5 MG Tablet Oral; Duration: 90 Days Active Vitamin D3 50 MCG Capsule 1 capsule Orally Once a day; Duration: 30 day(s) 09/15/2024 Active Encounters Encounter Location Date Provider Diagnosis [facility] [address] [address] 03/23/2025 TRAVIS JACKSON Plan Of Treatment Next Appt Details Provider Name:INOCENTE BIRKS , 11/29/2025 09:00:00 AM, [address] [facility], [place] [address], [place], [address], Medications Administered Medication Instructions Date of Administration Dosage Notes Semaglutide 03/23/2025 .5 mg Progress Notes * Corie LYONS BDOB:[birth year] (65 yo F)Acc No.[id number]:03/23/2025 Patient: Corie Tang Provider: Luis JACKSON NP :1960 A ge:64 Y S ex:Female Date:03/23/2025 Address:[address] [place] [address] [place], [place] Pcp:Amanda Jackson Subjective: * Chief Complaints: * P t received SEMA .5mg on left arm sub q, pt tolerated well with no reaction. * Medications: T akingEstradiol , Notes to Pharmacist: Vaginal insertCurcumin 95 amLODIPine Besylate 5 MG Tablet Oral Vitamin D3 50 MCG Capsule 1 capsule Orally Once a day Taking Estradiol , Notes to Pharmacist: Vaginal insertTaking Curcumin 95 Taking amLODIPine Besylate 5 MG Tablet Oral Taking Vitamin D3 50 MCG Capsule 1 capsule Orally Once a day Plan: * Therapeutic Injections: Semaglutide : .5 mg (Route: Subcutaneous) given by Vicki Bradley on left arm subcutaneous * Electronic signature of MIKA JACKSON on 10/18/2025 at 09:05 AM EST Sign off status: Pending * Provider: Luis JACKSON NP Date: 0 03/23/2025 Generated for Junior chapin/Martir/Emmanuel on: 12/19/2024 09:05 AM EST
--- OUTSIDE RECORDS SUMMARY | 2025-04-17 03:30 | XMS_ITS ---
Author Organization [facility] Address [address] [place] [address] Care Team Providers Care Ground Services Instructor Name Role Phone Manuel Sumiankita Primary Care Provider Unavailab INOCENTE Laguerre Unavailable [phone] KIAN KIM Unavailable [phone] REASON FOR VISIT pt presents in office today for nurse visit, administered semaglutide 0.5mg into her L tricep SQ and she tolerated injection well Medications Medication SIG (Take, Route, Frequency, Duration) Notes Start Date End Date Status Semaglutide(0.25 or 0.5MG/DOS) 2 MG/3ML Solution Pen-injector as directed Subcutaneous Active Estradiol Vaginal insert Activ e Curcumin 95 Active amLODIPine Besylate 5 MG Tablet Oral; Duration: 90 Days Active Vitamin D3 50 MCG Capsule 1 capsule Orally Once a day; Duration: 30 day(s) 09/15/2024 Active Encounters Encounter Location Date Provider Diagnosis [facility] [address] [place] [address] 04/17/2025 KIAN KIM Plan Of Treatment Next Appt Details Provider Name:INOCENTE WELCHKIP , 11/29/2025 09:00:00 AM, [address], [facility] [address], [address], Medications Administered Medication Instructions Date of Administration Dosage Notes Semaglutide 04/17/2025 0.5 mg L tricep SQ Progress Notes * Corei LYONS BDOB:[birth year] (65 yo F)Acc No.[id number]:04/17/2025 Patient: Ankita Corie werner Provider: Norm Kim MD :1960 A ge:64 Y S ex:Female Date:04/17/2025 Address:[address] [place], [place] [id number] Pcp:Amanda Jackson Subjective: * Chief Complaints: * yumiko rothman presents in office today for nurse visit, administered semaglutide 0.5mg into her L tricep SQ and she tolerated injection well * Medications: T akingSemaglutide(0.25 or 0.5MG/DOS) 2 MG/3ML Solution Pen-injector as directed Subcutaneous Estradiol , Notes to Pharmacist: Vaginal insertCurcumin 95 amLODIPine Besylate 5 MG Tablet Oral Vitamin D3 50 MCG Capsule 1 capsule Orally Once a day Taking Semaglutide(0.25 or 0.5MG/DOS) 2 MG/3ML Solution Pen-injector as directed Subcutaneous Taking Estradiol , Notes to Pharmacist: Vaginal insertTaking Curcumin 95 Taking amLODIPine Besylate 5 MG Tablet Oral Taking Vitamin D3 50 MCG Capsule 1 capsule Orally Once a day Plan: * Therapeutic Injections: Semaglutide : 0.5 mg (Route: Subcutaneous) given by Denise Locke on subcutaneus * Electronic signature of GIULIA KIM MD on 10/18/2025 at 09:05 AM EST Sign off status: Pending * Provider: Norm Kim MD Date: 0 04/17/2025 Generated for Junior chapin/Martir/Emmanuel on: 1 12/19/2024 09:05 AM EST
--- OUTSIDE RECORDS SUMMARY | 2025-05-02 03:30 | XMS_ITS ---
Author Organization [facility] Address [address] [place] [address] Care Team Providers Care Courtesy Driver Name Role Phone Manuel Sumiankita Primary Care Provider Unavailab INOCENTE Laguerre Unavailable [phone] KIAN KIM Unavailable [phone] REASON FOR VISIT pt presents for nurse visit. sema .5mg administered. pt tolerated well, consent form signed Medications Medication SIG (Take, Route, Frequency, Duration) Notes Start Date End Date Status amLODIPine Besylate 5 MG Tablet Oral; Duration: 90 Days Active Vitamin D3 50 MCG Capsule 1 capsule Orally Once a day; Duration: 30 day(s) 09/15/2024 Active Estradiol Vaginal insert Activ e Curcumin 95 Active Semaglutide(0.25 or 0.5MG/DOS) 2 MG/3ML Solution Pen-injector as directed Subcutaneous Active Encounters Encounter Location Date Provider Diagnosis [facility] [address] [place] [address] 05/02/2025 KIAN KIM Plan Of Treatment Next Appt Details Provider Name:INOCENTE WELCHKIP , 11/29/2025 09:00:00 AM, [address], [facility] [address], [place], [address], Medications Administered Medication Instructions Date of Administration Dosage Notes Semaglutide 05/02/2025 .5 mg Progress Notes * Corie LYONS BDOB:[birth year] (65 yo F)Acc No.[id number]:05/02/2025 Patient: Ankita Corie werner Provider: Norm Kim MD :1960 A ge:64 Y S ex:Female Date:05/02/2025 Address:[address] [place] [address] [facility] Pcp:Amanda Jackson Subjective: * Chief Complaints: * P t presents for nurse visit. sema .5mg administered. pt tolerated well, consent form signed * Medications: T akingSemaglutide(0.25 or 0.5MG/DOS) 2 [...] : .5 mg (Route: Subcutaneous) given by Roxanna Tyler on left arm subcutaneous * Electronic signature of GIULIA KIM MD on 10/18/2025 at 09:05 AM EST Sign off status: Pending * Provider: Norm Kim MD Date: 0 05/02/2025 Generated for Junior chapin/Martir/Emmnauel on: 12/19/2024 09:05 AM EST
--- OUTSIDE RECORDS SUMMARY | 2025-05-30 03:30 | XMS_ITS ---
Author Organization [facility] Address [address] [place] [address] Care Team Providers Care Inspector Plating Name Role Phone Manuel Sumiankita Primary Care Provider Unavailab INOCENTE Laguerre Unavailable [phone] KIAN KIM Unavailable [phone] REASON FOR VISIT pt is here for nv for sema 0.5mg- pt signed consent and tolerated injection well Medications Medication SIG (Take, Route, Frequency, Duration) Notes Start Date End Date Status Vitamin D3 50 MCG Capsule 1 capsule Oral ly Once a day; Duration: 30 day(s) 09/15/2024 Active Semaglutide(0.25 or 0.5MG/DOS) 2 MG/3ML Solution Pen-injector as directed Subcutaneous Active amLODIPine Besylate 5 MG Tablet Oral; Duration: 90 Days Acti ve Encounters Encounter Location Date Provider Diagnosis [facility] [address] [place] [address] 05/30/2025 KIAN KIM Plan Of Treatment Next Appt Details Provider Name:INOCENTE MEDEL , 11/29/2025 09:00:00 AM, [address], [address], [place], [address], Medications Administered Medication Instructions Date of Administration Dosage Notes Semaglutide 05/30/2025 0.5 mg lot# [id number] 0.5mg Progress Notes * Corie LYONS BDOB:[birth year] (65 yo F)Acc No.[id number]:05/30/2025 Patient: Ankita Corie werner Provider: Norm Kim MD :1960 A ge:64 Y S ex:Female Date:05/30/2025 Address:[address] [place] [address] [address] [id number] Pcp:Amanda Jackson Subjective: * Chief Complaints: * P t is here for nv for sema 0.5mg- pt signed consent and tolerated injection well * Medications: T akingSemaglutide(0.25 or 0.5MG/DOS) 2 MG/3ML Solution Pen-injector as directed Subcutaneous amLODIPine Besylate 5 MG Tablet Oral Vitamin D3 50 MCG Capsule 1 capsule Orally Once a day Taking Semaglutide(0.25 or 0.5MG/DOS) 2 MG/3ML Solution Pen-injector as directed Subcutaneous Taking amLODIPine Besylate 5 MG Tablet Oral Taking Vitamin D3 50 MCG Capsule 1 capsule Orally Once a day Plan: * Therapeutic Injections: Semaglutide : 0.5 mg (Route: Subcutaneous) given by maria victoria guilmette on subcutaneus * Electronic signature of GIULIA KIM MD on 10/18/2025 at 09:05 AM EST Sign off status: Pending * Provider: Norm Kim MD Date: 0 05/30/2025 Generated for Junior chapin/Martir/Emmanuel on: 1 12/19/2024 09:05 AM EST
--- OUTSIDE RECORDS SUMMARY | 2025-06-13 03:30 | XMS_ITS ---
Author Organization [facility] Address [address] [place] [address] Care Team Providers Care Plastic Shaper Name Role Phone Manuel Sumiankita Primary Care Provider Unavailab INOCENTE Laguerre Unavailable [phone] KIAN KIM Unavailable [phone] REASON FOR VISIT Patient is here for sema 0.5mg. Patient signed consent and left the office in stable condition Medications Medication SIG (Take, Route, Frequency, Duration) Notes Start Date End Date Status amLODIPine Besylate 5 MG Tablet Oral; Duration: 90 Days Acti ve Vitamin D3 50 MCG Capsule 1 capsule Oral ly Once a day; Duration: 30 day(s) 09/15/2024 Active Semaglutide(0.25 or 0.5MG/DOS) 2 MG/3ML Solution Pen-injector as directed Subcutaneous Active Encounters Encounter Location Date Provider Diagnosis [facility] [address] [place] [address] 06/13/2025 KIAN KIM Plan Of Treatment Next Appt Details Provider Name:INOCENTE MEDEL , 11/29/2025 09:00:00 AM, [address] [facility], [facility] [address], [place], [address], Medications Administered Medication Instructions Date of Administration Dosage Notes Semaglutide 06/13/2025 0.5 mg Progress Notes * Corie LYONS BDOB:[birth year] (65 yo F)Acc No.[id number]:06/13/2025 Patient: Ankita Corie werner Provider: Norm Kim MD :1960 A ge:64 Y S ex:Female Date:06/13/2025 Address:[address] [place] [address] [address] m[address], [facility] Pcp:Amanda Jackson Subjective: * Chief Complaints: * P atient is here for sema 0.5mg. Patient signed consent and left the office in stable condition * Medications: T akingSemaglutide(0.25 or 0.5MG/DOS) 2 [...] : 0.5 mg (Route: Subcutaneous) given by Fred Gutiérrez on left arm subcutaneous * Electronic signature of GIULIA KIM MD on 10/18/2025 at 09:05 AM EST Sign off status: Pending * Provider: Norm Kim MD Date: 0 06/13/2025 Generated for Junior chapin/Martir/Emmanuel on: 1 12/19/2024 09:05 AM EST
--- NOTE | ~2025-10-18 | MM_ITS ---
EXAMINATION: DXA BONE DENSITY AXIAL HISTORY: M81.0 - Age-related osteoporosis without current pathological fracture TECHNIQUE: All-Scrap Dual energy absorptiometry (DEXA) of the lumbar spine, total left hip, and femoral neck was performed. COMPARISON: There are no prior studies for comparison. FINDINGS: The bone mineral density of the lumbar spine is 1.037 g/cm2, corresponding to a T-score of -1.2, and a Z-score of 0.9. This is indicative of osteopenia. The bone mineral density of the left total hip is 1.025 g/cm2, corresponding to a T-score of 0.1, and a Z-score of 1.8. This is indicative of normal bone mineral density. The bone mineral density of the left femoral neck is 0.848 g/cm2, corresponding to a T-score of -1.4, and a Z-score of 0.5. This is indicative of osteopenia. FRACTURE RISK: The FRAX index suggests a risk of major osteoporotic fracture of 9.2%, and of hip fracture 0.6%. MM/XR DEXA axial skeleton IMPRESSION: Based on bone mineral density, and according to World Health Organization (WHO) criteria, the diagnosis is consistent with osteopenia. Statistically, 68% of repeat scans fall within 1 SD (+/- 0.010 g/cm2 for AP spine L1-L4) and 1 SD (+/- 0.012 g/cm2 for femur total) FRAX is a trademark of the [employer] [facility] [employer], a World Health Organization (WHO) Collaborating Center. Electronically signed by: Paul Hinojosa MD 10/18/2025 09:42 AM [facility]
--- OUTSIDE RECORDS SUMMARY | 2025-10-18 09:06 | XMS_ITS | Patient Health Record ---
Author Organization [facility] [address] Address [address] [place] [address] Care Team Providers Care Warranty Clerk Name Role Phone Amanda Jackson Primary Care Provider Unavailab INOCENTE Laguerre Unavailable [phone] KIMKIAN BOLDEN Unavailable [phone] MARIAHTRAVIS Zheng Unavailable [phone] Allergies No Known Allergies Reason For Referral No Information Medications Medication SIG (Take, Route, Frequency, Duration) Notes Start Date End Date Status Wegovy 0.5 MG/0.5ML Solution Auto-injector Inject 0.5 mg Subcutaneous weekly; Duration: 28 days 10/04/2025 Active Vitamin D3 50 MCG Capsule 1 capsule Oral ly Once a day; Duration: 30 day(s) 09/15/2024 Active amLODIPine Besylate 5 MG Tablet Oral; Duration: 90 Days Acti ve Problems Problem Type SNOMED Code ICD Code Onset Dates Problem Status W/U Status Risk Notes Problem Vitamin D deficiency (83713511) Vitamin D deficiency, unspecified (E55.9) Active confirmed Problem Overweight (117849404) Overweight (E66.3) Active confirmed Problem Lipid screening (386129956) Encounter for screening for lipoid disorders (Z13.220) Active confirmed Problem Essential hypertension (08846048) Essential hypertension (I10) Active confirmed Problem Adult health examination (166223023) Adult general medical exam (Z00.00) Active confirmed Problem Mixed hyperlipidemia (542082127) Hyperlipidemia, mixed (E78.2) Active confirmed Problem Endometrial carcinoma (283862439) Endometrial carcinoma (C54.1) Active confirmed Problem Endocrine/metaboli c screening (462148893) Encounter for screening for endocrine disorder (Z13.29) Active confirmed Vital Signs Heart Rate 72 /min 10/04/2025 Oximetry 98 % 10/04/2025 Blood pressure diastolic 74 mm Hg 10/04/2025 Height 55 in 10/04/2025 Blood pressure systolic 122 mm Hg 10/04/2025 Weight 101 lbs 10/04/2025 BMI 23.47 kg/m2 10/04/2025 Encounters Encounter Location Date Provider Diagnosis [facility] [address] [address] 01/25/2025 TRAVIS BORHOT [facility] [address] [place] [address] 02/21/2025 TALAL KIM [facility] [address] [address] 03/23/2025 TRAVIS [facility] [facility] [address] [place] [address] 04/17/2025 TALAL KIM [facility] [address] [place] [address] 05/02/2025 TALAL KIM [facility] [address] [place] [address] 05/30/[address] [facility] [address] [place] [address] 06/13/2025 TALAL KIM [facility] [address] [address] 11/09/2024 INOCENTE BIRKS Overweight E66.3 ; [place] 27.0-27.9,adult Z68.27 ; Essential hypertension I10 ; Hyperlipidemia, mixed E78.2 and Endometrial carcinoma C54.1 [facility] [address] [address] 12/14/2024 INOCENTE BIRKS Overweight E66.3 ; [place] 26.0-26.9,adult Z68.26 ; Essential hypertension I10 ; Hyperlipidemia, mixed E78.2 ; Endometrial carcinoma C54.1 and Dietary counseling Z71.3 [facility] [address] [address] 01/12/2025 INOCENTE BIRKS Overweight E66.3 ; [place] 27.0-27.9,adult Z68.27 ; Essential hypertension I10 ; Hyperlipidemia, mixed E78.2 ; Endometrial carcinoma C54.1 and Dietary counseling Z71.3 [facility] [address] [address] 02/08/2025 INOCENTE BIRKS Overweight E66.3 ; [place] 26.0-26.9,adult Z68.26 ; Essential hypertension I10 ; Hyperlipidemia, mixed E78.2 ; Endometrial carcinoma C54.1 and Dietary counseling Z71.3 [facility] [address] 03/07/2025 INOCENTE BIRKS Dietary counseling Z71.3 ; BMI 24.0-24.9, adult Z68.24 ; Essential hypertension I10 ; Hyperlipidemia, mixed E78.2 and Endometrial carcinoma C54.1 [facility] [address] 04/04/2025 INOCENTE BIRKS Dietary counseling Z71.3 ; BMI 24.0-24.9, adult Z68.24 ; Essential hypertension I10 ; Hyperlipidemia, mixed E78.2 and Endometrial carcinoma C54.1 [facility] [address] 05/17/2025 INOCENTE BIRKS Dietary counseling Z71.3 ; BMI 24.0-24.9, adult Z68.24 ; Essential hypertension I10 ; Hyperlipidemia, mixed E78.2 and Endometrial carcinoma C54.1 [facility] [address] 06/27/2025 INOCENTE BIRKS Dietary counseling Z71.3 ; BMI 24.0-24.9, adult Z68.24 ; Essential hypertension I10 ; Hyperlipidemia, mixed E78.2 and Endometrial carcinoma C54.1 [facility] [address] 08/16/2025 INOCENTE BIRKS Dietary counseling Z71.3 ; BMI 24.0-24.9, adult Z68.24 ; Essential hypertension I10 ; Hyperlipidemia, mixed E78.2 and Endometrial carcinoma C54.1 [facility] [address] 10/04/2025 INOCENTE BIRKS Dietary counseling Z71.3 ; BMI 23.0-23.9, adult Z68.23 ; Essential hypertension I10 ; Hyperlipidemia, mixed E78.2 and Endometrial carcinoma C54.1 [facility] [address] [address] 10/04/2025 INOCENTE MEDEL Dietary counseling Z71.3 [facility] [address] [address] 02/08/2025 Amanda Jackson Assessments Encounter Date Diagnosis (ICD Code) Assessment Notes Treatment Notes Treatment Clinical Notes Section Notes 11/09/2024 Overweight (ICD-10 - E66.3) Patient is [...] 22.5 pounds. Advised to continue working with personal injury specialist to build muscle mass. Reports side effect [...] and exercise, patient plans to see her personal injury specialist on Thursday for further physical activity. No [...] Dictation was accomplished with the use of [employer]ik[employer] voice recognition software, which is prone to [...] 22.5 pounds. Advised to continue working with personal injury specialist to build muscle mass. Reports side effect [...] and exercise, patient plans to see her personal injury specialist on Thursday for further physical activity. No [...] when she returns from her trip to [facility] in December. She will follow-up in [...] Dictation was accomplished with the use of [employer] voice recognition software, which is prone to [...] 22.5 pounds. Advised to continue working with personal injury specialist to build muscle mass. Reports side effect [...] and exercise, patient plans to see her personal injury specialist on Thursday for further physical activity. No [...] when she returns from her trip to [facility] in December. She will follow-up in [...] Dictation was accomplished with the use of [employer] voice recognition software, which is prone to [...] 22.5 pounds. Advised to continue working with personal injury specialist to build muscle mass. Reports side effect [...] and exercise, patient plans to see her personal injury specialist on Thursday for further physical activity. No [...] when she returns from her trip to [facility] in December. She will follow-up in [...] Dictation was accomplished with the use of [employer] voice recognition software, which is prone to [...] 22.5 pounds. Advised to continue working with personal injury specialist to build muscle mass. Reports side effect [...] and exercise, patient plans to see her personal injury specialist on Thursday for further physical activity. No [...] when she returns from her trip to [facility] in December. She will follow-up in [...] Dictation was accomplished with the use of [employer] voice recognition software, which is prone to [...] 22.5 pounds. Advised to continue working with personal injury specialist to build muscle mass. Reports side effect [...] and exercise, patient plans to see her personal injury specialist on Thursday for further physical activity. No [...] when she returns from her trip to [facility] in December. She will follow-up in [...] Dictation was accomplished with the use of [employer] voice recognition software, which is prone to [...] 22.5 pounds. Advised to continue working with personal injury specialist to build muscle mass. Reports side effect [...] and exercise, patient plans to see her personal injury specialist on Thursday for further physical activity. No [...] when she returns from her trip to [facility] in December. She will follow-up in [...] Dictation was accomplished with the use of [employer] voice recognition software, which is prone to [...] 22.5 pounds. Advised to continue working with personal injury specialist to build muscle mass. Reports side effect [...] and exercise, patient plans to see her personal injury specialist on Thursday for further physical activity. No [...] when she returns from her trip to [facility] in December. She will follow-up in [...] Dictation was accomplished with the use of [employer] voice recognition software, which is prone to [...] 22.5 pounds. Advised to continue working with personal injury specialist to build muscle mass. Reports side effect [...] and exercise, patient plans to see her personal injury specialist on Thursday for further physical activity. No [...] when she returns from her trip to [facility] in December. She will follow-up in [...] Dictation was accomplished with the use of [employer] voice recognition software, which is prone to [...] 22.5 pounds. Advised to continue working with personal injury specialist to build muscle mass. Reports side effect [...] and exercise, patient plans to see her personal injury specialist on Thursday for further physical activity. No [...] when she returns from her trip to [facility] in December. She will follow-up in [...] Dictation was accomplished with the use of [employer] voice recognition software, which is prone to [...] 22.5 pounds. Advised to continue working with personal injury specialist to build muscle mass. Reports side effect [...] and exercise, patient plans to see her personal injury specialist on Thursday for further physical activity. No [...] when she returns from her trip to [facility] in December. She will follow-up in [...] Dictation was accomplished with the use of [employer] voice recognition software, which is prone to [...] 22.5 pounds. Advised to continue working with personal injury specialist to build muscle mass. Reports side effect [...] and exercise, patient plans to see her personal injury specialist on Thursday for further physical activity. No [...] when she returns from her trip to [facility] in December. She will follow-up in [...] monthly dosing. Will prescribe Wegovy 0.5 mg [id number], patient will administer dose once monthly and [...] Dictation was accomplished with the use of Qik[employer]erve voice recognition software, which is prone to medical misidentifications and grammatical errors. This are unintentional and the practitioner does try to identify and correct these, but some could still be present. Please do not hesitate to contact practitioner for clarification. 08/16/2025 Dietary counseling (ICD-10 - Z71.3) Patient is [...] 22.5 pounds. Advised to continue working with personal injury specialist to build muscle mass. Reports side effect [...] and exercise, patient plans to see her personal injury specialist on Thursday for further physical activity. No [...] when she returns from her trip to [facility] in December. She will follow-up in [...] monthly dosing. Will prescribe Wegovy 0.5 mg [id number], patient will administer dose once monthly and will monitor side effects. Will follow-up in 6 weeks. 08/16/2025: Weight 104 pounds, BMI 24.17. Seca scan completed and discussed results with the patient. She is down about 2 pounds since her last evaluation. On body composition analysis fat mass has increased by approximately 1.5 pounds however still within normal limits with index of 7.3. Muscle mass with slight reduction by 2 pounds. Visceral adiposity of 0.8 L. She is on Wegovy 0.5 mg every other week [id number] for maintenance. Tolerating medication well. Will follow-up in 6 to 8 weeks. # Hypertension: Blood pressure is elevated today 142/80. She is without chest pain, shortness of [...] Dictation was accomplished with the use of [employer] voice recognition software, which is prone to medical misidentifications and grammatical errors. This are unintentional and the practitioner does try to identify and correct these, but some could still be present. Please do not hesitate to contact practitioner for clarification. 10/04/2025 BMI 23.0-23.9, adult (ICD-10 - Z68.23) Patient is here for weight management follow-up. [...] 22.5 pounds. Advised to continue working with personal injury specialist to build muscle mass. Reports side effect [...] and exercise, patient plans to see her personal injury specialist on Thursday for further physical activity. No [...] when she returns from her trip to [facility] in December. She will follow-up in [...] monthly dosing. Will prescribe Wegovy 0.5 mg [id number], patient will administer dose once monthly and will monitor side effects. Will follow-up in 6 weeks. 08/16/2025: Weight 104 pounds, BMI 24.17. Seca scan completed and discussed results with the patient. She is down about 2 pounds since her last evaluation. On body composition analysis fat mass has increased by approximately 1.5 pounds however still within normal limits with index of 7.3. Muscle mass with slight reduction by 2 pounds. Visceral adiposity of 0.8 L. She is on Wegovy 0.5 mg every other week [id number] for maintenance. Tolerating medication well. Will follow-up in 6 to 8 weeks. 10/04/2025: Weight 101 pounds, BMI 23.47. Seca scan completed and discussed results with the patient. She is down approximately 3 pounds last evaluation, on body composition analysis fat mass has reduced by 1 pound with index of 7.3 within normal limits. Muscle mass has reduced slightly however still in increased composition. Visceral adiposity within normal limits. She currently is on Wegovy 0.5 mg every other week for maintenance. Reports good tolerance to medicine. Continue current regimen, follow-up again in 6 to 8 weeks. # Hypertension: Blood pressure 122/74. She is without chest pain, shortness of [...] Dictation was accomplished with the use of [employer]erve voice recognition software, which is prone to medical misidentifications and grammatical errors. This are unintentional and the practitioner does try to identify and correct these, but some could still be present. Please do not hesitate to contact practitioner for clarification. 10/04/2025 Dietary counseling (ICD-10 - Z71.3) Patient is [...] 22.5 pounds. Advised to continue working with personal injury specialist to build muscle mass. Reports side effect [...] and exercise, patient plans to see her personal injury specialist on Thursday for further physical activity. No [...] when she returns from her trip to [facility] in December. She will follow-up in [...] monthly dosing. Will prescribe Wegovy 0.5 mg [id number], patient will administer dose once monthly and will monitor side effects. Will follow-up in 6 weeks. 08/16/2025: Weight 104 pounds, BMI 24.17. Seca scan completed and discussed results with the patient. She is down about 2 pounds since her last evaluation. On body composition analysis fat mass has increased by approximately 1.5 pounds however still within normal limits with index of 7.3. Muscle mass with slight reduction by 2 pounds. Visceral adiposity of 0.8 L. She is on Wegovy 0.5 mg every other week [id number] for maintenance. Tolerating medication well. Will follow-up in 6 to 8 weeks. 10/04/2025: Weight 101 pounds, BMI 23.47. Seca scan completed and discussed results with the patient. She is down approximately 3 pounds last evaluation, on body composition analysis fat mass has reduced by 1 pound with index of 7.3 within normal limits. Muscle mass has reduced slightly however still in increased composition. Visceral adiposity within normal limits. She currently is on Wegovy 0.5 mg every other week for maintenance. Reports good tolerance to medicine. Continue current regimen, follow-up again in 6 to 8 weeks. # Hypertension: Blood pressure 122/74. She is without chest pain, shortness of [...] Dictation was accomplished with the use of [employer]erve voice recognition software, which is prone to medical misidentifications and grammatical errors. This are unintentional and the practitioner does try to identify and correct these, but some could still be present. Please do not hesitate to contact practitioner for clarification. 10/04/2025 Dietary counseling (ICD-10 - Z71.3) 10/04/2025 Essential hypertension (ICD-10 - I10) Patient is [...] 22.5 pounds. Advised to continue working with personal injury specialist to build muscle mass. Reports side effect [...] and exercise, patient plans to see her personal injury specialist on Thursday for further physical activity. No [...] when she returns from her trip to [facility] in December. She will follow-up in [...] monthly dosing. Will prescribe Wegovy 0.5 mg [id number], patient will administer dose once monthly and will monitor side effects. Will follow-up in 6 weeks. 08/16/2025: Weight 104 pounds, BMI 24.17. Seca scan completed and discussed results with the patient. She is down about 2 pounds since her last evaluation. On body composition analysis fat mass has increased by approximately 1.5 pounds however still within normal limits with index of 7.3. Muscle mass with slight reduction by 2 pounds. Visceral adiposity of 0.8 L. She is on Wegovy 0.5 mg every other week [id number] for maintenance. Tolerating medication well. Will follow-up in 6 to 8 weeks. 10/04/2025: Weight 101 pounds, BMI 23.47. Seca scan completed and discussed results with the patient. She is down approximately 3 pounds last evaluation, on body composition analysis fat mass has reduced by 1 pound with index of 7.3 within normal limits. Muscle mass has reduced slightly however still in increased composition. Visceral adiposity within normal limits. She currently is on Wegovy 0.5 mg every other week for maintenance. Reports good tolerance to medicine. Continue current regimen, follow-up again in 6 to 8 weeks. # Hypertension: Blood pressure 122/74. She is without chest pain, shortness of [...] Dictation was accomplished with the use of [employer] voice recognition software, which is prone to medical misidentifications and grammatical errors. This are unintentional and the practitioner does try to identify and correct these, but some could still be present. Please do not hesitate to contact practitioner for clarification. 08/16/2025 BMI 24.0-24.9, adult (ICD-10 - Z68.24) Patient [...] 22.5 pounds. Advised to continue working with personal injury specialist to build muscle mass. Reports side effect [...] and exercise, patient plans to see her personal injury specialist on Thursday for further physical activity. No [...] when she returns from her trip to [facility] in December. She will follow-up in [...] monthly dosing. Will prescribe Wegovy 0.5 mg [id number], patient will administer dose once monthly and will monitor side effects. Will follow-up in 6 weeks. 08/16/2025: Weight 104 pounds, BMI 24.17. Seca scan completed and discussed results with the patient. She is down about 2 pounds since her last evaluation. On body composition analysis fat mass has increased by approximately 1.5 pounds however still within normal limits with index of 7.3. Muscle mass with slight reduction by 2 pounds. Visceral adiposity of 0.8 L. She is on Wegovy 0.5 mg every other week [id number] for maintenance. Tolerating medication well. Will follow-up in 6 to 8 weeks. # Hypertension: Blood pressure is elevated today 142/80. She is without chest pain, shortness of [...] Dictation was accomplished with the use of [employer] voice recognition software, which is prone to [...] 22.5 pounds. Advised to continue working with personal injury specialist to build muscle mass. Reports side effect [...] and exercise, patient plans to see her personal injury specialist on Thursday for further physical activity. No [...] when she returns from her trip to [facility] in December. She will follow-up in [...] for further weight management including Wegovy using [employer]Ego card and tirzepatide through [employer]. Patient understanding. At this time we [...] monthly dosing. Will prescribe Wegovy 0.5 mg [id number], patient will administer dose once monthly and [...] Dictation was accomplished with the use of [employer] voice recognition software, which is prone to [...] 22.5 pounds. Advised to continue working with personal injury specialist to build muscle mass. Reports side effect [...] and exercise, patient plans to see her personal injury specialist on Thursday for further physical activity. No [...] when she returns from her trip to [facility] in December. She will follow-up in [...] Dictation was accomplished with the use of [employer] voice recognition software, which is prone to [...] 22.5 pounds. Advised to continue working with personal injury specialist to build muscle mass. Reports side effect [...] and exercise, patient plans to see her personal injury specialist on Thursday for further physical activity. No [...] when she returns from her trip to [facility] in December. She will follow-up in [...] Dictation was accomplished with the use of [employer] voice recognition software, which is prone to [...] 22.5 pounds. Advised to continue working with personal injury specialist to build muscle mass. Reports side effect [...] and exercise, patient plans to see her personal injury specialist on Thursday for further physical activity. No [...] when she returns from her trip to [facility] in December. She will follow-up in [...] Dictation was accomplished with the use of [employer] voice recognition software, which is prone to [...] 22.5 pounds. Advised to continue working with personal injury specialist to build muscle mass. Reports side effect [...] and exercise, patient plans to see her personal injury specialist on Thursday for further physical activity. No [...] when she returns from her trip to [facility] in December. She will follow-up in [...] Dictation was accomplished with the use of Dragon voice recognition software, which is prone to [...] 22.5 pounds. Advised to continue working with personal injury specialist to build muscle mass. Reports side effect [...] and exercise, patient plans to see her personal injury specialist on Thursday for further physical activity. No [...] when she returns from her trip to [facility] in December. She will follow-up in [...] Dictation was accomplished with the use of [employer] voice recognition software, which is prone to [...] 22.5 pounds. Advised to continue working with personal injury specialist to build muscle mass. Reports side effect [...] and exercise, patient plans to see her personal injury specialist on Thursday for further physical activity. No [...] when she returns from her trip to [facility] in December. She will follow-up in [...] Dictation was accomplished with the use of [employer] voice recognition software, which is prone to [...] 22.5 pounds. Advised to continue working with personal injury specialist to build muscle mass. Reports side effect [...] and exercise, patient plans to see her personal injury specialist on Thursday for further physical activity. No [...] Dictation was accomplished with the use of [employer] voice recognition software, which is prone to [...] 22.5 pounds. Advised to continue working with personal injury specialist to build muscle mass. Reports side effect [...] and exercise, patient plans to see her personal injury specialist on Thursday for further physical activity. No [...] Dictation was accomplished with the use of [employer] voice recognition software, which is prone to [...] 22.5 pounds. Advised to continue working with personal injury specialist to build muscle mass. Reports side effect [...] and exercise, patient plans to see her personal injury specialist on Thursday for further physical activity. No [...] when she returns from her trip to [facility] in December. She will follow-up in [...] Dictation was accomplished with the use of [employer] voice recognition software, which is prone to [...] 22.5 pounds. Advised to continue working with personal injury specialist to build muscle mass. Reports side effect [...] and exercise, patient plans to see her personal injury specialist on Thursday for further physical activity. No [...] when she returns from her trip to [facility] in December. She will follow-up in [...] Dictation was accomplished with the use of [employer] voice recognition software, which is prone to [...] 22.5 pounds. Advised to continue working with personal injury specialist to build muscle mass. Reports side effect [...] and exercise, patient plans to see her personal injury specialist on Thursday for further physical activity. No [...] when she returns from her trip to [facility] in December. She will follow-up in [...] Dictation was accomplished with the use of [employer] voice recognition software, which is prone to [...] 22.5 pounds. Advised to continue working with personal injury specialist to build muscle mass. Reports side effect [...] and exercise, patient plans to see her personal injury specialist on Thursday for further physical activity. No [...] when she returns from her trip to [facility] in December. She will follow-up in [...] Dictation was accomplished with the use of [employer] voice recognition software, which is prone to [...] 22.5 pounds. Advised to continue working with personal injury specialist to build muscle mass. Reports side effect [...] and exercise, patient plans to see her personal injury specialist on Thursday for further physical activity. No [...] when she returns from her trip to [facility] in December. She will follow-up in [...] Dictation was accomplished with the use of [employer] voice recognition software, which is prone to [...] 22.5 pounds. Advised to continue working with personal injury specialist to build muscle mass. Reports side effect [...] and exercise, patient plans to see her personal injury specialist on Thursday for further physical activity. No [...] when she returns from her trip to [facility] in December. She will follow-up in [...] Dictation was accomplished with the use of [employer] voice recognition software, which is prone to [...] 22.5 pounds. Advised to continue working with personal injury specialist to build muscle mass. Reports side effect [...] and exercise, patient plans to see her personal injury specialist on Thursday for further physical activity. No [...] when she returns from her trip to [facility] in December. She will follow-up in [...] monthly dosing. Will prescribe Wegovy 0.5 mg [id number], patient will administer dose once monthly and [...] Dictation was accomplished with the use of [employer] voice recognition software, which is prone to medical misidentifications and grammatical errors. This are unintentional and the practitioner does try to identify and correct these, but some could still be present. Please do not hesitate to contact practitioner for clarification. 08/16/2025 Essential hypertension (ICD-10 - I10) Patient is [...] 22.5 pounds. Advised to continue working with personal injury specialist to build muscle mass. Reports side effect [...] and exercise, patient plans to see her personal injury specialist on Thursday for further physical activity. No [...] when she returns from her trip to [facility] in December. She will follow-up in [...] monthly dosing. Will prescribe Wegovy 0.5 mg [id number], patient will administer dose once monthly and will monitor side effects. Will follow-up in 6 weeks. 08/16/2025: Weight 104 pounds, BMI 24.17. Seca scan completed and discussed results with the patient. She is down about 2 pounds since her last evaluation. On body composition analysis fat mass has increased by approximately 1.5 pounds however still within normal limits with index of 7.3. Muscle mass with slight reduction by 2 pounds. Visceral adiposity of 0.8 L. She is on Wegovy 0.5 mg every other week [id number] for maintenance. Tolerating medication well. Will follow-up in 6 to 8 weeks. # Hypertension: Blood pressure is elevated today 142/80. She is without chest pain, shortness of [...] Dictation was accomplished with the use of [employer] voice recognition software, which is prone to medical misidentifications and grammatical errors. This are unintentional and the practitioner does try to identify and correct these, but some could still be present. Please do not hesitate to contact practitioner for clarification. 10/04/2025 Hyperlipidemia, mixed (ICD-10 - E78.2) Patient is [...] 22.5 pounds. Advised to continue working with personal injury specialist to build muscle mass. Reports side effect [...] and exercise, patient plans to see her personal injury specialist on Thursday for further physical activity. No [...] when she returns from her trip to [facility] in December. She will follow-up in [...] monthly dosing. Will prescribe Wegovy 0.5 mg [id number], patient will administer dose once monthly and will monitor side effects. Will follow-up in 6 weeks. 08/16/2025: Weight 104 pounds, BMI 24.17. Seca scan completed and discussed results with the patient. She is down about 2 pounds since her last evaluation. On body composition analysis fat mass has increased by approximately 1.5 pounds however still within normal limits with index of 7.3. Muscle mass with slight reduction by 2 pounds. Visceral adiposity of 0.8 L. She is on Wegovy 0.5 mg every other week [id number] for maintenance. Tolerating medication well. Will follow-up in 6 to 8 weeks. 10/04/2025: Weight 101 pounds, BMI 23.47. Seca scan completed and discussed results with the patient. She is down approximately 3 pounds last evaluation, on body composition analysis fat mass has reduced by 1 pound with index of 7.3 within normal limits. Muscle mass has reduced slightly however still in increased composition. Visceral adiposity within normal limits. She currently is on Wegovy 0.5 mg every other week for maintenance. Reports good tolerance to medicine. Continue current regimen, follow-up again in 6 to 8 weeks. # Hypertension: Blood pressure 122/74. She is without chest pain, shortness of [...] Dictation was accomplished with the use of [employer] voice recognition software, which is prone to medical misidentifications and grammatical errors. This are unintentional and the practitioner does try to identify and correct these, but some could still be present. Please do not hesitate to contact practitioner for clarification. 10/04/2025 Endometrial carcinoma (ICD-10 - C54.1) Patient is [...] 22.5 pounds. Advised to continue working with personal injury specialist to build muscle mass. Reports side effect [...] and exercise, patient plans to see her personal injury specialist on Thursday for further physical activity. No [...] when she returns from her trip to [facility] in December. She will follow-up in [...] monthly dosing. Will prescribe Wegovy 0.5 mg [id number], patient will administer dose once monthly and will monitor side effects. Will follow-up in 6 weeks. 08/16/2025: Weight 104 pounds, BMI 24.17. Seca scan completed and discussed results with the patient. She is down about 2 pounds since her last evaluation. On body composition analysis fat mass has increased by approximately 1.5 pounds however still within normal limits with index of 7.3. Muscle mass with slight reduction by 2 pounds. Visceral adiposity of 0.8 L. She is on Wegovy 0.5 mg every other week [id number] for maintenance. Tolerating medication well. Will follow-up in 6 to 8 weeks. 10/04/2025: Weight 101 pounds, BMI 23.47. Seca scan completed and discussed results with the patient. She is down approximately 3 pounds last evaluation, on body composition analysis fat mass has reduced by 1 pound with index of 7.3 within normal limits. Muscle mass has reduced slightly however still in increased composition. Visceral adiposity within normal limits. She currently is on Wegovy 0.5 mg every other week for maintenance. Reports good tolerance to medicine. Continue current regimen, follow-up again in 6 to 8 weeks. # Hypertension: Blood pressure 122/74. She is without chest pain, shortness of [...] Dictation was accomplished with the use of [employer] voice recognition software, which is prone to medical misidentifications and grammatical errors. This are unintentional and the practitioner does try to identify and correct these, but some could still be present. Please do not hesitate to contact practitioner for clarification. 08/16/2025 Hyperlipidemia, mixed (ICD-10 - E78.2) Patient is [...] 22.5 pounds. Advised to continue working with personal injury specialist to build muscle mass. Reports side effect [...] and exercise, patient plans to see her personal injury specialist on Thursday for further physical activity. No [...] when she returns from her trip to [facility] in December. She will follow-up in [...] monthly dosing. Will prescribe Wegovy 0.5 mg [id number], patient will administer dose once monthly and will monitor side effects. Will follow-up in 6 weeks. 08/16/2025: Weight 104 pounds, BMI 24.17. Seca scan completed and discussed results with the patient. She is down about 2 pounds since her last evaluation. On body composition analysis fat mass has increased by approximately 1.5 pounds however still within normal limits with index of 7.3. Muscle mass with slight reduction by 2 pounds. Visceral adiposity of 0.8 L. She is on Wegovy 0.5 mg every other week [id number] for maintenance. Tolerating medication well. Will follow-up in 6 to 8 weeks. # Hypertension: Blood pressure is elevated today 142/80. She is without chest pain, shortness of [...] Dictation was accomplished with the use of [employer] voice recognition software, which is prone to [...] 22.5 pounds. Advised to continue working with personal injury specialist to build muscle mass. Reports side effect [...] and exercise, patient plans to see her personal injury specialist on Thursday for further physical activity. No [...] when she returns from her trip to [facility] in December. She will follow-up in [...] monthly dosing. Will prescribe Wegovy 0.5 mg [id number], patient will administer dose once monthly and [...] Dictation was accomplished with the use of [employer] voice recognition software, which is prone to [...] 22.5 pounds. Advised to continue working with personal injury specialist to build muscle mass. Reports side effect [...] and exercise, patient plans to see her personal injury specialist on Thursday for further physical activity. No [...] when she returns from her trip to [facility] in December. She will follow-up in [...] Dictation was accomplished with the use of [employer] voice recognition software, which is prone to [...] 22.5 pounds. Advised to continue working with personal injury specialist to build muscle mass. Reports side effect [...] and exercise, patient plans to see her personal injury specialist on Thursday for further physical activity. No [...] when she returns from her trip to [facility] in December. She will follow-up in [...] Wegovy using coupon card and tirzepatide through [employer] direct. Patient understanding. At this time we [...] Dictation was accomplished with the use of [employer] voice recognition software, which is prone to [...] 22.5 pounds. Advised to continue working with personal injury specialist to build muscle mass. Reports side effect [...] and exercise, patient plans to see her personal injury specialist on Thursday for further physical activity. No [...] when she returns from her trip to [facility] in December. She will follow-up in [...] Dictation was accomplished with the use of [employer] voice recognition software, which is prone to [...] 22.5 pounds. Advised to continue working with personal injury specialist to build muscle mass. Reports side effect [...] and exercise, patient plans to see her personal injury specialist on Thursday for further physical activity. No [...] when she returns from her trip to [facility] in December. She will follow-up in [...] Dictation was accomplished with the use of [employer] voice recognition software, which is prone to [...] 22.5 pounds. Advised to continue working with personal injury specialist to build muscle mass. Reports side effect [...] and exercise, patient plans to see her personal injury specialist on Thursday for further physical activity. No [...] when she returns from her trip to [facility] in December. She will follow-up in [...] Dictation was accomplished with the use of [employer] voice recognition software, which is prone to [...] 22.5 pounds. Advised to continue working with personal injury specialist to build muscle mass. Reports side effect [...] and exercise, patient plans to see her personal injury specialist on Thursday for further physical activity. No [...] when she returns from her trip to [facility] in December. She will follow-up in [...] Dictation was accomplished with the use of [employer] voice recognition software, which is prone to [...] 22.5 pounds. Advised to continue working with personal injury specialist to build muscle mass. Reports side effect [...] and exercise, patient plans to see her personal injury specialist on Thursday for further physical activity. No [...] Dictation was accomplished with the use of [employer] voice recognition software, which is prone to medical misidentifications and grammatical errors. This are unintentional and the practitioner does try to identify and correct these, but some could still be present. Please do not hesitate to contact practitioner for clarification. 11/09/2024 Endometrial carcinoma (ICD-10 - C54.1) Patient [...] 22.5 pounds. Advised to continue working with personal injury specialist to build muscle mass. Reports side effect [...] and exercise, patient plans to see her personal injury specialist on Thursday for further physical activity. No [...] Dictation was accomplished with the use of [employer] voice recognition software, which is prone to [...] 22.5 pounds. Advised to continue working with personal injury specialist to build muscle mass. Reports side effect [...] and exercise, patient plans to see her personal injury specialist on Thursday for further physical activity. No [...] when she returns from her trip to [facility] in December. She will follow-up in [...] Dictation was accomplished with the use of [employer] voice recognition software, which is prone to [...] 22.5 pounds. Advised to continue working with personal injury specialist to build muscle mass. Reports side effect [...] and exercise, patient plans to see her personal injury specialist on Thursday for further physical activity. No [...] when she returns from her trip to [facility] in December. She will follow-up in [...] Dictation was accomplished with the use of [employer] voice recognition software, which is prone to [...] 22.5 pounds. Advised to continue working with personal injury specialist to build muscle mass. Reports side effect [...] and exercise, patient plans to see her personal injury specialist on Thursday for further physical activity. No [...] when she returns from her trip to [facility] in December. She will follow-up in [...] Dictation was accomplished with the use of [employer] voice recognition software, which is prone to [...] 22.5 pounds. Advised to continue working with personal injury specialist to build muscle mass. Reports side effect [...] and exercise, patient plans to see her personal injury specialist on Thursday for further physical activity. No [...] when she returns from her trip to [facility] in December. She will follow-up in [...] Dictation was accomplished with the use of [employer] voice recognition software, which is prone to [...] 22.5 pounds. Advised to continue working with personal injury specialist to build muscle mass. Reports side effect [...] and exercise, patient plans to see her personal injury specialist on Thursday for further physical activity. No [...] when she returns from her trip to [facility] in December. She will follow-up in [...] Dictation was accomplished with the use of [employer] voice recognition software, which is prone to [...] 22.5 pounds. Advised to continue working with personal injury specialist to build muscle mass. Reports side effect [...] and exercise, patient plans to see her personal injury specialist on Thursday for further physical activity. No [...] when she returns from her trip to [facility] in December. She will follow-up in [...] monthly dosing. Will prescribe Wegovy 0.5 mg [id number], patient will administer dose once monthly and [...] Dictation was accomplished with the use of [employer] voice recognition software, which is prone to medical misidentifications and grammatical errors. This are unintentional and the practitioner does try to identify and correct these, but some could still be present. Please do not hesitate to contact practitioner for clarification. 08/16/2025 Endometrial carcinoma (ICD-10 - C54.1) Patient is [...] 22.5 pounds. Advised to continue working with personal injury specialist to build muscle mass. Reports side effect [...] and exercise, patient plans to see her personal injury specialist on Thursday for further physical activity. No [...] when she returns from her trip to [facility] in December. She will follow-up in [...] Wegovy using coupon card and tirzepatide through [employer]. Patient understanding. At this time we [...] monthly dosing. Will prescribe Wegovy 0.5 mg [id number], patient will administer dose once monthly and will monitor side effects. Will follow-up in 6 weeks. 08/16/2025: Weight 104 pounds, BMI 24.17. Seca scan completed and discussed results with the patient. She is down about 2 pounds since her last evaluation. On body composition analysis fat mass has increased by approximately 1.5 pounds however still within normal limits with index of 7.3. Muscle mass with slight reduction by 2 pounds. Visceral adiposity of 0.8 L. She is on Wegovy 0.5 mg every other week [id number] for maintenance. Tolerating medication well. Will follow-up in 6 to 8 weeks. # Hypertension: Blood pressure is elevated today 142/80. She is without chest pain, shortness of [...] Dictation was accomplished with the use of [employer] voice recognition software, which is prone to [...] Name:INOCENTE MEDEL , 11/29/2025 09:00:00 AM, [address] [facility], [address], [place], [address], Insurance Providers Payer Name Payer Address Payer Phone Subscriber Number Group Number Insured Name Patient Relationship to Insured Coverage Start Date Coverage End Date [employer] [address] [address] [place] [address] [id number] [phone] Corie Kirkpatrick Self - patient is the [...] .5 mg Semaglutide 05/30/2025 0.5 mg lot# [id number] 0.5mg Semaglutide 06/13/2025 0.5 mg Medical (General) History Medical History History ICD Code high blood pressure Arthritis weight gain/loss anxiety vision loss Surgical History Surgery Date(Month/Year) hysterectomy
== END 2025-10-18 09:01 | disposition home or self-care (01) ==
LOC: HO.MAMMO 09:00
PROVIDERS: PCP Internal Medicine; Visit Provider Internal Medicine
DX: M81.0 Age-related osteoporosis without current pathological fracture (principal)
CPT/HCPCS: 77080

== ENCOUNTER → 2025-10-18 09:15 | Outpatient (BNV) | payer OTHER, SELFPAY | PROVIDERS: PCP Internal Medicine; Visit Provider Radiology Diagnostic Radiology | DX: E28.39 Other primary ovarian failure (principal) | CPT/HCPCS: 77080 ==